=== PATIENT | female | born 1975 | race Hispanic/Latino ===

== ENCOUNTER 2018-08-26 02:18 | Observation (INO) | payer BC, SELFPAY ==
[2018-08-26] MEDS ORDERED: Morphine 4 MG/ML VIAL ONE ×2 (03:11→05:32)
[2018-08-26] MEDS ORDERED: Ondansetron PF 4 MG/2 ML Vial ONE ×2 (03:11→11:06)
[2018-08-26] MEDS ORDERED: PROPOFOL 20 ML ONE (03:34)
[2018-08-26 03:38] LABS: #Basophils 0.1 thou/uL (0.0-0.2); #Lymphocytes 2.8 thou/uL (1.20-3.40); #Monocytes 0.6 thou/uL (0.11-0.59); #Neutrophils 7.9 thou/uL (1.40-6.50); %Basophils 0.8 % (0.0-1.0); %Eosinophils 0.4 % (0.0-10.0); %Lymphocytes 24.3 % (21.0-51.0); %Neutrophils 69.5 % (42.0-75.0); Hemoglobin 12.9 g/dL (12.0-16.0); Mean Corpuscular HGB CONC 32.8 g/dL (32.0-36.0); Mean Corpuscular Hemoglobin 32.8 pg (27.0-31.0); Mean Platelet Volume 7.2 fL (7.4-10.4); Platelet Count 412 thou/uL (130-400); Red Blood Cell (RBC) Count 3.94 mill/uL (4.20-5.40); White Blood Cell (WBC) Count 11.4 thou/uL (4.8-10.8)
[2018-08-26 03:45] LABS: BHCG - Serum Negative (NEGATIVE); Pregs Control Background? CLEAR/WHITE (CLR/WHITE); Pregs Control Bar Appear? YES (CONTROL BAR)
[2018-08-26 03:47] LABS: INR-International Normal Ratio 0.8; PTT 24.2 SEC (22.9-36.1); Prothrombin Time 11.4 SEC (12.0-14.7)
[2018-08-26 04:00] LABS: ALT (SGPT) 9 U/L (8-55); AST (SGOT) 13 U/L (5-34); Albumin 3.1 g/dL (3.5-5.0); Alkaline Phosphatase 60 U/L (40-150); Anion Gap 16 mmol/L (10-20); BUN (Urea Nitrogen) 14 mg/dL (7.0-18.7); Bilirubin, Total Less than 0.2 mg/dL (0.2-1.2); Calc. Creatinine Clearance 0 mL/min (70-130); Carbon Dioxide 21 mmol/L (22-29); Chloride 98 mmol/L (98-107); Estimated GFR-MDRD 58; Globulin 3.7 g/dL (2.4-3.5); Glucose 494 mg/dL (70-105); Potassium 4.1 mmol/L (3.5-5.1); Protein, Total 6.8 g/dL (6.0-8.3); Sodium 131 mmol/L (136-145)
[2018-08-26] MEDS ORDERED: Ondansetron PF 4 MG/2 ML Vial IVP PRN (06:52)
[2018-08-26] MEDS ORDERED: Morphine 4 MG/ML VIAL IV PRN (06:53)
[2018-08-26] MEDS ORDERED: Ondansetron ODT 4 MG TAB PO PRN (07:01)
[2018-08-26] MEDS ORDERED: Insulin Regular 300 UNITS/3 ML VIAL SC PRN (07:01)
[2018-08-26] MEDS ORDERED: Dextrose 5% in Water 1,000 ML IV PRN (07:01)
[2018-08-26] MEDS ORDERED: hydrALAZINE 20 MG/ML VIAL SLOW IVP PRN (07:01)
[2018-08-26] MEDS ORDERED: Sodium Chloride 0.9% 1,000 ML IV SCH (07:01)
[2018-08-26] MEDS ORDERED: Dextrose 50% Abboject 50 ML SYRINGE SLOW IVP PRN (07:01)
[2018-08-26] MEDS ORDERED: Promethazine HCl 25 MG/ML VIAL IM PRN ×2 (07:01)
[2018-08-26 07:06] VITALS: BMI 31.6
[2018-08-26] MEDS ORDERED: Morphine 2 MG/ML SYRINGE SLOW IVP PRN (07:31)
[2018-08-26] MEDS: Ondansetron PF 4 MG/2 ML Vial IVP PRN (07:33)
[2018-08-26] MEDS: Sodium Chloride 0.9% 1,000 ML IV SCH ×2 (07:39→16:07)
[2018-08-26] MEDS: Famotidine 20 MG TAB PO SCH ×2 (09:40→19:44)
[2018-08-26] MEDS ORDERED: CEFAZOLIN 2 GM/50 ML-DEXTROSE 2 GM in Premix Bag 1 BAG IVPB SCH (10:15)
[2018-08-26] MEDS ORDERED: CEFAZOLIN/Water 2 GM/20 ML SYRINGE SLOW IVP SCH ×2 (10:15→13:49)
--- NOTE | 2018-08-26 10:23 | RAD ---
LEFT ANKLE 3 VIEWS: HISTORY: Left ankle pain. FINDINGS/IMPRESSION: There are displaced fractures of the medial and lateral malleolus with disruption of the ankle mortis e. POS: [facility]
--- NOTE | 2018-08-26 10:27 | RAD ---
PORTABLE CHEST 1 VIEW: DATE: 08/26/2018. TIME: 2:19 a.. HISTORY: Bimalleolar fractures of the left ankle. FINDINGS: The heart size is normal. The lungs are expanded without focal areas of consolidation, pneumothorace s, or pleural effusions are seen. IMPRESSION: No acute process. POS: [facility]
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
--- NOTE | 2018-08-26 10:37 | RAD ---
LEFT ANKLE 3 VIEWS: HISTORY: Post reduction. COMPARISON: Earlier exam of the same day. FINDINGS: Fiberglass cast material is now seen stabilizing a bimalleolar fracture. The fracture alignment is d efinitely improved as compared to the prior examination. There is still slight medial subluxation to the tibia. IMPRESSION: Reduction of the ankle fracture. POS: [facility]
[2018-08-26] MEDS ORDERED: Midazolam HCl 2 mg/2 ml Vial ONE (11:17)
[2018-08-26] MEDS ORDERED: Fentanyl 100 MCG/2 ML VIAL ONE (11:17)
[2018-08-26] MEDS ORDERED: CEFAZOLIN 2 GM/50 ML BAG ONE (11:21)
[2018-08-26] MEDS ORDERED: Bupivacaine PF 0.5% 30 ML VIAL ONE (11:53)
[2018-08-26] MEDS ORDERED: Morphine 10 MG/ML VIAL ONE (11:56)
--- NOTE | 2018-08-26 12:27 | HP ---
CHIEF COMPLAINT: Fall. HISTORY OF PRESENT ILLNESS: This is a 43-year-old female who reports tripping and falling over an ex tension cord. When she got up, she was unable to bear weight on her left ankle and she had deformity and swelling. PAST MEDICAL HISTORY: Significant for diabetes type 2. PAST SURGICAL HISTORY: She has had a partial nephrectomy. She has had an endometrial ablation, cesa rean section. She has had surgery and cholecystectomy. MEDICATIONS: Include Carafate. She is on insulin 15 units q.12 hours, Humalog 1 unit t.i.d., aspiri n 81, Protonix and Reglan. ALLERGIES: She has an allergy to FENTANYL. SOCIAL HISTORY: She is . She works as a caregiver. Occasional tobacco, social alcohol. FAMILY HISTORY: Diabetes. PHYSICAL EXAMINATION: VITAL SIGNS: Temperature 97.8, pulse 92, blood pressure 96/65. GENERAL: She is awake, alert, in no apparent distress. HEENT: Unremarkable. LUNGS: Clear. HEART: Regular rate and rhythm. ABDOMEN: Soft, nondistended, nontender, good bowel sounds. EXTREMITIES: She has got a splint on her left ankle. There is a small abrasion on the left knee. G ood capillary refill. LABORATORY DATA: White count 11.4, H&H is 12 and 39, platelet count 412. Her electrolytes are fine. Glucose is 494, repeat on that was 298. LFTs are normal. Coags are fine. X-RAY FINDINGS: X-ray shows a bimalleolar fracture, left ankle. It has been reduced. PLAN: Orthopedic consultation.
--- NOTE | 2018-08-26 13:50 | RAD ---
LEFT ANKLE 3 VIEWS: HISTORY: Bimalleolar fracture. FINDINGS: Three spot fluoroscopic intraoperative images of the left ankle demonstrate interval reduction and in ternal fixation of the bimalleolar fractures with plate and screws through the distal fibula and 2 sc rews through the medial malleolus since exam of 2:14 a.m. from the same date. Anatomic alignment has been restored. The ankle mortise appears normal. POS: [facility]
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
[2018-08-26] MEDS ORDERED: Succinylcholine Chloride 20 MG/ML 10 ml SYRINGE FS ONE (14:40)
[2018-08-26] MEDS ORDERED: PROPOFOL 200 MG/20 ML VIAL ONE (14:40)
[2018-08-26] MEDS ORDERED: PHENYLEPHRINE-NS 100 MCG/ML 10 ML SYRINGE ONE (14:40)
[2018-08-26] MEDS ORDERED: Lidocaine 1% PF 5 ML VIAL ONE (14:40)
[2018-08-26] MEDS ORDERED: Cyclobenzaprine 10 MG TAB PO PRN (15:43)
[2018-08-26] MEDS ORDERED: traMADol HCl 50 MG TAB PO PRN ×2 (15:43)
[2018-08-26] MEDS: Acetaminophen 500 MG TAB PO SCH ×2 (16:00→22:38)
[2018-08-26] MEDS: Ibuprofen 800 MG TAB PO SCH ×2 (16:00→22:38)
[2018-08-26] MEDS: CEFAZOLIN 2 GM/50 ML-DEXTROSE 2 GM in Premix Bag 1 BAG IVPB SCH (19:46)
[2018-08-27] MEDS: Acetaminophen 500 MG TAB PO SCH ×4 (03:23→22:33)
[2018-08-27] MEDS: Ondansetron PF 4 MG/2 ML Vial IVP PRN (03:23)
[2018-08-27] MEDS: CEFAZOLIN 2 GM/50 ML-DEXTROSE 2 GM in Premix Bag 1 BAG IVPB SCH (03:24)
[2018-08-27 05:45] LABS: Anion Gap 9 mmol/L (10-20); BUN (Urea Nitrogen) 17 mg/dL (7.0-18.7); Calc. Creatinine Clearance 75 mL/min (70-130); Calcium 7.9 mg/dL (7.8-10.44); Carbon Dioxide 26 mmol/L (22-29); Chloride 106 mmol/L (98-107); Estimated GFR-MDRD 53; Glucose 214 mg/dL (70-105); Potassium 4.2 mmol/L (3.5-5.1); Sodium 137 mmol/L (136-145)
[2018-08-27 05:53] LABS: #Basophils 0.1 thou/uL (0.0-0.2); #Eosinphils 0.2 thou/uL (0.0-0.7); #Lymphocytes 2.2 thou/uL (1.20-3.40); #Monocytes 0.9 thou/uL (0.11-0.59); #Neutrophils 4.8 thou/uL (1.40-6.50); %Basophils 0.9 % (0.0-1.0); %Eosinophils 2.3 % (0.0-10.0); %Lymphocytes 26.5 % (21.0-51.0); %Monocytes 10.8 % (0.0-10.0); %Neutrophils 59.6 % (42.0-75.0); Hemoglobin 10.2 g/dL (12.0-16.0); Mean Corpuscular HGB CONC 32.2 g/dL (32.0-36.0); Mean Corpuscular Hemoglobin 33.3 pg (27.0-31.0); Mean Platelet Volume 7.4 fL (7.4-10.4); Platelet Count 303 thou/uL (130-400); RBC Distribution Width 12.2 % (11.5-14.5); Red Blood Cell (RBC) Count 3.07 mill/uL (4.20-5.40); White Blood Cell (WBC) Count 8.1 thou/uL (4.8-10.8)
[2018-08-27] MEDS: Ibuprofen 800 MG TAB PO SCH ×2 (08:17→16:47)
[2018-08-27] MEDS: Famotidine 20 MG TAB PO SCH ×2 (08:17→20:40)
--- NOTE | 2018-08-27 10:12 | PRG ---
DATE OF SERVICE: 08/27/2018 Ms. Barone is a 43-year-old woman who is postoperative day #1, status post open reduction and interna l fixation of left medial and lateral malleolar fractures. She reports adequate pain control this mo rning She tolerated a diet. She is having normal bowel and urinary function. OBJECTIVE: VITAL SIGNS: This morning includes blood pressure 111/76, pulse is 85, respiration rate is 18, tempe rature is 98.2 degrees Fahrenheit, oxygen saturation 92% on room air. HEART: Reveals regular rate and rhythm, no murmurs or gallops auscultated. CHEST: Clear to auscultation bilaterally. Her breathing is regular and unlabored. ABDOMEN: Soft, nontender, nondistended. EXTREMITIES: Reveals 2+ radial and pedal pulses bilaterally. Left ankle is immobilized in a long sp lint. NEUROLOGIC: Reveals no focal deficits present. LABORATORY DATA: Today includes a CBC with 8100 white blood cells, hemoglobin and hematocrit is 10.2 and 31.8 respectively. Platelet count is 303,000. Metabolic profile: Sodium 137, potassium is 4.2 , chloride is 106, bicarbonate is 26, BUN 17, creatinine is 1.12, glucose is 214. IMPRESSION: 1. Postoperative day #1, status post open reduction internal fixation left bimalleolar ankle fractur e. 2. Acute hyperglycemia, stable type 2 diabetes mellitus. PLAN: 1. Increase activity per physical and occupational therapy. 2. We will saline lock and discontinue Lindsay catheterization. The patient will be discharged home soon once cleared by Orthopedic Surgery.
[2018-08-28] MEDS: Ibuprofen 800 MG TAB PO SCH ×2 (00:07→08:19)
[2018-08-28] MEDS: Acetaminophen 500 MG TAB PO SCH ×2 (04:10→09:35)
[2018-08-28] MEDS: Famotidine 20 MG TAB PO SCH (08:17)
[2018-08-28] MEDS ORDERED: Polyethylene Glycol 3350 17 GM Packet PO SCH (09:00)
[2018-08-28] MEDS ORDERED: Senokot 8.6 MG TAB PO SCH (09:00)
[2018-08-28 11:13] VITALS: BP 136/86; TEMP 98.2
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
--- NOTE | 2018-09-12 13:32 | EKG ---
Test Reason : Blood Pressure : / mmHG Vent. Rate : 122 BPM Atrial Rate : 120 BPM P-R Int : 000 ms QRS Dur : 060 ms QT Int : 328 ms P-R-T Axes : 000 016 047 degrees QTc Int : 467 ms Accelerated Junctional rhythm Abnormal ECG Confirmed by DEE CHAPMAN ([id number]), acquisition editor MICHAEL CHOE ([id number]) on 09/12/2018 1:31:54 PM Referred By: Confirmed By:DEE CHAPMAN
== END 2018-08-28 14:02 | disposition home or self-care (01) ==
LOC: ERS 02:18 → SURG A 05:26
PROVIDERS: ADMIT Surgery; ATTEND Surgery
PROC: 0QSK04Z Reposition Left Fibula with Internal Fixation Device, Open Approach (ICD-10-PCS; principal; 2018-08-28)
PROC: 0QSH04Z Reposition Left Tibia with Internal Fixation Device, Open Approach (ICD-10-PCS; 2018-08-28)
DX: S82.852A Displaced trimalleolar fracture of left lower leg, initial encounter for closed fracture (principal); E11.65 Type 2 diabetes mellitus with hyperglycemia; F32.9 Major depressive disorder, single episode, unspecified; F17.210 Nicotine dependence, cigarettes, uncomplicated; Z91.5 Personal history of self-harm; Z79.4 Long term (current) use of insulin; Z79.82 Long term (current) use of aspirin; Z79.899 Other long term (current) drug therapy; Z88.4 Allergy status to anesthetic agent; Z90.5 Acquired absence of kidney; Z96.41 Presence of insulin pump (external) (internal); W01.0XXA Fall on same level from slipping, tripping and stumbling without subsequent striking against object, initial encounter; Y92.009 Unspecified place in unspecified non-institutional (private) residence as the place of occurrence of the external cause
CPT/HCPCS: 27840; 36415; 36416; 71045; 76001; 80048; 80053; 84703; 85025; 85610; 85730; 90471; 90686; 93005; 96361; 96365; 96366; 96374; 96375; 96376; 99152; C1713; G0008; G0378; G8978-GP-CM; G8979-GP-CK; G8987-GO-CJ; G8988-GO-CI; J2001; J2250; J2270; J2405; J2704; J3010; S0020

== ENCOUNTER 2018-11-09 05:37 | Day surgery (SDC) | payer SELFPAY ==
[2018-11-06 16:06] VITALS: BMI 31.2
[2018-11-09] MEDS ORDERED: Midazolam HCl 2 mg/2 ml Vial ONE (06:14)
[2018-11-09] MEDS ORDERED: Fentanyl 100 MCG/2 ML VIAL ONE ×3 (06:14→13:29)
[2018-11-09] MEDS ORDERED: Ropivacaine 0.2% HCl/PF 0 ML ONE (06:14)
[2018-11-09] MEDS ORDERED: CEFAZOLIN 2 GM/50 ML BAG ONE (06:25)
[2018-11-09] MEDS ORDERED: Scopolamine 1.5 mg/72 hour Patch ONE (07:02)
[2018-11-09] MEDS ORDERED: Lidocaine 1% (PF) 30 ML VIAL ONE (10:39)
--- NOTE | 2018-11-09 14:00 | RAD ---
RADIOGRAPH LEFT ANKLE 2 VIEWS: Date: 11/09/18 Time: 1216 hours HISTORY: 43-year-old female status post open reduction and internal fixation of ankle fractures. COMPARISON: 08/26/18 at 1242 hours. FINDINGS: The previously demonstrated two lag screws entering the medial malleolus, have been removed. There is new medial metallic plate attached to bone with multiple screws, from distal tibial diaphysis to the distal metaphysis. The previously demonstrated metallic plate and screws from the distal fibular felipe physis to the distal tip of the lateral malleolus, remains. Alignment remains anatomical. There is an terior and medial soft tissue swelling. There is subcutaneous emphysema anterior to the distal tibial metaphysis. IMPRESSION: 1. Revision of distal tibial fracture repair, with removal of lag screws, and placement of new open reduction and internal fixation hardware. 2. Open reduction and internal fixation of distal fibula hardware remains unchanged. POS: [facility]
[2018-11-09] MEDS ORDERED: HYDROcodone/Acetaminophen 5/325 mg Tablet ONE (14:54)
[2018-11-09] MEDS ORDERED: PHENYLEPHRINE-NS 100 MCG/ML 10 ML SYRINGE ONE (16:41)
[2018-11-09] MEDS ORDERED: PROPOFOL 200 MG/20 ML VIAL ONE (16:41)
--- NOTE | 2018-11-09 20:08 | OP ---
DATE OF PROCEDURE: 11/09/2018 OPERATION PERFORMED: Left medial ankle hardware removal and left medial malleolus nonunion open reduction and internal fixation. 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 COMPLICATIONS: None. ESTIMATED BLOOD LOSS: Minimal. ANESTHESIA: General. IMPLANTS: Synthes medial tibial plate locking variable angle. INDICATIONS: Ms. Barone is a 43-year-old female who fractured her ankle. She was treated with nonweightbearing for two months. However, after that, she did begin weightbearing. She had a collapse of her medial ankle with subluxation of the medial malleolar fracture consistent with nonunion. The lateral ankle appeared healed. She was indicated for revision surgery with hardware removal and plating. Risks have been reviewed in detail. She elected to proceed. She is at risk for complications such as infection, nonunion, posttraumatic arthritis, and others. DESCRIPTION OF OPERATION: Ms. Barone is identified in the preoperative holding area. Her correct extremity was marked. She was carried to the operating room. She was positioned supine. General anesthesia was induced. A multidisciplinary time-out was performed. The left lower extremity was prepped and draped in a sterile fashion. We began the procedure with an approach to the medial malleolus. Dissected down through the subcutaneous tissues to the bony level. We incised the fascia and periosteum. We then exposed the underlying fracture. The fracture was mobile. It was clearly a nonunion. The fibrous tissue was excised. At this point, we removed the medial malleolar screws using appropriate screwdriver. We then reduced the fracture back into its anatomic position. This was held with K-wire fixation. We then applied a medial malleolar plate. Multiple screws were placed proximally and distally. We placed screws under intraoperative x-ray guidance. We then proceeded to pack a bone graft which was cadaver bone chips from the anterior tibia. This supported the talar dome restoring some of the impaction of the anterior aspect. Again, we took images. We thoroughly irrigated. We then closed with 0 Vicryl suture, 2-0 Vicryl suture, and nylon for the skin in interrupted fashion. A sterile dressing was applied and a splint was placed. The patient was taken to the recovery room at this point in good condition. Job ID: [id number]
== END 2018-11-09 15:20 | disposition home or self-care (01) ==
LOC: SDC 05:37
PROVIDERS: ATTEND Orthopaedic Surgery
PROC: 0QSH04Z Reposition Left Tibia with Internal Fixation Device, Open Approach (ICD-10-PCS; principal; 2018-11-09)
DX: S82.52XK Displaced fracture of medial malleolus of left tibia, subsequent encounter for closed fracture with nonunion (principal); F41.9 Anxiety disorder, unspecified; F32.9 Major depressive disorder, single episode, unspecified; E11.9 Type 2 diabetes mellitus without complications; Z87.891 Personal history of nicotine dependence; Z88.5 Allergy status to narcotic agent
CPT/HCPCS: 36416; 76000; C1713; J2001; J2250; J2704; J2795; J3010

== ENCOUNTER 2019-04-08 18:57 | Emergency (ER) | payer SELFPAY ==
--- NOTE | 2019-04-08 19:39 | RAD ---
LEFT KNEE FOUR VIEWS: 04/08/19 HISTORY: Knee pain. Joint spaces are well preserved. There is no signs of fracture, dislocation or joint effusion. IMPRESSION: Negative left knee. POS: [facility]
[2019-04-08] MEDS ORDERED: Morphine 4 MG/ML VIAL ONE (19:45)
[2019-04-08] MEDS ORDERED: Ondansetron PF 4 MG/2 ML Vial ONE (19:45)
[2019-04-08 20:29] LABS: #Basophils 0.1 thou/uL (0.0-0.2); #Eosinphils 0.5 thou/uL (0.0-0.7); #Lymphocytes 2.3 thou/uL (1.20-3.40); #Monocytes 0.8 thou/uL (0.11-0.59); #Neutrophils 9.4 thou/uL (1.40-6.50); %Basophils 0.8 % (0.0-1.0); %Eosinophils 3.6 % (0.0-10.0); %Lymphocytes 17.6 % (21.0-51.0); Hemoglobin 12.9 g/dL (12.0-16.0); Mean Corpuscular HGB CONC 33.2 g/dL (32.0-36.0); Mean Corpuscular Hemoglobin 33.5 pg (27.0-31.0); Mean Platelet Volume 7.1 fL (7.4-10.4); Platelet Count 378 thou/uL (130-400); RBC Distribution Width 11.6 % (11.5-14.5); Red Blood Cell (RBC) Count 3.84 mill/uL (4.20-5.40); White Blood Cell (WBC) Count 13.1 thou/uL (4.8-10.8)
[2019-04-08 20:36] LABS: INR-International Normal Ratio 0.9; PTT 28.7 SEC (22.9-36.1); Prothrombin Time 12.7 SEC (12.0-14.7)
[2019-04-08 20:47] LABS: Anion Gap 15 mmol/L (10-20); BUN (Urea Nitrogen) 12 mg/dL (7.0-18.7); Calc. Creatinine Clearance 0 mL/min (70-130); Carbon Dioxide 23 mmol/L (22-29); Chloride 100 mmol/L (98-107); Estimated GFR-MDRD 63; Glucose 337 mg/dL (70-105); Potassium 4.5 mmol/L (3.5-5.1); Sodium 133 mmol/L (136-145)
--- NOTE | 2019-04-08 21:38 | ULT ---
LEFT LOWER EXTREMITY VENOUS DUPLEX EXAM: HISTORY: Left leg pain and swelling. FINDINGS: Real-time color Doppler evaluation of the left lower extremity was performed from groin to calf. Thi s included evaluation of the common femoral, superficial and profunda femoral, saphenous, popliteal, and posterior tibial veins. This shows a patent deep venous system. There is soft tissue edema loo ge in the region of the ankle. IMPRESSION: No evidence of deep vein thrombosis. POS: [facility]
[2019-04-08] MEDS ORDERED: Morphine 2 MG/ML SYRINGE ONE (21:48)
== END 2019-04-08 22:27 | disposition home or self-care (01) ==
LOC: ERS 18:57
DX: M25.462 Effusion, left knee (principal); E10.9 Type 1 diabetes mellitus without complications; F41.9 Anxiety disorder, unspecified; F32.9 Major depressive disorder, single episode, unspecified; Z87.891 Personal history of nicotine dependence
CPT/HCPCS: 36415; 80048; 82550; 85025; 85610; 85730; J2270; J2405

== ENCOUNTER 2019-04-15 02:57 | Inpatient (IN) | payer SELFPAY ==
[2019-04-15] MEDS ORDERED: Ondansetron PF 4 MG/2 ML Vial ONE (03:49)
[2019-04-15] MEDS ORDERED: Morphine 4 MG/ML VIAL ONE ×2 (03:49→05:51)
[2019-04-15 04:11] LABS: Hemoglobin 11.3 g/dL (12.0-16.0); Mean Corpuscular HGB CONC 33.4 g/dL (32.0-36.0); Mean Platelet Volume 6.6 fL (7.4-10.4); Platelet Count 469 thou/uL (130-400); RBC Distribution Width 11.5 % (11.5-14.5); Red Blood Cell (RBC) Count 3.43 mill/uL (4.20-5.40); White Blood Cell (WBC) Count 8.5 thou/uL (4.8-10.8)
[2019-04-15 04:54] LABS: Band 13 % (5-11); Eosinophils 4 % (0-10); Lymphocytes 21 % (21-51); MDiff Complete? YES; Monocytes 6 % (0-10); Neutrophil 56 % (42-75)
[2019-04-15 05:42] LABS: ALT (SGPT) 9 U/L (8-55); AST (SGOT) 16 U/L (5-34); Albumin 2.4 g/dL (3.5-5.0); Alkaline Phosphatase 132 U/L (40-150); Anion Gap 13 mmol/L (10-20); BUN (Urea Nitrogen) 13 mg/dL (7.0-18.7); Bilirubin, Total Less than 0.2 mg/dL (0.2-1.2); Calc. Creatinine Clearance 0 mL/min (70-130); Calcium 9.4 mg/dL (7.8-10.44); Carbon Dioxide 22 mmol/L (22-29); Chloride 104 mmol/L (98-107); Estimated GFR-MDRD 73; Globulin 4.3 g/dL (2.4-3.5); Glucose 129 mg/dL (70-105); Potassium 4.1 mmol/L (3.5-5.1); Protein, Total 6.7 g/dL (6.0-8.3); Sodium 135 mmol/L (136-145)
[2019-04-15 06:59] VITALS: BMI 31.7
--- NOTE | 2019-04-15 07:44 | RAD ---
EXAM: 4 views of the left knee HISTORY: Knee pain and swelling COMPARISON: 04/08/2019 FINDINGS: A small knee effusion is seen. There is no evidence of acute fracture or dislocation. Mild diffuse significant degenerative changes are seen. No soft tissue swelling is present. IMPRESSION: No evidence of acute osseous abnormality.
[2019-04-15] MEDS: Vancomycin HCl 1 GM in Premix Bag 1 BAG IVPB SCH ×2 (08:30→20:51)
[2019-04-15] MEDS ORDERED: Vancomycin HCl 750 MG in Sodium Chloride 0.9% 250 ML 250 ML IVPB SCH (09:00)
[2019-04-15] MEDS: Piperacillin/Tazobactam 3.375 GM in Sodium Chloride 0.9% 100 ML IVPB SCH ×2 (12:15→17:52)
[2019-04-15] MEDS: Morphine 4 MG/ML VIAL SLOW IVP PRN ×2 (13:23→21:17)
[2019-04-15] MEDS: Ketorolac Tromethamine 30 MG/ML VIAL IVP SCH ×2 (13:24→20:44)
[2019-04-15] MEDS ORDERED: HumaLOG 300 UNITS/3 ML VIAL SC PRN (13:29)
[2019-04-15] MEDS ORDERED: Dextrose 5% in Water 1,000 ML IV PRN (13:29)
[2019-04-15] MEDS ORDERED: Dextrose 50% Abboject 50 ML SYRINGE SLOW IVP PRN (13:29)
[2019-04-15] MEDS ORDERED: NOVOLOG INSULIN PUMP SQ SCH (13:30)
--- NOTE | 2019-04-15 14:23 | ULT ---
EXAM: Left lower extremity venous Doppler HISTORY: Left lower extremity edema. FINDINGS: Grayscale, color-flow, Doppler evaluation, spectral analysis of the left lower extremity venous struc tures is performed with 2-D imaging. The left common femoral, superficial femoral, popliteal, posterior tibial, proximal greater saphenous and profunda femoral veins are imaged. There is normal luminal compressibility, flow, and augmentation in the visualized deep venous structu res of the left lower extremity. IMPRESSION: No evidence of a deep vein thrombosis in the visualized deep venous structures left lower extremity.
--- NOTE | 2019-04-15 15:58 | CON ---
DATE OF CONSULTATION: 04/15/2019 CONSULTING PHYSICIAN: Álvaro Joyce MD REASON FOR CONSULTATION: Swollen, left knee. BRIEF CLINICAL HISTORY: Concetta is a 43-year-old female, who is admitted to the Medicine Team for left knee swelling, which has been present and progressive for the last 3 to 5 days. Within the last 2 to 3 weeks, she has had a couple of visits to the emergency room for similar symptoms, discomfort and pain in the left knee. She has been treated symptomatically and released and she has been able to walk, but more recently she has had significant increase in pain and unable to stand, bear weight and walk on the knee. She denies any history of trauma or sentinel event, which started this process of insidious onset pain. Plain radiographs have been negative for acute injury to include fracture. PAST MEDICAL HISTORY: Significant for diabetes type 2. More recently, as of today, sedimentation rate was 130 and a C-reactive protein was 11.42. Glucose is in anywhere from 337 to 135, and her white count was 8.5 today. OBJECTIVE: VITAL SIGNS: Temperature 98.9, pulse 97, blood pressure is 176/82, pulse is 104, respiratory rate is 20 and nonlabored on room air, O2 saturation is 98%. EXTREMITIES: Visual inspection of the left knee demonstrates her to have a fluctuance noted in the parapatellar space anteriorly and medially consistent with a subcutaneous fluctuance. The capsule itself feels fine, but gross inspection of the knee does demonstrate overall fullness of the knee relative to the right. I see no subluxation. There is no deficit in the quadriceps tendon and patellar tendon appears intact; however, it is indurated and firm inferiorly in the peripatellar space. Range of motion is difficult to assess, but adequate, and again, no effusion is noted and ballottement is negative. There is no significant erythema, but the knee is warm. No breaks in the skin are noted in and around the parapatellar region. No malrotation or deformity is identified. IMPRESSION: Suspect left knee infrapatellar septic bursitis. PLAN: Go and start her on Zosyn and vancomycin empirically. Keep the patient n.p.o. after midnight and plan for a possible incision, drainage, and washout of the left knee in the morning. Job ID: [id number]
[2019-04-15] MEDS: Sodium Chloride 0.9% 1,000 ML IV SCH ×2 (16:00→21:26)
--- NOTE | 2019-04-15 18:47 | HP ---
PRIMARY CARE PROVIDER: Davin Mcarthur MD CHIEF COMPLAINT: Left knee pain. HISTORY OF PRESENT ILLNESS: This is a 43-year-old female, who presents with approximately a week-long history of persistent left knee pain, difficulty ambulating, swelling, and redness of the left lower extremity. The patient denied any specific direct trauma, injury, twisting of the knee, or prior injury. The patient apparently presented to the emergency room approximately a week prior to this evaluation on 04/09/2019 and treated symptomatically with Tylenol No. 3 and general reassurance. The patient underwent DVT rule out during the initial emergency room evaluation on 04/09/2019. The patient states the pain per progressed in the last 48 hours and is essentially unable to bear weight on the left lower leg. The patient's history is significant for a left ankle nonunion fracture, requiring an open reduction and internal fixation procedure in October 2018. The patient states she has had some difficulty with residual swelling of the left ankle over the last 6 months. The patient admitted to some chills without documented fever. Rated the pain as 10/10 in the emergency room and received a morphine sulfate 8 mg in addition to Zofran. The patient underwent a radiographic evaluation of the left knee showing a small effusion without evidence of bony destruction. The patient was referred to the Hospitalist Service for further evaluation. PAST MEDICAL HISTORY: 1. Left ankle fracture with nonunion, status post hardware removal with open reduction and internal fixation in October 2018. 2. Diabetes mellitus type 1 on insulin pump x5 years. 3. History of suicide attempt by cutting her wrist. 4. Question of a renal cell carcinoma. PAST SURGICAL HISTORY: 1. Status post insulin pump. 2. Status post uterine ablation. 3. Status post open reduction and internal fixation of left ankle. 4. Status post nephrectomy. CURRENT MEDICATIONS: NovoLog insulin pump. ALLERGIES: TO FENTANYL. FAMILY HISTORY: Positive for hypertension. SOCIAL HISTORY: The patient resides in [place], [place]. . Drinks socially. Former tobacco use. Occasional marijuana use. REVIEW OF SYSTEMS: CONSTITUTIONAL: Negative for weight loss or gain, ability to conduct usual activities. SKIN: Negative for rash, itching. EYES: Negative for double vision, pain. ENT/MOUTH: Negative for nose bleeding, neck stiffness, pain, tenderness. CARDIOVASCULAR: Negative for palpitations, dyspnea on exertion, orthopnea. RESPIRATORY: Negative for shortness of breath, wheezing, cough, hemoptysis, fever or night sweats. GASTROINTESTINAL: Negative for poor appetite, abdominal pain, heartburn, nausea, vomiting, constipation, or diarrhea. GENITOURINARY: Negative for urgency, frequency, dysuria, nocturia. MUSCULOSKELETAL: Negative for pain, swelling. NEUROLOGIC/PSYCHIATRIC: Negative for anxiety, depression. ALLERGY/IMMUNOLOGIC: Negative for skin rash, bleeding tendency. Otherwise, negative except as stated per HPI. PHYSICAL EXAMINATION: VITAL SIGNS: On admission; blood pressure 168/82, pulse 92, respiratory rate is 20, temperature 98.9 degrees Fahrenheit, and O2 saturation 98% on room air. GENERAL APPEARANCE: This is a 43-year-old female, alert and oriented x3, pleasant, smiling, in no acute distress. HEENT: Pupils are equal, round, and reactive to light and accommodation. Extraocular muscles are intact. No scleral icterus. No conjunctival injection. Nares patent. OP is clear. NECK: Supple. No cervical adenopathy. No thyromegaly. No carotid bruits. No JVD appreciated. Cervical spine with full active and passive range of motion. No meningeal signs noted. CHEST: Lungs are clear to auscultation bilaterally. CARDIOVASCULAR: S1 and S2 without noted murmur, rub, or gallop. ABDOMEN: Rounded, soft, nontender, and nondistended. Bowel sounds are positive in all 4 quadrants. No hepatosplenomegaly. No abdominal bruits. No rebound or guarding appreciated. EXTREMITIES: Left lower extremity with edema from the ankle to the knee with peripatellar effusion. Joint line tenderness medially and laterally. Limited passive range of motion of the left knee due to pain. Pitting edema noted on the left mid graham. Pulses are palpable distally at the dorsalis pedis, posterior tibial, and popliteal arteries bilaterally. Capillary refill less than 2 seconds. Postsurgical changes noted in the medial left ankle with intact scar. NEUROLOGIC: Cranial nerves 2 through 12 are grossly intact. No focal or lateralizing signs appreciated. PERTINENT LAB AND X-RAY FINDINGS: Sodium 135, potassium 4.1, chloride 104, CO2 of 22, BUN 13, creatinine 0.85, glucose 129, calcium 9.4, AST 16, ALT 9, and alkaline phosphatase 132. CRP 11.42. CBC showed a white blood cell count of 8.5, hemoglobin 11, hematocrit 34, MCV 99, platelet count 469 with 56% neutrophils, 13% bands, and ESR 130. D-dimer 2.76. Four views of the left knee dated 04/15/2019 showed no acute process. Small effusion noted. ASSESSMENT AND PLAN: 1. Septic arthritis of the left knee. The patient will be admitted to the medical floor. We will continue empiric IV antibiotic therapy with vancomycin 3.375 g IV q.6 hours with additional vancomycin 1 g IV q.12 hours. Orthopedic Surgery consult for potential aspiration versus open procedure. Blood cultures x2. Continue pain control with Toradol 30 mg IV q.6 hours with additional morphine sulfate 4 mg IV q.4 hours p.r.n. Ice therapy to the left knee as clinically indicated. 2. Left lower extremity edema. We will check lower extremity venous Doppler to rule out deep venous thrombosis given the patient's limited mobility x1 week. 3. Diabetes mellitus type 1. Continue subcutaneous insulin pump. Insulin sliding scale for reflexive coverage. ADA diet. Check A1c level in the a.m. 4. Elevated blood pressure. Suspect secondary to left knee pain. We will continue to monitor serial blood pressure trend. No formal diagnosis of hypertension. 5. Prophylaxis. Sequential compression devices held due to lower extremity edema. Lovenox 30 mg subcutaneously daily. Pepcid 20 mg p.o. b.i.d. 6. Code status is full. Surrogate medical decision maker is the patient's mother. Job ID: [id number]
[2019-04-15] MEDS: Famotidine 20 MG TAB PO SCH (20:44)
[2019-04-15] MEDS: hydrALAZINE 20 MG/ML VIAL SLOW IVP PRN (21:14)
[2019-04-16] MEDS: Piperacillin/Tazobactam 3.375 GM in Sodium Chloride 0.9% 100 ML IVPB SCH ×5 (00:31→23:33)
[2019-04-16] MEDS: Morphine 4 MG/ML VIAL SLOW IVP PRN (05:08)
[2019-04-16] MEDS: Ketorolac Tromethamine 30 MG/ML VIAL IVP SCH ×5 (05:09→23:33)
[2019-04-16 07:13] LABS: Hemoglobin A1c 13.9 % (4.0-6.0)
[2019-04-16 07:29] LABS: Anion Gap 9 mmol/L (10-20); BUN (Urea Nitrogen) 13 mg/dL (7.0-18.7); Calc. Creatinine Clearance 88 mL/min (70-130); Calcium 8.9 mg/dL (7.8-10.44); Carbon Dioxide 27 mmol/L (22-29); Chloride 104 mmol/L (98-107); Estimated GFR-MDRD 63; Glucose 138 mg/dL (70-105); Potassium 4.3 mmol/L (3.5-5.1); Sodium 136 mmol/L (136-145)
[2019-04-16 07:49] LABS: Hemoglobin 9.9 g/dL (12.0-16.0); Mean Corpuscular HGB CONC 32.4 g/dL (32.0-36.0); Mean Corpuscular Hemoglobin 32.1 pg (27.0-31.0); Mean Corpuscular Volume 99.2 fL (78.0-98.0); Mean Platelet Volume 5.8 fL (7.4-10.4); Platelet Count 465 thou/uL (130-400); RBC Distribution Width 11.4 % (11.5-14.5); Red Blood Cell (RBC) Count 3.08 mill/uL (4.20-5.40); White Blood Cell (WBC) Count 9.4 thou/uL (4.8-10.8)
[2019-04-16 08:29] LABS: Band 13 % (5-11); Eosinophils 8 % (0-10); Lymphocytes 30 % (21-51); MDiff Complete? YES; Metamyelocyte 1 % (0-0); Monocytes 3 % (0-10); Neutrophil 45 % (42-75); Platelet Morphology Comment Appears Increased; Polychromasia SLIGHT = 2-3 cells (100X) (0-2/hpf)
[2019-04-16] MEDS: Famotidine 20 MG TAB PO SCH ×2 (08:47→23:45)
[2019-04-16] MEDS: Enoxaparin Sodium 30 MG/0.3 ML SYRINGE SC SCH (08:47)
[2019-04-16] MEDS: Vancomycin HCl 1 GM in Premix Bag 1 BAG IVPB SCH ×2 (08:48→21:54)
[2019-04-16] MEDS: hydrALAZINE 20 MG/ML VIAL SLOW IVP PRN (08:49)
--- NOTE | 2019-04-16 10:05 | MRI ---
MRI Lower Ext Jt Lt WO Con HISTORY: Increasing knee pain and swelling x1 week. No history of injury. Left ankle surgery in Decem giuseppe. COMPARISON: Plain film of the knee dated 04/15/2019. FINDINGS: The anterior and posterior cruciate ligaments are intact. The medial meniscus is normal in shape and appearance. Lateral meniscus is also normal in appearance. The medial and lateral collateral ligaments and iliotibial band regions are normal The patellar articular cartilage is intact. The medial lateral patellar retinaculum are normal in kushal earance. The quadriceps tendon is normal. There is patellar tendinosis of the distal patellar tendon and a prominent deep infrapatellar bursa which is distended with fluid. There is a joint effusion present there is also subcutaneous edema change. There is also fluid extend ing into the musculotendinous junction of the vastus lateralis muscle. I suspect that this is probably related a joint capsule rupture given the lack of history of injury. It is possible that thi s represents a myotendinous muscle injury but this would be considered less likely. Area of bone infarct of the proximal tibia is incidentally noted. IMPRESSION: 1. No evidence of meniscal or cruciate ligament injury. 2. Mild patellar tendinosis of the distal patellar tendon. 3. Distended deep infra-patellar bursa. 4. Joint effusion with fluid or edema change extending into the musculotendinous junction of the vast us lateralis muscle, I would suspect that this is most likely on the basis of a joint capsule rupture and less likely a myotendinous junction injury given the lack of any history of trauma.
[2019-04-16] MEDS: Acetaminophen 500 MG TAB PO PRN (10:46)
[2019-04-16] MEDS: Ondansetron PF 4 MG/2 ML Vial IVP PRN (10:47)
--- NOTE | 2019-04-16 11:46 | MRI ---
MRI LEFT LOWER EXTREMITY WITHOUT CONTRAST: Date: 04/16/19 HISTORY: Pain. COMPARISON: MRI same date. FINDINGS: Infarct of medullary cavity of proximal tibia. Prior open reduction and internal fixation with medial plate and screw fixation of distal tibia and lateral plate and screw fixation of the distal femur. T his creates extensive distortion throughout the lower extremity. There is abnormal loss of T1 marrow signal within the calcaneus, with suggestion of a fracture of the posterior superior calcaneal tuberosity. This is incompletely evaluated on this exam. Extensive superficial soft tissue swelling. Mild edema with the anterior and posterior and lateral co mpartments. IMPRESSION: 1. Limited examination. Concern for osteomyelitis of the calcaneus with a fracture through the poste rior superior tuberosity. 2. Cellulitis of the lower extremity. 3. Mild edema within the anterior, lateral, and posterior compartments, may be on the basis of cellu litis and less likely infectious myositis. POS: CET
[2019-04-16] MEDS ORDERED: PROPOFOL 200 MG/20 ML VIAL ONE (12:14)
[2019-04-16] MEDS ORDERED: Lidocaine 1% PF 5 ML VIAL ONE (12:14)
[2019-04-16] MEDS ORDERED: diphenhydrAMINE 50 MG/ML VIAL ONE (12:14)
[2019-04-16] MEDS ORDERED: Ondansetron PF 4 MG/2 ML Vial ONE (12:14)
[2019-04-16] MEDS ORDERED: Fentanyl 100 MCG/2 ML VIAL ONE (13:45)
[2019-04-16] MEDS ORDERED: Midazolam HCl 2 mg/2 ml Vial ONE (13:45)
[2019-04-16] MEDS ORDERED: Neomycin-Polymyxin 1 ML AMP ONE (14:02)
[2019-04-16 14:59] LABS: BHCG - Serum Negative (NEGATIVE); Pregs Control Background? CLEAR/WHITE (CLR/WHITE); Pregs Control Bar Appear? YES (CONTROL BAR)
[2019-04-16] MEDS ORDERED: Morphine 10 MG/ML VIAL ONE (15:13)
[2019-04-16] MEDS ORDERED: Morphine Sulfate 2 MG/ML SYRINGE SLOW IVP PRN (15:37)
[2019-04-16] MEDS ORDERED: Ondansetron HCl/PF 4 MG/2 ML Vial IVP PRN (15:37)
[2019-04-16] MEDS ORDERED: Morphine 2 MG/ML SYRINGE ONE (16:16)
--- NOTE | 2019-04-16 16:19 | RAD ---
EXAM: 2 views of the left tibia/fibula HISTORY: Leg pain COMPARISON: None FINDINGS: There is no evidence of acute fracture or dislocation. Moderate diffuse soft tissue swellin g is seen. No degenerative changes are seen in the knee or ankle. Hardware is seen in the distal tibia and fibula. IMPRESSION: No evidence of acute osseous abnormality.
--- NOTE | 2019-04-16 16:22 | RAD ---
EXAM: 2 views of the left ankle HISTORY: Ankle pain COMPARISON: 11/09/2018; MRI left ankle 04/16/2019 FINDINGS: 2 views of the left ankle shows no evidence of acute fracture or dislocation. Hardware is s een in the distal tibia and fibula from prior fracture repair. No perihardware lucency is seen. Moderate diffuse soft tissue swelling is seen. No degenerative changes are present. There is irregula rity of the posterior calcaneus. IMPRESSION: Irregularity of the posterior calcaneus was seen on MRI and felt to be concerning for ost eomyelitis.
[2019-04-16 16:53] LABS: Fluid, Glucose 140 mg/dL (Not Available); Fluid, Protein Less than 1.0 g/dL (Not Available)
[2019-04-16 16:54] LABS: BF Color Colorless; BF RBC Count - Manual 3 /cumm; BF WBC/Nonhematics Ct. - Manua 58 /cumm; Body Fluid Source Synovial Fluid; Clarity Hazy (Clear); Tube # 1
[2019-04-16 16:55] LABS: BF Segmented Neutrophils 19 %; Cell Count Non Hematic 69 %; Lymphocytes 12 %
[2019-04-16] MEDS: Sodium Chloride 0.9% 1,000 ML IV SCH ×2 (17:26→23:35)
--- NOTE | 2019-04-16 18:23 | PDOC.PN ---
- Subjective Encounter Start Date: 04/16/19 Encounter Start Time: 17:35 Subjective: f/u for LLE peripatellar cellulitis and concern for septic arthritis -: tx with Vanc/Zosyn. L knee aspirated today with intial negative -: effusion. - Objective Resuscitation Status - Order Detail: 04/15/19 13:24 Resuscitation Status Routine Resuscitation Status: FULL: Full Resuscitation MAR Reviewed: Yes Vital Signs & Weight: Vital Signs (12 hours) Temp Pulse Resp BP BP Pulse Ox 04/16/19 12:00 98.0 F 88 20 160/75 H 04/16/19 09:30 145/89 H 04/16/19 08:49 75 182/91 H 04/16/19 08:47 97 04/16/19 08:00 98.2 F 75 20 185/96 H 97 Weight Weight 162 lb 6.4 oz I&O: 04/15/19 04/16/19 04/17/19 06:59 06:59 06:59 Intake Total 300 Output Total 350 Balance -50 Result Diagrams: 04/16/19 06:50 04/16/19 06:50 Additional Labs: Accuchecks 04/16/19 04/15/19 06:52 21:24 POC Glucose 137 H 130 H Microbiology 04/16/19 Unknown Synovial fluid Body Fluid Culture - Preliminary 04/16/19 15:15 Knee - Incision Bacterial Culture - Preliminary 04/15/19 14:57 Venous blood - Right Hand Blood Culture - Preliminary Specimen has been received and culture in progress. No Growth to date. 04/15/19 14:57 Venous blood - Left Arm Blood Culture - Preliminary Specimen has been received and culture in progress. No Growth to date. Laboratory Tests 04/15/19 04/16/19 04/16/19 03:39 06:50 06:50 Hgb 11.3 L Plt Count 469 H Band Neuts % (Manual) 13 H 13 H Hemoglobin A1c 13.9 H Radiology Reviewed by me: Yes (MRI LLE - joint effusion, ? vastus lateralis tendon rupture) Phys Exam - Physical Examination Constitutional: NAD HEENT: PERRLA, sclera anicteric, oral pharynx no lesions Neck: no nodes, no JVD, supple, full ROM Respiratory: no wheezing, no rales, no rhonchi, clear to auscultation bilateral S1, S2 Cardiovascular: RRR, no significant murmur, no rub, gallop Gastrointestinal: soft, non-tender, no distention, positive bowel sounds LLE edema with dressing in place Musculoskeletal: pulses present, edema present Neurological: normal sensation, moves all 4 limbs Skin: normal turgor, cap refill <2 seconds Dx/Plan (1) Septic arthritis of knee, left Code(s): M00.9 - PYOGENIC ARTHRITIS, UNSPECIFIED Status: Acute Comment: Suspected however initial knee effusion with negative gm stain, continue Vanc/ Zosy pending final cx results (2) Bursitis of left knee Code(s): M70.52 - OTHER BURSITIS OF KNEE, LEFT KNEE Status: Acute Comment: Suspected component of presentation in addition ? L vastus lateralis tendon rupture (3) Edema of left lower extremity Code(s): R60.0 - LOCALIZED EDEMA Status: Acute Comment: ? subacute, DVT r/o , elevate LLE while in bed, ? TON hassan (4) DM I (diabetes mellitus, type I), uncontrolled Code(s): E10.65 - TYPE 1 DIABETES MELLITUS WITH HYPERGLYCEMIA Status: Acute Comment: Continue Insulin pump, may need referral to Endocrinology for closer monitoring - Plan plan discussed w/ family, continue antibiotics, PT/OT, director of social work, out of bed/ambulate, DVT proph w/SCDs Stable currently -: Continue Vanc/Zosyn -: OOB/ambulate with assistance -: Pain control as clinically indicated -: Await final L knee aspirate for cx, gout evaluation * .
[2019-04-16 21:15] LABS: Vancomycin, Trough 26.5 ug/mL
[2019-04-17] MEDS: Ketorolac Tromethamine 30 MG/ML VIAL IVP SCH ×4 (05:22→22:48)
[2019-04-17] MEDS: Piperacillin/Tazobactam 3.375 GM in Sodium Chloride 0.9% 100 ML IVPB SCH ×3 (05:23→17:59)
[2019-04-17] MEDS: Morphine 4 MG/ML VIAL SLOW IVP PRN (05:56)
[2019-04-17] MEDS: Ondansetron ODT 4 MG TAB PO PRN (06:02)
[2019-04-17 07:07] LABS: Vancomycin, Random 18.9 ug/mL (See Comment)
[2019-04-17] MEDS ORDERED: Vancomycin HCl 1 GM in Premix Bag 1 BAG IVPB SCH (09:00)
[2019-04-17] MEDS: Enoxaparin Sodium 30 MG/0.3 ML SYRINGE SC SCH (09:44)
[2019-04-17] MEDS: Famotidine 20 MG TAB PO SCH ×2 (09:44→21:54)
--- NOTE | 2019-04-17 10:47 | PRG ---
DATE OF SERVICE: SUBJECTIVE: Concetta is postop day 1 from a left knee needle arthrocentesis with a small open washout of the infrapatellar bursa. Clinically, her arthrocentesis demonstrated clear fluid with fluid white blood cell count of 58 and 3 red blood cells and crystal ID is pending. Otherwise, it did not appear to be an intra-articular process. However, the infrapatellar bursa swab demonstrated gram-negative rods on Gram stain preliminary. Cultures still pending. The patient though has improved. OBJECTIVE: VITAL SIGNS: Temperature 98.3, pulse 87, respiratory rate is 20 and nonlabored, O2 saturation is 98% on room air, blood pressure is 131/76. GENERAL: She is alert and oriented to person, place, time, and situation. MUSCULOSKELETAL: Visual inspection of the left lower extremity demonstrates she still have +1 to 2 edema. She is neurovascularly intact, but her edema is still noted. She is not grossly tender around the patella and no subluxation. No effusion. IMPRESSION: 1. Sympathetic effusion, left knee. 2. Profound edema, possible neuropathy versus enthesopathy. PLAN: I would go ahead and place her in an edema splint now to see if this has any impact on her discomfort, pain, swelling, and inability to bear weight. As far as Escherichia coli goes, we will have to see what the cultures demonstrate, but gross specimen did not appear infected and her intra-articular aspirate certainly did not appear infected. We will recheck the patient later this afternoon and treat as cultures prompt. Job ID: [id number]
[2019-04-17] MEDS: Vancomycin HCl 750 MG in Sodium Chloride 0.9% 250 ML 250 ML IVPB SCH ×2 (11:14→22:49)
[2019-04-17] MEDS: Acetaminophen 500 MG TAB PO PRN (14:50)
--- NOTE | 2019-04-17 15:36 | PDOC.PN ---
- Subjective Encounter Start Date: 04/17/19 Encounter Start Time: 15:35 Subjective: f/u for L knee edema and ? bursitis s/p joint aspirate POD #1. -: Feels better overall. No fever. - Objective Resuscitation Status - Order Detail: 04/15/19 13:24 Resuscitation Status Routine Resuscitation Status: FULL: Full Resuscitation MAR Reviewed: Yes Vital Signs & Weight: Vital Signs (12 hours) Temp Pulse Resp BP Pulse Ox 04/17/19 11:24 98.1 F 89 20 142/72 H 04/17/19 07:58 98.3 F 87 20 131/76 04/17/19 03:55 98.7 F 86 18 153/80 H 98 Weight Weight 162 lb 6.4 oz I&O: 04/16/19 04/17/19 04/18/19 06:59 06:59 06:59 Intake Total 300 1200 Output Total 350 650 800 Balance -50 550 -800 Result Diagrams: 04/16/19 06:50 04/16/19 06:50 Additional Labs: Accuchecks 04/17/19 04/17/19 04/16/19 11:00 06:25 20:52 POC Glucose 202 H 121 H 115 H 04/16/19 11:18 POC Glucose 133 H Microbiology 04/16/19 Unknown Synovial fluid Body Fluid Culture - Preliminary 04/16/19 Unknown Synovial fluid Body Fluid Culture - Preliminary 04/16/19 15:15 Knee - Incision Bacterial Culture - Preliminary 04/16/19 15:15 Knee - Incision Gram Negative Ryan 04/16/19 15:15 Knee - Incision Bacterial Culture - Preliminary 04/15/19 14:57 Venous blood - Right Hand Blood Culture - Preliminary Specimen has been received and culture in progress. No Growth to date. 04/15/19 14:57 Venous blood - Right Hand Blood Culture - Preliminary NO GROWTH AT 48 HOURS 04/15/19 14:57 Venous blood - Left Arm Blood Culture - Preliminary Specimen has been received and culture in progress. No Growth to date. 04/15/19 14:57 Venous blood - Left Arm Blood Culture - Preliminary NO GROWTH AT 48 HOURS Laboratory Tests 04/15/19 04/16/19 04/16/19 03:39 06:50 06:50 Hgb 11.3 L Plt Count 469 H Band Neuts % (Manual) 13 H 13 H Hemoglobin A1c 13.9 H Phys Exam - Physical Examination Constitutional: NAD HEENT: PERRLA, sclera anicteric, oral pharynx no lesions Neck: no nodes, no JVD, supple, full ROM Respiratory: no wheezing, no rales, no rhonchi, clear to auscultation bilateral S1, S2 Cardiovascular: RRR, no significant murmur, no rub, gallop Gastrointestinal: soft, non-tender, no distention, positive bowel sounds L knee edema, decreased erythema Musculoskeletal: pulses present Neurological: normal sensation, moves all 4 limbs Psychiatric: A&O x 3 Skin: normal turgor, cap refill <2 seconds Dx/Plan (1) Septic arthritis of knee, left Code(s): M00.9 - PYOGENIC ARTHRITIS, UNSPECIFIED Status: Acute Comment: Suspected however initial knee effusion with negative gm stain, continue Vanc/ Zosy pending final cx results, septic bursitis (2) Bursitis of left knee Code(s): M70.52 - OTHER BURSITIS OF KNEE, LEFT KNEE Status: Acute Comment: Suspected component of presentation in addition ? L vastus lateralis tendon rupture vs capsule rupture (3) Edema of left lower extremity Code(s): R60.0 - LOCALIZED EDEMA Status: Acute Comment: ? subacute, DVT r/o , elevate LLE while in bed, ? TON hassan (4) DM I (diabetes mellitus, type I), uncontrolled Code(s): E10.65 - TYPE 1 DIABETES MELLITUS WITH HYPERGLYCEMIA Status: Acute Comment: Continue Insulin pump, may need referral to Endocrinology for closer monitoring - Plan continue antibiotics, PT/OT, out of bed/ambulate, DVT proph w/SCDs Stable currently -: Continue Vanc/Zosyn pending final cx results -: Elevate LLE while in bed/seated -: Continue Toradol -: Likely home in 24-48h * .
[2019-04-17] MEDS: Sodium Chloride 0.9% 1,000 ML IV SCH (16:37)
[2019-04-17] MEDS: HumaLOG 300 UNITS/3 ML VIAL SC PRN (17:35)
--- NOTE | 2019-04-17 21:31 | OP ---
DATE OF PROCEDURE: 04/16/2019 PREOPERATIVE DIAGNOSES: 1. Left knee pain with effusion. 2. Cellulitis, left leg. POSTOPERATIVE DIAGNOSES: 1. Left knee benign effusion. 2. Left knee infrapatellar bursa. 3. Cellulitis, left leg. PROCEDURES PERFORMED: 1. Aspiration of left knee. 2. Incision and drainage of left infrapatellar bursa. ANESTHESIA: General. SPECIFICATION MANAGER: Alberto George PA-C. TOURNIQUET TIME: Zero. SPECIMENS: Knee aspirate sent for cell count, Gram stain, culture, and sensitivity as well as protein and glucose, as well as an infrapatellar bursa swab sent for Gram stain, culture, and sensitivity. COMPLICATIONS: None. DRAINS: None. SPECIMENS: None. OUTCOME: Aspirate of knee showed very clear fluid with no cloudiness whatsoever consistent with just a benign knee effusion, but no evidence of a septic knee. The fluid from the infrapatellar bursa showed this similar fluid very clear with no cloudiness or evidence of infection. INDICATIONS FOR PROCEDURE: The patient is now on her fifth hospital day with a history of left leg pain. She was initially admitted with a normal white blood cell count, but elevated C-reactive protein and sedimentation rate. The patient has quite severe left leg pain with swelling and 2+ pitting edema, but the knee otherwise not terribly remarkable. She is able to extend and flex the knee to approximately 60 degrees without severe pain. Due to the fact, the patient has not shown any improvement with IV antibiotics, we are now proceeding to take her to the operating room for an anticipated aspiration of knee with possible arthrotomy of the knee as well as possible incision and drainage of infrapatellar bursa. Informed consent has been obtained. All questions answered. DESCRIPTION OF PROCEDURE: The patient was brought to the operating room, and a time-out performed followed by induction of general anesthesia. Next, a sterile prep and drape were performed to the left lower extremity. We proceeded initially with an aspiration of the left knee due to the fact that was not an overwhelmingly acutely septic knee on clinical exam. As such, a lateral aspiration site was chosen and the knee was aspirated with 10 mL of extremely clear fluid with normal string test on clinical inspection and clearly no evidence of septic joint. Given the benign nature of this, we decided to then proceed with drainage of a very small infrapatellar bursa fluid collection, which was the only other fluid collections seen short of the generalized subcutaneous edema throughout the lower leg. As such, a small lateral incision was made just lateral to the insertion of the patellar tendon. After skin was sharply incised, dissection was carried down bluntly under the patellar tendon, gaining access to the small infrapatellar bursa. This was then drained and again this fluid appeared clear as well. It was swabbed and sent for Gram stain, culture, and sensitivity. Next, this wound was thoroughly irrigated with bulb syringe and then a small incision was closed with nylon. At the completion of this, Xeroform gauze, Webril, and Randall wrap dressing were applied to the knee and then the patient was transferred back to recovery room in stable condition. There were no complications. The patient tolerated the procedure well. Job ID: [id number]
[2019-04-18] MEDS: Piperacillin/Tazobactam 3.375 GM in Sodium Chloride 0.9% 100 ML IVPB SCH ×4 (00:15→18:13)
[2019-04-18] MEDS: Ondansetron ODT 4 MG TAB PO PRN ×2 (00:33→07:21)
[2019-04-18] MEDS: Ketorolac Tromethamine 30 MG/ML VIAL IVP SCH ×4 (05:43→23:36)
[2019-04-18] MEDS: HumaLOG 300 UNITS/3 ML VIAL SC PRN ×4 (05:46→21:51)
[2019-04-18] MEDS: Famotidine 20 MG TAB PO SCH ×2 (07:21→21:46)
[2019-04-18] MEDS: Acetaminophen 500 MG TAB PO PRN (07:21)
[2019-04-18] MEDS: Enoxaparin Sodium 30 MG/0.3 ML SYRINGE SC SCH (07:22)
[2019-04-18] MEDS: Sodium Chloride 0.9% 1,000 ML IV SCH ×2 (08:26→16:13)
[2019-04-18 10:55] LABS: Vancomycin, Trough 20.6 ug/mL
[2019-04-18] MEDS: Vancomycin HCl 750 MG in Sodium Chloride 0.9% 250 ML 250 ML IVPB SCH (11:16)
[2019-04-18] MEDS ORDERED: Vancomycin HCl 500 MG in Sodium Chloride 0.9% 100 ML IVPB SCH ×2 (11:30→23:00)
[2019-04-18] MEDS: hydrALAZINE 20 MG/ML VIAL SLOW IVP PRN (17:15)
[2019-04-18] MEDS ORDERED: Dextrose 50% Abboject 50 ML SYRINGE SLOW IVP PRN (18:12)
[2019-04-18] MEDS ORDERED: Dextrose 5% in Water 1,000 ML IV PRN (18:12)
--- NOTE | 2019-04-18 18:37 | PDOC.PN ---
- Subjective Encounter Start Date: 04/18/19 Encounter Start Time: 18:25 Subjective: f/u for L knee edema and ? septic arthritis vs bursitis on Zosyn/ Vanc -: Synovial fluid negative for crystals and bacteria. Feels better overall -: and ambulated down marcos. - Objective Resuscitation Status - Order Detail: 04/15/19 13:24 Resuscitation Status Routine Resuscitation Status: FULL: Full Resuscitation MAR Reviewed: Yes Vital Signs & Weight: Vital Signs (12 hours) Temp Pulse Resp BP Pulse Ox 04/18/19 18:05 155/78 H 04/18/19 17:15 79 04/18/19 17:10 191/90 H 04/18/19 16:00 98.3 F 79 20 184/82 H 04/18/19 11:26 97.8 F 87 20 165/80 H 04/18/19 08:00 98.8 F 86 20 170/77 H 96 Weight Weight 162 lb 6.4 oz I&O: 04/17/19 04/18/19 04/19/19 06:59 06:59 06:59 Intake Total 1200 1023 Output Total 650 1050 Balance 550 -27 Result Diagrams: 04/16/19 06:50 04/16/19 06:50 Additional Labs: Accuchecks 04/18/19 04/18/19 04/18/19 16:03 11:03 05:48 POC Glucose 190 H 235 H 250 H 04/17/19 21:58 POC Glucose 249 H Microbiology 04/16/19 Unknown Synovial fluid Body Fluid Culture - Preliminary 04/16/19 Unknown Synovial fluid Body Fluid Culture - Preliminary 04/16/19 15:15 Knee - Incision Bacterial Culture - Preliminary 04/16/19 15:15 Knee - Incision Gram Negative Ryan 04/16/19 15:15 Knee - Incision Bacterial Culture - Preliminary 04/15/19 14:57 Venous blood - Right Hand Blood Culture - Preliminary Specimen has been received and culture in progress. No Growth to date. 04/15/19 14:57 Venous blood - Right Hand Blood Culture - Preliminary NO GROWTH AT 48 HOURS 04/15/19 14:57 Venous blood - Left Arm Blood Culture - Preliminary Specimen has been received and culture in progress. No Growth to date. 04/15/19 14:57 Venous blood - Left Arm Blood Culture - Preliminary NO GROWTH AT 48 HOURS Laboratory Tests 04/15/19 04/16/1904/16/19 03:39 06:50 06:50 Hgb 11.3 L Plt Count 469 H Band Neuts % (Manual) 13 H 13 H Hemoglobin A1c 13.9 H Phys Exam - Physical Examination Constitutional: NAD HEENT: PERRLA, sclera anicteric, oral pharynx no lesions Neck: no nodes, no JVD, supple, full ROM Respiratory: no wheezing, no rales, no rhonchi, clear to auscultation bilateral S1, S2 Cardiovascular: RRR, no significant murmur, no rub, gallop Gastrointestinal: soft, non-tender, no distention, positive bowel sounds L knee with decreased edema Musculoskeletal: pulses present Neurological: normal sensation, moves all 4 limbs Psychiatric: A&O x 3 Skin: normal turgor, cap refill <2 seconds Dx/Plan (1) Septic arthritis of knee, left Code(s): M00.9 - PYOGENIC ARTHRITIS, UNSPECIFIED Status: Acute Comment: Suspected however initial knee effusion with negative gm stain and synovial fluid cx negative for bacteria/crystals, continue Vanc/Zosyn another 24h then consider d/c, ? inflammatory bursitis without true infection (2) Bursitis of left knee Code(s): M70.52 - OTHER BURSITIS OF KNEE, LEFT KNEE Status: Acute Comment: Suspected component of presentation in addition ? L vastus lateralis tendon rupture vs capsule rupture (3) Edema of left lower extremity Code(s): R60.0 - LOCALIZED EDEMA Status: Acute Comment: ? subacute, DVT r/o , elevate LLE while in bed, ? TNO hassan (4) DM I (diabetes mellitus, type I), uncontrolled Code(s): E10.65 - TYPE 1 DIABETES MELLITUS WITH HYPERGLYCEMIA Status: Acute Comment: Continue Insulin pump, may need referral to Endocrinology for closer monitoring (5) HTN (hypertension) Code(s): I10 - ESSENTIAL (PRIMARY) HYPERTENSION Status: Chronic Qualifiers: Hypertension type: essential hypertension Qualified Code(s): I10 - Essential (primary) hypertension Comment: Start Lisinopril 10mg daily, serial BP monitoring, likely will need additional titration on outpt basis - Plan continue antibiotics, PT/OT, social service liaison, out of bed/ambulate Stable currently -: Continue IV abx another 24h then d/c -: OOB/ambulate -: BETZY wrap for edema mgmt -: Start Lisinopril 10mg daily * Likely home in am
[2019-04-18] MEDS: Lisinopril 10 MG TAB PO SCH (21:43)
--- NOTE | 2019-04-19 00:55 | CON ---
DATE OF CONSULTATION: 04/18/2019 REASON FOR CONSULTATION: Left knee inflammatory changes. HISTORY OF PRESENT ILLNESS: A 43-year-old with history of type 1 diabetes mellitus and left ankle fracture with nonunion status post hardware removal and internal fixation in October 2018, who developed persistent left knee pain with functional impairment without any history of trauma. 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 She has been walking more than usual over the past few days before the symptoms developed. Initial evaluation included an ultrasound which ruled out DVT or a Woods cyst, eventually had to be admitted. The patient underwent imaging studies with an MRI on April 16, which demonstrated no meniscus or ligament injury. Mild patellar tendinosis distended deep infrapatellar bursa and a joint effusion extending into the musculotendinous junction of the vastus lateralis muscle. The possibility of joint capsule rupture was considered. The patient had a knee aspirate, which showed clear fluid. The fluid from the infrapatellar bursa also very clear with no cloudiness. Currently, she has very minor pain. There are no headaches, visual symptoms, sore throat, odynophagia, or dysphagia. No cough or sputum production. No chest pain. No abdominal pain or diarrhea. No genitourinary symptoms. No neurological symptoms. PAST MEDICAL HISTORY: Type 1 diabetes mellitus, left ankle fracture with nonunion, open reduction and internal fixation of ankle fracture in August and then there was a displacement, I believe in October, she had another procedure. There is a history of suicidal ideation with attempt by cutting her wrist in the past. There is this issue of a renal cell mass lesion. PAST SURGICAL HISTORY: Insulin pump placement and uterine ablation in the orthopedic procedures above, she had a nephrectomy. ALLERGIES: FENTANYL. FAMILY HISTORY: Hypertension. SOCIAL HISTORY: . Drinks occasionally. Former smoker. CURRENT MEDICATIONS: 1. Tylenol. 2. Famotidine. 3. Lovenox. 4. Pepcid. 5. Glucagon insulin. 6. Toradol. 7. Zofran. 8. Zosyn. 9. Vancomycin. PHYSICAL EXAMINATION: VITAL SIGNS: T-max 99.2. Other temperature is normal. BP was 150/78, pulse 79 , respirations 20, O2 saturation 96. SKIN: Exam was not particularly remarkable except for the incision for the evaluation of bursa fluid. She has a peripheral IV access and is voiding spontaneously. No lymphadenopathy. HEENT: Ocular movements conjugate. Sclerae white. Oral cavity normal. Numerous teeth in place in good shape. NECK: Supple. No jugular venous distention. LUNGS: Symmetric. Clear breath sounds. HEART: S1 and S2. Regular rate. No S3 or S4. ABDOMEN: Soft, not distended or tender. No ascites. No bladder distention. EXTREMITIES: The left knee is dressed with gauze and with an Randall wrap. The left ankle surgical site is completely healed without inflammatory changes. NEUROLOGIC: Nonfocal. LABORATORY DATA: White cell count 9.4, hemoglobin 9.9, MCV 99, platelets 465, 13% bands, 45% neutrophils. Chemistry with Sodium 136, creatinine 0.96. Liver profile normal. Albumin 2.4, globulin 4.3. Synovial fluid with 58 WBCs, 19% neutrophils, 12% lymphocytes. Glucose 140. Protein less than 1. Uric acid was 3. The pathology evaluation showed no evidence of crystals. The culture revealed a gram-negative almaz in rare amounts. ASSESSMENT: Type 1 diabetes, fracture right ankle, which seems to have healed in the left knee. Synovial fluid with patellar fluid without obvious injury or sprain. Now, she has a gram-negative almaz retrieved from the fluid. DISCUSSION: The gram-negative almaz is more probably to represent a contaminant of the sample rather than true pathogen, but we will wait for the final identification of the organism. She did have an invasive urinary tract infection, but that was more than a year ago and that is not likely to have migrated to this bursa area. Most likely, we will recommend conservative management without antimicrobial therapy. Job ID: [id number] MTDD
[2019-04-19] MEDS: Piperacillin/Tazobactam 3.375 GM in Sodium Chloride 0.9% 100 ML IVPB SCH ×2 (01:02→05:53)
[2019-04-19] MEDS: Ondansetron PF 4 MG/2 ML Vial IVP PRN (02:47)
[2019-04-19] MEDS: Ketorolac Tromethamine 60 MG/2 ML VIAL IVP SCH ×4 (05:50→18:22)
[2019-04-19] MEDS: HumaLOG 300 UNITS/3 ML VIAL SC PRN ×4 (05:52→21:36)
[2019-04-19] MEDS: Ketorolac Tromethamine 30 MG/ML VIAL IVP SCH (06:15)
--- NOTE | 2019-04-19 09:16 | RAD ---
Exam: XR Hip Lt 2-3 View HISTORY: Left lower extremity pain. COMPARISON: None FINDINGS: There is a linear metallic density overlying the left iliac bone in the supra-acetabular location whi ch may relate to prior postsurgical change. No acute fracture, dislocation, or other acute osseous abnormality is identified. IMPRESSION: No acute osseous abnormality is identified. Probable postsurgical changes left iliac bone with a small linear metallic almaz present. Clinical gary elation suggested.
--- NOTE | 2019-04-19 09:26 | RAD ---
SINGLE VIEW OF THE PELVIS: COMPARISON: Left hip radiograph 04/19/2019. HISTORY: Left knee pain and hip pain. FINDINGS: A single view of the pelvis shows no evidence of acute fracture or dislocation. A metallic structure projects over the left iliac bone. No degenerative change is seen in either hip. IMPRESSION: No evidence of acute osseous abnormality. POS: CET
[2019-04-19] MEDS: cefTRIAXone\\ROCEPHIN 2 GM in Sodium Chloride 0.9% 100 ML IVPB SCH (09:31)
[2019-04-19] MEDS: Enoxaparin Sodium 30 MG/0.3 ML SYRINGE SC SCH (09:33)
[2019-04-19] MEDS: Famotidine 20 MG TAB PO SCH ×2 (09:38→21:11)
--- NOTE | 2019-04-19 11:26 | PDOC.PN ---
- Subjective Encounter Start Date: 04/19/19 Encounter Start Time: 11:26 Subjective: Admitted due to left knee swelling and pain. Feeling better. No fever - Objective Resuscitation Status - Order Detail: 04/15/19 13:24 Resuscitation Status Routine Resuscitation Status: FULL: Full Resuscitation Vital Signs & Weight: Vital Signs (12 hours) Temp Pulse Resp BP BP Pulse Ox 04/19/19 07:00 97.9 F 82 14 132/67 98 04/19/19 05:47 98.7 F 91 16 106/55 L 04/18/19 23:35 98.4 F 98 18 135/90 Weight Weight 162 lb 6.4 oz I&O: 04/18/19 04/19/19 04/20/19 06:59 06:59 06:59 Intake Total 1023 946 Output Total 1050 Balance -27 946 Result Diagrams: 04/16/19 06:50 04/16/19 06:50 Additional Labs: Accuchecks 04/19/19 04/18/19 04/18/19 05:52 21:50 16:03 POC Glucose 230 H 237 H 190 H Phys Exam - Physical Examination Constitutional: NAD HEENT: PERRLA, moist MMs mild facila and periorbital edema Neck: no JVD Respiratory: no wheezing, no rales, clear to auscultation bilateral Cardiovascular: RRR, no rub Gastrointestinal: soft, non-tender, no distention, positive bowel sounds Mild left knee tenderness. Mild to moderate edema of the legs R>L Neurological: non-focal, moves all 4 limbs Psychiatric: normal affect, A&O x 3 Dx/Plan (1) Bilateral edema of lower extremity Code(s): R60.0 - LOCALIZED EDEMA Status: Acute (2) Bursitis of left knee Code(s): M70.52 - OTHER BURSITIS OF KNEE, LEFT KNEE Status: Acute Comment: Suspected component of presentation in addition ? L vastus lateralis tendon rupture vs capsule rupture (3) DM I (diabetes mellitus, type I), uncontrolled Code(s): E10.65 - TYPE 1 DIABETES MELLITUS WITH HYPERGLYCEMIA Status: Acute Comment: Continue Insulin pump, may need referral to Endocrinology for closer monitoring (4) Septic arthritis of knee, left Code(s): M00.9 - PYOGENIC ARTHRITIS, UNSPECIFIED Status: Acute Comment: Suspected however initial knee effusion with negative gm stain and synovial fluid cx negative for bacteria/crystals, continue Vanc/Zosyn another 24h then consider d/c, ? inflammatory bursitis without true infection (5) HTN (hypertension) Code(s): I10 - ESSENTIAL (PRIMARY) HYPERTENSION Status: Chronic Qualifiers: Hypertension type: essential hypertension Qualified Code(s): I10 - Essential (primary) hypertension Comment: Start Lisinopril 10mg daily, serial BP monitoring, likely will need additional titration on outpt basis (6) Depression Code(s): F32.9 - MAJOR DEPRESSIVE DISORDER, SINGLE EPISODE, UNSPECIFIED Status : Acute - Plan DC Vanc and zosyn and start IV rocephin in line with microbe ID susceptibil -: Start lantus 12 units daily -: Get Repeat CBC and BMP. -: DC IV fluid. -: Awaiting ID re evaluation. * .
[2019-04-19] MEDS ORDERED: Insulin Glargine 12 UNITS in Pre-Filled Syringe 1 EACH SC SCH (11:30)
[2019-04-19 12:38] LABS: Anion Gap 13 mmol/L (10-20); BUN (Urea Nitrogen) 11 mg/dL (7.0-18.7); Calc. Creatinine Clearance 80 mL/min (70-130); Carbon Dioxide 22 mmol/L (22-29); Chloride 104 mmol/L (98-107); Estimated GFR-MDRD 57; Glucose 245 mg/dL (70-105); Potassium 3.7 mmol/L (3.5-5.1); Sodium 135 mmol/L (136-145)
[2019-04-19] MEDS: Sodium Chloride 0.9% 1,000 ML IV SCH (12:45)
--- NOTE | 2019-04-19 13:29 | PRG ---
DATE OF SERVICE: 04/19/2019 SUBJECTIVE: Concetta is a 43-year-old female, who is now postop day 4 from a needle arthrocentesis with negative workup. We placed her in an edema splint a few days ago and removed it earlier this morning. This is a second followup for today. Also, AP pelvis has been obtained, which demonstrates her prior dysplasia pelvic surgery with what appears to be near anatomic outcome. No evidence of hip arthritis was noted. OBJECTIVE: VITAL SIGNS: Temperature 98.1, pulse 91, blood pressure is 132/67, respiratory rate is 16 and unlabored, O2 saturation is 98% on room air. GENERAL: She is alert and oriented to person, place, time, situation, grossly nonfocal. EXTREMITIES: Visual inspection of left lower extremity demonstrates her to have trace to 1 edema. Her skin wrinkles are smoothed out nicely. Range of motion of knee was assessed, she has 0 to about 100 degrees of flexion. There is no mechanical stoppage. No crepitus. No effusion palpable. Right leg demonstrates +1 to +2 edema. IMPRESSION: Etiology of her left lower extremity pain is still unclear, enthesopathy versus inflammatory arthropathy, but her aspirate did not suggest this either. I do not think that this is a referred pain from her hip either, and her knee MR other than bone infarct demonstrated a pristine joint surface and no mechanical explanation. PLAN: We will go ahead and draw a rheumatoid panel and SAUD, but at this point I will write a prescription for a compression knee-high hose and she may be weightbearing as tolerated. She is stable for discharge from an orthopedic standpoint. Follow up in our clinic in 12 to 14 days for stitch removal of the left knee. Job ID: [id number]
[2019-04-19] MEDS: Acetaminophen 500 MG TAB PO PRN (15:55)
[2019-04-19 17:50] LABS: ANA Symphony (Qualitative) Negative (Negative); ANA Symphony (Quantitative) 0.2 Ratio (< 0.7 Negative); dsDNA IgG Antibody 0.7 IU/mL (<10 Negative)
[2019-04-19 18:07] LABS: CCP IgG Antibody Less than 0.4 EliAU/mL (<7 Negative); EliA RAS New Method **** NEW METHOD ****; Rheumatoid Factor IgM Antibody 1.7 IU/mL (<3.5 Negative)
[2019-04-19] MEDS: Lisinopril 10 MG TAB PO SCH (21:11)
[2019-04-20] MEDS: Ketorolac Tromethamine 30 MG/ML VIAL IVP PRN ×2 (00:07→06:09)
[2019-04-20] MEDS: Morphine 4 MG/ML VIAL SLOW IVP PRN (02:49)
[2019-04-20] MEDS: HumaLOG 300 UNITS/3 ML VIAL SC PRN ×3 (06:11→16:20)
[2019-04-20 06:18] LABS: #Basophils 0.1 thou/uL (0.0-0.2); #Eosinphils 0.5 thou/uL (0.0-0.7); #Lymphocytes 2.9 thou/uL (1.20-3.40); #Monocytes 0.8 thou/uL (0.11-0.59); #Neutrophils 7.2 thou/uL (1.40-6.50); %Basophils 0.6 % (0.0-1.0); %Eosinophils 4.5 % (0.0-10.0); %Lymphocytes 25.1 % (21.0-51.0); %Monocytes 6.8 % (0.0-10.0); Hemoglobin 9.1 g/dL (12.0-16.0); Mean Corpuscular HGB CONC 33.4 g/dL (32.0-36.0); Mean Corpuscular Hemoglobin 33.1 pg (27.0-31.0); Mean Corpuscular Volume 98.9 fL (78.0-98.0); Mean Platelet Volume 5.6 fL (7.4-10.4); Platelet Count 448 thou/uL (130-400); RBC Distribution Width 11.7 % (11.5-14.5); Red Blood Cell (RBC) Count 2.75 mill/uL (4.20-5.40); White Blood Cell (WBC) Count 11.4 thou/uL (4.8-10.8)
[2019-04-20 06:47] LABS: Anion Gap 11 mmol/L (10-20); BUN (Urea Nitrogen) 14 mg/dL (7.0-18.7); Calc. Creatinine Clearance 80 mL/min (70-130); Calcium 8.6 mg/dL (7.8-10.44); Carbon Dioxide 22 mmol/L (22-29); Chloride 106 mmol/L (98-107); Estimated GFR-MDRD 57; Glucose 287 mg/dL (70-105); Sodium 135 mmol/L (136-145)
[2019-04-20] MEDS: cefTRIAXone\\ROCEPHIN 2 GM in Sodium Chloride 0.9% 100 ML IVPB SCH (08:52)
[2019-04-20] MEDS: Famotidine 20 MG TAB PO SCH ×2 (08:55→21:58)
[2019-04-20] MEDS: Enoxaparin Sodium 30 MG/0.3 ML SYRINGE SC SCH (08:55)
[2019-04-20] MEDS ORDERED: Insulin Glargine 12 UNITS in Pre-Filled Syringe 1 EACH SC SCH ×2 (09:00→10:45)
[2019-04-20] MEDS: Acetaminophen 500 MG TAB PO PRN ×2 (09:01→16:49)
[2019-04-20] MEDS ORDERED: Naproxen 500 MG TAB PO SCH (11:00)
--- NOTE | 2019-04-20 11:11 | PDOC.PN ---
- Subjective Encounter Start Date: 04/20/19 Encounter Start Time: 11:09 Subjective: Had more left knee pain last night but that has improved with analgesic. -: Remained afebrile. - Objective Resuscitation Status - Order Detail: 04/15/19 13:24 Resuscitation Status Routine Resuscitation Status: FULL: Full Resuscitation Vital Signs & Weight: Vital Signs (12 hours) Temp Pulse Resp BP BP Pulse Ox 04/20/19 07:00 98.0 F 86 14 175/82 H 94 L 04/20/19 03:34 98.2 F 81 20 162/77 H 04/19/19 23:51 98.5 F 88 20 161/79 H Weight Weight 162 lb 6.4 oz I&O: 04/19/19 04/20/19 04/21/19 06:59 06:59 06:59 Intake Total 946 1600 Output Total 4 Balance 946 1596 Result Diagrams: 04/20/19 06:06 04/20/19 06:06 Additional Labs: Accuchecks 04/20/19 04/19/19 04/19/19 06:01 21:27 16:03 POC Glucose 282 H 249 H 224 H 04/19/19 11:24 POC Glucose 239 H Phys Exam - Physical Examination Constitutional: NAD HEENT: PERRLA, moist MMs Neck: no JVD, supple Respiratory: no wheezing, no rales, no rhonchi, clear to auscultation bilateral Cardiovascular: RRR, no significant murmur Gastrointestinal: soft, non-tender, no distention, positive bowel sounds Musculoskeletal: pulses present surgical suture orn the inferior lateral aspect of left knee noted minimal knee tenderness. Neurological: non-focal, moves all 4 limbs Psychiatric: normal affect, A&O x 3 Dx/Plan (1) Bilateral edema of lower extremity Code(s): R60.0 - LOCALIZED EDEMA Status: Acute (2) Bursitis of left knee Code(s): M70.52 - OTHER BURSITIS OF KNEE, LEFT KNEE Status: Acute Qualifiers: Knee bursitis location: infrapatellar bursitis Qualified Code(s): M70.52 - Other bursitis of knee, left knee Comment: Suspected component of presentation in addition ? L vastus lateralis tendon rupture vs capsule rupture (3) DM I (diabetes mellitus, type I), uncontrolled Code(s): E10.65 - TYPE 1 DIABETES MELLITUS WITH HYPERGLYCEMIA Status: Acute Comment: Glycemic control remained suboptimal. (4) Septic arthritis of knee, left Code(s): M00.9 - PYOGENIC ARTHRITIS, UNSPECIFIED Status: Acute Comment: Suspected however initial knee effusion with negative gm stain and synovial fluid cx negative for bacteria/crystals, continue Vanc/Zosyn another 24h then consider d/c, ? inflammatory bursitis without true infection (5) HTN (hypertension) Code(s): I10 - ESSENTIAL (PRIMARY) HYPERTENSION Status: Chronic Qualifiers: Hypertension type: essential hypertension Qualified Code(s): I10 - Essential (primary) hypertension Comment: Start Lisinopril 10mg daily, serial BP monitoring, likely will need additional titration on outpt basis (6) Depression Code(s): F32.9 - MAJOR DEPRESSIVE DISORDER, SINGLE EPISODE, UNSPECIFIED Status : Acute - Plan Continue antibiotics. -: increase lantus to 24 units daily. -: Awaiting ID re evaluation. -: transition to oral analgesic -: increase lisinopril * .
[2019-04-20] MEDS ORDERED: Lisinopril 10 MG TAB PO SCH (11:30)
[2019-04-20] MEDS: traMADol HCl 50 MG TAB PO PRN ×2 (16:49→22:02)
[2019-04-20] MEDS: hydrALAZINE 20 MG/ML VIAL SLOW IVP PRN (16:53)
[2019-04-20] MEDS: Ondansetron PF 4 MG/2 ML Vial IVP PRN (18:33)
[2019-04-20] MEDS: Lisinopril 10 MG TAB PO SCH (21:58)
[2019-04-20] MEDS: Naproxen 500 MG TAB PO SCH (22:00)
--- NOTE | 2019-04-20 22:27 | PRG ---
DATE OF SERVICE: 04/20/2019 SUBJECTIVE: Ms. Barone is still with moderate pain in the left knee. The patient denies any respiratory symptoms. No abdominal pain or genitourinary symptoms. OBJECTIVE: VITAL SIGNS: Her vital signs show a normal temperature, blood pressure 140/70. GENERAL: The patient is awake and alert. HEENT: Ocular movements are conjugate. LUNGS: Clear. HEART: S1 and S2. No S3 or S4. ABDOMEN: Soft without tenderness. EXTREMITIES: The left knee without any inflammatory changes except for mild swelling. LABORATORY DATA: White cell count is up to 11.4, hemoglobin 9.1, platelets 448. The patient has been having liquid stools and has noticed some increased abdominal bowel sounds. Microbiology shows E coli from the incision, which is more likely public health representative of contamination of the sample rather than a true pathogen. ASSESSMENT AND DISCUSSION: Type 1 diabetes, fracture right ankle, which has healed and left knee pain with swelling. A clear synovial fluid after arthroscopy and prepatellar bursa fluid, which appeared noninfected, the organism most likely represents contamination of the sample. The patient has diarrhea and the Clostridium difficile needs to be ruled out. Job ID: [id number]
[2019-04-21] MEDS: Ondansetron PF 4 MG/2 ML Vial IVP PRN (00:44)
[2019-04-21] MEDS: hydrALAZINE 20 MG/ML VIAL SLOW IVP PRN (00:45)
[2019-04-21] MEDS: Ondansetron ODT 4 MG TAB PO PRN (06:56)
[2019-04-21 07:34] LABS: #Basophils 0.1 thou/uL (0.0-0.2); #Eosinphils 0.5 thou/uL (0.0-0.7); #Lymphocytes 2.5 thou/uL (1.20-3.40); #Monocytes 0.9 thou/uL (0.11-0.59); #Neutrophils 7.1 thou/uL (1.40-6.50); %Basophils 0.6 % (0.0-1.0); %Eosinophils 4.8 % (0.0-10.0); %Lymphocytes 22.4 % (21.0-51.0); %Monocytes 7.8 % (0.0-10.0); %Neutrophils 64.5 % (42.0-75.0); Hemoglobin 9.7 g/dL (12.0-16.0); Mean Corpuscular HGB CONC 32.9 g/dL (32.0-36.0); Mean Corpuscular Hemoglobin 32.7 pg (27.0-31.0); Mean Corpuscular Volume 99.6 fL (78.0-98.0); Mean Platelet Volume 5.7 fL (7.4-10.4); Platelet Count 531 thou/uL (130-400); RBC Distribution Width 11.9 % (11.5-14.5); Red Blood Cell (RBC) Count 2.96 mill/uL (4.20-5.40)
[2019-04-21] MEDS: Enoxaparin Sodium 30 MG/0.3 ML SYRINGE SC SCH (09:19)
[2019-04-21] MEDS: Famotidine 20 MG TAB PO SCH ×2 (09:19→20:58)
[2019-04-21] MEDS: cefTRIAXone\\ROCEPHIN 2 GM in Sodium Chloride 0.9% 100 ML IVPB SCH (09:19)
[2019-04-21] MEDS: Naproxen 500 MG TAB PO SCH (09:20)
[2019-04-21] MEDS: Lisinopril 10 MG TAB PO SCH ×2 (09:20→20:59)
[2019-04-21] MEDS: Insulin Glargine 24 UNITS in Pre-Filled Syringe 1 EACH SC SCH (09:21)
--- NOTE | 2019-04-21 13:14 | PDOC.PN ---
- Subjective Encounter Start Date: 04/21/19 Encounter Start Time: 13:12 Subjective: Started having nausea, vomiting, frequent loose stools since yesterday. -: loose stool have subsided. Still having nausea, vomiting and headaches. -: denied fever. - Objective Resuscitation Status - Order Detail: 04/15/19 13:24 Resuscitation Status Routine Resuscitation Status: FULL: Full Resuscitation Vital Signs & Weight: Vital Signs (12 hours) Temp Pulse Resp BP BP Pulse Ox 04/21/19 09:20 175/88 H 04/21/19 08:10 98.2 F 97 20 175/88 H 98 04/21/19 06:00 91 156/81 H 04/21/19 04:10 16 04/21/19 02:35 95 18 131/72 Weight Weight 162 lb 6.4 oz I&O: 04/20/19 04/21/19 04/22/19 06:59 06:59 06:59 Intake Total 1600 Output Total 4 Balance 1596 Result Diagrams: 04/21/19 07:25 04/20/19 06:06 Additional Labs: Accuchecks 04/21/19 04/20/19 04/20/19 07:00 22:04 16:08 POC Glucose 123 H 135 H 156 H Phys Exam - Physical Examination Constitutional: NAD afebrile HEENT: PERRLA, moist MMs Neck: no JVD, supple Respiratory: no wheezing, no rales, no rhonchi Cardiovascular: RRR, no significant murmur Gastrointestinal: soft, non-tender, no distention Musculoskeletal: no edema, pulses present mild left knee tenderness noted Neurological: non-focal, moves all 4 limbs Psychiatric: A&O x 3 Dx/Plan (1) Bursitis of left knee Code(s): M70.52 - OTHER BURSITIS OF KNEE, LEFT KNEE Status: Acute Qualifiers: Knee bursitis location: infrapatellar bursitis Qualified Code(s): M70.52 - Other bursitis of knee, left knee Comment: Suspected component of presentation in addition ? L vastus lateralis tendon rupture vs capsule rupture (2) Bilateral edema of lower extremity Code(s): R60.0 - LOCALIZED EDEMA Status: Acute (3) DM I (diabetes mellitus, type I), uncontrolled Code(s): E10.65 - TYPE 1 DIABETES MELLITUS WITH HYPERGLYCEMIA Status: Acute Comment: Glycemic control remained suboptimal. (4) Septic arthritis of knee, left Code(s): M00.9 - PYOGENIC ARTHRITIS, UNSPECIFIED Status: Acute Comment: Suspected however initial knee effusion with negative gm stain and synovial fluid cx negative for bacteria/crystals, continue Vanc/Zosyn another 24h then consider d/c, ? inflammatory bursitis without true infection (5) HTN (hypertension) Code(s): I10 - ESSENTIAL (PRIMARY) HYPERTENSION Status: Chronic Qualifiers: Hypertension type: essential hypertension Qualified Code(s): I10 - Essential (primary) hypertension Comment: Start Lisinopril 10mg daily, serial BP monitoring, likely will need additional titration on outpt basis (6) Depression Code(s): F32.9 - MAJOR DEPRESSIVE DISORDER, SINGLE EPISODE, UNSPECIFIED Status : Acute (7) Nausea and vomiting Code(s): R11.2 - NAUSEA WITH VOMITING, UNSPECIFIED Status: Acute (8) Frequent loose stools Code(s): R19.7 - DIARRHEA, UNSPECIFIED Status: Acute - Plan DC IV rocephin and start levaquin as recommendede by ID. -: Start reglan for possible gastroparesis -: Await C dif toxin assat. -: DC naproxen. -: Recheck CBC and BMP in the am. * .
[2019-04-21] MEDS: Metoclopramide HCl 10 MG TAB PO SCH ×2 (20:53→20:59)
[2019-04-21] MEDS: HumaLOG 300 UNITS/3 ML VIAL SC PRN (20:58)
[2019-04-21] MEDS: traMADol HCl 50 MG TAB PO PRN (20:59)
[2019-04-22] MEDS: traMADol HCl 50 MG TAB PO PRN ×2 (04:26→19:53)
[2019-04-22] MEDS: HumaLOG 300 UNITS/3 ML VIAL SC PRN ×2 (06:01→21:13)
[2019-04-22 06:03] LABS: #Basophils 0.1 thou/uL (0.0-0.2); #Eosinphils 0.3 thou/uL (0.0-0.7); #Lymphocytes 2.4 thou/uL (1.20-3.40); #Monocytes 0.8 thou/uL (0.11-0.59); #Neutrophils 5.7 thou/uL (1.40-6.50); %Eosinophils 3.6 % (0.0-10.0); %Lymphocytes 25.5 % (21.0-51.0); %Monocytes 8.8 % (0.0-10.0); Hemoglobin 9.1 g/dL (12.0-16.0); Mean Corpuscular HGB CONC 32.4 g/dL (32.0-36.0); Mean Corpuscular Volume 98.8 fL (78.0-98.0); Mean Platelet Volume 5.7 fL (7.4-10.4); Platelet Count 528 thou/uL (130-400); Red Blood Cell (RBC) Count 2.85 mill/uL (4.20-5.40); White Blood Cell (WBC) Count 9.4 thou/uL (4.8-10.8)
[2019-04-22] MEDS: Ondansetron ODT 4 MG TAB PO PRN (06:03)
[2019-04-22 06:20] LABS: Anion Gap 12 mmol/L (10-20); BUN (Urea Nitrogen) 9 mg/dL (7.0-18.7); Calc. Creatinine Clearance 99 mL/min (70-130); Calcium 8.6 mg/dL (7.8-10.44); Carbon Dioxide 24 mmol/L (22-29); Chloride 104 mmol/L (98-107); Estimated GFR-MDRD 73; Glucose 226 mg/dL (70-105); Potassium 3.5 mmol/L (3.5-5.1); Sodium 136 mmol/L (136-145)
--- NOTE | 2019-04-22 10:19 | PDOC.PN ---
- Subjective Encounter Start Date: 04/22/19 Encounter Start Time: 10:17 Patient seen and examined, diarrhea improved, no other issues. - Objective Resuscitation Status - Order Detail: 04/15/19 13:24 Resuscitation Status Routine Resuscitation Status: FULL: Full Resuscitation Vital Signs & Weight: Vital Signs (12 hours) Temp Pulse Resp BP Pulse Ox 04/22/19 04:29 98.2 F 89 16 175/81 H 95 04/22/19 00:22 98.4 F 104 H 18 141/75 H 97 Weight Weight 162 lb 6.4 oz I&O: 04/21/19 04/22/19 04/23/19 06:59 06:59 06:59 Intake Total 960 Balance 960 Result Diagrams: 04/22/19 05:45 04/22/19 05:45 Additional Labs: Accuchecks 04/22/19 04/21/19 06:01 20:58 POC Glucose 243 H 249 H Phys Exam - Physical Examination Constitutional: NAD HEENT: PERRLA, moist MMs Neck: no nodes, no JVD, supple Respiratory: no wheezing, no rales Cardiovascular: RRR, no significant murmur, no rub Gastrointestinal: soft, non-tender, no distention Musculoskeletal: no edema, pulses present Dx/Plan (1) Bursitis of left knee Code(s): M70.52 - OTHER BURSITIS OF KNEE, LEFT KNEE Status: Acute Qualifiers: Knee bursitis location: infrapatellar bursitis Qualified Code(s): M70.52 - Other bursitis of knee, left knee Comment: Suspected component of presentation in addition ? L vastus lateralis tendon rupture vs capsule rupture (2) Frequent loose stools Code(s): R19.7 - DIARRHEA, UNSPECIFIED Status: Acute (3) Nausea and vomiting Code(s): R11.2 - NAUSEA WITH VOMITING, UNSPECIFIED Status: Acute (4) HTN (hypertension) Code(s): I10 - ESSENTIAL (PRIMARY) HYPERTENSION Status: Chronic Qualifiers: Hypertension type: essential hypertension Qualified Code(s): I10 - Essential (primary) hypertension Comment: Start Lisinopril 10mg daily, serial BP monitoring, likely will need additional titration on outpt basis (5) Diabetes Code(s): E11.9 - TYPE 2 DIABETES MELLITUS WITHOUT COMPLICATIONS Status: Acute - Plan * pending C-diff * no other changes in plan of care * DC if C-diff negative in AM * cont abx * case and plan d/w patient at length, she understood and agreed with this plan
[2019-04-22] MEDS: Famotidine 20 MG TAB PO SCH ×2 (10:47→21:17)
[2019-04-22] MEDS: Lisinopril 10 MG TAB PO SCH ×2 (10:47→21:17)
[2019-04-22] MEDS: Metoclopramide HCl 10 MG TAB PO SCH ×3 (10:47→21:17)
[2019-04-22] MEDS: Enoxaparin Sodium 30 MG/0.3 ML SYRINGE SC SCH (10:47)
[2019-04-22] MEDS: Insulin Glargine 24 UNITS in Pre-Filled Syringe 1 EACH SC SCH (10:47)
--- NOTE | 2019-04-22 21:16 | PRG ---
DATE OF SERVICE: 04/22/2019 SUBJECTIVE: She is still with quite a bit of pain in limitation and range of motion in left knee, but she is able to walk alone. No cough, sputum production, or chest pain. No abdominal pain. No other joint pain noticed. OBJECTIVE: VITAL SIGNS: Normal, slight elevation in systolic blood pressure. Temperature is normal. Left knee does not appear inflamed. There is limitation in range of motion, but there is no erythema or swelling noted. White cell count 9.4, hemoglobin 9.1, platelets 528, and creatinine 0.85. ASSESSMENT AND DISCUSSION: Type 1 diabetes, fracture right ankle, which was healed and left knee pain and swelling, but clear synovial and bursa fluid with Escherichia coli growth in rare amounts. The patient had a positive IgA for rheumatoid factor, but negative IgM. This cyclic citrullinated peptide antibody was negative though. It is possible that this represents a noninfectious inflammatory process in that the bursa fluid positive cultures concomitant rather a true pathogen, but we will have to treat taking the results of the cultures at face value with oral quinolone. Consider discharge planning, follow up in the outpatient setting. Job ID: [id number]
[2019-04-23] MEDS: Acetaminophen 500 MG TAB PO PRN (01:45)
[2019-04-23] MEDS: traMADol HCl 50 MG TAB PO PRN ×2 (01:45→08:28)
[2019-04-23] MEDS: Ondansetron ODT 4 MG TAB PO PRN (05:43)
[2019-04-23] MEDS: HumaLOG 300 UNITS/3 ML VIAL SC PRN (05:43)
--- NOTE | 2019-04-23 08:06 | PDOC.EVN ---
Event Note - Event Note Event Note: DC SUMMARY #[id number]
[2019-04-23] MEDS: Enoxaparin Sodium 30 MG/0.3 ML SYRINGE SC SCH (08:26)
[2019-04-23] MEDS: Metoclopramide HCl 10 MG TAB PO SCH (08:29)
[2019-04-23] MEDS: Famotidine 20 MG TAB PO SCH (08:29)
[2019-04-23] MEDS: Lisinopril 10 MG TAB PO SCH (08:30)
--- NOTE | 2019-04-23 08:30 | DIS ---
DATE OF ADMISSION: 04/15/2019 DATE OF DISCHARGE: 04/23/2019 ADMITTING DIAGNOSES: 1. Pyogenic arthritis. 2. Diabetes. 3. Bursitis. 4. Hypertension. 5. Obesity. DISCHARGE DIAGNOSES: 1. Pyogenic arthritis, resolving. 2. Diabetes, stable. 3. Obesity, stable. 4. Hypertension, stable. HOSPITAL COURSE: This is a 43-year-old female presenting with persistent left knee pain, was found to have swelling and redness in the area. The patient had MRI done as well as vascular ultrasound, knee x-rays, and evaluation with ID and Orthopedics, was found to have cellulitis of lower extremity. The patient was taken to the OR by Orthopedics and had an aspiration done as well as an I and D of the bursa. The patient had cultures drawn in the region, which were found to be positive for E coli for blood, however, body fluid culture did not have any responses. The patient was evaluated by Infectious Disease, was monitored for a period of week on IV antibiotics, was found to have significant improvement in her condition, well-controlled diabetes, as well as white blood cell count. The patient was discharged to the home on ciprofloxacin for 10 days. She was to follow up with her PCP within 1 week for further management and care. Case and plan discussed with the patient at length. She understood and agreed with this plan. DISPOSITION: Home. FOLLOWUP: Follow up with PCP within 1 week. MEDICATIONS: See MAR. ACTIVITY: As tolerated with assistance as needed. DIET: Low-fat, low-calorie, high-fiber diet. CONDITION: Stable. PROGNOSIS: Good. Case and plan once again discussed with the patient at length. She understood and agreed with this plan. Job ID: [id number]
[2019-04-23] MEDS: Insulin Glargine 24 UNITS in Pre-Filled Syringe 1 EACH SC SCH (08:33)
[2019-04-23 12:08] VITALS: BP 178/89; TEMP 98
== END 2019-04-23 12:35 | disposition home or self-care (01) | DRG 549 ==
LOC: ERS 02:57 → 3SE 05:18 → OBSVTOIN 05:18
PROVIDERS: ADMIT Hospitalist; ATTEND Hospitalist
PROC: 0M9P3ZZ Drainage of Left Knee Bursa and Ligament, Percutaneous Approach (ICD-10-PCS; principal; 2019-04-16)
PROC: 0S9D3ZZ Drainage of Left Knee Joint, Percutaneous Approach (ICD-10-PCS; 2019-04-16)
DX: M00.862 Arthritis due to other bacteria, left knee (principal); L03.116 Cellulitis of left lower limb; M70.52 Other bursitis of knee, left knee; M25.462 Effusion, left knee; F41.9 Anxiety disorder, unspecified; F32.9 Major depressive disorder, single episode, unspecified; E10.65 Type 1 diabetes mellitus with hyperglycemia; B96.20 Unspecified Escherichia coli [E. coli] as the cause of diseases classified elsewhere; Z96.41 Presence of insulin pump (external) (internal); E66.9 Obesity, unspecified; I10 Essential (primary) hypertension; R11.2 Nausea with vomiting, unspecified; R19.7 Diarrhea, unspecified; Z87.891 Personal history of nicotine dependence; Z79.899 Other long term (current) drug therapy; Z88.5 Allergy status to narcotic agent; Z68.31 Body mass index [BMI] 31.0-31.9, adult
CPT/HCPCS: 36415; 36416; 72170; 80048; 80053; 80202; 82945; 83036; 83520; 84145; 84157; 84560; 84703; 85007; 85025; 85027; 85060; 85379; 85652; 86038; 86140; 86200; 86225; 87040; 87070; 87077; 87186; 87205; 89051; 89060; 96374; 96375; 96376; J0360; J0696; J1200; J1650; J1815; J1885; J2001; J2250; J2270; J2405; J2543; J2704; J3010; J3370; J3490; J7050; J8597; Q0162

== ENCOUNTER 2020-09-02 22:53 | Emergency (ER) | payer SELFPAY ==
[2020-09-02] MEDS ORDERED: Ondansetron PF 4 MG/2 ML Vial ONE (23:19)
[2020-09-02 23:30] LABS: #Basophils 0.1 thou/uL (0.0-0.2); #Monocytes 0.4 thou/uL (0.11-0.59); #Neutrophils 4.1 thou/uL (1.40-6.50); %Basophils 1.4 % (0.0-1.0); %Eosinophils 0.6 % (0.0-10.0); %Lymphocytes 30.1 % (21.0-51.0); %Monocytes 6.3 % (0.0-10.0); %Neutrophils 61.6 % (42.0-75.0); Hemoglobin 11.7 g/dL (12.0-16.0); Mean Corpuscular HGB CONC 33.6 g/dL (32.0-36.0); Mean Corpuscular Hemoglobin 32.9 pg (27.0-31.0); Mean Platelet Volume 6.9 fL (7.4-10.4); Platelet Count 276 thou/uL (130-400); RBC Distribution Width 12.2 % (11.5-14.5); Red Blood Cell (RBC) Count 3.57 mill/uL (4.20-5.40); White Blood Cell (WBC) Count 6.6 thou/uL (4.8-10.8)
[2020-09-02 23:51] LABS: ALT (SGPT) 8 U/L (8-55); AST (SGOT) 21 U/L (5-34); Albumin 1.9 g/dL (3.5-5.0); Alkaline Phosphatase 63 U/L (40-110); Anion Gap 11 mmol/L (10-20); BUN (Urea Nitrogen) 25 mg/dL (7.0-18.7); Bilirubin, Total Less than 0.2 mg/dL (0.2-1.2); Calc. Creatinine Clearance 0 mL/min (70-130); Calcium 7.8 mg/dL (7.8-10.44); Carbon Dioxide 20 mmol/L (22-29); Chloride 110 mmol/L (98-107); Estimated GFR-MDRD 16; Glucose 70 mg/dL (70-105); Magnesium 1.8 mg/dL (1.6-2.6); Phosphorus 4.2 mg/dL (2.3-4.7); Potassium 3.6 mmol/L (3.5-5.1); Protein, Total 4.9 g/dL (6.0-8.3); Sodium 137 mmol/L (136-145)
== END 2020-09-03 01:12 | disposition home or self-care (01) ==
LOC: ERS 22:53
DX: U07.1 COVID-19 (principal); R19.7 Diarrhea, unspecified; R11.2 Nausea with vomiting, unspecified; E10.9 Type 1 diabetes mellitus without complications; Z87.891 Personal history of nicotine dependence; F41.9 Anxiety disorder, unspecified; F32.9 Major depressive disorder, single episode, unspecified; Z79.4 Long term (current) use of insulin
CPT/HCPCS: 36415; 80053; 83735; 84100; 85025; 96374; J2405

== ENCOUNTER 2020-09-07 06:49 | Inpatient (IN) | payer OTHER, SELFPAY ==
[2020-09-07] MEDS ORDERED: Ondansetron PF 4 MG/2 ML Vial ONE (08:09)
[2020-09-07 08:54] LABS: #Lymphocytes 1.4 thou/uL (1.20-3.40); #Monocytes 0.5 thou/uL (0.11-0.59); #Neutrophils 8.5 thou/uL (1.40-6.50); %Basophils 0.1 % (0.0-1.0); %Eosinophils 0.1 % (0.0-10.0); %Lymphocytes 13.5 % (21.0-51.0); %Monocytes 4.5 % (0.0-10.0); %Neutrophils 81.8 % (42.0-75.0); Hemoglobin 12.1 g/dL (12.0-16.0); Mean Corpuscular HGB CONC 33.1 g/dL (32.0-36.0); Mean Corpuscular Hemoglobin 32.2 pg (27.0-31.0); Mean Corpuscular Volume 97.4 fL (78.0-98.0); Mean Platelet Volume 7.6 fL (7.4-10.4); Platelet Count 288 thou/uL (130-400); RBC Distribution Width 12.2 % (11.5-14.5); Red Blood Cell (RBC) Count 3.75 mill/uL (4.20-5.40); White Blood Cell (WBC) Count 10.4 thou/uL (4.8-10.8)
[2020-09-07 09:08] LABS: ALT (SGPT) 12 U/L (8-55); AST (SGOT) 22 U/L (5-34); Albumin 1.9 g/dL (3.5-5.0); Alkaline Phosphatase 81 U/L (40-110); Anion Gap 19 mmol/L (10-20); BUN (Urea Nitrogen) 25 mg/dL (7.0-18.7); Bilirubin, Total Less than 0.2 mg/dL (0.2-1.2); CK (CPK) 107 U/L (29-168); Calc. Creatinine Clearance 0 mL/min (70-130); Calcium 7.6 mg/dL (7.8-10.44); Carbon Dioxide 13 mmol/L (22-29); Chloride 109 mmol/L (98-107); Globulin 3.3 g/dL (2.4-3.5); Glucose 95 mg/dL (70-105); Magnesium 1.8 mg/dL (1.6-2.6); Potassium 3.6 mmol/L (3.5-5.1); Protein, Total 5.2 g/dL (6.0-8.3); Sodium 137 mmol/L (136-145)
[2020-09-07] MEDS ORDERED: Promethazine HCl 25 MG/ML VIAL ONE (10:24)
--- NOTE | 2020-09-07 11:01 | PDOC.HHP ---
Hospitalist HPI - History of Present Illness History of Present Illness: ADMISSION DATE: 09/07/2020 TIME OF ASSESSMENT: 1055 PRIMARY CARE PHYSICIAN: Dr. Davin Mcarthur CHIEF COMPLAINT: Nausea and vomiting with Covid HPI: The patient is a 45-year-old female past medical history significant for renal cancer and type 1 diabetes. She presents to the ER today after being diagnosed with Covid 8 days ago and currently having 4 days of nausea and vomiting. She also complains of generalized body aches and low-grade fever. Her symptoms initially started off with diarrhea but that has since subsided and she is currently just having the vomiting and nausea. No medications have been tried at home. Patient denies chest pain or shortness of breath. ED COURSE: Vital signs: Blood pressure 158/89, pulse 94, respirate 17, temp 99.4 oral, 98% on room air Patient had lab work completed and a UA was attempted but patient has not urinated yet. Patient was administered Zofran 8 mg IV, 2 L normal saline, Phenergan 25 mg IV, lactated Ringer's 1 L. PAST MEDICAL HISTORY: Renal cancer 2016 PAST SURGICAL HISTORY: 80% of left kidney removed SOCIAL HISTORY: Lives at home with her parents. She is a former tobacco user and drinks alcohol socially. Denies drug use. FAMILY HISTORY: Positive for hypertension ALLERGIES: No known drug allergies CURRENT MEDICATIONS: NovoLog insulin Hospitalist ROS - Review of Systems Constitutional: reports: fever, malaise Gastrointestinal: reports: nausea, vomiting, diarrhea All other systems reviewed; all pertinent +/- noted in HPI/Subj - Exam General Appearance: awake alert, ill appearing Eye: PERRL, anicteric sclera Heart: RRR, no murmur, no gallops, no rubs, normal peripheral pulses Respiratory: CTAB, no wheezes, no rales, no ronchi Extremities: no cyanosis, no edema Neurological: no weakness Psychiatric: A&O x 3 Hospitalist Results - Labs Result Diagrams: 09/07/20 08:09 09/07/20 08:09 Lab results: WBC 10.4 thou/uL (4.8-10.8) 09/07/20 08:09 Hgb 12.1 g/dL (12.0-16.0) 09/07/20 08:09 Hct 36.5 % (36.0-47.0) 09/07/20 08:09 MCV 97.4 fL (78.0-98.0) 09/07/20 08:09 Plt Count 288 thou/uL (130-400) 09/07/20 08:09 Neutrophils % 81.8 % (42.0-75.0) H 09/07/20 08:09 Sodium 137 mmol/L (136-145) 09/07/20 08:09 Potassium 3.6 mmol/L (3.5-5.1) 09/07/20 08:09 Chloride 109 mmol/L (98-107) H 09/07/20 08:09 Carbon Dioxide 13 mmol/L (22-29) L 09/07/20 08:09 BUN 25 mg/dL (7.0-18.7) H 09/07/20 08:09 Creatinine 3.51 mg/dL (0.6-1.1) H 09/07/20 08:09 Glucose 95 mg/dL (70-105) 09/07/20 08:09 Lactic Acid 0.5 mmol/L (0.5-2.2) 09/07/20 08:09 Calcium 7.6 mg/dL (7.8-10.44) L 09/07/20 08:09 Total Bilirubin Less than 0.2 mg/dL (0.2-1.2) L 09/07/20 08:09 AST 22 U/L (5-34) 09/07/20 08:09 ALT 12 U/L (8-55) 09/07/20 08:09 Alkaline Phosphatase 81 U/L (40-110) 09/07/20 08:09 Creatine Kinase 107 U/L (29-168) 09/07/20 08:09 Serum Total Protein 5.2 g/dL (6.0-8.3) L 09/07/20 08:09 Albumin 1.9 g/dL (3.5-5.0) L 09/07/20 08:09 Hospitalist H&P A/P - Plan Plan: COVID-19 Start zinc, vitamin C and vitamin D Treat with antipyretics and analgesics as needed WENDY on CKD stage III Continue IV fluids Recheck BMP in a.m. Dehydration secondary to vomiting Continue antiemetics Diet as tolerated Avoid nephrotoxic medications Diabetes type 1 Accu-Cheks AC at bedtime Continue home regimen of insulin VTE prophylaxis in place with SCDs CODE STATUS: Full Surrogate decision-maker is her sister, Odilia Patient discussed with Dr. Baker
[2020-09-07] MEDS ORDERED: Diabetic Tussin 200 MG/10 ML UDCUP PO PRN (11:14)
[2020-09-07] MEDS ORDERED: Dextrose 5% in Water 1,000 ML IV PRN (11:14)
[2020-09-07] MEDS ORDERED: Dextrose 50% Abboject 50 ML SYRINGE SLOW IVP PRN (11:14)
[2020-09-07 13:28] LABS: Bacteria/HPF 4+ HPF (None Seen); Bilirubin Negative (Negative); Blood, Urine 2+ (Negative); Clarity Turbid (Clear); Glucose, Urine (Dipstick) 150 mg/dL (Negative); Ketone, Urine 20 mg/dL (Negative); Leukocyte 25 Leu/uL (Negative); Nitrite Negative (Negative); Protein, Urine (Dipstick) 600 mg/dL (Neg-Trace); RBC/HPF 0-3 HPF (0-3); Specific Gravity, Urine 1.017 (1.002-1.036); Triple Phosphate Crystal 3+ HPF (None Seen); Urobilinogen Normal mg/dL (Less than 2); WBC/HPF 0-3 HPF (0-3)
[2020-09-07] MEDS ORDERED: Heparin 1,000 UNITS/ML VIAL ONE (14:13)
[2020-09-07] MEDS: Sodium Chloride 0.9% 1,000 ML IV SCH ×3 (15:29→22:16)
[2020-09-07] MEDS: Ondansetron PF 4 MG/2 ML Vial IVP PRN (15:29)
[2020-09-07] MEDS: traMADol HCl 50 MG TAB PO PRN ×2 (15:30→22:22)
[2020-09-07] MEDS: Ondansetron ODT 4 MG TAB PO PRN (22:22)
[2020-09-08] MEDS: Sodium Chloride 0.9% 1,000 ML IV SCH ×3 (05:04→19:45)
[2020-09-08 06:28] LABS: #Lymphocytes 1.6 thou/uL (1.20-3.40); #Monocytes 0.6 thou/uL (0.11-0.59); #Neutrophils 8.7 thou/uL (1.40-6.50); %Basophils 0.4 % (0.0-1.0); %Eosinophils 0.1 % (0.0-10.0); %Lymphocytes 14.3 % (21.0-51.0); %Monocytes 5.2 % (0.0-10.0); %Neutrophils 80.1 % (42.0-75.0); Hemoglobin 11.2 g/dL (12.0-16.0); Mean Corpuscular HGB CONC 31.2 g/dL (32.0-36.0); Mean Corpuscular Hemoglobin 30.6 pg (27.0-31.0); Mean Corpuscular Volume 97.9 fL (78.0-98.0); Mean Platelet Volume 6.8 fL (7.4-10.4); Platelet Count 315 thou/uL (130-400); RBC Distribution Width 12.4 % (11.5-14.5); Red Blood Cell (RBC) Count 3.67 mill/uL (4.20-5.40); White Blood Cell (WBC) Count 10.9 thou/uL (4.8-10.8)
[2020-09-08 06:47] LABS: Anion Gap 18 mmol/L (10-20); BUN (Urea Nitrogen) 23 mg/dL (7.0-18.7); Calc. Creatinine Clearance 25 mL/min (70-130); Calcium 7.3 mg/dL (7.8-10.44); Carbon Dioxide 11 mmol/L (22-29); Chloride 112 mmol/L (98-107); Glucose 88 mg/dL (70-105); Potassium 3.7 mmol/L (3.5-5.1); Sodium 137 mmol/L (136-145)
[2020-09-08] MEDS: Zinc Sulfate 220 MG CAP PO SCH (08:12)
[2020-09-08] MEDS: Cholecalciferol 1,000 UNITS (25 MCG) TAB PO SCH (08:12)
[2020-09-08] MEDS: Ascorbic Acid 500 mg Chewable Tablet PO SCH (08:12)
[2020-09-08] MEDS ORDERED: Non-Formulary Item 1 EACH (Insulin Lispro [Humalog Kwikpen U-100] 100 UNIT/ML Insuln.Pen) SC SCH (11:15)
--- NOTE | 2020-09-08 11:19 | PDOC.HOSPP ---
- Subjective Encounter Date: 09/08/20 Encounter Time: 11:10 Subjective: f/u for COVID viral infection/WENDY/CKD/Dehydration receiving IVF's/Vit C/Zinc/Vit D3. - Objective Vital Signs & Weight: Vital Signs (12 hours) Temp Pulse Resp BP Pulse Ox 09/08/20 09:00 98.6 F 101 H 18 158/85 H 94 L 09/08/20 05:15 98.6 F 101 H 18 157/89 H 94 L 09/08/20 00:07 98 18 166/93 H 97 Weight Weight 156 lb 8 oz I&O: 09/07/20 09/08/20 09/09/20 06:59 06:59 06:59 Intake Total 300 Balance 300 Result Diagrams: 09/08/20 06:07 09/08/20 06:07 Additional Labs: Accuchecks 09/08/20 09/08/20 09/07/20 08:20 05:07 20:32 POC Glucose 78 82 70 09/07/20 17:14 POC Glucose 83 Microbiology 09/07/20 12:46 Urine voided Urine Culture - Preliminary Gram Negative Ryan Streptococcus agalactiae Gp. B Laboratory Tests 09/07/20 09/07/20 09/08/20 08:09 08:09 06:07 WBC 10.4 Hgb 12.1 Neutrophils % 81.8 H 80.1 H Carbon Dioxide 13 L BUN 25 H Creatinine 3.51 H Hospitalist ROS - Medication Medications: Active Medications Generic Name Dose Route Start Last Admin Trade Name Freq PRN Reason Stop Dose Admin Ascorbic Acid 1,000 mg 09/08/20 09:00 09/08/20 08:12 Ascorbic Acid 500 Mg Chewable Tablet PO 1,000 mg DAILY RACHEL Administration Cholecalciferol 1,000 units 09/08/20 09:00 09/08/20 08:12 Cholecalciferol 1,000 Units (25 Mcg) Tab PO 1,000 units DAILY RACHEL Administration Sodium Chloride 1,000 mls @ 150 mls/hr 09/07/20 11:45 09/08/20 05:04 Normal Saline 0.9% IV 1,000 mls .Q6H40M RACHEL Administration Ondansetron HCl 4 mg 09/07/20 11:14 09/07/20 22:22 Ondansetron Odt 4 Mg Tab PO 4 mg Q6H PRN Administration Nausea/Vomiting Ondansetron HCl 4 mg 09/07/20 11:14 09/07/20 15:29 Ondansetron Pf 4 Mg/2 Ml Vial IVP 4 mg Q6H PRN Administration Nausea/Vomiting Tramadol HCl 50 mg 09/07/20 11:32 09/07/20 22:22 Tramadol Hcl 50 Mg Tab PO 50 mg Q4H PRN Administration Moderate Pain (4-6) Zinc Sulfate 220 mg 09/08/20 09:00 09/08/20 08:12 Zinc Sulfate 220 Mg Cap PO 220 mg DAILY RACHEL Administration - Exam General Appearance: NAD, awake alert Eye: PERRL, anicteric sclera ENT: normocephalic atraumatic, no oropharyngeal lesions Neck: supple, symmetric, no JVD, no thyromegaly, no lymphadenopathy Heart: RRR, no murmur, no gallops, no rubs, normal peripheral pulses Heart - other findings: S1, S2 Respiratory: CTAB, no wheezes, no rales, no ronchi, normal chest expansion Gastrointestinal: soft, non-tender, non-distended, normal bowel sounds, no palpable masses, no hepatomegaly Extremities: no cyanosis, no clubbing, no edema Skin: normal turgor, no lesions Neurological: cranial nerve grossly intact, no new deficit Musculoskeletal: normal tone, normal strength, no muscle wasting Psychiatric: normal affect, A&O x 3 Hosp A/P (1) COVID-19 virus infection Code(s): U07.1 - COVID-19 Status: Acute Plan: Continue supportive mgmt, Vit C/Zinc/Vit D3, supportive care, isolation protocol (2) Acute kidney injury superimposed on CKD Code(s): N17.9 - ACUTE KIDNEY FAILURE, UNSPECIFIED; N18.9 - CHRONIC KIDNEY DISEASE, UNSPECIFIED Status: Acute Plan: Continue IVF's, avoid nephrotoxic meds and limit contrast (3) UTI (urinary tract infection) Status: Acute Plan: GNR and Strep spp, add Rocephin 2gm IV daily (4) Metabolic acidosis Code(s): E87.2 - ACIDOSIS Status: Acute Plan: Secondary to WENDY, continue IVF's, serial monitoring, may consider sodium bicarbonate supplements (5) DM I (diabetes mellitus, type I) Status: Acute Plan: Continue home insulin regimen, serial accuchecks, ADA - Plan continue antibiotics, marriage and family social worker, out of bed/ambulate, DVT proph w/SCDs Stable currently Continue isolation protocol Add Rocephin 2gm IV daily continue IVF's Continue Vit C/D3/Zinc AM lab: BMP, CBC
[2020-09-08] MEDS: Acetaminophen 325 MG TAB PO PRN (11:41)
[2020-09-08] MEDS ORDERED: cefTRIAXone\\ROCEPHIN 2 GM in Sodium Chloride 0.9% 100 ML IVPB SCH (12:00)
[2020-09-08] MEDS ORDERED: FLU VACC QS2020-21(6MOS UP)/PF 60 MCG/0.5 ML SYRINGE IM ONE (15:15)
[2020-09-08] MEDS: traMADol HCl 50 MG TAB PO PRN (19:42)
[2020-09-08] MEDS: Ondansetron ODT 4 MG TAB PO PRN (19:42)
[2020-09-09] MEDS: Sodium Chloride 0.9% 1,000 ML IV SCH ×3 (02:03→17:34)
[2020-09-09] MEDS: Ondansetron ODT 4 MG TAB PO PRN (02:09)
[2020-09-09 06:42] LABS: #Basophils 0.1 thou/uL (0.0-0.2); #Lymphocytes 1.7 thou/uL (1.20-3.40); #Monocytes 0.5 thou/uL (0.11-0.59); #Neutrophils 7.2 thou/uL (1.40-6.50); %Basophils 0.6 % (0.0-1.0); %Eosinophils 0.3 % (0.0-10.0); %Lymphocytes 18.2 % (21.0-51.0); %Monocytes 5.5 % (0.0-10.0); %Neutrophils 75.4 % (42.0-75.0); Hemoglobin 11.1 g/dL (12.0-16.0); Mean Corpuscular HGB CONC 32.1 g/dL (32.0-36.0); Mean Corpuscular Hemoglobin 31.4 pg (27.0-31.0); Mean Corpuscular Volume 97.8 fL (78.0-98.0); Platelet Count 332 thou/uL (130-400); RBC Distribution Width 12.4 % (11.5-14.5); Red Blood Cell (RBC) Count 3.55 mill/uL (4.20-5.40); White Blood Cell (WBC) Count 9.6 thou/uL (4.8-10.8)
[2020-09-09 07:06] LABS: Anion Gap 15 mmol/L (10-20); BUN (Urea Nitrogen) 23 mg/dL (7.0-18.7); Calc. Creatinine Clearance 28 mL/min (70-130); Calcium 7.2 mg/dL (7.8-10.44); Chloride 114 mmol/L (98-107); Glucose 98 mg/dL (70-105); Potassium 3.4 mmol/L (3.5-5.1); Sodium 135 mmol/L (136-145)
[2020-09-09 07:10] LABS: Carbon Dioxide 9 mmol/L (22-29)
[2020-09-09] MEDS: Ascorbic Acid 500 mg Chewable Tablet PO SCH (08:13)
[2020-09-09] MEDS: traMADol HCl 50 MG TAB PO PRN ×2 (08:13→21:19)
[2020-09-09] MEDS: Zinc Sulfate 220 MG CAP PO SCH (08:13)
[2020-09-09] MEDS: Cholecalciferol 1,000 UNITS (25 MCG) TAB PO SCH (08:13)
[2020-09-09] MEDS ORDERED: Sodium Bicarbonate 150 MEQ in Dextrose 5% in Water 1,000 ML IV SCH (08:45)
--- NOTE | 2020-09-09 11:33 | PDOC.HOSPP ---
- Subjective Encounter Date: 09/09/20 Encounter Time: 11:30 Subjective: f/u for COVID infection with WENDY/CKD/Dehydration/metabolic acidosis/UTI with E. coli/Strep spp. Receiving IVF's/Rocephin currently. Feels weak and fatigued today. - Objective Vital Signs & Weight: Vital Signs (12 hours) Temp Pulse Resp BP Pulse Ox 09/09/20 08:53 98.3 F 104 H 16 128/83 97 09/09/20 08:00 97 Weight Admit Weight 156 lb 8 oz Weight 156 lb 8 oz I&O: 09/08/20 09/09/20 09/10/20 06:59 06:59 06:59 Intake Total 300 Balance 300 Result Diagrams: 09/09/20 05:51 09/09/20 05:51 Additional Labs: Accuchecks 09/09/20 09/08/20 09/08/20 06:03 19:25 16:31 POC Glucose 97 129 H 122 H 09/08/20 11:32 POC Glucose 110 H Microbiology 09/07/20 12:46 Urine voided Urine Culture - Final Escherichia coli Streptococcus agalactiae Gp. B 09/07/20 12:46 Urine voided Urine Culture - Preliminary Gram Negative Ryan Streptococcus agalactiae Gp. B Laboratory Tests 09/07/20 09/07/20 09/08/20 08:09 08:09 06:07 WBC 10.4 Hgb 12.1 Neutrophils % 81.8 H Carbon Dioxide 13 L 11 L BUN 25 H Creatinine 3.51 H 09/08/20 06:07 WBC Hgb Neutrophils % 80.1 H Carbon Dioxide BUN Creatinine Hospitalist ROS - Medication Medications: Active Medications Generic Name Dose Route Start Last Admin Trade Name Freq PRN Reason Stop Dose Admin Acetaminophen 650 mg 09/07/20 11:14 09/08/20 11:41 Acetaminophen 325 Mg Tab PO 650 mg Q4H PRN Administration Headache/Fever/Mild Pain (1-3) Ascorbic Acid 1,000 mg 09/08/20 09:00 09/09/20 08:13 Ascorbic Acid 500 Mg Chewable Tablet PO 1,000 mg DAILY RACHEL Administration Cholecalciferol 1,000 units 09/08/20 09:00 09/09/20 08:13 Cholecalciferol 1,000 Units (25 Mcg) Tab PO 1,000 units DAILY RACHEL Administration Sodium Chloride 1,000 mls @ 150 mls/hr 09/07/20 11:45 09/09/20 08:15 Normal Saline 0.9% IV 1,000 mls .Q6H40M RACHEL Administration Sodium Bicarbonate 150 meq/ 1,150 mls @ 150 mls/hr 09/09/20 08:45 09/09/20 09:48 Dextrose/Water IV 09/09/20 16:24 1,150 mls NOW RACHEL Administration Ondansetron HCl 4 mg 09/07/20 11:14 09/09/20 02:09 Ondansetron Odt 4 Mg Tab PO 4 mg Q6H PRN Administration Nausea/Vomiting Ondansetron HCl 4 mg 09/07/20 11:14 09/07/20 15:29 Ondansetron Pf 4 Mg/2 Ml Vial IVP 4 mg Q6H PRN Administration Nausea/Vomiting Sodium Chloride 10 ml 09/09/20 09:00 09/09/20 09:48 Flush - Normal Saline 10 Ml Syringe IVF 10 ml Q12HR RACHEL Administration Tramadol HCl 50 mg 09/07/20 11:32 09/09/20 08:13 Tramadol Hcl 50 Mg Tab PO 50 mg Q4H PRN Administration Moderate Pain (4-6) Zinc Sulfate 220 mg 09/08/20 09:00 09/09/20 08:13 Zinc Sulfate 220 Mg Cap PO 220 mg DAILY RACHEL Administration - Exam General Appearance: NAD, awake alert Eye: PERRL, anicteric sclera ENT: normocephalic atraumatic, no oropharyngeal lesions Neck: supple, symmetric, no JVD, no thyromegaly Heart: RRR, no gallops, no rubs, normal peripheral pulses Heart - other findings: S1, S2 Respiratory: CTAB, no wheezes, no rales, no ronchi, normal chest expansion, no tachypnea Gastrointestinal: soft, non-tender, non-distended, normal bowel sounds, no palpable masses Extremities: no cyanosis, no clubbing, no edema Skin: normal turgor, no lesions Neurological: cranial nerve grossly intact, no new deficit Musculoskeletal: normal tone, normal strength, no muscle wasting Psychiatric: normal affect, A&O x 3 Hosp A/P (1) UTI (urinary tract infection) Status: Acute Plan: E. coli/Strep spp with resistance to Rocephin, start Zosyn today, continue IVF's (2) COVID-19 virus infection Code(s): U07.1 - COVID-19 Status: Acute Plan: Continue supportive mgmt, isolation protocol (3) Acute kidney injury superimposed on CKD Code(s): N17.9 - ACUTE KIDNEY FAILURE, UNSPECIFIED; N18.9 - CHRONIC KIDNEY DISEASE, UNSPECIFIED Status: Acute Plan: Improved, continue IVF's, avoid nephrotoxic meds and limit contrast exposure (4) Metabolic acidosis Code(s): E87.2 - ACIDOSIS Status: Acute Plan: Worsening likely due to resistant E. coli spp, start Sodium bicarbonate IV, change to Zosyn IV (5) DM I (diabetes mellitus, type I) Status: Chronic - Plan continue antibiotics, delinquency prevention social worker, DVT proph w/SCDs Stable currently Continue isolation protocol Start Zosyn 2.25gm IV q8h D/C Rocephin due to resistance of e. coli spp continue IVF's Start Sodium bicarbonate infusion Continue Vit C/D3/Zinc AM lab: BMP, CBC
[2020-09-09] MEDS: Piperacillin/Tazobactam 2.25 GM in Sodium Chloride 0.9% 100 ML IVPB SCH ×2 (12:15→20:28)
[2020-09-09] MEDS: HumaLOG 300 UNITS/3 ML VIAL SC PRN (17:46)
[2020-09-09] MEDS: Ondansetron PF 4 MG/2 ML Vial IVP PRN (21:20)
[2020-09-10] MEDS: Sodium Chloride 0.9% 1,000 ML IV SCH ×4 (01:21→17:28)
[2020-09-10] MEDS: Piperacillin/Tazobactam 2.25 GM in Sodium Chloride 0.9% 100 ML IVPB SCH ×5 (03:40→23:16)
[2020-09-10] MEDS: traMADol HCl 50 MG TAB PO PRN ×4 (03:41→23:30)
[2020-09-10] MEDS: Ondansetron ODT 4 MG TAB PO PRN ×3 (03:41→23:31)
[2020-09-10 07:01] LABS: #Lymphocytes 1.8 thou/uL (1.20-3.40); #Monocytes 0.8 thou/uL (0.11-0.59); #Neutrophils 7.4 thou/uL (1.40-6.50); %Basophils 0.2 % (0.0-1.0); %Eosinophils 0.5 % (0.0-10.0); %Lymphocytes 17.7 % (21.0-51.0); %Monocytes 8.1 % (0.0-10.0); %Neutrophils 73.5 % (42.0-75.0); Hemoglobin 11.6 g/dL (12.0-16.0); Mean Corpuscular HGB CONC 33.5 g/dL (32.0-36.0); Mean Corpuscular Hemoglobin 32.5 pg (27.0-31.0); Mean Corpuscular Volume 97.2 fL (78.0-98.0); Mean Platelet Volume 6.7 fL (7.4-10.4); Platelet Count 376 thou/uL (130-400); RBC Distribution Width 12.3 % (11.5-14.5); Red Blood Cell (RBC) Count 3.56 mill/uL (4.20-5.40)
[2020-09-10 07:13] LABS: Anion Gap 15 mmol/L (10-20); BUN (Urea Nitrogen) 23 mg/dL (7.0-18.7); Calc. Creatinine Clearance 28 mL/min (70-130); Calcium 7.6 mg/dL (7.8-10.44); Carbon Dioxide 13 mmol/L (22-29); Chloride 111 mmol/L (98-107); Glucose 112 mg/dL (70-105); Potassium 3.1 mmol/L (3.5-5.1); Sodium 136 mmol/L (136-145)
[2020-09-10] MEDS: Zinc Sulfate 220 MG CAP PO SCH (08:36)
[2020-09-10] MEDS: Ascorbic Acid 500 mg Chewable Tablet PO SCH (08:36)
[2020-09-10] MEDS: Cholecalciferol 1,000 UNITS (25 MCG) TAB PO SCH (08:36)
[2020-09-10] MEDS ORDERED: Sodium Bicarbonate 150 MEQ in Dextrose 5% in Water 1,000 ML IV SCH (09:00)
--- NOTE | 2020-09-10 09:59 | PDOC.HOSPP ---
- Subjective Encounter Date: 09/10/20 Encounter Time: 09:55 Subjective: f/u for COVID-19 infection/UTI with E. coli/Strep spp receiving IVF's/Zosyn. Metabolic acidosis improved but still present. - Objective Vital Signs & Weight: Vital Signs (12 hours) Temp Pulse Resp BP Pulse Ox 09/10/20 09:00 98.4 F 93 18 155/85 H 93 L Weight Admit Weight 156 lb 8 oz Weight 156 lb Result Diagrams: 09/10/20 06:42 09/10/20 06:42 Additional Labs: Accuchecks 09/10/20 09/09/20 09/09/20 06:19 23:34 17:40 POC Glucose 106 H 114 H 224 H 09/09/20 12:25 POC Glucose 172 H Microbiology 09/07/20 12:46 Urine voided Urine Culture - Final Escherichia coli Streptococcus agalactiae Gp. B 09/07/20 12:46 Urine voided Urine Culture - Preliminary Gram Negative Ryan Streptococcus agalactiae Gp. B Laboratory Tests 09/07/20 09/07/20 09/08/20 08:09 08:09 06:07 WBC 10.4 Hgb 12.1 Neutrophils % 81.8 H Potassium Carbon Dioxide 13 L 11 L BUN 25 H Creatinine 3.51 H 09/08/20 09/09/20 06:07 05:51 WBC Hgb Neutrophils % 80.1 H Potassium 3.4 L Carbon Dioxide 9 L* BUN Creatinine Hospitalist ROS - Medication Medications: Active Medications Generic Name Dose Route Start Last Admin Trade Name Freq PRN Reason Stop Dose Admin Acetaminophen 650 mg 09/07/20 11:14 09/08/20 11:41 Acetaminophen 325 Mg Tab PO 650 mg Q4H PRN Administration Headache/Fever/Mild Pain (1-3) Ascorbic Acid 1,000 mg 09/08/20 09:00 09/10/20 08:36 Ascorbic Acid 500 Mg Chewable Tablet PO 1,000 mg DAILY RACHEL Administration Cholecalciferol 1,000 units 09/08/20 09:00 09/10/20 08:36 Cholecalciferol 1,000 Units (25 Mcg) Tab PO 1,000 units DAILY RACHEL Administration Sodium Chloride 1,000 mls @ 150 mls/hr 09/07/20 11:45 09/10/20 06:11 Normal Saline 0.9% IV 1,000 mls .Q6H40M RACHEL Administration Piperacillin Sod/Tazobactam 100 mls @ 200 mls/hr 09/09/20 12:00 09/10/20 03:40 Sod 2.25 gm/ Sodium Chloride IVPB 100 mls 0400,1200,2000 RACHEL Administration Insulin Human Lispro 0 units 09/08/20 12:15 09/09/20 17:46 Humalog 300 Units/3 Ml Vial SC 4 unit .MODERATE SLIDING SC PRN Administration MODERATE SLIDING SCALE Protocol Ondansetron HCl 4 mg 09/07/20 11:14 09/10/20 03:41 Ondansetron Odt 4 Mg Tab PO 4 mg Q6H PRN Administration Nausea/Vomiting Ondansetron HCl 4 mg 09/07/20 11:14 09/09/20 21:20 Ondansetron Pf 4 Mg/2 Ml Vial IVP 4 mg Q6H PRN Administration Nausea/Vomiting Sodium Chloride 10 ml 09/09/20 09:00 09/10/20 08:37 Flush - Normal Saline 10 Ml Syringe IVF 10 ml Q12HR RACHEL Administration Tramadol HCl 50 mg 09/07/20 11:32 09/10/20 06:37 Tramadol Hcl 50 Mg Tab PO 50 mg Q4H PRN Administration Moderate Pain (4-6) Zinc Sulfate 220 mg 09/08/20 09:00 09/10/20 08:36 Zinc Sulfate 220 Mg Cap PO 220 mg DAILY RACHEL Administration - Exam General Appearance: NAD, awake alert Eye: PERRL, anicteric sclera ENT: normocephalic atraumatic, no oropharyngeal lesions Neck: supple, symmetric, no JVD, no thyromegaly, no lymphadenopathy Heart: RRR, no gallops, no rubs, normal peripheral pulses Heart - other findings: S1, S2 Respiratory: CTAB, no wheezes, no rales, no ronchi, normal chest expansion Gastrointestinal: soft, non-tender, non-distended, normal bowel sounds, no palpable masses Extremities: no cyanosis, no clubbing, no edema Skin: normal turgor, no lesions Neurological: cranial nerve grossly intact, no new deficit Musculoskeletal: normal tone, normal strength, no muscle wasting Psychiatric: normal affect, A&O x 3 Hosp A/P (1) UTI (urinary tract infection) Status: Acute Plan: E. coli/Strep spp on Zosyn currently, continue IVF's (2) COVID-19 virus infection Code(s): U07.1 - COVID-19 Status: Acute Plan: No respiratory compromise or hypoxia, supportive mgmt, isolation protocol (3) Acute kidney injury superimposed on CKD Code(s): N17.9 - ACUTE KIDNEY FAILURE, UNSPECIFIED; N18.9 - CHRONIC KIDNEY DISEASE, UNSPECIFIED Status: Acute Plan: Slow improvement, continue IVF's, Sodium bicarbonate today, serial creatinine (4) Metabolic acidosis Code(s): E87.2 - ACIDOSIS Status: Acute Plan: Slow improvement, Sodium bicarbonate IV today (5) DM I (diabetes mellitus, type I) Status: Chronic (6) Hypokalemia Code(s): E87.6 - HYPOKALEMIA Status: Acute Plan: KCL 40meq BID, serial K+ monitoring - Plan continue antibiotics, manager social, DVT proph w/SCDs Stable currently Continue isolation protocol Start Zosyn 2.25gm IV q8h D/C Rocephin due to resistance of e. coli spp continue IVF's Give 2nd Sodium bicarbonate infusion today Continue Vit C/D3/Zinc AM lab: BMP, CBC
[2020-09-10] MEDS ORDERED: Potassium Chloride 20 MEQ TAB PO SCH (10:15)
[2020-09-10] MEDS: Potassium Chloride 20 MEQ TAB PO SCH (17:27)
[2020-09-10] MEDS: HumaLOG 300 UNITS/3 ML VIAL SC PRN (18:00)
[2020-09-11] MEDS: Sodium Chloride 0.9% 1,000 ML IV SCH (02:35)
[2020-09-11] MEDS: traMADol HCl 50 MG TAB PO PRN ×3 (05:24→18:10)
[2020-09-11] MEDS: Ondansetron ODT 4 MG TAB PO PRN ×3 (05:25→18:10)
[2020-09-11] MEDS: Cholecalciferol 1,000 UNITS (25 MCG) TAB PO SCH (07:47)
[2020-09-11] MEDS: Zinc Sulfate 220 MG CAP PO SCH (07:47)
[2020-09-11] MEDS: Potassium Chloride 20 MEQ TAB PO SCH ×2 (07:47→16:19)
[2020-09-11] MEDS: Piperacillin/Tazobactam 2.25 GM in Sodium Chloride 0.9% 100 ML IVPB SCH ×2 (07:48→16:19)
[2020-09-11] MEDS: Ascorbic Acid 500 mg Chewable Tablet PO SCH (07:48)
[2020-09-11 07:56] LABS: Anion Gap 11 mmol/L (10-20); BUN (Urea Nitrogen) 21 mg/dL (7.0-18.7); Calc. Creatinine Clearance 33 mL/min (70-130); Calcium 7.3 mg/dL (7.8-10.44); Carbon Dioxide 15 mmol/L (22-29); Chloride 111 mmol/L (98-107); Glucose 121 mg/dL (70-105); Magnesium 1.4 mg/dL (1.6-2.6); Potassium 3.3 mmol/L (3.5-5.1); Sodium 134 mmol/L (136-145)
[2020-09-11] MEDS ORDERED: Sodium Chloride 0.9% 1,000 ML IV SCH (09:05)
[2020-09-11] MEDS: Sodium Bicarbonate Tab 325 MG TAB PO SCH ×2 (09:39→20:25)
--- NOTE | 2020-09-11 11:17 | PDOC.HOSPP ---
- Subjective Encounter Date: 09/11/20 Encounter Time: 11:05 Subjective: f/u for COVID/UTI with Strep/E. coli spp receiving Zosyn/IVF's. Apparently lost IV site and unable to establish new one. Still feels weak, abd/back pain/nausea. - Objective Vital Signs & Weight: Vital Signs (12 hours) Temp Pulse Resp BP Pulse Ox 09/11/20 10:52 98.1 F 100 20 154/95 H 95 09/11/20 07:03 98.4 F 96 18 150/85 H 95 Weight Admit Weight 156 lb 8 oz Weight 178 lb Result Diagrams: 09/10/20 06:42 09/11/20 07:05 Additional Labs: Accuchecks 09/11/20 09/11/20 09/10/20 10:50 05:03 20:11 POC Glucose 123 H 85 154 H 09/10/20 17:33 POC Glucose 298 H Microbiology 09/07/20 12:46 Urine voided Urine Culture - Final Escherichia coli Streptococcus agalactiae Gp. B 09/07/20 12:46 Urine voided Urine Culture - Preliminary Gram Negative Ryan Streptococcus agalactiae Gp. B Laboratory Tests 09/07/20 09/07/20 09/08/20 08:09 08:09 06:07 WBC 10.4 Hgb 12.1 Neutrophils % 81.8 H Potassium Carbon Dioxide 13 L 11 L BUN 25 H Creatinine 3.51 H Magnesium 09/08/20 09/09/20 09/11/20 06:07 05:51 07:05 WBC Hgb Neutrophils % 80.1 H Potassium 3.4 L Carbon Dioxide 9 L* BUN Creatinine Magnesium 1.4 L Hospitalist ROS - Medication Medications: Active Medications Generic Name Dose Route Start Last Admin Trade Name Freq PRN Reason Stop Dose Admin Acetaminophen 650 mg 09/07/20 11:14 09/08/20 11:41 Acetaminophen 325 Mg Tab PO 650 mg Q4H PRN Administration Headache/Fever/Mild Pain (1-3) Ascorbic Acid 1,000 mg 09/08/20 09:00 09/11/20 07:48 Ascorbic Acid 500 Mg Chewable Tablet PO 1,000 mg DAILY RACHEL Administration Cholecalciferol 1,000 units 09/08/20 09:00 09/11/20 07:47 Cholecalciferol 1,000 Units (25 Mcg) Tab PO 1,000 units DAILY RACHEL Administration Piperacillin Sod/Tazobactam 100 mls @ 200 mls/hr 09/10/20 23:59 09/11/20 07:48 Sod 2.25 gm/ Sodium Chloride IVPB 100 mls 0800,1600,2359 RACHEL Administration Sodium Chloride 1,000 mls @ 75 mls/hr 09/11/20 09:05 09/11/20 09:39 Normal Saline 0.9% IV Not Given .[id number] [facility] Insulin Human Lispro 0 units 09/08/20 12:15 09/10/20 18:00 Humalog 300 Units/3 Ml Vial SC 6 unit .MODERATE SLIDING SC PRN Administration MODERATE SLIDING SCALE Protocol Ondansetron HCl 4 mg 09/07/20 11:14 09/11/20 05:25 Ondansetron Odt 4 Mg Tab PO 4 mg Q6H PRN Administration Nausea/Vomiting Ondansetron HCl 4 mg 09/07/20 11:14 09/09/20 21:20 Ondansetron Pf 4 Mg/2 Ml Vial IVP 4 mg Q6H PRN Administration Nausea/Vomiting Potassium Chloride 40 meq 09/10/20 17:00 09/11/20 07:47 Potassium Chloride 20 Meq Tab PO 40 meq BID-WM RACHEL Administration Sodium Bicarbonate 325 mg 09/11/20 09:00 09/11/20 09:39 Sodium Bicarbonate Tab 325 Mg Tab PO 325 mg BID RACHEL Administration Sodium Chloride 10 ml 09/09/20 09:00 09/11/20 07:48 Flush - Normal Saline 10 Ml Syringe IVF 10 ml Q12HR RACHEL Administration Tramadol HCl 50 mg 09/07/20 11:32 09/11/20 05:24 Tramadol Hcl 50 Mg Tab PO 50 mg Q4H PRN Administration Moderate Pain (4-6) Zinc Sulfate 220 mg 09/08/20 09:00 09/11/20 07:47 Zinc Sulfate 220 Mg Cap PO 220 mg DAILY RACHLE Administration - Exam General Appearance: NAD, awake alert Eye: PERRL, anicteric sclera ENT: normocephalic atraumatic, no oropharyngeal lesions Neck: supple, symmetric, no JVD, no thyromegaly, no lymphadenopathy Heart: RRR, no gallops, no rubs, normal peripheral pulses Heart - other findings: S1, S2 Respiratory: CTAB, no wheezes, no rales, no ronchi, normal chest expansion, no tachypnea Gastrointestinal: soft, non-tender, non-distended, normal bowel sounds, no palpable masses, no guarding, no rigidity Extremities: no cyanosis, no clubbing, 1+ LE edema Skin: normal turgor Neurological: cranial nerve grossly intact, no new deficit Musculoskeletal: normal tone, normal strength, no muscle wasting Psychiatric: normal affect, A&O x 3 Hosp A/P (1) UTI (urinary tract infection) Status: Acute Plan: Continue Zosyn for Strep/E. coli spp given sensitivity pattern, IVF's once establishing PICC line (2) COVID-19 virus infection Code(s): U07.1 - COVID-19 Status: Acute Plan: No resp compromise currently, continue isolation protocol (3) Acute kidney injury superimposed on CKD Code(s): N17.9 - ACUTE KIDNEY FAILURE, UNSPECIFIED; N18.9 - CHRONIC KIDNEY DISEASE, UNSPECIFIED Status: Acute Plan: Persistent, consult Nephrology service, avoid nephrotoxic meds, continue Sodium Bicarbonate (4) Metabolic acidosis Code(s): E87.2 - ACIDOSIS Status: Acute (5) DM I (diabetes mellitus, type I) Status: Chronic (6) Hypokalemia Code(s): E87.6 - HYPOKALEMIA Status: Acute Plan: KCL supplementation - Plan continue antibiotics, group social worker, out of bed/ambulate, DVT proph w/SCDs Stable currently Continue isolation protocol Zosyn 2.25gm IV q8h D/C Rocephin due to resistance of e. coli spp continue IVF's Place PICC line due to poor peripheral access Sodium bicarbonate 325mg BID Continue Vit C/D3/Zinc AM lab: BMP
[2020-09-11] MEDS ORDERED: Magnesium 2 GM/50 ML 2 GM in Premix Bag 1 BAG IVPB SCH (11:45)
[2020-09-11] MEDS ORDERED: Albumin 25% 25 GM/100 ML BOT IVPB SCH (12:00)
[2020-09-11] MEDS: Sodium Bicarbonate 150 MEQ in Dextrose 5% in Water 1,000 ML IV SCH (14:38)
--- NOTE | 2020-09-11 15:50 | SPC ---
Exam: Leftupper extremity ultrasound guided PICC line HISTORY: TPN, IV antibiotics Exposure:0.5 minutes, 3179 mg/sq cm FINDINGS: Lumen: Singlelumen Trim length: 44 cm Distal tip:Right atrium Catheter flushes and aspirates without difficulty TECHNIQUE: Consent obtained to perform a left upper extremity PICC line with ultrasound guidance. Le ftarm was prepped and draped in a sterile fashion. 1% lidocaine, buffered with sodium bicarbonate was used for local anesthesia. Under ultrasound guidance, micropuncture needle was used to cannulate thebrachialvein. A 0.018 guidewire was advanced through the needle to level of the superior vena cava. Under fluoroscopy, the wire was further advanced into the inferior vena cava to document venous access. Wire was subsequently pulled back to theright atrium. Single lumen flushes and aspirates without difficulty. Patient tolerated the procedure well. No immediate or postprocedure complications IMPRESSION: Successfulleftupper surgery PICC line placement with ultrasound guidance
[2020-09-11 16:03] LABS: ALT (SGPT) 15 U/L (8-55); AST (SGOT) 27 U/L (5-34); Albumin 1.9 g/dL (3.5-5.0); Alkaline Phosphatase 114 U/L (40-110); Bilirubin, Direct 0.1 mg/dL (0.1-0.3); Bilirubin, Total 0.2 mg/dL (0.2-1.2); Protein, Total 6.6 g/dL (6.0-8.3)
--- NOTE | 2020-09-11 16:10 | CON ---
DATE OF CONSULTATION: 09/11/2020 SERVICE: Nephrology. REASON FOR CONSULTATION: Acute kidney injury and metabolic acidosis. REQUESTING PHYSICIAN: Dr. Daryn Gilmore. HISTORY OF PRESENT ILLNESS: A 45-year-old female with known history of renal cancer, status post partial left nephrectomy as well as type 1 diabetes, on insulin, admitted on September 07 due to nausea, vomiting, as well as frequent loose stools associated with generalized body ache and low-grade fever. This patient was diagnosed with COVID prior to onset of symptoms. There was no associated chest pain, hematemesis, hematochezia, dysuria, hematuria, or focal weakness. The patient was found to have elevated creatinine on presentation, hence has been getting IV fluid therapy since admission. Creatinine improves marginally from admission level of 3.51 to 2.71. Due to lack of progressive improvement as well as worsening electrolyte derangement, especially metabolic acidosis, Nephrology consult was requested. Of note, during the course of this hospitalization, the patient has developed generalized swelling. She however denied shortness of breath. Fever has subsided. She continued to have nausea and dry heaves as well as loose stools. PAST MEDICAL HISTORY: 1. Type-1 diabetes mellitus. 2. Renal cell cancer. 3. Osteoarthritis. PAST SURGICAL HISTORY: 1. Partial left nephrectomy. 2. Left ankle surgery. 3. Bilateral knee replacement. 4. Uterine ablation. 5. Repair of wrist laceration. FAMILY HISTORY: Positive for diabetes and hypertension. SOCIAL HISTORY: The patient lives at home with parents. She is a former smoker that quit about 2 years ago. Prior to that was smoking about half a pack a day. Drinks alcohol occasionally. ALLERGIES: NO KNOWN DRUG ALLERGIES REPORTED. MEDICATIONS: Prior to hospital medications are as follows: 1. Lantus unknown dose. 2. Zofran ODT p.r.n. 3. Insulin lispro sliding scale with meals. Of note, home medications cannot be completely documented as the patient does not know all her home medications. Current hospital medications are as follows: 1. Zosyn 2.25 g q.8 hours. 2. Normal saline at 75 mL/hr. 3. Ascorbic acid 1000 mg p.o. daily. 4. Cholecalciferol 1000 units p.o. daily. 5. Potassium chloride 40 mEq p.o. b.i.d. 6. Sodium bicarbonate tablet 325 mg p.o. b.i.d. 7. Zinc sulfate 220 mg p.o. daily. 8. Acetaminophen p.r.n. 9. Zofran p.r.n. 10. Sliding scale insulin. REVIEW OF SYSTEMS: 12-point review of system performed was negative other than pertinent positives and negatives included in the history of present illness. PHYSICAL EXAMINATION: VITAL SIGNS: Temperature 98.1, pulse 100, respiratory rate 20, SpO2 of 95% on room air, blood pressure is 154/95. Intake and output in the last 24 hours is inconclusive. GENERAL: Middle-age female, in no obvious distress. Afebrile. Acyanotic. HEENT: Normocephalic, atraumatic. Oral mucosa is moist. CARDIOVASCULAR: Regular rhythm and rate with normal heart sounds one and two. RESPIRATORY: Fair air entry bilateral, decreased at both bases with some transmitted breath sounds. No obvious rhonchi or use of accessory muscle was appreciated. GI: Full, soft, nontender, nondistended with normal bowel sounds. EXTREMITIES: [id number] edema of the extremities noted. Scar of prior surgery to the left ankle and both knees noted as well. No erythema appreciated. TOWER WATCHMAN: Conscious, alert, and oriented x3 with appropriate mental status. Cranial nerves 2 through 12 are grossly intact. The patient moves all extremities, but weakly. DIAGNOSTIC DATA: CBC today showed WBC count of 10.0, hemoglobin of 11.6, MCV of 97.2, platelet of 376. Of note, on presentation on September 07, CBC showed WBC count of 10.4, hemoglobin of 12.1, MCV of 97.4, and platelets of 288. Chemistry today showed sodium 134, potassium 3.3, chloride 111, CO2 of 15, BUN 21, creatinine 2.71, glucose 121, calcium 7.3, magnesium 1.4. Of note, on presentation on September 07, sodium was 137, potassium 3.6, chloride 109, CO2 of 13, BUN 25, creatinine 3.51, calcium was 7.6, and magnesium was 1.8. LFTs were unremarkable. Review of medical records showed that the patient had normal creatinine of 0.85 in April 22, 2019. Urinalysis on presentation on September 07 showed yellow turbid urine with pH of 8.0, specific gravity of 1.016, positive protein, glucose, ketone, blood with negative nitrites and bilirubin. Leukocyte esterase was positive. Microscopy showed 0 to 3 rbc and 0 to 3 wbc. ASSESSMENT: 1. Acute kidney injury: Most likely due to hemodynamic factors related to volume depletion and intravascular contraction with some contribution from sepsis and cytokine-mediated injury. Obstructive uropathy is a concern. 2. Hypokalemia, persistent: Most likely due to gastrointestinal losses, poor oral intake, as well as hypomagnesemia. 3. Metabolic acidosis: Due to acute kidney injury as well as IV fluid therapy with normal saline causing hyperchloremic acidosis. 4. Generalized swelling: Due to hypoalbuminemia and chronic kidney disease with acute WENDY as well as some contribution from aggressive IV fluid therapy. 5. Hypoalbuminemia: On presentation on September 07, albumin was 1.9. 6. Protein-calorie malnutrition. 7. Hypomagnesemia. PLAN: 1. We will start the patient on sodium bicarbonate infusion and discontinue normal saline. 2. We will also start albumin therapy in this patient. We will also get liver function tests as well as repeat urinalysis and urine electrolytes and renal ultrasound. 3. We will replete serum magnesium. We will also rule out Clostridium difficile due to continued diarrhea. 4. Further treatment to follow depending on hospital course. Many thanks for involving us in the care of this patient. We will follow along with you. Job ID: [id number]
--- NOTE | 2020-09-11 16:27 | ULT ---
US Renal Bilateral STANDARD: 09/11/2020 3:20 PM CLINICAL HISTORY: Acute kidney injury with possible obstructive uropathy. History of left renal carci noma. STUDY: Renal ultrasound COMPARISON: CT abdomen/pelvis 03/18/2018 FINDINGS: Right kidney: Echogenicity: Normal. Masses/cysts: None. Hydronephrosis: None. Calcifications: None. Length: 10.4 cm Left kidney: Unable to be visualized Limited visualization of the urinary bladder is unremarkable. There is an incidental small right pleu ral effusion that was seen. IMPRESSION: Unremarkable right renal ultrasound
[2020-09-11] MEDS: Albumin 25% 25 GM/100 ML BOT IVPB SCH (18:07)
[2020-09-12] MEDS: traMADol HCl 50 MG TAB PO PRN ×4 (00:04→20:04)
[2020-09-12] MEDS: Ondansetron ODT 4 MG TAB PO PRN ×2 (00:04→06:14)
[2020-09-12] MEDS: Piperacillin/Tazobactam 2.25 GM in Sodium Chloride 0.9% 100 ML IVPB SCH ×2 (00:05→09:01)
[2020-09-12] MEDS: Albumin 25% 25 GM/100 ML BOT IVPB SCH ×3 (02:03→16:31)
--- NOTE | 2020-09-12 08:09 | PDOC.NEPPN ---
- Subjective Encounter Date: 09/12/20 Subjective: Seen in follow up for WENDY and metabolic acidosis. Still having frequent loose stools. Nausea and vomiting has subsided. tolerating water. - Objective Vital Signs & Weight: Vital Signs (12 hours) Temp Pulse Resp BP Pulse Ox 09/11/20 20:47 97.9 F 103 H 18 155/93 H 95 Weight Admit Weight 156 lb 8 oz Weight 180 lb Result Diagrams: 09/10/20 06:42 09/11/20 07:05 Additional Labs: Accuchecks 09/12/20 09/11/20 09/11/20 04:14 20:40 15:52 POC Glucose 150 H 166 H 131 H 09/11/20 10:50 POC Glucose 123 H Nephrology ROS - Medication Medications: Active Medications Generic Name Dose Route Start Last Admin Trade Name Freq PRN Reason Stop Dose Admin Acetaminophen 650 mg 09/07/20 11:14 09/08/20 11:41 Acetaminophen 325 Mg Tab PO 650 mg Q4H PRN Administration Headache/Fever/Mild Pain (1-3) Ascorbic Acid 1,000 mg 09/08/20 09:00 09/11/20 07:48 Ascorbic Acid 500 Mg Chewable Tablet PO 1,000 mg DAILY RACHEL Administration Cholecalciferol 1,000 units 09/08/20 09:00 09/11/20 07:47 Cholecalciferol 1,000 Units (25 Mcg) Tab PO 1,000 units DAILY RACHEL Administration Piperacillin Sod/Tazobactam 100 mls @ 200 mls/hr 09/10/20 23:59 09/12/20 00:05 Sod 2.25 gm/ Sodium Chloride IVPB 100 mls 0800,1600,2359 RACHEL Administration Sodium Bicarbonate 150 meq/ 1,150 mls @ 100 mls/hr 09/11/20 12:00 09/11/20 14:38 Dextrose/Water IV 1,150 mls INF RACHEL Administration Insulin Human Lispro 0 units 09/08/20 12:15 09/10/20 18:00 Humalog 300 Units/3 Ml Vial SC 6 unit .MODERATE SLIDING SC PRN Administration MODERATE SLIDING SCALE Protocol Ondansetron HCl 4 mg 09/07/20 11:14 09/12/20 06:14 Ondansetron Odt 4 Mg Tab PO 4 mg Q6H PRN Administration Nausea/Vomiting Ondansetron HCl 4 mg 09/07/20 11:14 09/09/20 21:20 Ondansetron Pf 4 Mg/2 Ml Vial IVP 4 mg Q6H PRN Administration Nausea/Vomiting Potassium Chloride 40 meq 09/10/20 17:00 09/11/20 16:19 Potassium Chloride 20 Meq Tab PO 40 meq BID-WM RACHEL Administration Sodium Bicarbonate 325 mg 09/11/20 09:00 09/11/20 20:25 Sodium Bicarbonate Tab 325 Mg Tab PO 325 mg BID RACHEL Administration Sodium Chloride 10 ml 09/09/20 09:00 09/11/20 20:26 Flush - Normal Saline 10 Ml Syringe IVF 10 ml Q12HR RACHEL Administration Tramadol HCl 50 mg 09/07/20 11:32 09/12/20 06:13 Tramadol Hcl 50 Mg Tab PO 50 mg Q4H PRN Administration Moderate Pain (4-6) Zinc Sulfate 220 mg 09/08/20 09:00 09/11/20 07:47 Zinc Sulfate 220 Mg Cap PO 220 mg DAILY RACHEL Administration - Exam General Appearance: awake alert Eye: PERRL ENT: normocephalic atraumatic, moist mucosa Neck: supple Respiratory: no wheezes, normal chest expansion, no tachypnea Respiratory - other findings: fair air entry bilaterally with some transmitted sound Cardiovascular: RRR Gastrointestinal: soft, non-tender, non-distended, normal bowel sounds Extremities - other findings: moderate edema of the extremities Neurological: CN's grossly intact, no focal deficits PSYCH: A&O x 3 Nephrology Results - Labs Result Diagrams: 09/10/20 06:42 09/11/20 07:05 Lab results: WBC 10.0 thou/uL (4.8-10.8) 09/10/20 06:42 Hgb 11.6 g/dL (12.0-16.0) L 09/10/20 06:42 Hct 34.6 % (36.0-47.0) L 09/10/20 06:42 MCV 97.2 fL (78.0-98.0) 09/10/20 06:42 Plt Count 376 thou/uL (130-400) 09/10/20 06:42 Neutrophils % 73.5 % (42.0-75.0) 09/10/20 06:42 Sodium 134 mmol/L (136-145) L 09/11/20 07:05 Potassium 3.3 mmol/L (3.5-5.1) L 09/11/20 07:05 Chloride 111 mmol/L (98-107) H 09/11/20 07:05 Carbon Dioxide 15 mmol/L (22-29) L 09/11/20 07:05 BUN 21 mg/dL (7.0-18.7) H 09/11/20 07:05 Creatinine 2.71 mg/dL (0.6-1.1) H 09/11/20 07:05 Glucose 121 mg/dL (70-105) H 09/11/20 07:05 Lactic Acid 0.5 mmol/L (0.5-2.2) 09/07/20 08:09 Calcium 7.3 mg/dL (7.8-10.44) L 09/11/20 07:05 Total Bilirubin 0.2 mg/dL (0.2-1.2) 09/11/20 15:36 AST 27 U/L (5-34) 09/11/20 15:36 ALT 15 U/L (8-55) 09/11/20 15:36 Alkaline Phosphatase 114 U/L (40-110) H 09/11/20 15:36 Creatine Kinase 107 U/L (29-168) 09/07/20 08:09 Serum Total Protein 6.6 g/dL (6.0-8.3) 09/11/20 15:36 Albumin 1.9 g/dL (3.5-5.0) L 09/11/20 15:36 Urine Ketones 20 mg/dL (Negative) A 09/07/20 12:46 Urine Blood 2+ (Negative) A 09/07/20 12:46 Urine Nitrite Negative (Negative) 09/07/20 12:46 Ur Leukocyte Esterase 25 Morgan/uL (Negative) A 09/07/20 12:46 Urine RBC 0-3 HPF (0-3) 09/07/20 12:46 Urine WBC 0-3 HPF (0-3) 09/07/20 12:46 Ur Squamous Epith Cells 4-6 HPF (0-3) A 09/07/20 12:46 Urine Bacteria 4+ HPF (None Seen) A 09/07/20 12:46 Sodium 134 mmol/L (136-145) L 09/11/20 07:05 Potassium 3.3 mmol/L (3.5-5.1) L 09/11/20 07:05 Chloride 111 mmol/L (98-107) H 09/11/20 07:05 Carbon Dioxide 15 mmol/L (22-29) L 09/11/20 07:05 Anion Gap 11 mmol/L (10-20) 09/11/20 07:05 BUN 21 mg/dL (7.0-18.7) H 09/11/20 07:05 Creatinine 2.71 mg/dL (0.6-1.1) H 09/11/20 07:05 Glucose 121 mg/dL (70-105) H 09/11/20 07:05 Calcium 7.3 mg/dL (7.8-10.44) L 09/11/20 07:05 Magnesium 1.4 mg/dL (1.6-2.6) L 09/11/20 07:05 Albumin 1.9 g/dL (3.5-5.0) L 09/11/20 15:36 Nephrology AP PN - Plan WENDY. Hypokalemia Metabolic acidosis Generalized swelling Hypomagnesemia Persistent diarrhea: ? pancreatitis vs enteritis. C dif toxin assay was negative. Hypoalbuminemia UTI on treatment. Covid infection. Plan Await CBC and CMP. Still awaiting urinalysis and urine electrolytes Also get lipase and amylase. Continue albumin and sodium bicarbonate. Start cholestyramine for diarrhea Replete electrolytes as indicated.
[2020-09-12] MEDS: Sodium Bicarbonate Tab 325 MG TAB PO SCH ×2 (09:02→19:54)
[2020-09-12] MEDS: Potassium Chloride 20 MEQ TAB PO SCH ×2 (09:02→16:10)
[2020-09-12] MEDS: Cholecalciferol 1,000 UNITS (25 MCG) TAB PO SCH (09:03)
[2020-09-12] MEDS: Zinc Sulfate 220 MG CAP PO SCH (09:03)
[2020-09-12] MEDS: Ascorbic Acid 500 mg Chewable Tablet PO SCH (09:03)
[2020-09-12 09:44] LABS: Bilirubin Negative (Negative); Blood, Urine 1+ (Negative); Clarity Clear (Clear); Glucose, Urine (Dipstick) 500 mg/dL (Negative); Ketone, Urine 10 mg/dL (Negative); Leukocyte Negative Leu/uL (Negative); Nitrite Negative (Negative); Protein, Urine (Dipstick) 600 mg/dL (Neg-Trace); RBC/HPF 0-3 HPF (0-3); Specific Gravity, Urine 1.015 (1.002-1.036); Squamous Epithelial 0-3 HPF (0-3); Urobilinogen Normal mg/dL (Less than 2); pH, Urine 7.5 (5.0-9.0)
[2020-09-12 09:45] LABS: Bacteria/HPF 1+ HPF (None Seen)
[2020-09-12] MEDS: Cholestyramine/Aspartame 4 gm Packet PO SCH ×2 (09:59→19:54)
[2020-09-12 10:01] LABS: Creatinine, Urine 34.5 mg/dL (47-110)
[2020-09-12 10:03] LABS: Anion Gap 14 mmol/L (10-20); BUN (Urea Nitrogen) 19 mg/dL (7.0-18.7); Calc. Creatinine Clearance 33 mL/min (70-130); Calcium 7.8 mg/dL (7.8-10.44); Carbon Dioxide 17 mmol/L (22-29); Chloride 105 mmol/L (98-107); Glucose 191 mg/dL (70-105); Potassium 3.6 mmol/L (3.5-5.1); Sodium 132 mmol/L (136-145)
[2020-09-12] MEDS: HumaLOG 300 UNITS/3 ML VIAL SC PRN (11:25)
[2020-09-12] MEDS: Sodium Bicarbonate 150 MEQ in Dextrose 5% in Water 1,000 ML IV SCH (13:12)
--- NOTE | 2020-09-12 15:21 | PDOC.HOSPP ---
- Subjective Encounter Date: 09/12/20 Encounter Time: 15:20 Subjective: Ms. Barone was seen today in follow-up of COVID pneumonia and acute renal failure. She says she feels terrible. She continues to have discomfort and pain in her hips. She is no longer short of breath, and says the nasuea and vomting and diarrhea has improved. - Objective Vital Signs & Weight: Vital Signs (12 hours) Temp Pulse Resp BP Pulse Ox 09/12/20 11:11 98.2 F 102 H 20 149/86 H 91 L 09/12/20 09:37 97.3 F L 101 H 18 153/90 H 91 L Weight Admit Weight 156 lb 8 oz Weight 180 lb Result Diagrams: 09/10/20 06:42 09/12/20 09:27 Additional Labs: Accuchecks 09/12/20 09/12/20 09/11/20 11:13 04:14 20:40 POC Glucose 157 H 150 H 166 H 09/11/20 15:52 POC Glucose 131 H Hospitalist ROS - Medication Medications: Active Medications Generic Name Dose Route Start Last Admin Trade Name Freq PRN Reason Stop Dose Admin Acetaminophen 650 mg 09/07/20 11:14 09/08/20 11:41 Acetaminophen 325 Mg Tab PO 650 mg Q4H PRN Administration Headache/Fever/Mild Pain (1-3) Albumin Human 25 gm 09/12/20 08:07 09/12/20 09:57 Albumin 25% 25 Gm/100 Ml Bot IVPB 09/13/20 00:08 25 gm Q8H RACHEL Administration Ascorbic Acid 1,000 mg 09/08/20 09:00 09/12/20 09:03 Ascorbic Acid 500 Mg Chewable Tablet PO 1,000 mg DAILY RACHEL Administration Cholecalciferol 1,000 units 09/08/20 09:00 09/12/20 09:03 Cholecalciferol 1,000 Units (25 Mcg) Tab PO 1,000 units DAILY RACHEL Administration Cholestyramine Resin 4 gm 09/12/20 10:00 09/12/20 09:59 Cholestyramine/Aspartame 4 Gm Packet PO 4 gm 1000,2200 RACHEL Administration Sodium Bicarbonate 150 meq/ 1,150 mls @ 100 mls/hr 09/11/20 12:00 09/12/20 13:12 Dextrose/Water IV 1,150 mls INF RACHEL Administration Insulin Human Lispro 0 units 09/08/20 12:15 09/12/20 11:25 Humalog 300 Units/3 Ml Vial SC 2 unit .MODERATE SLIDING SC PRN Administration MODERATE SLIDING SCALE Protocol Ondansetron HCl 4 mg 09/07/20 11:14 09/12/20 06:14 Ondansetron Odt 4 Mg Tab PO 4 mg Q6H PRN Administration Nausea/Vomiting Ondansetron HCl 4 mg 09/07/20 11:14 09/09/20 21:20 Ondansetron Pf 4 Mg/2 Ml Vial IVP 4 mg Q6H PRN Administration Nausea/Vomiting Potassium Chloride 40 meq 09/10/20 17:00 09/12/20 09:02 Potassium Chloride 20 Meq Tab PO 40 meq BID-WM RACHEL Administration Sodium Bicarbonate 325 mg 09/11/20 09:00 09/12/20 09:02 Sodium Bicarbonate Tab 325 Mg Tab PO 325 mg BID RACHEL Administration Sodium Chloride 10 ml 09/09/20 09:00 09/12/20 09:04 Flush - Normal Saline 10 Ml Syringe IVF 10 ml Q12HR RACHEL Administration Tramadol HCl 50 mg 09/07/20 11:32 09/12/20 06:13 Tramadol Hcl 50 Mg Tab PO 50 mg Q4H PRN Administration Moderate Pain (4-6) Zinc Sulfate 220 mg 09/08/20 09:00 09/12/20 09:03 Zinc Sulfate 220 Mg Cap PO 220 mg DAILY RACHEL Administration - Exam General Appearance: ill appearing Eye: PERRL, anicteric sclera Heart: RRR, no murmur, no gallops, no rubs, normal peripheral pulses Respiratory: rales (+ rales bilaterally) Gastrointestinal: soft, non-tender, non-distended, normal bowel sounds, no palpa ble masses, no hepatomegaly Extremities: no cyanosis, no clubbing, 1+ LE edema Hosp A/P (1) Acute kidney injury superimposed on CKD Code(s): N17.9 - ACUTE KIDNEY FAILURE, UNSPECIFIED; N18.9 - CHRONIC KIDNEY DISEASE, UNSPECIFIED Status: Acute (2) COVID-19 virus infection Code(s): U07.1 - COVID-19 Status: Acute (3) UTI (urinary tract infection) Status: Acute (4) DM I (diabetes mellitus, type I) Status: Chronic (5) HTN (hypertension) Code(s): I10 - ESSENTIAL (PRIMARY) HYPERTENSION Status: Chronic Qualifiers: Hypertension type: essential hypertension Qualified Code(s): I10 - Essential (primary) hypertension - Plan * Acute on chronic kidney injury- ? etiology- may be related to UTI or COVID- infection or both * Nephrology managing * UTI- will change antibiotics to Levaquin( in case Zosyn is contributing to renal insufficiency * COVID infection- her respiratory symptoms are mild, and she is currently not requiring any supplemental oxygen * DM- blood glucose is stable * HTN- blood pressure is elevated- Lisinopril is on hold, due to WENDY- will start Amlodipine temporarily.
[2020-09-12] MEDS ORDERED: Amlodipine 5 MG TAB PO SCH (15:30)
--- NOTE | 2020-09-12 22:58 | PDOC.EVN ---
Event Note - Event Note Event Note: Notified by RN, patient with shortness of breath and sats of 90% on 5L by NC. At 20:00 was on 3L by NC with sats of 97%. Patient wheezing with lower extremity edema per RN. Patient tachypneic. CXR ordered. Albuterol inhaler ordered. Methylprednisolone 125 mg IV x 1, continue 40 mg daily. Lasix 20 mg IV x 1.
[2020-09-12] MEDS ORDERED: Furosemide 40 MG/4 ML VIAL SLOW IVP SCH (23:00)
[2020-09-12] MEDS: Ondansetron PF 4 MG/2 ML Vial IVP PRN (23:07)
[2020-09-12] MEDS ORDERED: methylPREDNISolone Sod Succ/PF 125 MG/2 ML VIAL IVP SCH (23:15)
[2020-09-12] MEDS ORDERED: Furosemide 20 MG/2 ML VIAL SLOW IVP SCH (23:15)
--- NOTE | 2020-09-12 23:19 | RAD ---
Portable frontal chest radiograph: 09/12/2020 COMPARISON: 08/26/2018 HISTORY: Hypoxia and tachypnea FINDINGS: Extensive severe interstitial and alveolar opacity noted throughout both lungs with multifo loni consolidation. No pneumothorax is evident. There is a left upper extremity PICC with distal tip overlying the proximal right atrium. IMPRESSION: Extensive severe multifocal interstitial and alveolar opacity with bilateral multi lobar consolidation. Findings are suspicious for nonspecific diffuse infectious pneumonitis or aspiration. Covid 19 is a possibility.
[2020-09-13] MEDS: traMADol HCl 50 MG TAB PO PRN ×3 (00:05→23:38)
[2020-09-13] MEDS: Albumin 25% 25 GM/100 ML BOT IVPB SCH (00:06)
[2020-09-13 02:16] LABS: #Lymphocytes 0.7 thou/uL (1.20-3.40); #Monocytes 0.3 thou/uL (0.11-0.59); #Neutrophils 9.2 thou/uL (1.40-6.50); %Basophils 0.2 % (0.0-1.0); %Eosinophils 0.2 % (0.0-10.0); %Lymphocytes 6.7 % (21.0-51.0); %Monocytes 2.6 % (0.0-10.0); %Neutrophils 90.5 % (42.0-75.0); Hemoglobin 10.2 g/dL (12.0-16.0); Mean Corpuscular HGB CONC 33.4 g/dL (32.0-36.0); Mean Corpuscular Hemoglobin 32.4 pg (27.0-31.0); Mean Corpuscular Volume 97.2 fL (78.0-98.0); Platelet Count 198 thou/uL (130-400); RBC Distribution Width 12.3 % (11.5-14.5); Red Blood Cell (RBC) Count 3.15 mill/uL (4.20-5.40); White Blood Cell (WBC) Count 10.2 thou/uL (4.8-10.8)
[2020-09-13 02:33] LABS: Anion Gap 18 mmol/L (10-20); BUN (Urea Nitrogen) 18 mg/dL (7.0-18.7); Calc. Creatinine Clearance 34 mL/min (70-130); Carbon Dioxide 16 mmol/L (22-29); Chloride 105 mmol/L (98-107); Glucose 195 mg/dL (70-105); Magnesium 1.9 mg/dL (1.6-2.6); Potassium 4.5 mmol/L (3.5-5.1); Sodium 134 mmol/L (136-145)
[2020-09-13 02:48] LABS: Lactic Acid 0.6 mmol/L (0.5-2.2)
[2020-09-13] MEDS ORDERED: Amlodipine 5 MG TAB PO SCH (09:00)
[2020-09-13] MEDS: Zinc Sulfate 220 MG CAP PO SCH (09:26)
[2020-09-13] MEDS: methylPREDNISolone Sod Succ 40 MG VIAL IVP SCH (09:26)
[2020-09-13] MEDS: Cholecalciferol 1,000 UNITS (25 MCG) TAB PO SCH (09:26)
[2020-09-13] MEDS: Sodium Bicarbonate Tab 325 MG TAB PO SCH ×3 (09:26→19:51)
[2020-09-13] MEDS: Ascorbic Acid 500 mg Chewable Tablet PO SCH (09:26)
[2020-09-13] MEDS: Potassium Chloride 20 MEQ TAB PO SCH ×2 (10:59→17:18)
[2020-09-13] MEDS: Cholestyramine/Aspartame 4 gm Packet PO SCH ×2 (10:59→21:18)
--- NOTE | 2020-09-13 12:04 | PDOC.NEPPN ---
- Subjective Encounter Date: 09/13/20 Subjective: Seen in follow up for WENDY, metabolic acidosis and edema. Patient developed worsening SOB last night requiring oxygen supplementation. Treated with lasix with improvement. Still on oxygen supplementation. has been recieving sodium bicarbonate for severe metabolic acidosis and WENDY. No fever. frequent loose stool have improved. Still having nausea and some vomiting with poor oral intake. - Objective Vital Signs & Weight: Vital Signs (12 hours) Temp Pulse Resp BP Pulse Ox 09/13/20 11:18 97.6 F 104 H 20 144/89 H 97 09/13/20 09:50 98 F 94 20 132/88 95 09/13/20 09:26 95 09/13/20 07:26 97.9 F 95 20 150/89 H 96 09/13/20 04:45 97.8 F 95 20 140/81 98 09/13/20 00:23 97.9 F 98 22 H 150/90 H 96 Weight Admit Weight 156 lb 8 oz Weight 181 lb 14.4 oz Result Diagrams: 09/13/20 02:00 09/13/20 02:00 Additional Labs: Accuchecks 09/13/20 09/13/20 09/12/20 11:19 04:00 19:57 POC Glucose 217 H 200 H 150 H 09/12/20 15:59 POC Glucose 125 H Nephrology ROS - Medication Medications: Active Medications Generic Name Dose Route Start Last Admin Trade Name Freq PRN Reason Stop Dose Admin Acetaminophen 650 mg 09/07/20 11:14 09/08/20 11:41 Acetaminophen 325 Mg Tab PO 650 mg Q4H PRN Administration Headache/Fever/Mild Pain (1-3) Amlodipine Besylate 5 mg 09/13/20 09:00 09/13/20 09:26 Amlodipine 5 Mg Tab PO 5 mg DAILY RACHEL Administration Ascorbic Acid 1,000 mg 09/08/20 09:00 09/13/20 09:26 Ascorbic Acid 500 Mg Chewable Tablet PO 1,000 mg DAILY RACHEL Administration Cholecalciferol 1,000 units 09/08/20 09:00 09/13/20 09:26 Cholecalciferol 1,000 Units (25 Mcg) Tab PO 1,000 units DAILY RACHEL Administration Cholestyramine Resin 4 gm 09/12/20 10:00 09/13/20 10:59 Cholestyramine/Aspartame 4 Gm Packet PO 4 gm 1000,2200 RACHEL Administration Guaifenesin 200 mg 09/07/20 11:14 09/12/20 23:06 Diabetic Tussin 200 Mg/10 Ml Udcup PO 200 mg Q4H PRN Administration Cough Levofloxacin 500 mg/ Device 100 mls @ 100 mls/hr 09/12/20 15:15 09/12/20 16:09 IVPB 100 mls Q24HR RACHEL Administration Insulin Human Lispro 0 units 09/08/20 12:15 09/12/20 11:25 Humalog 300 Units/3 Ml Vial SC 2 unit .MODERATE SLIDING SC PRN Administration MODERATE SLIDING SCALE Protocol Methylprednisolone Sodium Succinate 40 mg 09/13/20 09:00 09/13/20 09:26 Methylprednisolone Sod Succ 40 Mg Vial IVP 40 mg DAILY RACHEL Administration Ondansetron HCl 4 mg 09/07/20 11:14 09/12/20 06:14 Ondansetron Odt 4 Mg Tab PO 4 mg Q6H PRN Administration Nausea/Vomiting Ondansetron HCl 4 mg 09/07/20 11:14 09/12/20 23:07 Ondansetron Pf 4 Mg/2 Ml Vial IVP 4 mg Q6H PRN Administration Nausea/Vomiting Potassium Chloride 40 meq 09/10/20 17:00 09/13/20 10:59 Potassium Chloride 20 Meq Tab PO 40 meq BID-WM RACHEL Administration Sodium Chloride 10 ml 09/09/20 09:00 09/13/20 09:26 Flush - Normal Saline 10 Ml Syringe IVF 10 ml Q12HR RACHEL Administration Tramadol HCl 50 mg 09/07/20 11:32 09/13/20 03:56 Tramadol Hcl 50 Mg Tab PO 50 mg Q4H PRN Administration Moderate Pain (4-6) Zinc Sulfate 220 mg 09/08/20 09:00 09/13/20 09:26 Zinc Sulfate 220 Mg Cap PO 220 mg DAILY RACHEL Administration - Exam General Appearance: awake alert Eye: anicteric sclera ENT: normocephalic atraumatic, moist mucosa Neck: supple, no JVD Respiratory - other findings: fair air entry with some crackles and transmitted sound Cardiovascular: RRR Gastrointestinal: soft, non-tender, normal bowel sounds Extremities - other findings: moderate edema of the extremities. Left ankle scar noted Neurological: CN's grossly intact, no focal deficits PSYCH: A&O x 3 Nephrology Results - Labs Result Diagrams: 09/13/20 02:00 09/13/20 02:00 Lab results: WBC 10.2 thou/uL (4.8-10.8) 09/13/20 02:00 Hgb 10.2 g/dL (12.0-16.0) L 09/13/20 02:00 Hct 30.6 % (36.0-47.0) L 09/13/20 02:00 MCV 97.2 fL (78.0-98.0) 09/13/20 02:00 Plt Count 198 thou/uL (130-400) 09/13/20 02:00 Neutrophils % 90.5 % (42.0-75.0) H 09/13/20 02:00 Sodium 134 mmol/L (136-145) L 09/13/20 02:00 Potassium 4.5 mmol/L (3.5-5.1) 09/13/20 02:00 Chloride 105 mmol/L (98-107) 09/13/20 02:00 Carbon Dioxide 16 mmol/L (22-29) L 09/13/20 02:00 BUN 18 mg/dL (7.0-18.7) 09/13/20 02:00 Creatinine 2.70 mg/dL (0.6-1.1) H 09/13/20 02:00 Glucose 195 mg/dL (70-105) H 09/13/20 02:00 Lactic Acid 0.6 mmol/L (0.5-2.2) 09/13/20 02:00 Calcium 8.0 mg/dL (7.8-10.44) 09/13/20 02:00 Total Bilirubin 0.2 mg/dL (0.2-1.2) 09/11/20 15:36 AST 27 U/L (5-34) 09/11/20 15:36 ALT 15 U/L (8-55) 09/11/20 15:36 Alkaline Phosphatase 114 U/L (40-110) H 09/11/20 15:36 Creatine Kinase 107 U/L (29-168) 09/07/20 08:09 C-Reactive Protein 22.51 mg/dL (= or < 0.5) H 09/13/20 02:00 Serum Total Protein 6.6 g/dL (6.0-8.3) 09/11/20 15:36 Albumin 2.9 g/dL (3.5-5.0) L 09/13/20 09:45 Lipase 4 U/L (8-78) L 09/12/20 09:27 Urine Ketones 10 mg/dL (Negative) A 09/12/20 09:20 Urine Blood 1+ (Negative) A 09/12/20 09:20 Urine Nitrite Negative (Negative) 09/12/20 09:20 Ur Leukocyte Esterase Negative Morgan/uL (Negative) 09/12/20 09:20 Urine RBC 0-3 HPF (0-3) 09/12/20 09:20 Urine WBC 11-20 HPF (0-3) A 09/12/20 09:20 Ur Squamous Epith Cells 0-3 HPF (0-3) 09/12/20 09:20 Urine Bacteria 1+ HPF (None Seen) A 09/12/20 09:20 Sodium 134 mmol/L (136-145) L 09/13/20 02:00 Potassium 4.5 mmol/L (3.5-5.1) 09/13/20 02:00 Chloride 105 mmol/L (98-107) 09/13/20 02:00 Carbon Dioxide 16 mmol/L (22-29) L 09/13/20 02:00 Anion Gap 18 mmol/L (10-20) 09/13/20 02:00 BUN 18 mg/dL (7.0-18.7) 09/13/20 02:00 Creatinine 2.70 mg/dL (0.6-1.1) H 09/13/20 02:00 Glucose 195 mg/dL (70-105) H 09/13/20 02:00 Calcium 8.0 mg/dL (7.8-10.44) 09/13/20 02:00 Magnesium 1.9 mg/dL (1.6-2.6) 09/13/20 02:00 Albumin 2.9 g/dL (3.5-5.0) L 09/13/20 09:45 Nephrology AP PN - Plan WENDY. Etiology is unclear. ? hemodynamic factors vs progression of diabetic nephropathy CKD. Stage and baseline creat is unknown. Creat was 0.85 in 04/2019. Was 3.5 on 09/07/2020. Patient is diabetic for more than 20 years and has proteinuria. Also has partiel left nephrectomy Nephrotic range proteinuria by UPC Hypokalemia. Metabolic acidosis: Persistent. Due WENDY/CKD and GI losses Generalized swelling Hypomagnesemia Persistent diarrhea: ? pancreatitis vs enteritis. C dif toxin assay was negative. Hypoalbuminemia UTI on treatment. HTN Presumed diabetic nephropathy Acute repiratory failure with hypoxia: Due fluid overload and covid pneumonia Covid infection. Plan DC IVF. Start IV lasix. Get 24 hr urine collection for proteinuria quantification and UPEP. Also get SAUD, SPEP Albumin as needed Continue alkali therapy orally. Replete electrolytes as indicated.
[2020-09-13] MEDS: Furosemide 100 MG/10 ML VIAL SLOW IVP SCH (14:10)
--- NOTE | 2020-09-13 14:18 | PDOC.HOSPP ---
- Subjective Encounter Date: 09/13/20 Encounter Time: 14:16 Subjective: Ms. Barone was seen today in follow-up of COVID pneumonia and respiratory failure. She says she feels a bit better today. She says the pain in her joints has improved. - Objective Vital Signs & Weight: Vital Signs (12 hours) Temp Pulse Resp BP Pulse Ox 09/13/20 11:18 97.6 F 104 H 20 144/89 H 97 09/13/20 09:50 98 F 94 20 132/88 95 09/13/20 09:26 95 09/13/20 07:26 97.9 F 95 20 150/89 H 96 09/13/20 04:45 97.8 F 95 20 140/81 98 Weight Admit Weight 156 lb 8 oz Weight 181 lb 14.4 oz Result Diagrams: 09/13/20 02:00 09/13/20 02:00 Additional Labs: Accuchecks 09/13/20 09/13/20 09/12/20 11:19 04:00 19:57 POC Glucose 217 H 200 H 150 H 09/12/20 15:59 POC Glucose 125 H Hospitalist ROS - Medication Medications: Active Medications Generic Name Dose Route Start Last Admin Trade Name Freq PRN Reason Stop Dose Admin Acetaminophen 650 mg 09/07/20 11:14 09/08/20 11:41 Acetaminophen 325 Mg Tab PO 650 mg Q4H PRN Administration Headache/Fever/Mild Pain (1-3) Amlodipine Besylate 5 mg 09/13/20 09:00 09/13/20 09:26 Amlodipine 5 Mg Tab PO 5 mg DAILY RACHEL Administration Ascorbic Acid 1,000 mg 09/08/20 09:00 09/13/20 09:26 Ascorbic Acid 500 Mg Chewable Tablet PO 1,000 mg DAILY RACHEL Administration Cholecalciferol 1,000 units 09/08/20 09:00 09/13/20 09:26 Cholecalciferol 1,000 Units (25 Mcg) Tab PO 1,000 units DAILY RACHEL Administration Cholestyramine Resin 4 gm 09/12/20 10:00 09/13/20 10:59 Cholestyramine/Aspartame 4 Gm Packet PO 4 gm 1000,2200 RACHEL Administration Furosemide 80 mg 09/13/20 14:00 09/13/20 14:10 Furosemide 100 Mg/10 Ml Vial SLOW IVP 80 mg 0600,1400 RACHEL Administration Guaifenesin 200 mg 09/07/20 11:14 09/12/20 23:06 Diabetic Tussin 200 Mg/10 Ml Udcup PO 200 mg Q4H PRN Administration Cough Levofloxacin 500 mg/ Device 100 mls @ 100 mls/hr 09/12/20 15:15 09/13/20 14:09 IVPB 100 mls Q24HR RACHEL Administration Insulin Human Lispro 0 units 09/08/20 12:15 09/12/20 11:25 Humalog 300 Units/3 Ml Vial SC 2 unit .MODERATE SLIDING SC PRN Administration MODERATE SLIDING SCALE Protocol Methylprednisolone Sodium Succinate 40 mg 09/13/20 09:00 09/13/20 09:26 Methylprednisolone Sod Succ 40 Mg Vial IVP 40 mg DAILY RACHEL Administration Ondansetron HCl 4 mg 09/07/20 11:14 09/12/20 06:14 Ondansetron Odt 4 Mg Tab PO 4 mg Q6H PRN Administration Nausea/Vomiting Ondansetron HCl 4 mg 09/07/20 11:14 09/12/20 23:07 Ondansetron Pf 4 Mg/2 Ml Vial IVP 4 mg Q6H PRN Administration Nausea/Vomiting Potassium Chloride 40 meq 09/10/20 17:00 09/13/20 10:59 Potassium Chloride 20 Meq Tab PO 40 meq BID-WM RACHEL Administration Sodium Bicarbonate 1,300 mg 09/13/20 15:00 09/13/20 14:10 Sodium Bicarbonate Tab 325 Mg Tab PO 1,300 mg TID RACHEL Administration Sodium Chloride 10 ml 09/09/20 09:00 09/13/20 09:26 Flush - Normal Saline 10 Ml Syringe IVF 10 ml Q12HR RACHEL Administration Tramadol HCl 50 mg 09/07/20 11:32 09/13/20 03:56 Tramadol Hcl 50 Mg Tab PO 50 mg Q4H PRN Administration Moderate Pain (4-6) Zinc Sulfate 220 mg 09/08/20 09:00 09/13/20 09:26 Zinc Sulfate 220 Mg Cap PO 220 mg DAILY RACHEL Administration - Exam Eye: PERRL, anicteric sclera Heart: RRR, no murmur, no gallops, no rubs, normal peripheral pulses Respiratory: no wheezes, no ronchi, rales (at both bases) Gastrointestinal: soft, non-tender, non-distended, normal bowel sounds, no palpable masses, no hepatomegaly Extremities: no cyanosis, no clubbing, 2+ LE edema Hosp A/P (1) Acute kidney injury superimposed on CKD Code(s): N17.9 - ACUTE KIDNEY FAILURE, UNSPECIFIED; N18.9 - CHRONIC KIDNEY DISEASE, UNSPECIFIED Status: Acute (2) COVID-19 virus infection Code(s): U07.1 - COVID-19 Status: Acute (3) UTI (urinary tract infection) Status: Acute (4) DM I (diabetes mellitus, type I) Status: Chronic (5) HTN (hypertension) Code(s): I10 - ESSENTIAL (PRIMARY) HYPERTENSION Status: Chronic Qualifiers: Hypertension type: essential hypertension Qualified Code(s): I10 - Essential (primary) hypertension - Plan * Acute on chronic kidney injury- etiology is unclear. Work-up is in progress by Nephrology * UTI- will continue Levaquin * COVID infection- the patient became short of breath last night, and was placed on supplemental oxygen- She is now on 6 liters, and has been stable * DM- blood glucose is bit elevated, may add scheduled insulin * HTN- blood pressure is elevated- Lisinopril is on hold, due to WENDY- continue Amlodipine * Will add Heparin for DVT prophylaxis
[2020-09-13] MEDS: Heparin 5,000 UNITS/ML VIAL SC SCH ×2 (15:28→19:51)
[2020-09-13] MEDS: HumaLOG 300 UNITS/3 ML VIAL SC PRN (17:18)
[2020-09-13] MEDS ORDERED: Insulin Glargine 6 UNITS in Pre-Filled Syringe 1 EACH SC SCH (21:00)
[2020-09-14] MEDS: Albuterol 200 PUFF (6.7GM INHALER) INH PRN (03:04)
[2020-09-14] MEDS: Furosemide 100 MG/10 ML VIAL SLOW IVP SCH (04:25)
[2020-09-14] MEDS: HumaLOG 300 UNITS/3 ML VIAL SC PRN ×4 (04:56→20:24)
[2020-09-14 05:25] LABS: Anion Gap 22 mmol/L (10-20); BUN (Urea Nitrogen) 28 mg/dL (7.0-18.7); Calc. Creatinine Clearance 28 mL/min (70-130); Calcium 8.6 mg/dL (7.8-10.44); Carbon Dioxide 14 mmol/L (22-29); Chloride 102 mmol/L (98-107); Glucose 298 mg/dL (70-105); Potassium 4.6 mmol/L (3.5-5.1); Sodium 133 mmol/L (136-145)
[2020-09-14] MEDS: Albumin 25% 25 GM/100 ML BOT IVPB SCH ×3 (06:27→17:58)
[2020-09-14] MEDS: Potassium Chloride 20 MEQ TAB PO SCH ×2 (08:24→16:54)
[2020-09-14] MEDS: Sodium Bicarbonate Tab 325 MG TAB PO SCH ×3 (08:24→20:21)
[2020-09-14] MEDS: methylPREDNISolone Sod Succ 40 MG VIAL IVP SCH (08:24)
[2020-09-14] MEDS: Zinc Sulfate 220 MG CAP PO SCH (08:25)
[2020-09-14] MEDS: Heparin 5,000 UNITS/ML VIAL SC SCH ×3 (08:25→20:22)
[2020-09-14] MEDS: Cholecalciferol 1,000 UNITS (25 MCG) TAB PO SCH (08:25)
[2020-09-14] MEDS: Ascorbic Acid 500 mg Chewable Tablet PO SCH (08:25)
[2020-09-14] MEDS ORDERED: Insulin Glargine 6 UNITS in Pre-Filled Syringe 1 EACH SC SCH (09:00)
--- NOTE | 2020-09-14 09:28 | PDOC.NEPPN ---
- Subjective Encounter Date: 09/14/20 Subjective: Seen in follow up for WENDY and nephrotic range proteinuria. Still having some SOB. Recently was diagnosed with Covid 19. Remained afebrile. - Objective Vital Signs & Weight: Vital Signs (12 hours) Temp Pulse Resp BP Pulse Ox 09/14/20 08:00 98.5 F 108 H 18 158/76 H 96 09/14/20 03:49 97.8 F 116 H 24 H 165/105 H 98 09/13/20 23:48 98.4 F 106 H 20 156/94 H 96 Weight Admit Weight 156 lb 8 oz Weight 179 lb I&O: 09/13/20 09/14/20 09/15/20 06:59 06:59 06:59 Intake Total 700 Balance 700 Result Diagrams: 09/13/20 02:00 09/14/20 04:35 Additional Labs: Accuchecks 09/13/20 09/13/20 09/13/20 19:58 15:32 11:19 POC Glucose 258 H 239 H 217 H Nephrology ROS - Medication Medications: Active Medications Generic Name Dose Route Start Last Admin Trade Name Freq PRN Reason Stop Dose Admin Acetaminophen 650 mg 09/07/20 11:14 09/08/20 11:41 Acetaminophen 325 Mg Tab PO 650 mg Q4H PRN Administration Headache/Fever/Mild Pain (1-3) Albumin Human 25 gm 09/14/20 06:15 09/14/20 06:27 Albumin 25% 25 Gm/100 Ml Bot IVPB 09/15/20 00:16 25 gm Q6H RACHEL Administration Albuterol Sulfate 2 puff 09/12/20 22:57 09/14/20 03:04 Albuterol 200 Puff (6.7gm Inhaler) INH 2 puff Q4H PRN Administration SOB/WHEEZE Ascorbic Acid 1,000 mg 09/08/20 09:00 09/14/20 08:25 Ascorbic Acid 500 Mg Chewable Tablet PO 1,000 mg DAILY RACHEL Administration Cholecalciferol 1,000 units 09/08/20 09:00 09/14/20 08:25 Cholecalciferol 1,000 Units (25 Mcg) Tab PO 1,000 units DAILY RACHEL Administration Cholestyramine Resin 4 gm 09/12/20 10:00 09/13/20 21:18 Cholestyramine/Aspartame 4 Gm Packet PO 4 gm 1000,2200 RACHEL Administration Furosemide 80 mg 09/13/20 14:00 09/14/20 04:25 Furosemide 100 Mg/10 Ml Vial SLOW IVP 80 mg 0600,1400 RACHEL Administration Guaifenesin 200 mg 09/07/20 11:14 09/12/20 23:06 Diabetic Tussin 200 Mg/10 Ml Udcup PO 200 mg Q4H PRN Administration Cough Heparin Sodium (Porcine) 5,000 units 09/13/20 15:00 09/14/20 08:25 Heparin 5,000 Units/Ml Vial SC 5,000 units TID RACHEL Administration Levofloxacin 500 mg/ Device 100 mls @ 100 mls/hr 09/12/20 15:15 09/13/20 14:0 9 IVPB 100 mls Q24HR RACHEL Administration Insulin Human Lispro 0 units 09/08/20 12:15 09/14/20 04:56 Humalog 300 Units/3 Ml Vial SC 6 unit .MODERATE SLIDING SC PRN Administration MODERATE SLIDING SCALE Protocol Methylprednisolone Sodium Succinate 40 mg 09/13/20 09:00 09/14/20 08:24 Methylprednisolone Sod Succ 40 Mg Vial IVP 40 mg DAILY RACHEL Administration Ondansetron HCl 4 mg 09/07/20 11:14 09/12/20 06:14 Ondansetron Odt 4 Mg Tab PO 4 mg Q6H PRN Administration Nausea/Vomiting Ondansetron HCl 4 mg 09/07/20 11:14 09/12/20 23:07 Ondansetron Pf 4 Mg/2 Ml Vial IVP 4 mg Q6H PRN Administration Nausea/Vomiting Potassium Chloride 40 meq 09/10/20 17:00 09/14/20 08:24 Potassium Chloride 20 Meq Tab PO 40 meq BID-WM RACHEL Administration Sodium Bicarbonate 1,300 mg 09/13/20 15:00 09/14/20 08:24 Sodium Bicarbonate Tab 325 Mg Tab PO 1,300 mg TID RACHEL Administration Sodium Chloride 10 ml 09/09/20 09:00 09/14/20 08:25 Flush - Normal Saline 10 Ml Syringe IVF 10 ml Q12HR RACHEL Administration Tramadol HCl 50 mg 09/07/20 11:32 09/13/20 23:38 Tramadol Hcl 50 Mg Tab PO 50 mg Q4H PRN Administration Moderate Pain (4-6) Zinc Sulfate 220 mg 09/08/20 09:00 09/14/20 08:25 Zinc Sulfate 220 Mg Cap PO 220 mg DAILY RACHEL Administration - Exam General Appearance: awake alert General - other findings: obese, afebrile byt fatigued Eye: anicteric sclera ENT: normocephalic atraumatic, moist mucosa Neck: symmetric Respiratory: no ronchi, no tachypnea Respiratory - other findings: fair air entry with some transmitted breath sound and few crackles Cardiovascular: RRR Heart - other findings: tachycardic Gastrointestinal: normal bowel sounds Gastrointestinal - other findings: obese, soft, non tender. Extremities - other findings: moderate edema of the extremities. Neurological: CN's grossly intact, no focal deficits PSYCH: A&O x 3 Nephrology Results - Labs Result Diagrams: 09/13/20 02:00 09/14/20 04:35 Lab results: WBC 10.2 thou/uL (4.8-10.8) 09/13/20 02:00 Hgb 10.2 g/dL (12.0-16.0) L 09/13/20 02:00 Hct 30.6 % (36.0-47.0) L 09/13/20 02:00 MCV 97.2 fL (78.0-98.0) 09/13/20 02:00 Plt Count 198 thou/uL (130-400) 09/13/20 02:00 Neutrophils % 90.5 % (42.0-75.0) H 09/13/20 02:00 Sodium 133 mmol/L (136-145) L 09/14/20 04:35 Potassium 4.6 mmol/L (3.5-5.1) 09/14/20 04:35 Chloride 102 mmol/L (98-107) 09/14/20 04:35 Carbon Dioxide 14 mmol/L (22-29) L 09/14/20 04:35 BUN 28 mg/dL (7.0-18.7) H 09/14/20 04:35 Creatinine 3.30 mg/dL (0.6-1.1) H 09/14/20 04:35 Glucose 298 mg/dL (70-105) H 09/14/20 04:35 Lactic Acid 0.6 mmol/L (0.5-2.2) 09/13/20 02:00 Calcium 8.6 mg/dL (7.8-10.44) 09/14/20 04:35 Total Bilirubin 0.2 mg/dL (0.2-1.2) 09/11/20 15:36 AST 27 U/L (5-34) 09/11/20 15:36 ALT 15 U/L (8-55) 09/11/20 15:36 Alkaline Phosphatase 114 U/L (40-110) H 09/11/20 15:36 Creatine Kinase 107 U/L (29-168) 09/07/20 08:09 C-Reactive Protein 22.51 mg/dL (= or < 0.5) H 09/13/20 02:00 Serum Total Protein 6.6 g/dL (6.0-8.3) 09/11/20 15:36 Albumin 2.6 g/dL (3.5-5.0) L 09/14/20 04:35 Lipase 4 U/L (8-78) L 09/12/20 09:27 Urine Ketones 10 mg/dL (Negative) A 09/12/20 09:20 Urine Blood 1+ (Negative) A 09/12/20 09:20 Urine Nitrite Negative (Negative) 09/12/20 09:20 Ur Leukocyte Esterase Negative Morgan/uL (Negative) 09/12/20 09:20 Urine RBC 0-3 HPF (0-3) 09/12/20 09:20 Urine WBC 11-20 HPF (0-3) A 09/12/20 09:20 Ur Squamous Epith Cells 0-3 HPF (0-3) 09/12/20 09:20 Urine Bacteria 1+ HPF (None Seen) A 09/12/20 09:20 Sodium 133 mmol/L (136-145) L 09/14/20 04:35 Potassium 4.6 mmol/L (3.5-5.1) 09/14/20 04:35 Chloride 102 mmol/L (98-107) 09/14/20 04:35 Carbon Dioxide 14 mmol/L (22-29) L 09/14/20 04:35 Anion Gap 22 mmol/L (10-20) H 09/14/20 04:35 BUN 28 mg/dL (7.0-18.7) H 09/14/20 04:35 Creatinine 3.30 mg/dL (0.6-1.1) H 09/14/20 04:35 Glucose 298 mg/dL (70-105) H 09/14/20 04:35 Calcium 8.6 mg/dL (7.8-10.44) 09/14/20 04:35 Magnesium 1.9 mg/dL (1.6-2.6) 09/13/20 02:00 Albumin 2.6 g/dL (3.5-5.0) L 09/14/20 04:35 Nephrology AP PN - Plan WENDY. Etiology is unclear. ? hemodynamic factors vs progression of diabetic nephropathy CKD. Stage and baseline creat is unknown. Creat was 0.85 in 04/2019. Was 3.5 on 09/07/2020. Patient is diabetic for more than 20 years and has proteinuria. Also has partial left nephrectomy Nephrotic range proteinuria by UPC Hypokalemia. Metabolic acidosis: Persistent. Due WENDY/CKD and GI losses Generalized swelling Hypomagnesemia Diarrhea: Etiology unclear. ? pancreatitis vs enteritis. C dif toxin assay was negative. Improved with cholestyramine Hypoalbuminemia UTI on treatment. HTN Presumed diabetic nephropathy Acute repiratory failure with hypoxia: Due fluid overload and covid pneumonia Covid infection. Plan Substitute amlodipine with cardizem for BP control due to marked proteinuria. No RAAS josey as yet due to WENDY Hold lasix due to tachycardia and gsignificant increase in creat suggestive of intravascular contraction. Start albumin infusion due to associated hypoalbuminemia Will re evaluate with a view to dosing IV lasix. Awaiting SAUD, SPEP and 24 hr urine protein and UPEP. Continue alkali therapy orally. Get Echo to assess cardiac function. Replete electrolytes as indicated. Lower extremity doppler contemplated in view to edema, inactivity and covid infection
[2020-09-14] MEDS: Insulin Glargine 12 UNITS in Pre-Filled Syringe 1 EACH SC SCH ×2 (09:59→20:24)
[2020-09-14] MEDS: Cholestyramine/Aspartame 4 gm Packet PO SCH ×2 (11:20→21:19)
--- NOTE | 2020-09-14 13:37 | PDOC.HOSPP ---
- Subjective Encounter Date: 09/14/20 Encounter Time: 13:35 Subjective: Ms. Barone was seen today in follow-up of COVID pneumonia and respiratory failure. She says she feels much better. She notes that her breathing is getting a little better. - Objective Vital Signs & Weight: Vital Signs (12 hours) Temp Pulse Resp BP Pulse Ox 09/14/20 11:44 98.5 F 113 H 20 156/82 H 97 09/14/20 09:59 108 H 09/14/20 08:00 98.5 F 108 H 18 158/76 H 96 09/14/20 03:49 97.8 F 116 H 24 H 165/105 H 98 Weight Admit Weight 156 lb 8 oz Weight 179 lb I&O: 09/13/20 09/14/20 09/15/20 06:59 06:59 06:59 Intake Total 700 Balance 700 Result Diagrams: 09/13/20 02:00 09/14/20 04:35 Additional Labs: Accuchecks 09/14/20 09/13/20 09/13/20 11:25 19:58 15:32 POC Glucose 338 H 258 H 239 H Hospitalist ROS - Medication Medications: Active Medications Generic Name Dose Route Start Last Admin Trade Name Freq PRN Reason Stop Dose Admin Acetaminophen 650 mg 09/07/20 11:14 09/08/20 11:41 Acetaminophen 325 Mg Tab PO 650 mg Q4H PRN Administration Headache/Fever/Mild Pain (1-3) Albumin Human 25 gm 09/14/20 06:15 09/14/20 11:20 Albumin 25% 25 Gm/100 Ml Bot IVPB 09/15/20 00:16 25 gm Q6H RACHEL Administration Albuterol Sulfate 2 puff 09/12/20 22:57 09/14/20 03:04 Albuterol 200 Puff (6.7gm Inhaler) INH 2 puff Q4H PRN Administration SOB/WHEEZE Ascorbic Acid 1,000 mg 09/08/20 09:00 09/14/20 08:25 Ascorbic Acid 500 Mg Chewable Tablet PO 1,000 mg DAILY RACHEL Administration Cholecalciferol 1,000 units 09/08/20 09:00 09/14/20 08:25 Cholecalciferol 1,000 Units (25 Mcg) Tab PO 1,000 units DAILY RACHEL Administration Cholestyramine Resin 4 gm 09/12/20 10:00 09/14/20 11:20 Cholestyramine/Aspartame 4 Gm Packet PO 4 gm 1000,2200 RACHEL Administration Diltiazem HCl 240 mg 09/14/20 09:00 09/14/20 09:59 Diltiazem Hcl Cd 240 Mg Capsule PO 240 mg DAILY RACHEL Administration Furosemide 80 mg 09/13/20 14:00 09/14/20 04:25 Furosemide 100 Mg/10 Ml Vial SLOW IVP 80 mg 0600,1400 RACHEL Administration Guaifenesin 200 mg 09/07/20 11:14 09/12/20 23:06 Diabetic Tussin 200 Mg/10 Ml Udcup PO 200 mg Q4H PRN Administration Cough Heparin Sodium (Porcine) 5,000 units 09/13/20 15:00 09/14/20 08:25 Heparin 5,000 Units/Ml Vial SC 5,000 units TID RACHEL Administration Levofloxacin 500 mg/ Device 100 mls @ 100 mls/hr 09/12/20 15:15 09/13/20 14:09 IVPB 100 mls Q24HR RACHEL Administration Insulin Glargine 12 units/ 0.12 mls @ 0 mls/hr 09/14/20 09:00 09/14/20 09:59 Miscellaneous Medication SC 0.12 mls QAM RACHEL Administration Insulin Human Lispro 0 units 09/08/20 12:15 09/14/20 13:27 Humalog 300 Units/3 Ml Vial SC 8 unit .MODERATE SLIDING SC PRN Administration MODERATE SLIDING SCALE Protocol Methylprednisolone Sodium Succinate 40 mg 09/13/20 09:00 09/14/20 08:24 Methylprednisolone Sod Succ 40 Mg Vial IVP 40 mg DAILY RACHEL Administration Ondansetron HCl 4 mg 09/07/20 11:14 09/12/20 06:14 Ondansetron Odt 4 Mg Tab PO 4 mg Q6H PRN Administration Nausea/Vomiting Ondansetron HCl 4 mg 09/07/20 11:14 09/12/20 23:07 Ondansetron Pf 4 Mg/2 Ml Vial IVP 4 mg Q6H PRN Administration Nausea/Vomiting Potassium Chloride 40 meq 09/10/20 17:00 09/14/20 08:24 Potassium Chloride 20 Meq Tab PO 40 meq BID- RACHEL Administration Sodium Bicarbonate 1,300 mg 09/13/20 15:00 09/14/20 08:24 Sodium Bicarbonate Tab 325 Mg Tab PO 1,300 mg TID RACHEL Administration Sodium Chloride 10 ml 09/09/20 09:00 09/14/20 08:25 Flush - Normal Saline 10 Ml Syringe IVF 10 ml Q12HR RACHEL Administration Tramadol HCl 50 mg 09/07/20 11:32 09/13/20 23:38 Tramadol Hcl 50 Mg Tab PO 50 mg Q4H PRN Administration Moderate Pain (4-6) Zinc Sulfate 220 mg 09/08/20 09:00 09/14/20 08:25 Zinc Sulfate 220 Mg Cap PO 220 mg DAILY RACHEL Administration - Exam Eye: PERRL, anicteric sclera Heart: RRR, no murmur, no gallops, no rubs, normal peripheral pulses Respiratory: no wheezes, no ronchi, rales Gastrointestinal: soft, non-tender, non-distended, normal bowel sounds Extremities: 2+ LE edema (+ pitting edema in both lower and upper extremities) Hosp A/P (1) Acute kidney injury superimposed on CKD Code(s): N17.9 - ACUTE KIDNEY FAILURE, UNSPECIFIED; N18.9 - CHRONIC KIDNEY DISEASE, UNSPECIFIED Status: Acute (2) COVID-19 virus infection Code(s): U07.1 - COVID-19 Status: Acute (3) UTI (urinary tract infection) Status: Acute (4) DM I (diabetes mellitus, type I) Status: Chronic (5) HTN (hypertension) Code(s): I10 - ESSENTIAL (PRIMARY) HYPERTENSION Status: Chronic Qualifiers: Hypertension type: essential hypertension Qualified Code(s): I10 - Essential (primary) hypertension - Plan * Acute on chronic kidney injury- etiology is unclear. Work-up is in progress by Nephrology * UTI- will continue Levaquin * COVID infection- her oxygen requirement has declined some- will continue with IV steroids * Monitor inflammatory markers * DM- blood glucose is continue to titrate insulin dose * HTN- blood pressure is elevated- Lisinopril is on hold, due to WENDY- continue Amlodipine, and will add Carvediolol
[2020-09-14] MEDS: Carvedilol 3.125 MG TAB PO SCH (16:29)
[2020-09-15] MEDS: Albumin 25% 25 GM/100 ML BOT IVPB SCH
[2020-09-15] MEDS: traMADol HCl 50 MG TAB PO PRN (00:01)
[2020-09-15 01:17] LABS: Actual Bicarbonate (HCO3a) 18.8 mEq/L (22-28); CO2 Tension 30.1 mmHg (35.0-45.0); Calcium, Ionized (arterial) 1.18 mmol/L (1.12-1.30); Carboxyhemoglobin (COHb) 0.3 gm% (0.0-3.0); O2 Tension (PaO2), arterial 71.3 mmHg (80.0-100.0); Potassium - ABG Lab 4.14 mmol/L (3.70-5.30); pH, Arterial 7.41 (7.35-7.45)
[2020-09-15] MEDS ORDERED: traZODone HCl 50 MG TAB PO SCH (01:30)
[2020-09-15] MEDS: Albuterol 200 PUFF (6.7GM INHALER) INH PRN (01:52)
[2020-09-15 02:09] LABS: #Lymphocytes 0.8 thou/uL (1.20-3.40); #Monocytes 0.6 thou/uL (0.11-0.59); #Neutrophils 10.8 thou/uL (1.40-6.50); %Eosinophils 0.2 % (0.0-10.0); %Lymphocytes 6.6 % (21.0-51.0); %Monocytes 4.6 % (0.0-10.0); %Neutrophils 88.6 % (42.0-75.0); Hemoglobin 8.6 g/dL (12.0-16.0); Mean Corpuscular HGB CONC 33.7 g/dL (32.0-36.0); Mean Corpuscular Hemoglobin 32.1 pg (27.0-31.0); Mean Corpuscular Volume 95.3 fL (78.0-98.0); Platelet Count 316 thou/uL (130-400); RBC Distribution Width 12.1 % (11.5-14.5); Red Blood Cell (RBC) Count 2.68 mill/uL (4.20-5.40); White Blood Cell (WBC) Count 12.2 thou/uL (4.8-10.8)
[2020-09-15 02:50] LABS: Anion Gap 15 mmol/L (10-20); BUN (Urea Nitrogen) 34 mg/dL (7.0-18.7); Calc. Creatinine Clearance 26 mL/min (70-130); Calcium 8.9 mg/dL (7.8-10.44); Carbon Dioxide 17 mmol/L (22-29); Chloride 104 mmol/L (98-107); Glucose 226 mg/dL (70-105); Potassium 4.3 mmol/L (3.5-5.1); Sodium 132 mmol/L (136-145)
[2020-09-15] MEDS: HumaLOG 300 UNITS/3 ML VIAL SC PRN ×2 (05:36→21:13)
[2020-09-15 07:27] LABS: Albumin 3.5 g/dL (3.5-5.0); CRP (Inflammatory) 6.14 mg/dL (= or < 0.5); Magnesium 1.9 mg/dL (1.6-2.6)
[2020-09-15 07:42] LABS: Phosphorus 2.7 mg/dL (2.3-4.7)
[2020-09-15] MEDS: Sodium Bicarbonate Tab 325 MG TAB PO SCH ×3 (08:05→20:10)
[2020-09-15] MEDS: Ascorbic Acid 500 mg Chewable Tablet PO SCH (08:05)
[2020-09-15] MEDS: Insulin Glargine 12 UNITS in Pre-Filled Syringe 1 EACH SC SCH ×2 (08:05→20:36)
[2020-09-15] MEDS: Heparin 5,000 UNITS/ML VIAL SC SCH ×3 (08:06→20:10)
[2020-09-15] MEDS: Carvedilol 3.125 MG TAB PO SCH ×2 (08:06→16:00)
[2020-09-15] MEDS: methylPREDNISolone Sod Succ 40 MG VIAL IVP SCH (08:06)
[2020-09-15] MEDS: Zinc Sulfate 220 MG CAP PO SCH (08:06)
[2020-09-15] MEDS: Cholecalciferol 1,000 UNITS (25 MCG) TAB PO SCH (08:06)
[2020-09-15 08:24] LABS: Urine Total Volume 3825 mL (600-1600)
[2020-09-15 08:26] LABS: Creatinine, Urine Less than 20.00 mg/dL (47-110)
[2020-09-15 08:53] LABS: Protein - 24 Hr 25934 mg/24 hr (Less than 300); Protein, Urine 678 mg/dL (1-14)
--- NOTE | 2020-09-15 09:21 | PDOC.NEPPN ---
- Subjective Encounter Date: 09/15/20 Subjective: Seen in follow up for WENDY on CKD. Had another episode of respiratory distress last night suggestive of PND. Feeling better. - Objective Vital Signs & Weight: Vital Signs (12 hours) Temp Pulse Resp BP Pulse Ox 09/15/20 04:00 22 H 97 09/15/20 00:55 92 28 H 135/79 93 L 09/15/20 00:47 97.9 F 110 H 34 H 82 L Weight Admit Weight 156 lb 8 oz Weight 183 lb 1.6 oz I&O: 09/14/20 09/15/20 09/16/20 06:59 06:59 06:59 Intake Total 700 Balance 700 Result Diagrams: 09/15/20 01:04 09/15/20 01:04 Additional Labs: Accuchecks 09/15/20 09/14/20 09/14/20 04:31 20:34 16:34 POC Glucose 215 H 274 H 292 H 09/14/20 11:25 POC Glucose 338 H Nephrology ROS - Medication Medications: Active Medications Generic Name Dose Route Start Last Admin Trade Name Freq PRN Reason Stop Dose Admin Acetaminophen 650 mg 09/07/20 11:14 09/08/20 11:41 Acetaminophen 325 Mg Tab PO 650 mg Q4H PRN Administration Headache/Fever/Mild Pain (1-3) Albuterol Sulfate 2 puff 09/12/20 22:57 09/15/20 01:52 Albuterol 200 Puff (6.7gm Inhaler) INH 2 puff Q4H PRN Administration SOB/WHEEZE Ascorbic Acid 1,000 mg 09/08/20 09:00 09/15/20 08:05 Ascorbic Acid 500 Mg Chewable Tablet PO 1,000 mg DAILY RACHEL Administration Carvedilol 3.125 mg 09/14/20 17:00 09/15/20 08:06 Carvedilol 3.125 Mg Tab PO 3.125 mg BID-WM RACHEL Administration Cholecalciferol 1,000 units 09/08/20 09:00 09/15/20 08:06 Cholecalciferol 1,000 Units (25 Mcg) Tab PO 1,000 units DAILY RACHEL Administration Cholestyramine Resin 4 gm 09/12/20 10:00 09/14/20 21:19 Cholestyramine/Aspartame 4 Gm Packet PO 4 gm 1000,2200 RACHEL Administration Diltiazem HCl 240 mg 09/14/20 09:00 09/14/20 09:59 Diltiazem Hcl Cd 240 Mg Capsule PO 240 mg DAILY RACHEL Administration Guaifenesin 200 mg 09/07/20 11:14 09/12/20 23:06 Diabetic Tussin 200 Mg/10 Ml Udcup PO 200 mg Q4H PRN Administration Cough Heparin Sodium (Porcine) 5,000 units 09/13/20 15:00 09/15/20 08:06 Heparin 5,000 Units/Ml Vial SC 5,000 units TID RACHEL Administration Levofloxacin 500 mg/ Device 100 mls @ 100 mls/hr 09/12/20 15:15 09/14/20 14:08 IVPB 100 mls Q24HR RACHEL Administration Insulin Glargine 12 units/ 0.12 mls @ 0 mls/hr 09/14/20 21:00 09/14/20 20:24 Miscellaneous Medication SC 0.12 mls HS RACHEL Administration Insulin Glargine 12 units/ 0.12 mls @ 0 mls/hr 09/14/20 09:00 09/15/20 08:05 Miscellaneous Medication SC 0.12 mls QAM RACHEL Administration Insulin Human Lispro 0 units 09/08/20 12:15 09/15/20 05:36 Humalog 300 Units/3 Ml Vial SC 4 unit .MODERATE SLIDING SC PRN Administration MODERATE SLIDING SCALE Protocol Methylprednisolone Sodium Succinate 40 mg 09/13/20 09:00 09/15/20 08:06 Methylprednisolone Sod Succ 40 Mg Vial IVP 40 mg DAILY RACHEL Administration Ondansetron HCl 4 mg 09/07/20 11:14 09/12/20 06:14 Ondansetron Odt 4 Mg Tab PO 4 mg Q6H PRN Administration Nausea/Vomiting Ondansetron HCl 4 mg 09/07/20 11:14 09/12/20 23:07 Ondansetron Pf 4 Mg/2 Ml Vial IVP 4 mg Q6H PRN Administration Nausea/Vomiting Sodium Bicarbonate 1,300 mg 09/13/20 15:00 09/15/20 08:05 Sodium Bicarbonate Tab 325 Mg Tab PO 1,300 mg TID RACHEL Administration Sodium Chloride 10 ml 09/09/20 09:00 09/15/20 08:06 Flush - Normal Saline 10 Ml Syringe IVF 10 ml Q12HR RACHEL Administration Tramadol HCl 50 mg 09/07/20 11:32 09/15/20 00:01 Tramadol Hcl 50 Mg Tab PO 50 mg Q4H PRN Administration Moderate Pain (4-6) Zinc Sulfate 220 mg 09/08/20 09:00 09/15/20 08:06 Zinc Sulfate 220 Mg Cap PO 220 mg DAILY RACHEL Administration - Exam General Appearance: awake alert General - other findings: No distress Eye: anicteric sclera ENT: normocephalic atraumatic, moist mucosa Neck: supple, symmetric, no JVD Respiratory - other findings: fair air entry bilaterraly with scattered crackles and transmitted sound Cardiovascular: RRR Gastrointestinal: soft, non-tender, non-distended, normal bowel sounds Extremities - other findings: moderate to severe edema of the legs. edema of upper limbs have improved Neurological: CN's grossly intact, no focal deficits PSYCH: A&O x 3 Nephrology Results - Labs Result Diagrams: 09/15/20 01:04 09/15/20 01:04 Lab results: WBC 12.2 thou/uL (4.8-10.8) H 09/15/20 01:04 Hgb 8.6 g/dL (12.0-16.0) L 09/15/20 01:04 Hct 25.6 % (36.0-47.0) L 09/15/20 01:04 MCV 95.3 fL (78.0-98.0) 09/15/20 01:04 Plt Count 316 thou/uL (130-400) 09/15/20 01:04 Neutrophils % 88.6 % (42.0-75.0) H 09/15/20 01:04 ESR Westergren 106 mm/hr (Less than 20) H 09/15/20 08:30 ABG pH 7.41 (7.35-7.45) 09/15/20 01:13 ABG pCO2 30.1 mmHg (35.0-45.0) L 09/15/20 01:13 ABG pO2 71.3 mmHg (80.0-100.0) L 09/15/20 01:13 Sodium 132 mmol/L (136-145) L 09/15/20 01:04 Potassium 4.3 mmol/L (3.5-5.1) 09/15/20 01:04 Chloride 104 mmol/L (98-107) 09/15/20 01:04 Carbon Dioxide 17 mmol/L (22-29) L 09/15/20 01:04 BUN 34 mg/dL (7.0-18.7) H 09/15/20 01:04 Creatinine 3.48 mg/dL (0.6-1.1) H 09/15/20 01:04 Glucose 226 mg/dL (70-105) H 09/15/20 01:04 Lactic Acid 0.6 mmol/L (0.5-2.2) 09/13/20 02:00 Calcium 8.9 mg/dL (7.8-10.44) 09/15/20 01:04 Total Bilirubin 0.2 mg/dL (0.2-1.2) 09/11/20 15:36 AST 27 U/L (5-34) 09/11/20 15:36 ALT 15 U/L (8-55) 09/11/20 15:36 Alkaline Phosphatase 114 U/L (40-110) H 09/11/20 15:36 Creatine Kinase 107 U/L (29-168) 09/07/20 08:09 C-Reactive Protein 6.14 mg/dL (= or < 0.5) H 09/15/20 01:04 Serum Total Protein 6.6 g/dL (6.0-8.3) 09/11/20 15:36 Albumin 3.5 g/dL (3.5-5.0) 09/15/20 01:04 Lipase 4 U/L (8-78) L 09/12/20 09:27 Urine Ketones 10 mg/dL (Negative) A 09/12/20 09:20 Urine Blood 1+ (Negative) A 09/12/20 09:20 Urine Nitrite Negative (Negative) 09/12/20 09:20 Ur Leukocyte Esterase Negative Morgan/uL (Negative) 09/12/20 09:20 Urine RBC 0-3 HPF (0-3) 09/12/20 09:20 Urine WBC 11-20 HPF (0-3) A 09/12/20 09:20 Ur Squamous Epith Cells 0-3 HPF (0-3) 09/12/20 09:20 Urine Bacteria 1+ HPF (None Seen) A 09/12/20 09:20 Sodium 132 mmol/L (136-145) L 09/15/20 01:04 Potassium 4.3 mmol/L (3.5-5.1) 09/15/20 01:04 Chloride 104 mmol/L (98-107) 09/15/20 01:04 Carbon Dioxide 17 mmol/L (22-29) L 09/15/20 01:04 Anion Gap 15 mmol/L (10-20) 09/15/20 01:04 BUN 34 mg/dL (7.0-18.7) H 09/15/20 01:04 Creatinine 3.48 mg/dL (0.6-1.1) H 09/15/20 01:04 Glucose 226 mg/dL (70-105) H 09/15/20 01:04 Calcium 8.9 mg/dL (7.8-10.44) 09/15/20 01:04 Phosphorus 2.7 mg/dL (2.3-4.7) 09/15/20 01:04 Magnesium 1.9 mg/dL (1.6-2.6) 09/15/20 01:04 Albumin 3.5 g/dL (3.5-5.0) 09/15/20 01:04 Nephrology AP PN - Plan WENDY. Etiology is unclear. ? hemodynamic factors vs progression of diabetic nephropathy. Association with nephrotic range proteinuria and worsening leg edema is concerning for renal vein thrombosis CKD. Stage and baseline creat is unknown. Creat was 0.85 in 04/2019. Was 3.5 on 09/07/2020. Patient is diabetic for more than 20 years and has proteinuria. Also has partial left nephrectomy Nephrotic range proteinuria by UPC Hypokalemia. Metabolic acidosis: Persistent. Due WENDY/CKD and GI losses Generalized swelling Hypomagnesemia Diarrhea: Etiology unclear. ? pancreatitis vs enteritis. C dif toxin assay was negative. Improved with cholestyramine Hypoalbuminemia UTI on treatment. HTN Presumed diabetic nephropathy Acute repiratory failure with hypoxia: Due fluid overload and covid pneumonia Covid infection. Presumed episodes of PND. Echo pending. Anemia Plan Restarted lasix but at a lower rate. Get lower extremity dopplers Continue cardizem CD for BP and proteinuria. No RAAS josey as yet due to WENDY Continue alkali therapy orally. Awaiting SAUD, SPEP and 24 hr urine protein and UPEP. Get iron chemistry Renal artery/vein doppler contemplated
--- NOTE | 2020-09-15 10:05 | ULT ---
EXAM: Bilateral lower extremity venous Doppler US HISTORY: bilateral lower extremity edema and pain FINDINGS: Grayscale, color-flow, Doppler evaluation, spectral analysis of the bilateral lower extremities venou s structures is performed with 2-D imaging. The bilateral common femoral, superficial femoral, popliteal, posterior tibial, proximal greater saphenous and profunda femoral veins are imaged. There is normal luminal compressibility, flow, and augmentation in the visualized deep venous structu res of the bilateral lower extremities. IMPRESSION: No evidence of a deep vein thrombosis in either lower extremity.
[2020-09-15] MEDS: Cholestyramine/Aspartame 4 gm Packet PO SCH ×2 (10:47→21:48)
--- NOTE | 2020-09-15 12:41 | PDOC.HOSPP ---
- Subjective Encounter Date: 09/15/20 Encounter Time: 12:39 Subjective: Ms. Barone was seen today in follow-up of COVID pneumonia and respiratory failure. She was resting when I came to see her. No new complaints. She has been stable on 5 liters. - Objective Vital Signs & Weight: Vital Signs (12 hours) Temp Pulse Resp BP Pulse Ox 09/15/20 11:34 98.4 F 83 18 148/85 H 96 09/15/20 10:47 95 09/15/20 08:00 97.9 F 95 20 137/82 95 09/15/20 04:00 22 H 97 09/15/20 00:55 92 28 H 135/79 93 L 09/15/20 00:47 97.9 F 110 H 34 H 82 L Weight Admit Weight 156 lb 8 oz Weight 183 lb 1.6 oz I&O: 09/14/20 09/15/20 09/16/20 06:59 06:59 06:59 Intake Total 700 Balance 700 Result Diagrams: 09/15/20 01:04 09/15/20 01:04 Additional Labs: Accuchecks 09/15/20 09/15/20 09/14/20 10:52 04:31 20:34 POC Glucose 192 H 215 H 274 H 09/14/20 16:34 POC Glucose 292 H Hospitalist ROS - Medication Medications: Active Medications Generic Name Dose Route Start Last Admin Trade Name Freq PRN Reason Stop Dose Admin Acetaminophen 650 mg 09/07/20 11:14 09/08/20 11:41 Acetaminophen 325 Mg Tab PO 650 mg Q4H PRN Administration Headache/Fever/Mild Pain (1-3) Albuterol Sulfate 2 puff 09/12/20 22:57 09/15/20 01:52 Albuterol 200 Puff (6.7gm Inhaler) INH 2 puff Q4H PRN Administration SOB/WHEEZE Ascorbic Acid 1,000 mg 09/08/20 09:00 09/15/20 08:05 Ascorbic Acid 500 Mg Chewable Tablet PO 1,000 mg DAILY RACHEL Administration Carvedilol 3.125 mg 09/14/20 17:00 09/15/20 08:06 Carvedilol 3.125 Mg Tab PO 3.125 mg BID- RACHEL Administration Cholecalciferol 1,000 units 09/08/20 09:00 09/15/20 08:06 Cholecalciferol 1,000 Units (25 Mcg) Tab PO 1,000 units DAILY RACHEL Administration Cholestyramine Resin 4 gm 09/12/20 10:00 09/15/20 10:47 Cholestyramine/Aspartame 4 Gm Packet PO 4 gm 1000,2200 RACHEL Administration Diltiazem HCl 240 mg 09/14/20 09:00 09/15/20 10:47 Diltiazem Hcl Cd 240 Mg Capsule PO 240 mg DAILY RACHEL Administration Guaifenesin 200 mg 09/07/20 11:14 09/12/20 23:06 Diabetic Tussin 200 Mg/10 Ml Udcup PO 200 mg Q4H PRN Administration Cough Heparin Sodium (Porcine) 5,000 units 09/13/20 15:00 09/15/20 08:06 Heparin 5,000 Units/Ml Vial SC 5,000 units TID RACHEL Administration Levofloxacin 500 mg/ Device 100 mls @ 100 mls/hr 09/12/20 15:15 09/14/20 14 :08 IVPB 100 mls Q24HR RACHEL Administration Insulin Glargine 12 units/ 0.12 mls @ 0 mls/hr 09/14/20 21:00 09/14/20 20:24 Miscellaneous Medication SC 0.12 mls HS RACHEL Administration Insulin Glargine 12 units/ 0.12 mls @ 0 mls/hr 09/14/20 09:00 09/15/20 08:05 Miscellaneous Medication SC 0.12 mls QAM RACHEL Administration Insulin Human Lispro 0 units 09/08/20 12:15 09/15/20 05:36 Humalog 300 Units/3 Ml Vial SC 4 unit .MODERATE SLIDING SC PRN Administration MODERATE SLIDING SCALE Protocol Methylprednisolone Sodium Succinate 40 mg 09/13/20 09:00 09/15/20 08:06 Methylprednisolone Sod Succ 40 Mg Vial IVP 40 mg DAILY RACHEL Administration Ondansetron HCl 4 mg 09/07/20 11:14 09/12/20 06:14 Ondansetron Odt 4 Mg Tab PO 4 mg Q6H PRN Administration Nausea/Vomiting Ondansetron HCl 4 mg 09/07/20 11:14 09/12/20 23:07 Ondansetron Pf 4 Mg/2 Ml Vial IVP 4 mg Q6H PRN Administration Nausea/Vomiting Sodium Bicarbonate 1,300 mg 09/13/20 15:00 09/15/20 08:05 Sodium Bicarbonate Tab 325 Mg Tab PO 1,300 mg TID RACHEL Administration Sodium Chloride 10 ml 09/09/20 09:00 09/15/20 08:06 Flush - Normal Saline 10 Ml Syringe IVF 10 ml Q12HR RACHEL Administration Tramadol HCl 50 mg 09/07/20 11:32 09/15/20 00:01 Tramadol Hcl 50 Mg Tab PO 50 mg Q4H PRN Administration Moderate Pain (4-6) Zinc Sulfate 220 mg 09/08/20 09:00 09/15/20 08:06 Zinc Sulfate 220 Mg Cap PO 220 mg DAILY RACHEL Administration - Exam Eye: PERRL, anicteric sclera Heart: RRR, no murmur, no gallops, no rubs, normal peripheral pulses Respiratory: rales (At both bases) Gastrointestinal: soft, non-tender, non-distended, normal bowel sounds, no palpable masses, no hepatomegaly Extremities: no cyanosis, 2+ LE edema Hosp A/P (1) Acute kidney injury superimposed on CKD Code(s): N17.9 - ACUTE KIDNEY FAILURE, UNSPECIFIED; N18.9 - CHRONIC KIDNEY DISEASE, UNSPECIFIED Status: Acute (2) COVID-19 virus infection Code(s): U07.1 - COVID-19 Status: Acute (3) UTI (urinary tract infection) Status: Acute (4) DM I (diabetes mellitus, type I) Status: Chronic (5) HTN (hypertension) Code(s): I10 - ESSENTIAL (PRIMARY) HYPERTENSION Status: Chronic Qualifiers: Hypertension type: essential hypertension Qualified Code(s): I10 - Essential (primary) hypertension - Plan * Acute on chronic kidney injury- etiology is unclear. Work-up is in progress- may be related to COVID infection? * UTI- will continue Levaquin, but can consider discontinuing tomorrow * COVID infection- her oxygen requirement has declined some- will continue with IV steroids * Continue to monitor inflammatory markers * DM- blood glucose overall stable * HTN- blood pressure is better- Lisinopril is on hold, due to WENDY- continue Amlodipine, and Carvediolol
[2020-09-15] MEDS: Furosemide 40 MG/4 ML VIAL SLOW IVP SCH (16:00)
[2020-09-15] MEDS: traZODone HCl 50 MG TAB PO PRN (21:02)
[2020-09-16] MEDS: Albuterol 200 PUFF (6.7GM INHALER) INH PRN (00:18)
[2020-09-16] MEDS: Furosemide 40 MG/4 ML VIAL SLOW IVP SCH (05:23)
[2020-09-16] MEDS: HumaLOG 300 UNITS/3 ML VIAL SC PRN ×4 (05:43→20:56)
[2020-09-16] MEDS: methylPREDNISolone Sod Succ 40 MG VIAL IVP SCH (08:53)
[2020-09-16] MEDS: Insulin Glargine 12 UNITS in Pre-Filled Syringe 1 EACH SC SCH ×2 (08:53→20:27)
[2020-09-16] MEDS: Zinc Sulfate 220 MG CAP PO SCH (08:53)
[2020-09-16] MEDS: Sodium Bicarbonate Tab 325 MG TAB PO SCH ×3 (08:53→20:30)
[2020-09-16] MEDS: Cholestyramine/Aspartame 4 gm Packet PO SCH ×2 (08:54→23:38)
[2020-09-16] MEDS: Cholecalciferol 1,000 UNITS (25 MCG) TAB PO SCH (08:54)
[2020-09-16] MEDS: Heparin 5,000 UNITS/ML VIAL SC SCH ×3 (08:54→20:28)
[2020-09-16] MEDS: Carvedilol 3.125 MG TAB PO SCH (08:54)
[2020-09-16] MEDS: Ascorbic Acid 500 mg Chewable Tablet PO SCH (08:54)
[2020-09-16 09:28] LABS: Hemoglobin 9.4 g/dL (12.0-16.0); Mean Corpuscular HGB CONC 32.9 g/dL (32.0-36.0); Mean Corpuscular Hemoglobin 31.4 pg (27.0-31.0); Mean Corpuscular Volume 95.2 fL (78.0-98.0); Mean Platelet Volume 6.3 fL (7.4-10.4); Platelet Count 320 thou/uL (130-400); Red Blood Cell (RBC) Count 3.01 mill/uL (4.20-5.40); White Blood Cell (WBC) Count 12.1 thou/uL (4.8-10.8)
[2020-09-16 09:39] LABS: Kappa Lambda Light Chain Ratio 0.66 (0.26-1.65); Kappa Light Chains 123.7 mg/L (3.3-19.4); Lambda Light Chain 187.5 mg/L (5.7-26.3)
[2020-09-16] MEDS: traMADol HCl 50 MG TAB PO PRN (09:48)
[2020-09-16 09:56] LABS: Albumin 3.1 g/dL (3.5-5.0); Anion Gap 16 mmol/L (10-20); BUN (Urea Nitrogen) 41 mg/dL (7.0-18.7); BUN/Creatinine Ratio 12.02; Calc. Creatinine Clearance 28 mL/min (70-130); Calcium 8.7 mg/dL (7.8-10.44); Carbon Dioxide 20 mmol/L (22-29); Chloride 101 mmol/L (98-107); Glucose 201 mg/dL (70-105); Phosphorus 2.4 mg/dL (2.3-4.7); Potassium 3.7 mmol/L (3.5-5.1); Sodium 133 mmol/L (136-145)
--- NOTE | 2020-09-16 13:27 | PDOC.HOSPP ---
- Subjective Encounter Date: 09/16/20 Encounter Time: 13:25 Subjective: Ms. Barone was seen today in follow-up of COVID pneumonia, and respiratory failure. She is breathing better. She is sitting up eating off oxygen, and her oxygen saturations are in the mid 90's. She notes less pain in her joints. - Objective Vital Signs & Weight: Vital Signs (12 hours) Temp Pulse Resp BP Pulse Ox Pulse Ox Pulse Ox 09/16/20 10:46 99 96 09/16/20 09:00 98.4 F 88 18 170/95 H 98 09/16/20 08:54 87 Weight Admit Weight 156 lb 8 oz Weight 186 lb Result Diagrams: 09/16/20 08:40 09/16/20 08:40 Additional Labs: Accuchecks 09/16/20 09/16/20 09/15/20 12:49 05:30 21:06 POC Glucose 238 H 264 H 331 H 09/15/20 16:25 POC Glucose 193 H Hospitalist ROS - Medication Medications: Active Medications Generic Name Dose Route Start Last Admin Trade Name Freq PRN Reason Stop Dose Admin Acetaminophen 650 mg 09/07/20 11:14 09/08/20 11:41 Acetaminophen 325 Mg Tab PO 650 mg Q4H PRN Administration Headache/Fever/Mild Pain (1-3) Albuterol Sulfate 2 puff 09/12/20 22:57 09/16/20 00:18 Albuterol 200 Puff (6.7gm Inhaler) INH 2 puff Q4H PRN Administration SOB/WHEEZE Ascorbic Acid 1,000 mg 09/08/20 09:00 09/16/20 08:54 Ascorbic Acid 500 Mg Chewable Tablet PO 1,000 mg DAILY RACHEL Administration Carvedilol 3.125 mg 09/14/20 17:00 09/16/20 08:54 Carvedilol 3.125 Mg Tab PO 3.125 mg BID-WM RACHEL Administration Cholecalciferol 1,000 units 09/08/20 09:00 09/16/20 08:54 Cholecalciferol 1,000 Units (25 Mcg) Tab PO 1,000 units DAILY RACHEL Administration Cholestyramine Resin 4 gm 09/12/20 10:00 09/16/20 08:54 Cholestyramine/Aspartame 4 Gm Packet PO 4 gm 1000,2200 RACHEL Administration Diltiazem HCl 240 mg 09/14/20 09:00 09/16/20 08:54 Diltiazem Hcl Cd 240 Mg Capsule PO 240 mg DAILY RACHEL Administration Guaifenesin 200 mg 09/07/20 11:14 09/12/20 23:06 Diabetic Tussin 200 Mg/10 Ml Udcup PO 200 mg Q4H PRN Administration Cough Heparin Sodium (Porcine) 5,000 units 09/13/20 15:00 09/16/20 08:54 Heparin 5,000 Units/Ml Vial SC 5,000 units TID RACHEL Administration Insulin Glargine 12 units/ 0.12 mls @ 0 mls/hr 09/14/20 21:00 09/15/20 20:36 Miscellaneous Medication SC 0.12 mls HS RACHEL Administration Insulin Glargine 12 units/ 0.12 mls @ 0 mls/hr 09/14/20 09:00 09/16/20 08:53 Miscellaneous Medication SC 0.12 mls QAM RACHEL Administration Insulin Human Lispro 0 units 09/08/20 12:15 09/16/20 05:43 Humalog 300 Units/3 Ml Vial SC 6 unit .MODERATE SLIDING SC PRN Administration MODERATE SLIDING SCALE Protocol Methylprednisolone Sodium Succinate 40 mg 09/13/20 09:00 09/16/20 08:53 Methylprednisolone Sod Succ 40 Mg Vial IVP 40 mg DAILY RACHEL Administration Ondansetron HCl 4 mg 09/07/20 11:14 09/12/20 06:14 Ondansetron Odt 4 Mg Tab PO 4 mg Q6H PRN Administration Nausea/Vomiting Ondansetron HCl 4 mg 09/07/20 11:14 09/12/20 23:07 Ondansetron Pf 4 Mg/2 Ml Vial IVP 4 mg Q6H PRN Administration Nausea/Vomiting Sodium Bicarbonate 1,300 mg 09/13/20 15:00 09/16/20 08:53 Sodium Bicarbonate Tab 325 Mg Tab PO 1,300 mg TID RACHEL Administration Sodium Chloride 10 ml 09/09/20 09:00 09/16/20 09:22 Flush - Normal Saline 10 Ml Syringe IVF 10 ml Q12HR RACHEL Administration Tramadol HCl 50 mg 09/07/20 11:32 09/16/20 09:48 Tramadol Hcl 50 Mg Tab PO 50 mg Q4H PRN Administration Moderate Pain (4-6) Trazodone HCl 25 mg 09/15/20 20:20 09/15/20 21:02 Trazodone Hcl 50 Mg Tab PO 25 mg HSPRN PRN Administration Insomnia Zinc Sulfate 220 mg 09/08/20 09:00 09/16/20 08:53 Zinc Sulfate 220 Mg Cap PO 220 mg DAILY RACHEL Administration - Exam Eye: PERRL, anicteric sclera Heart: RRR, no murmur, no gallops, no rubs, normal peripheral pulses Respiratory: no wheezes, no ronchi, rales (at the bases) Gastrointestinal: soft, non-tender, non-distended, normal bowel sounds, no palpable masses, no hepatomegaly Extremities: no cyanosis, no edema Hosp A/P (1) Acute kidney injury superimposed on CKD Code(s): N17.9 - ACUTE KIDNEY FAILURE, UNSPECIFIED; N18.9 - CHRONIC KIDNEY DISEASE, UNSPECIFIED Status: Acute (2) COVID-19 virus infection Code(s): U07.1 - COVID-19 Status: Acute (3) UTI (urinary tract infection) Status: Acute (4) DM I (diabetes mellitus, type I) Status: Chronic (5) HTN (hypertension) Code(s): I10 - ESSENTIAL (PRIMARY) HYPERTENSION Status: Chronic Qualifiers: Hypertension type: essential hypertension Qualified Code(s): I10 - Essential (primary) hypertension - Plan * Acute on chronic kidney injury- etiology is unclear. Work-up is in progress- SPEP results noted- await the remaining results * Renal function appears to have plateaued, hopefully we will see some improvement over the course of the next few days * UTI- She has completed therapy * COVID infection- her oxygen requirement has declined significantly- if this persists, will discontinue Decadron in a few days * Continue to monitor inflammatory markers * DM- blood glucose overall stable * HTN- blood pressure is still labile Lisinopril is on hold, due to WENDY- continue Amlodipine, and titrate Carvediolol and add Hydralazine as needed
[2020-09-16] MEDS ORDERED: hydrALAZINE 25 MG TAB PO PRN ×2 (13:30→13:31)
--- NOTE | 2020-09-16 13:34 | PDOC.NEPPN ---
- Subjective Encounter Date: 09/16/20 Subjective: Seen in follow up fpr WENDY and edema. Feeling better. Still complaining of bilateral leg pain. Tolerating oral intake more. - Objective Vital Signs & Weight: Vital Signs (12 hours) Temp Pulse Resp BP Pulse Ox Pulse Ox Pulse Ox 09/16/20 12:30 97.8 F 84 18 172/102 H 100 09/16/20 10:46 99 96 09/16/20 09:00 98.4 F 88 18 170/95 H 98 09/16/20 08:54 87 Weight Admit Weight 156 lb 8 oz Weight 186 lb Result Diagrams: 09/16/20 08:40 09/16/20 08:40 Additional Labs: Accuchecks 09/16/20 09/16/20 09/15/20 12:49 05:30 21:06 POC Glucose 238 H 264 H 331 H 09/15/20 16:25 POC Glucose 193 H Nephrology ROS - Medication Medications: Active Medications Generic Name Dose Route Start Last Admin Trade Name Freq PRN Reason Stop Dose Admin Acetaminophen 650 mg 09/07/20 11:14 09/08/20 11:41 Acetaminophen 325 Mg Tab PO 650 mg Q4H PRN Administration Headache/Fever/Mild Pain (1-3) Albuterol Sulfate 2 puff 09/12/20 22:57 09/16/20 00:18 Albuterol 200 Puff (6.7gm Inhaler) INH 2 puff Q4H PRN Administration SOB/WHEEZE Ascorbic Acid 1,000 mg 09/08/20 09:00 09/16/20 08:54 Ascorbic Acid 500 Mg Chewable Tablet PO 1,000 mg DAILY RACHEL Administration Cholecalciferol 1,000 units 09/08/20 09:00 09/16/20 08:54 Cholecalciferol 1,000 Units (25 Mcg) Tab PO 1,000 units DAILY RACHEL Administration Cholestyramine Resin 4 gm 09/12/20 10:00 09/16/20 08:54 Cholestyramine/Aspartame 4 Gm Packet PO 4 gm 1000,2200 RACHEL Administration Diltiazem HCl 240 mg 09/14/20 09:00 09/16/20 08:54 Diltiazem Hcl Cd 240 Mg Capsule PO 240 mg DAILY RACHEL Administration Guaifenesin 200 mg 09/07/20 11:14 09/12/20 23:06 Diabetic Tussin 200 Mg/10 Ml Udcup PO 200 mg Q4H PRN Administration Cough Heparin Sodium (Porcine) 5,000 units 09/13/20 15:00 09/16/20 08:54 Heparin 5,000 Units/Ml Vial SC 5,000 units TID RACHEL Administration Insulin Glargine 12 units/ 0.12 mls @ 0 mls/hr 09/14/20 21:00 09/15/20 20:36 Miscellaneous Medication SC 0.12 mls HS RACHEL Administration Insulin Glargine 12 units/ 0.12 mls @ 0 mls/hr 09/14/20 09:00 09/16/20 08:53 Miscellaneous Medication SC 0.12 mls QAM RACHEL Administration Insulin Human Lispro 0 units 09/08/20 12:15 09/16/20 05:43 Humalog 300 Units/3 Ml Vial SC 6 unit .MODERATE SLIDING SC PRN Administration MODERATE SLIDING SCALE Protocol Methylprednisolone Sodium Succinate 40 mg 09/13/20 09:00 09/16/20 08:53 Methylprednisolone Sod Succ 40 Mg Vial IVP 40 mg DAILY RACHEL Administration Ondansetron HCl 4 mg 09/07/20 11:14 09/12/20 06:14 Ondansetron Odt 4 Mg Tab PO 4 mg Q6H PRN Administration Nausea/Vomiting Ondansetron HCl 4 mg 09/07/20 11:14 09/12/20 23:07 Ondansetron Pf 4 Mg/2 Ml Vial IVP 4 mg Q6H PRN Administration Nausea/Vomiting Sodium Bicarbonate 1,300 mg 09/13/20 15:00 09/16/20 08:53 Sodium Bicarbonate Tab 325 Mg Tab PO 1,300 mg TID RACHEL Administration Sodium Chloride 10 ml 09/09/20 09:00 09/16/20 09:22 Flush - Normal Saline 10 Ml Syringe IVF 10 ml Q12HR RACHEL Administration Tramadol HCl 50 mg 09/07/20 11:32 09/16/20 09:48 Tramadol Hcl 50 Mg Tab PO 50 mg Q4H PRN Administration Moderate Pain (4-6) Trazodone HCl 25 mg 09/15/20 20:20 09/15/20 21:02 Trazodone Hcl 50 Mg Tab PO 25 mg HSPRN PRN Administration Insomnia Zinc Sulfate 220 mg 09/08/20 09:00 09/16/20 08:53 Zinc Sulfate 220 Mg Cap PO 220 mg DAILY RACHEL Administration - Exam General Appearance: awake alert Eye: anicteric sclera ENT: normocephalic atraumatic, moist mucosa Neck: symmetric Respiratory - other findings: fair air entry bilaterally with some transmitted sound Cardiovascular: RRR Gastrointestinal: soft, non-tender, non-distended, normal bowel sounds Extremities - other findings: moderate to severe bilateral leg edema Neurological: CN's grossly intact PSYCH: A&O x 3 Nephrology Results - Labs Result Diagrams: 09/16/20 08:40 09/16/20 08:40 Lab results: WBC 12.1 thou/uL (4.8-10.8) H 09/16/20 08:40 Hgb 9.4 g/dL (12.0-16.0) L 09/16/20 08:40 Hct 28.7 % (36.0-47.0) L 09/16/20 08:40 MCV 95.2 fL (78.0-98.0) 09/16/20 08:40 Plt Count 320 thou/uL (130-400) 09/16/20 08:40 Neutrophils % 88.6 % (42.0-75.0) H 09/15/20 01:04 ESR Westergren 106 mm/hr (Less than 20) H 09/15/20 08:30 ABG pH 7.41 (7.35-7.45) 09/15/20 01:13 ABG pCO2 30.1 mmHg (35.0-45.0) L 09/15/20 01:13 ABG pO2 71.3 mmHg (80.0-100.0) L 09/15/20 01:13 Sodium 133 mmol/L (136-145) L 09/16/20 08:40 Potassium 3.7 mmol/L (3.5-5.1) 09/16/20 08:40 Chloride 101 mmol/L (98-107) 09/16/20 08:40 Carbon Dioxide 20 mmol/L (22-29) L 09/16/20 08:40 BUN 41 mg/dL (7.0-18.7) H 09/16/20 08:40 Creatinine 3.41 mg/dL (0.6-1.1) H 09/16/20 08:40 Glucose 201 mg/dL (70-105) H 09/16/20 08:40 Lactic Acid 0.6 mmol/L (0.5-2.2) 09/13/20 02:00 Calcium 8.7 mg/dL (7.8-10.44) 09/16/20 08:40 Total Bilirubin 0.2 mg/dL (0.2-1.2) 09/11/20 15:36 AST 27 U/L (5-34) 09/11/20 15:36 ALT 15 U/L (8-55) 09/11/20 15:36 Alkaline Phosphatase 114 U/L (40-110) H 09/11/20 15:36 Creatine Kinase 107 U/L (29-168) 09/07/20 08:09 C-Reactive Protein 6.14 mg/dL (= or < 0.5) H 09/15/20 01:04 Serum Total Protein 6.6 g/dL (6.0-8.3) 09/11/20 15:36 Albumin 3.1 g/dL (3.5-5.0) L 09/16/20 08:40 Lipase 4 U/L (8-78) L 09/12/20 09:27 Urine Ketones 10 mg/dL (Negative) A 09/12/20 09:20 Urine Blood 1+ (Negative) A 09/12/20 09:20 Urine Nitrite Negative (Negative) 09/12/20 09:20 Ur Leukocyte Esterase Negative Morgan/uL (Negative) 09/12/20 09:20 Urine RBC 0-3 HPF (0-3) 09/12/20 09:20 Urine WBC 11-20 HPF (0-3) A 09/12/20 09:20 Ur Squamous Epith Cells 0-3 HPF (0-3) 09/12/20 09:20 Urine Bacteria 1+ HPF (None Seen) A 09/12/20 09:20 Sodium 133 mmol/L (136-145) L 09/16/20 08:40 Potassium 3.7 mmol/L (3.5-5.1) 09/16/20 08:40 Chloride 101 mmol/L (98-107) 09/16/20 08:40 Carbon Dioxide 20 mmol/L (22-29) L 09/16/20 08:40 Anion Gap 16 mmol/L (10-20) 09/16/20 08:40 BUN 41 mg/dL (7.0-18.7) H 09/16/20 08:40 Creatinine 3.41 mg/dL (0.6-1.1) H 09/16/20 08:40 Glucose 201 mg/dL (70-105) H 09/16/20 08:40 Calcium 8.7 mg/dL (7.8-10.44) 09/16/20 08:40 Phosphorus 2.4 mg/dL (2.3-4.7) 09/16/20 08:40 Magnesium 1.9 mg/dL (1.6-2.6) 09/15/20 01:04 Albumin 3.1 g/dL (3.5-5.0) L 09/16/20 08:40 Nephrology AP PN - Plan WENDY. Etiology is unclear. ? hemodynamic factors vs progression of diabetic nephropathy. Association with nephrotic range proteinuria and worsening leg edema is concerning for renal vein thrombosis CKD. Stage and baseline creat is unknown. Creat was 0.85 in 04/2019. Was 3.5 on 09/07/2020. Patient is diabetic for more than 20 years and has proteinuria. Also has partial left nephrectomy Nephrotic range proteinuria. Hypokalemia. Metabolic acidosis: Persistent. Due WENDY/CKD and GI losses Generalized swelling Hypomagnesemia Diarrhea: Etiology unclear. ? pancreatitis vs enteritis. C dif toxin assay was n egative. Improved with cholestyramine Hypoalbuminemia UTI on treatment. HTN Presumed diabetic nephropathy Acute repiratory failure with hypoxia: Due fluid overload and covid pneumonia. Improving. Covid infection. Anemia Plan Get doppler of renal vessel to rule out thrombosis Start hydralazine as needed for SBP above 160 Continue cardizem CD for BP and proteinuria. No RAAS josey as yet due to WENDY Continue alkali therapy orally. Awaiting SAUD, SPEP and UPEP.
[2020-09-16] MEDS ORDERED: Spironolactone 25 MG TAB PO SCH (13:45)
[2020-09-16 16:34] LABS: ANA Symphony (Qualitative) Negative (Negative); ANA Symphony (Quantitative) 0.2 Ratio (< 0.7 Negative); dsDNA IgG Antibody Less than 0.5 IU/mL (<10 Negative)
[2020-09-16] MEDS ORDERED: Carvedilol 6.25 MG TAB PO SCH (17:00)
[2020-09-16] MEDS: traZODone HCl 50 MG TAB PO PRN (20:31)
[2020-09-16 21:08] LABS: Alb/Glob Ratio 0.8 (0.7-1.7); Albumin 2.2 g/dL (2.9-4.4); Alpha-1-Globulin 0.4 g/dL (0.0-0.4); Alpha-2-Globulin 1.3 g/dL (0.4-1.0); Beta-Globulin 0.6 g/dL (0.7-1.3); Gamma-Globulin 0.6 g/dL (0.4-1.8); Globulin, Total 2.9 g/dL (2.2-3.9); IgA - Total IgA (Sendout) 430 mg/dL (87-352); Immunoglobulin - G (Sendout) 623 mg/dL (586-1602); Immunoglobulin - M (Sendout) 152 mg/dL (26-217); M-Spike Not Observed g/dL (Not Observed)
[2020-09-17 05:46] LABS: Hemoglobin 9.4 g/dL (12.0-16.0); Mean Corpuscular HGB CONC 33.6 g/dL (32.0-36.0); Mean Corpuscular Hemoglobin 32.5 pg (27.0-31.0); Mean Corpuscular Volume 96.7 fL (78.0-98.0); Mean Platelet Volume 6.5 fL (7.4-10.4); Platelet Count 273 thou/uL (130-400); RBC Distribution Width 11.9 % (11.5-14.5); White Blood Cell (WBC) Count 10.9 thou/uL (4.8-10.8)
[2020-09-17 06:02] LABS: Albumin 2.7 g/dL (3.5-5.0); Anion Gap 14 mmol/L (10-20); BUN (Urea Nitrogen) 52 mg/dL (7.0-18.7); BUN/Creatinine Ratio 15.03; Calc. Creatinine Clearance 27 mL/min (70-130); Calcium 8.3 mg/dL (7.8-10.44); Carbon Dioxide 22 mmol/L (22-29); Chloride 101 mmol/L (98-107); Glucose 368 mg/dL (70-105); Phosphorus 2.3 mg/dL (2.3-4.7); Potassium 3.8 mmol/L (3.5-5.1); Sodium 133 mmol/L (136-145)
[2020-09-17] MEDS: HumaLOG 300 UNITS/3 ML VIAL SC PRN ×4 (06:47→20:41)
[2020-09-17] MEDS: Insulin Glargine 12 UNITS in Pre-Filled Syringe 1 EACH SC SCH (08:29)
[2020-09-17] MEDS: Sodium Bicarbonate Tab 325 MG TAB PO SCH ×3 (08:29→20:31)
[2020-09-17] MEDS: Spironolactone 25 MG TAB PO SCH (08:29)
[2020-09-17] MEDS: Ascorbic Acid 500 mg Chewable Tablet PO SCH (08:29)
[2020-09-17] MEDS: Zinc Sulfate 220 MG CAP PO SCH (08:29)
[2020-09-17] MEDS: Cholecalciferol 1,000 UNITS (25 MCG) TAB PO SCH (08:29)
[2020-09-17] MEDS: methylPREDNISolone Sod Succ 40 MG VIAL IVP SCH (08:30)
[2020-09-17] MEDS: Heparin 5,000 UNITS/ML VIAL SC SCH ×3 (08:30→20:31)
[2020-09-17] MEDS ORDERED: hydrALAZINE 25 MG TAB PO SCH (09:00)
[2020-09-17] MEDS ORDERED: Furosemide 40 MG/4 ML VIAL SLOW IVP SCH (09:00)
--- NOTE | 2020-09-17 09:37 | ULT ---
RENAL ARTERY ULTRASOUND: COMPARISON: A renal ultrasound 09/11/[address] of the abdomen/pelvis 03/18/2018. 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 TECHNIQUE: Multiplanar, kendrick scale, and color Doppler images were obtained in a bilateral renal artery ultrasoun d. Spectral analysis of the Doppler waveforms of the renal arteries and aorta was performed. Both kidneys were visualized on this examination. On the prior examination, the left kidney was not well visualized. The left kidney measures approximately 10.5 cm in length. Peak systolic velocity in the aorta is 89 cm/s. Peak systolic velocity in the right renal artery is 80 cm/s. The right renal artery to aortic ratio is 0.9. Peak systolic velocity in the left renal ar moises is 45 cm/s. The left renal artery to aortic ratio is 0.5. No thrombus is seen in any of the visualized vessels. IMPRESSION: No evidence of renal artery stenosis. POS: EAA
[2020-09-17] MEDS: Cholestyramine/Aspartame 4 gm Packet PO SCH (11:13)
--- NOTE | 2020-09-17 12:50 | PDOC.HOSPP ---
- Subjective Encounter Date: 09/17/20 Encounter Time: 12:48 Subjective: Mr. Barone says she feel much better. She is no longer requiring any oxygen supplementation. - Objective Vital Signs & Weight: Vital Signs (12 hours) Temp Pulse Resp BP Pulse Ox 09/17/20 11:27 97.8 F 82 20 159/93 H 93 L 09/17/20 08:35 98.3 F 87 20 140/96 H 96 Weight Admit Weight 156 lb 8 oz Weight 186 lb I&O: 09/16/20 09/17/20 09/18/20 06:59 06:59 06:59 Intake Total 800 Balance 800 Result Diagrams: 09/17/20 05:00 09/17/20 05:00 Additional Labs: Accuchecks 09/17/20 09/17/20 09/16/20 11:17 05:02 20:51 POC Glucose 328 H 326 H 338 H 09/16/20 09/16/20 17:47 12:49 POC Glucose 316 H 238 H Hospitalist ROS - Medication Medications: Active Medications Generic Name Dose Route Start Last Admin Trade Name Freq PRN Reason Stop Dose Admin Acetaminophen 650 mg 09/07/20 11:14 09/08/20 11:41 Acetaminophen 325 Mg Tab PO 650 mg Q4H PRN Administration Headache/Fever/Mild Pain (1-3) Albuterol Sulfate 2 puff 09/12/20 22:57 09/16/20 00:18 Albuterol 200 Puff (6.7gm Inhaler) INH 2 puff Q4H PRN Administration SOB/WHEEZE Ascorbic Acid 1,000 mg 09/08/20 09:00 09/17/20 08:29 Ascorbic Acid 500 Mg Chewable Tablet PO 1,000 mg DAILY RACHEL Administration Cholecalciferol 1,000 units 09/08/20 09:00 09/17/20 08:29 Cholecalciferol 1,000 Units (25 Mcg) Tab PO 1,000 units DAILY RACHEL Administration Cholestyramine Resin 4 gm 09/12/20 10:00 09/17/20 11:13 Cholestyramine/Aspartame 4 Gm Packet PO 4 gm 1000,2200 RACHEL Administration Diltiazem HCl 360 mg 09/17/20 09:00 09/17/20 08:29 Diltiazem Hcl Cd 180 Mg Capsule PO 360 mg DAILY RACHEL Administration Guaifenesin 200 mg 09/07/20 11:14 09/12/20 23:06 Diabetic Tussin 200 Mg/10 Ml Udcup PO 200 mg Q4H PRN Administration Cough Heparin Sodium (Porcine) 5,000 units 09/13/20 15:00 09/17/20 08:30 Heparin 5,000 Units/Ml Vial SC 5,000 units TID RACHEL Administration Insulin Human Lispro 0 units 09/08/20 12:15 09/17/20 11:25 Humalog 300 Units/3 Ml Vial SC 8 unit .MODERATE SLIDING SC PRN Administration MODERATE SLIDING SCALE Protocol Methylprednisolone Sodium Succinate 40 mg 09/13/20 09:00 09/17/20 08:30 Methylprednisolone Sod Succ 40 Mg Vial IVP 40 mg DAILY RACHEL Administration Ondansetron HCl 4 mg 09/07/20 11:14 09/12/20 06:14 Ondansetron Odt 4 Mg Tab PO 4 mg Q6H PRN Administration Nausea/Vomiting Ondansetron HCl 4 mg 09/07/20 11:14 09/12/20 23:07 Ondansetron Pf 4 Mg/2 Ml Vial IVP 4 mg Q6H PRN Administration Nausea/Vomiting Sodium Bicarbonate 650 mg 09/16/20 15:00 09/17/20 08:29 Sodium Bicarbonate Tab 325 Mg Tab PO 650 mg TID RACHEL Administration Sodium Chloride 10 ml 09/09/20 09:00 09/17/20 08:30 Flush - Normal Saline 10 Ml Syringe IVF 10 ml Q12HR RACHEL Administration Spironolactone 25 mg 09/17/20 08:00 09/17/20 08:29 Spironolactone 25 Mg Tab PO 25 mg QAM-WM RACHEL Administration Trazodone HCl 25 mg 09/15/20 20:20 09/16/20 20:31 Trazodone Hcl 50 Mg Tab PO 25 mg HSPRN PRN Administration Insomnia Zinc Sulfate 220 mg 09/08/20 09:00 09/17/20 08:29 Zinc Sulfate 220 Mg Cap PO 220 mg DAILY RACHEL Administration - Exam Eye: PERRL, anicteric sclera Heart: RRR, no murmur, no gallops, no rubs, normal peripheral pulses Respiratory: no wheezes, no ronchi, rales (+ occasional rales at the bases) Gastrointestinal: soft, non-tender, non-distended, normal bowel sounds, no palpable masses, no hepatomegaly Extremities: no cyanosis, 2+ LE edema Hosp A/P (1) Acute kidney injury superimposed on CKD Code(s): N17.9 - ACUTE KIDNEY FAILURE, UNSPECIFIED; N18.9 - CHRONIC KIDNEY DISEASE, UNSPECIFIED Status: Acute (2) COVID-19 virus infection Code(s): U07.1 - COVID-19 Status: Acute (3) UTI (urinary tract infection) Status: Acute (4) DM I (diabetes mellitus, type I) Status: Chronic (5) HTN (hypertension) Code(s): I10 - ESSENTIAL (PRIMARY) HYPERTENSION Status: Chronic Qualifiers: Hypertension type: essential hypertension Qualified Code(s): I10 - Essential (primary) hypertension - Plan * Acute on chronic kidney injury- etiology is unclear. Work-up is in progress- * Renal function appears to have plateaued, * UTI- She has completed therapy * COVID infection- She is no longer requiring oxygen * DM- blood glucose elevated- need to continue to titrate insulin * HTN- blood pressure is elevated- Cardizem has been increased, and Aldactone has been added. Carvediolol was discontinued as well as Hydralazine * Hopefully home soon, once ok with Nephrology.
--- NOTE | 2020-09-17 16:52 | PDOC.NEPPN ---
- Subjective Encounter Date: 09/17/20 Subjective: Seen and examined. Feeling better. Off oxygen. - Objective Vital Signs & Weight: Vital Signs (12 hours) Temp Pulse Resp BP Pulse Ox 09/17/20 16:30 97.8 F 91 20 164/99 H 93 L 09/17/20 11:27 97.8 F 82 20 159/93 H 93 L 09/17/20 08:35 98.3 F 87 20 140/96 H 96 Weight Admit Weight 156 lb 8 oz Weight 186 lb I&O: 09/16/20 09/17/20 09/18/20 06:59 06:59 06:59 Intake Total 800 Balance 800 Result Diagrams: 09/17/20 05:00 09/17/20 05:00 Additional Labs: Accuchecks 09/17/20 09/17/20 09/16/20 11:17 05:02 20:51 POC Glucose 328 H 326 H 338 H 09/16/20 17:47 POC Glucose 316 H Nephrology ROS - Medication Medications: Active Medications Generic Name Dose Route Start Last Admin Trade Name Freq PRN Reason Stop Dose Admin Acetaminophen 650 mg 09/07/20 11:14 09/08/20 11:41 Acetaminophen 325 Mg Tab PO 650 mg Q4H PRN Administration Headache/Fever/Mild Pain (1-3) Albuterol Sulfate 2 puff 09/12/20 22:57 09/16/20 00:18 Albuterol 200 Puff (6.7gm Inhaler) INH 2 puff Q4H PRN Administration SOB/WHEEZE Ascorbic Acid 1,000 mg 09/08/20 09:00 09/17/20 08:29 Ascorbic Acid 500 Mg Chewable Tablet PO 1,000 mg DAILY RACHEL Administration Cholecalciferol 1,000 units 09/08/20 09:00 09/17/20 08:29 Cholecalciferol 1,000 Units (25 Mcg) Tab PO 1,000 units DAILY RACHEL Administration Cholestyramine Resin 4 gm 09/12/20 10:00 09/17/20 11:13 Cholestyramine/Aspartame 4 Gm Packet PO 4 gm 1000,2200 RACHEL Administration Diltiazem HCl 360 mg 09/17/20 09:00 09/17/20 08:29 Diltiazem Hcl Cd 180 Mg Capsule PO 360 mg DAILY RACHEL Administration Guaifenesin 200 mg 09/07/20 11:14 09/12/20 23:06 Diabetic Tussin 200 Mg/10 Ml Udcup PO 200 mg Q4H PRN Administration Cough Heparin Sodium (Porcine) 5,000 units 09/13/20 15:00 09/17/20 16:25 Heparin 5,000 Units/Ml Vial SC 5,000 units TID RACHEL Administration Insulin Human Lispro 0 units 09/08/20 12:15 09/17/20 16:38 Humalog 300 Units/3 Ml Vial SC 10 unit .MODERATE SLIDING SC PRN Administration MODERATE SLIDING SCALE Protocol Ondansetron HCl 4 mg 09/07/20 11:14 09/12/20 06:14 Ondansetron Odt 4 Mg Tab PO 4 mg Q6H PRN Administration Nausea/Vomiting Ondansetron HCl 4 mg 09/07/20 11:14 09/12/20 23:07 Ondansetron Pf 4 Mg/2 Ml Vial IVP 4 mg Q6H PRN Administration Nausea/Vomiting Sodium Bicarbonate 650 mg 09/16/20 15:00 09/17/20 16:25 Sodium Bicarbonate Tab 325 Mg Tab PO 650 mg TID RACHEL Administration Sodium Chloride 10 ml 09/09/20 09:00 09/17/20 08:30 Flush - Normal Saline 10 Ml Syringe IVF 10 ml Q12HR RACHEL Administration Spironolactone 25 mg 09/17/20 08:00 09/17/20 08:29 Spironolactone 25 Mg Tab PO 25 mg QAM-WM RACHEL Administration Trazodone HCl 25 mg 09/15/20 20:20 09/16/20 20:31 Trazodone Hcl 50 Mg Tab PO 25 mg HSPRN PRN Administration Insomnia Zinc Sulfate 220 mg 09/08/20 09:00 09/17/20 08:29 Zinc Sulfate 220 Mg Cap PO 220 mg DAILY RACHEL Administration - Exam General Appearance: awake alert Eye: anicteric sclera ENT: normocephalic atraumatic Neck: symmetric Respiratory - other findings: fair air entry bilaterally with some transmitted sound Cardiovascular: RRR Gastrointestinal: soft, non-tender, non-distended, normal bowel sounds Extremities - other findings: moderate bilateral leg edema Neurological: CN's grossly intact PSYCH: A&O x 3 Nephrology Results - Labs Result Diagrams: 09/17/20 05:00 09/17/20 05:00 Lab results: WBC 10.9 thou/uL (4.8-10.8) H 09/17/20 05:00 Hgb 9.4 g/dL (12.0-16.0) L 09/17/20 05:00 Hct 28.1 % (36.0-47.0) L 09/17/20 05:00 MCV 96.7 fL (78.0-98.0) 09/17/20 05:00 Plt Count 273 thou/uL (130-400) 09/17/20 05:00 Neutrophils % 88.6 % (42.0-75.0) H 09/15/20 01:04 ESR Westergren 106 mm/hr (Less than 20) H 09/15/20 08:30 ABG pH 7.41 (7.35-7.45) 09/15/20 01:13 ABG pCO2 30.1 mmHg (35.0-45.0) L 09/15/20 01:13 ABG pO2 71.3 mmHg (80.0-100.0) L 09/15/20 01:13 Sodium 133 mmol/L (136-145) L 09/17/20 05:00 Potassium 3.8 mmol/L (3.5-5.1) 09/17/20 05:00 Chloride 101 mmol/L (98-107) 09/17/20 05:00 Carbon Dioxide 22 mmol/L (22-29) 09/17/20 05:00 BUN 52 mg/dL (7.0-18.7) H 09/17/20 05:00 Creatinine 3.46 mg/dL (0.6-1.1) H 09/17/20 05:00 Glucose 368 mg/dL (70-105) H 09/17/20 05:00 Lactic Acid 0.6 mmol/L (0.5-2.2) 09/13/20 02:00 Calcium 8.3 mg/dL (7.8-10.44) 09/17/20 05:00 Total Bilirubin 0.2 mg/dL (0.2-1.2) 09/11/20 15:36 AST 27 U/L (5-34) 09/11/20 15:36 ALT 15 U/L (8-55) 09/11/20 15:36 Alkaline Phosphatase 114 U/L (40-110) H 09/11/20 15:36 Creatine Kinase 107 U/L (29-168) 09/07/20 08:09 C-Reactive Protein 6.14 mg/dL (= or < 0.5) H 09/15/20 01:04 Serum Total Protein 6.6 g/dL (6.0-8.3) 09/11/20 15:36 Albumin 2.7 g/dL (3.5-5.0) L 09/17/20 05:00 Lipase 4 U/L (8-78) L 09/12/20 09:27 Urine Ketones 10 mg/dL (Negative) A 09/12/20 09:20 Urine Blood 1+ (Negative) A 09/12/20 09: Urine Nitrite Negative (Negative) 09/12/20 09:20 Ur Leukocyte Esterase Negative Morgan/uL (Negative) 09/12/20 09:20 Urine RBC 0-3 HPF (0-3) 09/12/20 09:20 Urine WBC 11-20 HPF (0-3) A 09/12/20 09:20 Ur Squamous Epith Cells 0-3 HPF (0-3) 09/12/20 09:20 Urine Bacteria 1+ HPF (None Seen) A 09/12/20 09:20 Sodium 133 mmol/L (136-145) L 09/17/20 05:00 Potassium 3.8 mmol/L (3.5-5.1) 09/17/20 05:00 Chloride 101 mmol/L (98-107) 09/17/20 05:00 Carbon Dioxide 22 mmol/L (22-29) 09/17/20 05:00 Anion Gap 14 mmol/L (10-20) 09/17/20 05:00 BUN 52 mg/dL (7.0-18.7) H 09/17/20 05:00 Creatinine 3.46 mg/dL (0.6-1.1) H 09/17/20 05:00 Glucose 368 mg/dL (70-105) H 09/17/20 05:00 Calcium 8.3 mg/dL (7.8-10.44) 09/17/20 05:00 Phosphorus 2.3 mg/dL (2.3-4.7) 09/17/20 05:00 Magnesium 1.9 mg/dL (1.6-2.6) 09/15/20 01:04 Albumin 2.7 g/dL (3.5-5.0) L 09/17/20 05:00 Nephrology AP PN - Plan WENDY. Etiology is unclear. ? hemodynamic factors vs progression of diabetic nephropathy. Association with nephrotic range proteinuria and worsening leg edema is concerning for renal vein thrombosis. ATN is another concern CKD. Stage and baseline creat is unknown. Creat was 0.85 in 04/2019. Was 3.5 on 09/07/2020. Patient is diabetic for more than 20 years and has proteinuria. Also has partial left nephrectomy Nephrotic range proteinuria. Hypokalemia. Metabolic acidosis: Persistent. Due WENDY/CKD and GI losses Generalized swelling Hypomagnesemia Hypoalbuminemia UTI on treatment. HTN Presumed diabetic nephropathy Acute repiratory failure with hypoxia: Due fluid overload and covid pneumonia. Improving. Covid infection. Anemia Plan Increase cardizem to 360 daily for proteinuria. No RAAS josey as yet due to WENDY Dc coreg Hold lasix. Continue alkali therapy orally. Monitor renal function. Anticipate discharge in a day or 2. Will need close foloow up.
[2020-09-17] MEDS: Insulin Glargine 20 UNITS in Pre-Filled Syringe SC SCH (20:31)
[2020-09-17] MEDS: traZODone HCl 50 MG TAB PO PRN (23:31)
[2020-09-17] MEDS: traMADol HCl 50 MG TAB PO PRN (23:32)
[2020-09-18] MEDS: hydrALAZINE 25 MG TAB PO SCH ×3 (06:08→21:01)
[2020-09-18] MEDS: HumaLOG 300 UNITS/3 ML VIAL SC PRN ×4 (06:09→21:15)
[2020-09-18 07:05] LABS: Anion Gap 13 mmol/L (10-20); BUN (Urea Nitrogen) 63 mg/dL (7.0-18.7); Calc. Creatinine Clearance 27 mL/min (70-130); Calcium 8.1 mg/dL (7.8-10.44); Carbon Dioxide 20 mmol/L (22-29); Chloride 103 mmol/L (98-107); Glucose 377 mg/dL (70-105); Potassium 3.6 mmol/L (3.5-5.1); Sodium 132 mmol/L (136-145)
[2020-09-18] MEDS: Ascorbic Acid 500 mg Chewable Tablet PO SCH (09:02)
[2020-09-18] MEDS: predniSONE 20 MG TAB PO SCH (09:03)
[2020-09-18] MEDS: Spironolactone 25 MG TAB PO SCH (09:03)
[2020-09-18] MEDS: Zinc Sulfate 220 MG CAP PO SCH (09:03)
[2020-09-18] MEDS: Sodium Bicarbonate Tab 325 MG TAB PO SCH ×3 (09:03→20:58)
[2020-09-18] MEDS: Heparin 5,000 UNITS/ML VIAL SC SCH ×3 (09:03→20:58)
[2020-09-18] MEDS: Cholecalciferol 1,000 UNITS (25 MCG) TAB PO SCH (09:06)
[2020-09-18] MEDS: Insulin Glargine 20 UNITS in Pre-Filled Syringe SC SCH ×2 (09:06→21:00)
--- NOTE | 2020-09-18 14:29 | PDOC.HOSPP ---
- Subjective Encounter Date: 09/18/20 Encounter Time: 14:26 Subjective: Ms. Barone was seen today in follow-up of COVID pneumonia. She says today she feels tired, and that tomorrow would be a better day to go home. - Objective Vital Signs & Weight: Vital Signs (12 hours) Temp Pulse Resp BP Pulse Ox Pulse Ox Pulse Ox 09/18/20 10:35 97 95 09/18/20 09:00 98.2 F 100 20 151/87 H 95 09/18/20 07:33 98 09/18/20 06:46 86 16 138/78 98 09/18/20 05:29 98 09/18/20 04:00 18 98 Weight Admit Weight 156 lb 8 oz Weight 187 lb 9.6 oz I&O: 09/17/20 09/18/20 09/19/20 06:59 06:59 06:59 Intake Total 800 1000 Balance 800 1000 Result Diagrams: 09/17/20 05:00 09/18/20 06:21 Additional Labs: Accuchecks 09/18/20 09/17/20 12:37 20:56 POC Glucose 267 H 457 H Hospitalist ROS - Medication Medications: Active Medications Generic Name Dose Route Start Last Admin Trade Name Freq PRN Reason Stop Dose Admin Acetaminophen 650 mg 09/07/20 11:14 09/08/20 11:41 Acetaminophen 325 Mg Tab PO 650 mg Q4H PRN Administration Headache/Fever/Mild Pain (1-3) Albuterol Sulfate 2 puff 09/12/20 22:57 09/16/20 00:18 Albuterol 200 Puff (6.7gm Inhaler) INH 2 puff Q4H PRN Administration SOB/WHEEZE Ascorbic Acid 1,000 mg 09/08/20 09:00 09/18/20 09:02 Ascorbic Acid 500 Mg Chewable Tablet PO 1,000 mg DAILY RACHEL Administration Cholecalciferol 1,000 units 09/08/20 09:00 09/18/20 09:06 Cholecalciferol 1,000 Units (25 Mcg) Tab PO 1,000 units DAILY RACHEL Administration Diltiazem HCl 360 mg 09/17/20 09:00 09/18/20 09:03 Diltiazem Hcl Cd 180 Mg Capsule PO 360 mg DAILY RACHEL Administration Guaifenesin 200 mg 09/07/20 11:14 09/12/20 23:06 Diabetic Tussin 200 Mg/10 Ml Udcup PO 200 mg Q4H PRN Administration Cough Heparin Sodium (Porcine) 5,000 units 09/13/20 15:00 09/18/20 09:03 Heparin 5,000 Units/Ml Vial SC 5,000 units TID RACHEL Administration Hydralazine HCl 25 mg 09/18/20 06:00 09/18/20 06:08 Hydralazine 25 Mg Tab PO 25 mg Q8HR RACHEL Administration Insulin Glargine 20 units/ 0.2 mls @ 0 mls/hr 09/17/20 21:00 09/17/20 20:31 Miscellaneous Medication SC 0.2 mls HS RACHEL Administration Insulin Glargine 20 units/ 0.2 mls @ 0 mls/hr 09/18/20 09:00 09/18/20 09:06 Miscellaneous Medication SC 0.2 mls QAM RACHEL Administration Insulin Human Lispro 0 units 09/08/20 12:15 09/18/20 12:41 Humalog 300 Units/3 Ml Vial SC 6 unit .MODERATE SLIDING SC PRN Administration MODERATE SLIDING SCALE Protocol Ondansetron HCl 4 mg 09/07/20 11:14 09/12/20 06:14 Ondansetron Odt 4 Mg Tab PO 4 mg Q6H PRN Administration Nausea/Vomiting Ondansetron HCl 4 mg 09/07/20 11:14 09/12/20 23:07 Ondansetron Pf 4 Mg/2 Ml Vial IVP 4 mg Q6H PRN Administration Nausea/Vomiting Prednisone 40 mg 09/18/20 08:00 09/18/20 09:03 Prednisone 20 Mg Tab PO 40 mg QAM-WM RACHEL Administration Sodium Bicarbonate 650 mg 09/16/20 15:00 09/18/20 09:03 Sodium Bicarbonate Tab 325 Mg Tab PO 650 mg TID RACHEL Administration Sodium Chloride 10 ml 09/09/20 09:00 09/18/20 09:06 Flush - Normal Saline 10 Ml Syringe IVF 10 ml Q12HR RACHEL Administration Spironolactone 25 mg 09/17/20 08:00 09/18/20 09:03 Spironolactone 25 Mg Tab PO 25 mg QAM-WM RACHEL Administration Tramadol HCl 50 mg 09/17/20 21:42 09/17/20 23:32 Tramadol Hcl 50 Mg Tab PO 50 mg Q4H PRN Administration Moderate Pain (4-6) Trazodone HCl 25 mg 09/15/20 20:20 09/17/20 23:31 Trazodone Hcl 50 Mg Tab PO 25 mg HSPRN PRN Administration Insomnia Zinc Sulfate 220 mg 09/08/20 09:00 09/18/20 09:03 Zinc Sulfate 220 Mg Cap PO 220 mg DAILY RACHEL Administration - Exam General Appearance: NAD Eye: PERRL, anicteric sclera Heart: RRR, no murmur, no gallops, no rubs, normal peripheral pulses Respiratory: rales (+ rales at both bases) Gastrointestinal: soft, non-tender, non-distended, normal bowel sounds, no palpable masses, no hepatomegaly, no splenomegaly Extremities: no cyanosis, no edema Hosp A/P (1) Acute kidney injury superimposed on CKD Code(s): N17.9 - ACUTE KIDNEY FAILURE, UNSPECIFIED; N18.9 - CHRONIC KIDNEY DISEASE, UNSPECIFIED Status: Acute (2) COVID-19 virus infection Code(s): U07.1 - COVID-19 Status: Acute (3) UTI (urinary tract infection) Status: Acute (4) DM I (diabetes mellitus, type I) Status: Chronic (5) HTN (hypertension) Code(s): I10 - ESSENTIAL (PRIMARY) HYPERTENSION Status: Chronic Qualifiers: Hypertension type: essential hypertension Qualified Code(s): I10 - Essential (primary) hypertension - Plan * Acute on chronic kidney injury- etiology is unclear. possibly diabetic nephropathy * Renal function appears to have plateaued, * UTI- resolved, and therapy is complete * COVID infection- She is no longer requiring oxygen * DM- blood glucose elevated- need to continue to titrate insulin * HTN- blood pressure is elevated- Cardizem has been increased, and Aldactone has been added. Carvediolol was discontinued as well as Hydralazine * Hopefully tomorrow on the new medications for blood pressure. Off Losartan due to WENDY and Lasix as needed
[2020-09-18 20:07] LABS: Albumin, PEP 24hr Ur 48.1 % (NOT ESTAB.); Alpha-1-Globulin, PEP 24h Ur 12.9 % (NOT ESTAB.); Alpha-2-Globulin, PEP 24h Ur 10.5 % (NOT ESTAB.); Beta Globulin, PEP 24h Ur 12.9 % (NOT ESTAB.); Gamma Globulin, PEP 24h Ur 15.6 % (NOT ESTAB.); M-Spike,% PEP 24hr Ur Not Observed % (Not Observed); Protein, PEP 24hr calculated 25746 mg/24 hr (30-150); Protein, Urine 673.1 mg/dL (Not Estab.)
[2020-09-18] MEDS: traZODone HCl 50 MG TAB PO PRN (21:13)
[2020-09-18] MEDS: traMADol HCl 50 MG TAB PO PRN (21:13)
[2020-09-19] MEDS: hydrALAZINE 25 MG TAB PO SCH ×3 (05:55→22:17)
[2020-09-19] MEDS: HumaLOG 300 UNITS/3 ML VIAL SC PRN ×4 (06:06→20:10)
[2020-09-19] MEDS: Insulin Glargine 20 UNITS in Pre-Filled Syringe SC SCH ×2 (08:24→20:10)
[2020-09-19] MEDS: predniSONE 20 MG TAB PO SCH (08:24)
[2020-09-19] MEDS: Zinc Sulfate 220 MG CAP PO SCH (08:25)
[2020-09-19] MEDS: Torsemide 20 MG TAB PO SCH (08:25)
[2020-09-19] MEDS: Spironolactone 25 MG TAB PO SCH (08:25)
[2020-09-19] MEDS: Ascorbic Acid 500 mg Chewable Tablet PO SCH (08:25)
[2020-09-19] MEDS: Heparin 5,000 UNITS/ML VIAL SC SCH ×3 (08:26→20:10)
[2020-09-19] MEDS: Sodium Bicarbonate Tab 325 MG TAB PO SCH ×3 (08:26→20:10)
[2020-09-19] MEDS: Cholecalciferol 1,000 UNITS (25 MCG) TAB PO SCH (08:26)
[2020-09-19] MEDS ORDERED: Dextrose 5% in Water 1,000 ML IV PRN (10:01)
[2020-09-19] MEDS ORDERED: Dextrose 50% Abboject 50 ML SYRINGE SLOW IVP PRN (10:01)
[2020-09-19] MEDS: Ondansetron PF 4 MG/2 ML Vial IVP PRN ×3 (11:20→20:10)
[2020-09-19] MEDS ORDERED: Ondansetron ODT 4 MG TAB PO PRN (11:30)
[2020-09-19] MEDS ORDERED: Metoprolol Tartrate 5 MG/5 ML VIAL IVP PRN (12:43)
--- NOTE | 2020-09-19 12:44 | PDOC.HOSPP ---
- Subjective Encounter Date: 09/19/20 Encounter Time: 10:00 Subjective: Patient is quite nauseated. She also felt quite dizzy. Follow-up on Covid pneumonia her blood pressure is quite elevated. She is satting around 96% in the room air. - Objective Vital Signs & Weight: Vital Signs (12 hours) Temp Pulse Resp BP BP Pulse Ox 09/19/20 11:09 98.1 F 92 18 154/92 H 98 09/19/20 09:00 151/97 H 09/19/20 07:54 98.3 F 85 18 164/105 H 96 09/19/20 05:55 97 161/96 H Weight Admit Weight 156 lb 8 oz Weight 191 lb 1 oz I&O: 09/18/20 09/19/20 09/20/20 06:59 06:59 06:59 Intake Total 1000 800 240 Balance 1000 800 240 Result Diagrams: 09/17/20 05:00 09/18/20 06:21 Additional Labs: Accuchecks 09/19/20 09/18/20 09/18/20 05:58 21:06 16:27 POC Glucose 204 H 318 H 218 H 09/18/20 12:37 POC Glucose 267 H Hospitalist ROS - Medication Medications: Active Medications Generic Name Dose Route Start Last Admin Trade Name Freq PRN Reason Stop Dose Admin Acetaminophen 650 mg 09/07/20 11:14 09/08/20 11:41 Acetaminophen 325 Mg Tab PO 650 mg Q4H PRN Administration Headache/Fever/Mild Pain (1-3) Albuterol Sulfate 2 puff 09/12/20 22:57 09/16/20 00:18 Albuterol 200 Puff (6.7gm Inhaler) INH 2 puff Q4H PRN Administration SOB/WHEEZE Ascorbic Acid 1,000 mg 09/08/20 09:00 09/19/20 08:25 Ascorbic Acid 500 Mg Chewable Tablet PO 1,000 mg DAILY RACHEL Administration Cholecalciferol 1,000 units 09/08/20 09:00 09/19/20 08:26 Cholecalciferol 1,000 Units (25 Mcg) Tab PO 1,000 units DAILY RACHEL Administration Diltiazem HCl 360 mg 09/17/20 09:00 09/19/20 08:25 Diltiazem Hcl Cd 180 Mg Capsule PO 360 mg DAILY RACHEL Administration Guaifenesin 200 mg 09/07/20 11:14 09/12/20 23:06 Diabetic Tussin 200 Mg/10 Ml Udcup PO 200 mg Q4H PRN Administration Cough Heparin Sodium (Porcine) 5,000 units 09/13/20 15:00 09/19/20 08:26 Heparin 5,000 Units/Ml Vial SC 5,000 units TID RACHEL Administration Hydralazine HCl 25 mg 09/18/20 06:00 09/19/20 05:55 Hydralazine 25 Mg Tab PO 25 mg Q8HR RACHEL Administration Insulin Glargine 20 units/ 0.2 mls @ 0 mls/hr 09/17/20 21:00 09/18/20 21:00 Miscellaneous Medication SC 0.2 mls HS RACHEL Administration Insulin Glargine 20 units/ 0.2 mls @ 0 mls/hr 09/18/20 09:00 09/19/20 08:24 Miscellaneous Medication SC 0.2 mls QAM RACHEL Administration Insulin Human Lispro 0 units 09/08/20 12:15 09/19/20 11:20 Humalog 300 Units/3 Ml Vial SC 4 unit .MODERATE SLIDING SC PRN Administration MODERATE SLIDING SCALE Protocol Prednisone 40 mg 09/18/20 08:00 09/19/20 08:24 Prednisone 20 Mg Tab PO 40 mg QAM-WM RACHEL Administration Sodium Bicarbonate 650 mg 09/16/20 15:00 09/19/20 08:26 Sodium Bicarbonate Tab 325 Mg Tab PO 650 mg TID RACHEL Administration Sodium Chloride 10 ml 09/09/20 09:00 09/19/20 08:28 Flush - Normal Saline 10 Ml Syringe IVF 10 ml Q12HR RACHEL Administration Spironolactone 50 mg 09/19/20 05:28 09/19/20 08:25 Spironolactone 25 Mg Tab PO 50 mg QAM-WM RACHEL Administration Torsemide 20 mg 09/19/20 09:00 09/19/20 08:25 Torsemide 20 Mg Tab PO 20 mg DAILY RACHEL Administration Tramadol HCl 50 mg 09/17/20 21:42 09/18/20 21:13 Tramadol Hcl 50 Mg Tab PO 50 mg Q4H PRN Administration Moderate Pain (4-6) Trazodone HCl 25 mg 09/15/20 20:20 11/27/20 21:13 Trazodone Hcl 50 Mg Tab PO 25 mg HSPRN PRN Administration Insomnia Zinc Sulfate 220 mg 09/08/20 09:00 09/19/20 08:25 Zinc Sulfate 220 Mg Cap PO 220 mg DAILY RACHEL Administration - Exam General Appearance: NAD, awake alert Eye: PERRL ENT: normocephalic atraumatic Neck: supple Respiratory: normal chest expansion Gastrointestinal: soft, normal bowel sounds Neurological: no focal deficits Psychiatric: A&O x 3 Hosp A/P - Plan (1) Acute kidney injury superimposed on CKD Code(s): N17.9 - ACUTE KIDNEY FAILURE, UNSPECIFIED; N18.9 - CHRONIC KIDNEY DISEASE, UNSPECIFIED Status: Acute (2) COVID-19 virus infection Code(s): U07.1 - COVID-19 Status: Acute (3) UTI (urinary tract infection) Status: Acute (4) DM I (diabetes mellitus, type I) Status: Chronic (5) HTN (hypertension) Code(s): I10 - ESSENTIAL (PRIMARY) HYPERTENSION Status: Chronic Qualifiers: Hypertension type: essential hypertension Qualified Code(s): I10 - Essential (primary) hypertension - Plan * Acute on chronic kidney injury- etiology is unclear. possibly diabetic nephropathy * Renal function appears to have plateaued, * UTI- resolved, and therapy is complete * COVID infection-on prednisone * DM- blood glucose elevated-likely with the steroid , need to continue to titrate insulin * HTN- blood pressure is elevated- Cardizem has been increased, and Aldactone has been added. Carvediolol was discontinued as well as Hydralazine * * * Suboptimally controlled blood pressure * -She is on Cardizem and hydralazine as well as Norvasc. I increased the dose of hydralazine to 50 mg every 8 hours p.o. We will titrate as needed..
[2020-09-19] MEDS: traZODone HCl 50 MG TAB PO PRN (22:17)
[2020-09-19] MEDS: traMADol HCl 50 MG TAB PO PRN (22:18)
[2020-09-20] MEDS: hydrALAZINE 25 MG TAB PO SCH ×3 (05:13→21:40)
[2020-09-20] MEDS: traMADol HCl 50 MG TAB PO PRN ×2 (05:22→21:53)
[2020-09-20] MEDS: HumaLOG 300 UNITS/3 ML VIAL SC PRN ×3 (05:26→21:44)
[2020-09-20 06:58] LABS: Hemoglobin 9.9 g/dL (12.0-16.0); Mean Corpuscular HGB CONC 33.9 g/dL (32.0-36.0); Mean Corpuscular Hemoglobin 32.2 pg (27.0-31.0); Mean Corpuscular Volume 94.9 fL (78.0-98.0); Mean Platelet Volume 6.7 fL (7.4-10.4); Platelet Count 253 thou/uL (130-400); RBC Distribution Width 12.1 % (11.5-14.5); Red Blood Cell (RBC) Count 3.07 mill/uL (4.20-5.40); White Blood Cell (WBC) Count 18.2 thou/uL (4.8-10.8)
[2020-09-20 07:17] LABS: Albumin 2.3 g/dL (3.5-5.0); Anion Gap 16 mmol/L (10-20); BUN (Urea Nitrogen) 83 mg/dL (7.0-18.7); BUN/Creatinine Ratio 21.23; Calc. Creatinine Clearance 25 mL/min (70-130); Carbon Dioxide 18 mmol/L (22-29); Chloride 106 mmol/L (98-107); Glucose 177 mg/dL (70-105); Phosphorus 3.4 mg/dL (2.3-4.7); Sodium 136 mmol/L (136-145)
[2020-09-20] MEDS: Insulin Glargine 20 UNITS in Pre-Filled Syringe SC SCH ×2 (09:37→10:14)
[2020-09-20] MEDS: Heparin 5,000 UNITS/ML VIAL SC SCH ×4 (09:38→21:40)
[2020-09-20] MEDS: Ondansetron PF 4 MG/2 ML Vial IVP PRN ×2 (09:43→21:56)
[2020-09-20] MEDS ORDERED: Pantoprazole 40 MG VIAL IVP SCH (11:30)
[2020-09-20] MEDS: Sodium Bicarbonate Tab 325 MG TAB PO SCH ×3 (11:39→21:40)
[2020-09-20] MEDS: Ascorbic Acid 500 mg Chewable Tablet PO SCH (11:40)
[2020-09-20] MEDS: Zinc Sulfate 220 MG CAP PO SCH (11:40)
[2020-09-20] MEDS: predniSONE 20 MG TAB PO SCH (11:40)
[2020-09-20] MEDS: Spironolactone 25 MG TAB PO SCH (11:40)
[2020-09-20] MEDS: Torsemide 20 MG TAB PO SCH (11:40)
[2020-09-20] MEDS: Cholecalciferol 1,000 UNITS (25 MCG) TAB PO SCH (11:40)
--- NOTE | 2020-09-20 13:09 | PDOC.HOSPP ---
- Subjective Encounter Date: 09/20/20 Encounter Time: 11:30 Subjective: Patient is quite dizziness with ambulation as well as shortness of breath. She does not have any diarrhea she did had a good bowel movement. She also had a couple episodes of emesis. Mostly food particles. She is having poor p.o. intake. Will cancel scheduled insulin. Due to poor p.o. intake will give her a low infusion of hydration. Even though she is edematic. - Objective Vital Signs & Weight: Vital Signs (12 hours) Temp Pulse Resp BP Pulse Ox 09/20/20 05:10 98.7 F 107 H 22 H 141/84 H 97 Weight Admit Weight 156 lb 8 oz Weight 191 lb 1 oz I&O: 09/19/20 09/20/20 09/21/20 06:59 06:59 06:59 Intake Total 800 2009 Output Total 0 Balance 800 2009 Result Diagrams: 09/20/20 06:34 09/20/20 06:34 Additional Labs: Accuchecks 09/20/20 09/20/20 09/19/20 10:04 05:25 20:01 POC Glucose 112 H 198 H 326 H Hospitalist ROS - Medication Medications: Active Medications Generic Name Dose Route Start Last Admin Trade Name Freq PRN Reason Stop Dose Admin Acetaminophen 650 mg 09/07/20 11:14 09/08/20 11:41 Acetaminophen 325 Mg Tab PO 650 mg Q4H PRN Administration Headache/Fever/Mild Pain (1-3) Albuterol Sulfate 2 puff 09/12/20 22:57 09/16/20 00:18 Albuterol 200 Puff (6.7gm Inhaler) INH 2 puff Q4H PRN Administration SOB/WHEEZE Ascorbic Acid 1,000 mg 09/08/20 09:00 09/20/20 11:40 Ascorbic Acid 500 Mg Chewable Tablet PO 1,000 mg DAILY RACHEL Administration Cholecalciferol 1,000 units 09/08/20 09:00 09/20/20 11:40 Cholecalciferol 1,000 Units (25 Mcg) Tab PO 1,000 units DAILY RACHEL Administration Diltiazem HCl 360 mg 09/17/20 09:00 09/20/20 11:40 Diltiazem Hcl Cd 180 Mg Capsule PO 360 mg DAILY RACHEL Administration Guaifenesin 200 mg 09/07/20 11:14 09/12/20 23:06 Diabetic Tussin 200 Mg/10 Ml Udcup PO 200 mg Q4H PRN Administration Cough Heparin Sodium (Porcine) 5,000 units 09/13/20 15:00 09/19/20 20:10 Heparin 5,000 Units/Ml Vial SC 5,000 units TID RACHEL Administration Hydralazine HCl 50 mg 09/19/20 14:00 09/20/20 05:13 Hydralazine 25 Mg Tab PO 50 mg Q8HR RACHEL Administration Insulin Human Lispro 0 units 09/08/20 12:15 09/19/20 11:20 Humalog 300 Units/3 Ml Vial SC 4 unit .MODERATE SLIDING SC PRN Administration MODERATE SLIDING SCALE Protocol Insulin Human Lispro 0 units 09/19/20 10:01 09/20/20 05:26 Humalog 300 Units/3 Ml Vial SC 2 unit .MODERATE SLIDING SC PRN Administration Moderate Correctional Scale Ondansetron HCl 4 mg 09/19/20 11:19 09/20/20 09:43 Ondansetron Pf 4 Mg/2 Ml Vial IVP 4 mg Q4H PRN Administration Nausea/Vomiting Pantoprazole Sodium 40 mg 09/20/20 11:30 09/20/20 11:55 Pantoprazole 40 Mg Vial IVP 09/20/20 14:00 40 mg NOW RACHEL Administration Sodium Bicarbonate 650 mg 09/16/20 15:00 09/20/20 11:39 Sodium Bicarbonate Tab 325 Mg Tab PO 650 mg TID RACHEL Administration Sodium Chloride 10 ml 09/09/20 09:00 09/20/20 09:39 Flush - Normal Saline 10 Ml Syringe IVF 10 ml Q12HR RACHEL Administration Tramadol HCl 50 mg 09/17/20 21:42 09/20/20 05:22 Tramadol Hcl 50 Mg Tab PO 50 mg Q4H PRN Administration Moderate Pain (4-6) Trazodone HCl 25 mg 09/15/20 20:20 09/19/20 22:17 Trazodone Hcl 50 Mg Tab PO 25 mg HSPRN PRN Administration Insomnia Zinc Sulfate 220 mg 09/08/20 09:00 09/20/20 11:40 Zinc Sulfate 220 Mg Cap PO 220 mg DAILY RACHEL Administration - Exam General Appearance: awake alert, ill appearing Eye: PERRL, anicteric sclera ENT: normocephalic atraumatic Neck: supple Heart: RRR Respiratory: normal chest expansion Extremities: 2+ LE edema Neurological: no focal deficits Musculoskeletal: generalized weakness Psychiatric: A&O x 3 Hosp A/P - Plan (1) Acute kidney injury superimposed on CKD Code(s): N17.9 - ACUTE KIDNEY FAILURE, UNSPECIFIED; N18.9 - CHRONIC KIDNEY DISEASE, UNSPECIFIED Status: Acute (2) COVID-19 virus infection Code(s): U07.1 - COVID-19 Status: Acute (3) UTI (urinary tract infection) Status: Acute (4) DM I (diabetes mellitus, type I) Status: Chronic (5) HTN (hypertension) Code(s): I10 - ESSENTIAL (PRIMARY) HYPERTENSION Status: Chronic Qualifiers: Hypertension type: essential hypertension Qualified Code(s): I10 - Essential (primary) hypertension - Plan * Acute on chronic kidney injury- etiology is unclear. possibly diabetic nephropathy * Renal function appears to have plateaued, * UTI- resolved, and therapy is complete * COVID infection-on prednisone * DM- blood glucose elevated-likely with the steroid , need to continue to titrate insulin * HTN- blood pressure is elevated- Cardizem has been increased, and Aldactone has been added. Carvediolol was discontinued as well as Hydralazine * * * Suboptimally controlled blood pressure * -She is on Cardizem and hydralazine as well as Norvasc. I increased the dose of hydralazine to 50 mg every 8 hours p.o. We will titrate as needed.. * Persistent nausea and emesis -No diarrhea. -Perhaps atypical presentation of Covid. -She is admitted on for Covid she is on the second week of Covid she should be improving. She has no hypoxia however her GI symptoms seems to be not improving. -Hold her p.o. medications and started her on IV steroid -ID consult placed. She does have elevated leukocytosis. Will get a chest x-ray to follow-up on t along with the UA. -Her inflammatory markers are rising. She cannot get remdesivir due to kidney disease. Lower extremity edema due to hypoalbuminemia Chronic kidney disease stage III -Echo cannot be done due to Covid nature -Discontinued her home regimen of torsemide and started on IV Lasix. -Reduce to the dose of spironolactone as she is not holding any p.o. medications due to emesis and nausea
[2020-09-20] MEDS ORDERED: Sodium Chloride 0.9% 1,000 ML IV SCH (13:15)
--- NOTE | 2020-09-20 13:36 | RAD ---
PORTABLE CHEST 1 VIEW: Date: 09/20/2020 Time: 1305 hours HISTORY: COVID pneumonia follow-up. COMPARISON: 09/12/2020. FINDINGS: Interval improvement of the bilateral pulmonary opacities is seen without complete resolution. Left u pper extremity PICC line remains in place. No pneumothoraces or pleural effusions are seen. IMPRESSION: Improving COVID-19 pneumonia. POS: DEMIA
[2020-09-20] MEDS ORDERED: Furosemide 40 MG/4 ML VIAL SLOW IVP SCH (14:00)
--- NOTE | 2020-09-20 14:34 | CON ---
DATE OF CONSULTATION: 09/20/2020 REASON FOR CONSULTATION: COVID infection with renal insufficiency. HISTORY OF PRESENT ILLNESS: A 45-year-old who has a longstanding history of type 2 diabetes for at least 20 years. Also history of kidney cancer in 2016, managed with subtotal resection of the involved kidney, who despite relative isolation developed COVID-19 and she was admitted on September 07 to the hospital. She had some vomiting and diarrhea. Initial BP 150/80, pulse 102, respirations 18, temperature 99.2, O2 saturation 98%. In the exam, she did not appear in distress. She was alert. So the initial findings included white cell count of 10.4, hemoglobin of 12 and platelet count of 288. The D-dimer is 2.47. The creatinine was 3.51 on arrival and blood glucose was a 70, carbon dioxide was 13 and anion gap was normal. The chloride was 109. Urinalysis on admission showed 600 protein, so nephrotic range proteinuria, and her albumin was 1.9. Initial chest x-ray was done on September 12. I do not have a previous x-ray documented in the record but it showed severe bilateral infiltrates, somewhat nodular appearance. So, she was treated with Decadron and eventually transitioned to prednisone. Her angiotensin receptor josey was discontinued and Nephrology consulted. Workup for acute renal failure causes and chronic renal failure causes did not reveal anything other than the diabetes and possibility of diabetic nephropathy with superimposed COVID effect. She never required more than nasal cannula O2 supplementation and quickly switched to room air and the main issues that have held her discharge have been related to her kidneys, uncontrolled blood pressure and general malaise, inability to keep fluid and food down. She just had an episode of vomiting this morning and she is having pain in the epigastric area. Otherwise, she is not short of breath. She is able to ambulate to the toilet and bathroom with minor dyspnea. No headaches. No sore throat, odynophagia, dysphagia. No dental pain or back pain. No chest pain. She never had dysuria, although she has been treated for urinary tract infection. No skin disorder. No neurological symptoms. PAST MEDICAL HISTORY: Type 2 diabetes, renal cancer with segmental or septal resection. Her baseline creatinine was 0.85 in April 2019. The patient has a history of uterine ablation, left ankle surgery. SOCIAL HISTORY: Drinks occasionally. 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 Former smoker, quit last year. Had been living in [place] with parents. ALLERGIES: NONE. CURRENT MEDICATIONS: Includes 1. Vitamin C. 2. Cardizem. 3. Lasix. 4. Heparin. 5. Insulin. 6. Metoprolol. 7. Protonix. 8. Prednisone 40 mg daily. 9. Bicarbonate. 10. Tramadol. 11. Trazodone. 12. Zinc. PHYSICAL EXAMINATION: VITAL SIGNS: Temperature max 98.7, BP 140/80, pulse 107, respiratory rate 22, O2 saturation 97%. SKIN: Shows tattoo in the anterior chest area. She has a peripheral IV access and is voiding spontaneously. No lymphadenopathy. HEENT: Ocular movements conjugate. Oral cavity normal. NECK: Supple. LUNGS: Symmetric air entry. Clear breath sounds. No wheezing. HEART: S1, S2. Regular rate. No S3 or S4. ABDOMEN: Soft with mild tenderness in the epigastric area. No bladder distention. No organomegaly or ascites. EXTREMITIES: There is 3+ edema in the lower extremities. She moves extremities equally. Plantar responses are flexor. NEUROLOGIC: Cognitive function appears to be intact. LABORATORY DATA: Sodium 132, creatinine is up to 3.91, potassium 3.6. She had an SAUD negative. Albumin 2.2. IgA 430, free kappa quantitative 123. Has not had a chest x-ray repeated. She had an abdomen and pelvis ultrasound on the and it showed no renal artery stenosis. There is no comment on the gallbladder. Venogram showed no DVT. ASSESSMENT: Type 2 diabetes, likely diabetic nephropathy; prior partial resection for management of renal cancer, in remission; COVID pneumonia; mild to moderate renal insufficiency, possibly superimposed on chronic renal insufficiency with nephrotic syndrome; abdominal pain in epigastric area. DISCUSSION: At this point, the main reason for patient to remain in the hospital is the kidney and gastrointestinal issues with persistent vomiting. She has this epigastric pain and may consider GI consultation. She is on Protonix. I would advise discontinuation of prednisone at this point. Repeat chest x-ray. Volume repletion. Job ID: [id number]
[2020-09-20] MEDS ORDERED: Albumin 25% 25 GM/100 ML BOT IVPB SCH (18:00)
[2020-09-20 19:06] LABS: Bacteria/HPF None Seen HPF (None Seen); Bilirubin Negative (Negative); Blood, Urine Trace (Negative); Clarity Clear (Clear); Glucose, Urine (Dipstick) 100 mg/dL (Negative); Ketone, Urine Negative (Negative); Leukocyte Negative Leu/uL (Negative); Nitrite Negative (Negative); Protein, Urine (Dipstick) 300 mg/dL (Neg-Trace); Specific Gravity, Urine 1.012 (1.002-1.036); Squamous Epithelial 0-3 HPF (0-3); Urobilinogen Normal mg/dL (Less than 2); Yeast-Budding 2+ HPF (None Seen); pH, Urine 6.5 (5.0-9.0)
--- NOTE | 2020-09-20 19:44 | PDOC.NEPPN ---
- Subjective Encounter Date: 09/20/20 Subjective: Had several episodes of emesis earlier today which has subsided. Able to tolerate oral intake. - Objective Vital Signs & Weight: Vital Signs (12 hours) Pulse BP Pulse Ox 09/20/20 14:21 107 H 145/91 H 09/20/20 08:00 96 Weight Admit Weight 156 lb 8 oz Weight 191 lb 1 oz I&O: 09/19/20 09/20/20 09/21/20 06:59 06:59 06:59 Intake Total 800 2009 440 Output Total 0 Balance 800 2009 440 Result Diagrams: 09/20/20 06:34 09/20/20 06:34 Additional Labs: Accuchecks 09/20/20 09/20/20 09/20/20 16:08 10:04 05:25 POC Glucose 189 H 112 H 198 H 09/19/20 20:01 POC Glucose 326 H Nephrology ROS - Medication Medications: Active Medications Generic Name Dose Route Start Last Admin Trade Name Freq PRN Reason Stop Dose Admin Acetaminophen 650 mg 09/07/20 11:14 09/08/20 11:41 Acetaminophen 325 Mg Tab PO 650 mg Q4H PRN Administration Headache/Fever/Mild Pain (1-3) Albuterol Sulfate 2 puff 09/12/20 22:57 09/16/20 00:18 Albuterol 200 Puff (6.7gm Inhaler) INH 2 puff Q4H PRN Administration SOB/WHEEZE Ascorbic Acid 1,000 mg 09/08/20 09:00 09/20/20 11:40 Ascorbic Acid 500 Mg Chewable Tablet PO 1,000 mg DAILY RACHEL Administration Diltiazem HCl 360 mg 09/17/20 09:00 09/20/20 11:40 Diltiazem Hcl Cd 180 Mg Capsule PO 360 mg DAILY RACHEL Administration Guaifenesin 200 mg 09/07/20 11:14 09/12/20 23:06 Diabetic Tussin 200 Mg/10 Ml Udcup PO 200 mg Q4H PRN Administration Cough Heparin Sodium (Porcine) 5,000 units 09/13/20 15:00 09/20/20 14:16 Heparin 5,000 Units/Ml Vial SC 5,000 units TID RACHEL Administration Hydralazine HCl 50 mg 09/19/20 14:00 09/20/20 14:21 Hydralazine 25 Mg Tab PO 50 mg Q8HR RACEHL Administration Insulin Human Lispro 0 units 09/08/20 12:15 09/20/20 18:51 Humalog 300 Units/3 Ml Vial SC 2 unit .MODERATE SLIDING SC PRN Administration MODERATE SLIDING SCALE Protocol Insulin Human Lispro 0 units 09/19/20 10:01 09/20/20 05:26 Humalog 300 Units/3 Ml Vial SC 2 unit .MODERATE SLIDING SC PRN Administration Moderate Correctional Scale Ondansetron HCl 4 mg 09/19/20 11:19 09/20/20 09:43 Ondansetron Pf 4 Mg/2 Ml Vial IVP 4 mg Q4H PRN Administration Nausea/Vomiting Sodium Bicarbonate 650 mg 09/16/20 15:00 09/20/20 14:21 Sodium Bicarbonate Tab 325 Mg Tab PO 650 mg TID RACHEL Administration Sodium Chloride 10 ml 09/09/20 09:00 09/20/20 09:39 Flush - Normal Saline 10 Ml Syringe IVF 10 ml Q12HR RACHEL Administration Tramadol HCl 50 mg 09/17/20 21:42 09/20/20 05:22 Tramadol Hcl 50 Mg Tab PO 50 mg Q4H PRN Administration Moderate Pain (4-6) Trazodone HCl 25 mg 09/15/20 20:20 09/19/20 22:17 Trazodone Hcl 50 Mg Tab PO 25 mg HSPRN PRN Administration Insomnia Zinc Sulfate 220 mg 09/08/20 09:00 09/20/20 11:40 Zinc Sulfate 220 Mg Cap PO 220 mg DAILY RACHEL Administration - Exam General Appearance: awake alert Eye: anicteric sclera ENT: normocephalic atraumatic, moist mucosa Neck: symmetric Respiratory - other findings: Fair air entry bilaterally Cardiovascular: RRR Heart - other findings: tachycardia Gastrointestinal: soft, non-distended, normal bowel sounds Extremities: 2+ LE edema Neurological: CN's grossly intact, no focal deficits PSYCH: A&O x 3 Nephrology Results - Labs Result Diagrams: 09/20/20 06:34 09/20/20 06:34 Lab results: WBC 18.2 thou/uL (4.8-10.8) H 09/20/20 06:34 Hgb 9.9 g/dL (12.0-16.0) L 09/20/20 06:34 Hct 29.1 % (36.0-47.0) L 09/20/20 06:34 MCV 94.9 fL (78.0-98.0) 09/20/20 06:34 Plt Count 253 thou/uL (130-400) 09/20/20 06:34 Neutrophils % 88.6 % (42.0-75.0) H 09/15/20 01:04 ESR Westergren 106 mm/hr (Less than 20) H 09/15/20 08:30 ABG pH 7.41 (7.35-7.45) 09/15/20 01:13 ABG pCO2 30.1 mmHg (35.0-45.0) L 09/15/20 01:13 ABG pO2 71.3 mmHg (80.0-100.0) L 09/15/20 01:13 Sodium 136 mmol/L (136-145) 09/20/20 06:34 Potassium 4.0 mmol/L (3.5-5.1) 09/20/20 06:34 Chloride 106 mmol/L (98-107) 09/20/20 06:34 Carbon Dioxide 18 mmol/L (22-29) L 09/20/20 06:34 BUN 83 mg/dL (7.0-18.7) H 09/20/20 06:34 Creatinine 3.91 mg/dL (0.6-1.1) H 09/20/20 06:34 Glucose 177 mg/dL (70-105) H 09/20/20 06:34 Lactic Acid 0.6 mmol/L (0.5-2.2) 09/13/20 02:00 Calcium 8.0 mg/dL (7.8-10.44) 09/20/20 06:34 Total Bilirubin 0.2 mg/dL (0.2-1.2) 09/11/20 15:36 AST 27 U/L (5-34) 09/11/20 15:36 ALT 15 U/L (8-55) 09/11/20 15:36 Alkaline Phosphatase 114 U/L (40-110) H 09/11/20 15:36 Creatine Kinase 107 U/L (29-168) 09/07/20 08:09 C-Reactive Protein 0.85 mg/dL (= or < 0.5) H 09/20/20 12:04 B-Natriuretic Peptide 82.3 pg/mL (0-100) 09/20/20 12:04 Serum Total Protein 6.6 g/dL (6.0-8.3) 09/11/20 15:36 Albumin 2.3 g/dL (3.5-5.0) L 09/20/20 06:34 Lipase 4 U/L (8-78) L 09/12/20 09:27 Urine Ketones Negative mg/dL (Negative) 09/20/20 18:30 Urine Blood Trace (Negative) A 09/20/20 18:30 Urine Nitrite Negative (Negative) 09/20/20 18:30 Ur Leukocyte Esterase Negative Morgan/uL (Negative) 09/20/20 18:30 Urine RBC 4-6 HPF (0-3) A 09/20/20 18:30 Urine WBC 7-10 HPF (0-3) A 09/20/20 18:30 Ur Squamous Epith Cells 0-3 HPF (0-3) 09/20/20 18:30 Urine Bacteria None Seen HPF (None Seen) 09/20/20 18:30 Sodium 136 mmol/L (136-145) 09/20/20 06:34 Potassium 4.0 mmol/L (3.5-5.1) 09/20/20 06:34 Chloride 106 mmol/L (98-107) 09/20/20 06:34 Carbon Dioxide 18 mmol/L (22-29) L 09/20/20 06:34 Anion Gap 16 mmol/L (10-20) 09/20/20 06:34 BUN 83 mg/dL (7.0-18.7) H 09/20/20 06:34 Creatinine 3.91 mg/dL (0.6-1.1) H 09/20/20 06:34 Glucose 177 mg/dL (70-105) H 09/20/20 06:34 Calcium 8.0 mg/dL (7.8-10.44) 09/20/20 06:34 Phosphorus 3.4 mg/dL (2.3-4.7) 09/20/20 06:34 Magnesium 1.9 mg/dL (1.6-2.6) 09/15/20 01:04 Albumin 2.3 g/dL (3.5-5.0) L 09/20/20 06:34 Nephrology AP PN - Plan WENDY. Etiology is unclear. ? hemodynamic factors vs progression of diabetic nephropathy. CKD. Stage and baseline creat is unknown. Creat was 0.85 in 04/2019. Was 3.5 on 09/07/2020. Due to DM nephropathy and partial left nephrectomy Nephrotic range proteinuria. Hypokalemia. Metabolic acidosis: Persistent. Due WENDY/CKD and GI losses Generalized swelling Hypomagnesemia Hypoalbuminemia UTI on treatment. HTN Presumed diabetic nephropathy Acute repiratory failure with hypoxia: Due fluid overload and covid pneumonia. Improving. Covid infection. Anemia Plan Stop IVF and Lasix. Start albumin. Continue cardizem and Hydralazine for BP. No RAAS josey as yet due to WENDY Continue alkali therapy orally. Monitor renal function.
[2020-09-20] MEDS ORDERED: methylPREDNISolone Sod Succ 40 MG VIAL IVP SCH (21:00)
[2020-09-20] MEDS: Albumin 25% 25 GM/100 ML BOT IVPB SCH (21:40)
[2020-09-20] MEDS: traZODone HCl 50 MG TAB PO PRN (21:52)
[2020-09-21] MEDS: Albumin 25% 25 GM/100 ML BOT IVPB SCH ×3 (03:57→14:01)
[2020-09-21] MEDS: Ondansetron PF 4 MG/2 ML Vial IVP PRN ×2 (04:04→15:14)
[2020-09-21] MEDS: hydrALAZINE 25 MG TAB PO SCH ×3 (06:00→21:32)
[2020-09-21] MEDS: traMADol HCl 50 MG TAB PO PRN ×2 (06:12→21:32)
[2020-09-21] MEDS: HumaLOG 300 UNITS/3 ML VIAL SC PRN ×4 (06:29→21:35)
[2020-09-21 07:00] LABS: Albumin 3.1 g/dL (3.5-5.0); Anion Gap 18 mmol/L (10-20); BUN (Urea Nitrogen) 87 mg/dL (7.0-18.7); BUN/Creatinine Ratio 21.97; Calc. Creatinine Clearance 25 mL/min (70-130); Calcium 8.1 mg/dL (7.8-10.44); Carbon Dioxide 18 mmol/L (22-29); Chloride 102 mmol/L (98-107); Glucose 370 mg/dL (70-105); Phosphorus 4.7 mg/dL (2.3-4.7); Potassium 4.8 mmol/L (3.5-5.1); Sodium 133 mmol/L (136-145)
[2020-09-21] MEDS: Pantoprazole 40 MG VIAL IVP SCH (08:15)
[2020-09-21] MEDS: Heparin 5,000 UNITS/ML VIAL SC SCH ×3 (08:16→21:32)
[2020-09-21] MEDS: Zinc Sulfate 220 MG CAP PO SCH (08:16)
[2020-09-21] MEDS: Sodium Bicarbonate Tab 325 MG TAB PO SCH ×3 (08:16→21:31)
[2020-09-21] MEDS: Ascorbic Acid 500 mg Chewable Tablet PO SCH (08:17)
[2020-09-21] MEDS: Cholecalciferol 1,000 UNITS (25 MCG) TAB PO SCH (08:20)
[2020-09-21] MEDS ORDERED: Spironolactone 25 MG TAB PO SCH (09:00)
--- NOTE | 2020-09-21 12:55 | PDOC.HOSPP ---
- Subjective Encounter Date: 09/21/20 Encounter Time: 10:40 Subjective: Patient had a another episode of emesis this morning. Still ongoing nausea and emesis. ID note reviewed. - Objective Vital Signs & Weight: Vital Signs (12 hours) Temp Pulse Resp BP Pulse Ox 09/21/20 12:29 98.2 F 90 18 135/77 97 09/21/20 08:14 98.6 F 115 H 16 149/77 H 96 09/21/20 08:00 98 09/21/20 06:00 98.4 F 96 20 164/87 H 98 Weight Admit Weight 156 lb 8 oz Weight 191 lb 1 oz I&O: 09/20/20 09/21/20 09/22/20 06:59 06:59 06:59 Intake Total 2009 800 Output Total 0 Balance 2009 800 Result Diagrams: 09/20/20 06:34 09/21/20 06:16 Additional Labs: Accuchecks 09/21/20 09/21/20 09/20/20 12:21 06:05 21:43 POC Glucose 338 H 367 H 407 H 09/20/20 09/19/20 09/19/20 16:08 15:59 10:42 POC Glucose 189 H 343 H 228 H 09/18/20 09/17/20 06:17 16:27 POC Glucose 338 H 394 H Hospitalist ROS - Medication Medications: Active Medications Generic Name Dose Route Start Last Admin Trade Name Freq PRN Reason Stop Dose Admin Acetaminophen 650 mg 09/07/20 11:14 09/08/20 11:41 Acetaminophen 325 Mg Tab PO 650 mg Q4H PRN Administration Headache/Fever/Mild Pain (1-3) Albumin Human 25 gm 09/20/20 21:00 09/21/20 08:25 Albumin 25% 25 Gm/100 Ml Bot IVPB 09/21/20 15:01 25 gm 0300,0900,1500,2100 RACHEL Administration Albuterol Sulfate 2 puff 09/12/20 22:57 09/16/20 00:18 Albuterol 200 Puff (6.7gm Inhaler) INH 2 puff Q4H PRN Administration SOB/WHEEZE Ascorbic Acid 1,000 mg 09/08/20 09:00 09/21/20 08:17 Ascorbic Acid 500 Mg Chewable Tablet PO 1,000 mg DAILY RACHEL Administration Cholecalciferol 2,000 units 09/21/20 09:00 09/21/20 08:20 Cholecalciferol 1,000 Units (25 Mcg) Tab PO 2,000 units DAILY RACHEL Administration Guaifenesin 200 mg 09/07/20 11:14 09/12/20 23:06 Diabetic Tussin 200 Mg/10 Ml Udcup PO 200 mg Q4H PRN Administration Cough Heparin Sodium (Porcine) 5,000 units 09/13/20 15:00 09/21/20 08:16 Heparin 5,000 Units/Ml Vial SC 5,000 units TID RACHEL Administration Hydralazine HCl 50 mg 09/19/20 14:00 09/21/20 06:00 Hydralazine 25 Mg Tab PO 50 mg Q8HR RACHEL Administration Insulin Human Lispro 0 units 09/08/20 12:15 09/21/20 12:22 Humalog 300 Units/3 Ml Vial SC 8 unit .MODERATE SLIDING SC PRN Administration MODERATE SLIDING SCALE Protocol Insulin Human Lispro 0 units 09/19/20 10:01 09/20/20 21:44 Humalog 300 Units/3 Ml Vial SC 10 unit .MODERATE SLIDING SC PRN Administration Moderate Correctional Scale Ondansetron HCl 4 mg 09/19/20 11:19 09/21/20 04:04 Ondansetron Pf 4 Mg/2 Ml Vial IVP 4 mg Q4H PRN Administration Nausea/Vomiting Pantoprazole Sodium 40 mg 09/21/20 09:00 09/21/20 08:15 Pantoprazole 40 Mg Vial IVP 40 mg DAILY RACHEL Administration Sodium Bicarbonate 650 mg 09/16/20 15:00 09/21/20 08:16 Sodium Bicarbonate Tab 325 Mg Tab PO 650 mg TID RACHEL Administration Sodium Chloride 10 ml 09/09/20 09:00 09/21/20 08:17 Flush - Normal Saline 10 Ml Syringe IVF 10 ml Q12HR RACHEL Administration Spironolactone 12.5 mg 09/21/20 09:00 09/21/20 08:17 Spironolactone 25 Mg Tab PO 12.5 mg DAILY RACHEL Administration Tramadol HCl 50 mg 09/17/20 21:42 09/21/20 06:12 Tramadol Hcl 50 Mg Tab PO 50 mg Q4H PRN Administration Moderate Pain (4-6) Trazodone HCl 25 mg 09/15/20 20:20 09/20/20 21:52 Trazodone Hcl 50 Mg Tab PO 25 mg HSPRN PRN Administration Insomnia Zinc Sulfate 220 mg 09/08/20 09:00 09/21/20 08:16 Zinc Sulfate 220 Mg Cap PO 220 mg DAILY RACHEL Administration - Exam General Appearance: NAD, awake alert General - other findings: She appears nontoxic this morning better than yesterday. Eye: PERRL ENT: normocephalic atraumatic Neck: supple Neurological: no focal deficits Psychiatric: A&O x 3 Hosp A/P - Plan (1) Acute kidney injury superimposed on CKD Code(s): N17.9 - ACUTE KIDNEY FAILURE, UNSPECIFIED; N18.9 - CHRONIC KIDNEY DISEASE, UNSPECIFIED Status: Acute (2) COVID-19 virus infection Code(s): U07.1 - COVID-19 Status: Acute (3) UTI (urinary tract infection) Status: Acute (4) DM I (diabetes mellitus, type I) Status: Chronic (5) HTN (hypertension) Code(s): I10 - ESSENTIAL (PRIMARY) HYPERTENSION Status: Chronic Qualifiers: Hypertension type: essential hypertension Qualified Code(s): I10 - Essential (primary) hypertension - Plan * Acute on chronic kidney injury- etiology is unclear. possibly diabetic nephropathy * Renal function appears to have plateaued, * UTI- resolved, and therapy is complete * COVID infection-on prednisone * DM- blood glucose elevated-likely with the steroid , need to continue to titrate insulin * HTN- blood pressure is elevated- Cardizem has been increased, and Aldactone has been added. Carvediolol was discontinued as well as Hydralazine * * * Suboptimally controlled blood pressure * -She is on Cardizem and hydralazine as well as Norvasc. I increased the dose of hydralazine to 50 mg every 8 hours p.o. We will titrate as needed.. * Persistent nausea and emesis -No diarrhea. -Perhaps atypical presentation of Covid. -She is admitted on for Covid she is on the second week of Covid she should be improving. She has no hypoxia however her GI symptoms seems to be not improving. -Hold her p.o. medications and started her on IV steroid -ID consult placed. She does have elevated leukocytosis. Will get a chest x-ray to follow-up on that along with the UA. -Her inflammatory markers are rising. She cannot get remdesivir due to kidney disease. Lower extremity edema due to hypoalbuminemia Chronic kidney disease stage III -Echo cannot be done due to Covid nature -Discontinued her home regimen of torsemide and started on IV Lasix. -Reduce to the dose of spironolactone as she is not holding any p.o. medications due to emesis and nausea I believe her presentation of emesis probably due to gastroparesis. I will start her on Reglan--- trial of Reglan whether that would improve her symptoms Her LFTs and lipase level were in the normal range. No indication to get imaging study at this point. We will follow-up on A1c level. Hypoalbunemia she is started on albumin infusion. She is also getting Ensure with meals. Though her p.o. intake is less due to severe emesis and nausea in the last few days. Though this is a benign consult for GI, will appreciate their input as well as patient has the last 1 week of these symptoms ongoing without any relief despite giving her antiemetic medications so for.
--- NOTE | 2020-09-21 13:59 | PDOC.NEPPN ---
- Subjective Encounter Date: 09/21/20 Subjective: Still having nausea with occasional emesis. - Objective Vital Signs & Weight: Vital Signs (12 hours) Temp Pulse Resp BP Pulse Ox 09/21/20 12:29 98.2 F 90 18 135/77 97 09/21/20 08:14 98.6 F 115 H 16 149/77 H 96 09/21/20 08:00 98 09/21/20 06:00 98.4 F 96 20 164/87 H 98 Weight Admit Weight 156 lb 8 oz Weight 191 lb 1 oz I&O: 09/20/20 09/21/20 09/22/20 06:59 06:59 06:59 Intake Total 2009 800 Output Total 0 Balance 2009 800 Result Diagrams: 09/20/20 06:34 09/21/20 06:16 Additional Labs: Accuchecks 09/21/20 09/21/20 09/20/20 12:21 06:05 21:43 POC Glucose 338 H 367 H 407 H 09/20/20 09/19/20 09/19/20 16:08 15:59 10:42 POC Glucose 189 H 343 H 228 H 09/18/20 09/17/20 06:17 16:27 POC Glucose 338 H 394 H Nephrology ROS - Medication Medications: Active Medications Generic Name Dose Route Start Last Admin Trade Name Donq PRN Reason Stop Dose Admin Acetaminophen 650 mg 09/07/20 11:14 09/08/20 11:41 Acetaminophen 325 Mg Tab PO 650 mg Q4H PRN Administration Headache/Fever/Mild Pain (1-3) Albumin Human 25 gm 09/20/20 21:00 09/21/20 08:25 Albumin 25% 25 Gm/100 Ml Bot IVPB 09/21/20 15:01 25 gm 0300,0900,1500,2100 RACHEL Administration Albuterol Sulfate 2 puff 09/12/20 22:57 09/16/20 00:18 Albuterol 200 Puff (6.7gm Inhaler) INH 2 puff Q4H PRN Administration SOB/WHEEZE Ascorbic Acid 1,000 mg 09/08/20 09:00 09/21/20 08:17 Ascorbic Acid 500 Mg Chewable Tablet PO 1,000 mg DAILY RACHEL Administration Cholecalciferol 2,000 units 09/21/20 09:00 09/21/20 08:20 Cholecalciferol 1,000 Units (25 Mcg) Tab PO 2,000 units DAILY RACHEL Administration Guaifenesin 200 mg 09/07/20 11:14 09/12/20 23:06 Diabetic Tussin 200 Mg/10 Ml Udcup PO 200 mg Q4H PRN Administration Cough Heparin Sodium (Porcine) 5,000 units 09/13/20 15:00 09/21/20 08:16 Heparin 5,000 Units/Ml Vial SC 5,000 units TID RACHEL Administration Hydralazine HCl 50 mg 09/19/20 14:00 09/21/20 06:00 Hydralazine 25 Mg Tab PO 50 mg Q8HR RACHEL Administration Insulin Human Lispro 0 units 09/08/20 12:15 09/21/20 12:22 Humalog 300 Units/3 Ml Vial SC 8 unit .MODERATE SLIDING SC PRN Administration MODERATE SLIDING SCALE Protocol Insulin Human Lispro 0 units 09/19/20 10:01 09/20/20 21:44 Humalog 300 Units/3 Ml Vial SC 10 unit .MODERATE SLIDING SC PRN Administration Moderate Correctional Scale Ondansetron HCl 4 mg 09/19/20 11:19 09/21/20 04:04 Ondansetron Pf 4 Mg/2 Ml Vial IVP 4 mg Q4H PRN Administration Nausea/Vomiting Pantoprazole Sodium 40 mg 09/21/20 09:00 09/21/20 08:15 Pantoprazole 40 Mg Vial IVP 40 mg DAILY RACHEL Administration Sodium Bicarbonate 650 mg 09/16/20 15:00 09/21/20 08:16 Sodium Bicarbonate Tab 325 Mg Tab PO 650 mg TID RACHEL Administration Sodium Chloride 10 ml 09/09/20 09:00 09/21/20 08:17 Flush - Normal Saline 10 Ml Syringe IVF 10 ml Q12HR RACHEL Administration Tramadol HCl 50 mg 09/17/20 21:42 09/21/20 06:12 Tramadol Hcl 50 Mg Tab PO 50 mg Q4H PRN Administration Moderate Pain (4-6) Trazodone HCl 25 mg 09/15/20 20:20 09/20/20 21:52 Trazodone Hcl 50 Mg Tab PO 25 mg HSPRN PRN Administration Insomnia Zinc Sulfate 220 mg 09/08/20 09:00 09/21/20 08:16 Zinc Sulfate 220 Mg Cap PO 220 mg DAILY RACHEL Administration - Exam General Appearance: awake alert Eye: anicteric sclera ENT: normocephalic atraumatic Neck: supple Respiratory - other findings: fair air entry bilaterally Cardiovascular: RRR Gastrointestinal: soft, non-tender Extremities: 2+ LE edema Neurological: CN's grossly intact, no focal deficits Musculoskeletal: generalized weakness PSYCH: A&O x 3 Nephrology Results - Labs Result Diagrams: 09/20/20 06:34 09/21/20 06:16 Lab results: WBC 18.2 thou/uL (4.8-10.8) H 09/20/20 06:34 Hgb 9.9 g/dL (12.0-16.0) L 09/20/20 06:34 Hct 29.1 % (36.0-47.0) L 09/20/20 06:34 MCV 94.9 fL (78.0-98.0) 09/20/20 06:34 Plt Count 253 thou/uL (130-400) 09/20/20 06:34 Neutrophils % 88.6 % (42.0-75.0) H 09/15/20 01:04 ESR Westergren 106 mm/hr (Less than 20) H 09/15/20 08:30 ABG pH 7.41 (7.35-7.45) 09/15/20 01:13 ABG pCO2 30.1 mmHg (35.0-45.0) L 09/15/20 01:13 ABG pO2 71.3 mmHg (80.0-100.0) L 09/15/20 01:13 Sodium 133 mmol/L (136-145) L 09/21/20 06:16 Potassium 4.8 mmol/L (3.5-5.1) 09/21/20 06:16 Chloride 102 mmol/L (98-107) 09/21/20 06:16 Carbon Dioxide 18 mmol/L (22-29) L 09/21/20 06:16 BUN 87 mg/dL (7.0-18.7) H 09/21/20 06:16 Creatinine 3.96 mg/dL (0.6-1.1) H 09/21/20 06:16 Glucose 370 mg/dL (70-105) H 09/21/20 06:16 Lactic Acid 0.6 mmol/L (0.5-2.2) 09/13/20 02:00 Calcium 8.1 mg/dL (7.8-10.44) 09/21/20 06:16 Total Bilirubin 0.2 mg/dL (0.2-1.2) 09/11/20 15:36 AST 27 U/L (5-34) 09/11/20 15:36 ALT 15 U/L (8-55) 09/11/20 15:36 Alkaline Phosphatase 114 U/L (40-110) H 09/11/20 15:36 Creatine Kinase 107 U/L (29-168) 09/07/20 08:09 C-Reactive Protein 0.85 mg/dL (= or < 0.5) H 09/20/20 12:04 B-Natriuretic Peptide 82.3 pg/mL (0-100) 09/20/20 12:04 Serum Total Protein 6.6 g/dL (6.0-8.3) 09/11/20 15:36 Albumin 3.1 g/dL (3.5-5.0) L 09/21/20 06:16 Lipase 4 U/L (8-78) L 09/12/20 09:27 Urine Ketones Negative mg/dL (Negative) 09/20/20 18:30 Urine Blood Trace (Negative) A 09/20/20 18:30 Urine Nitrite Negative (Negative) 09/20/20 18:30 Ur Leukocyte Esterase Negative Morgan/uL (Negative) 09/20/20 18:30 Urine RBC 4-6 HPF (0-3) A 09/20/20 18:30 Urine WBC 7-10 HPF (0-3) A 09/20/20 18:30 Ur Squamous Epith Cells 0-3 HPF (0-3) 09/20/20 18:30 Urine Bacteria None Seen HPF (None Seen) 09/20/20 18:30 Sodium 133 mmol/L (136-145) L 09/21/20 06:16 Potassium 4.8 mmol/L (3.5-5.1) 09/21/20 06:16 Chloride 102 mmol/L (98-107) 09/21/20 06:16 Carbon Dioxide 18 mmol/L (22-29) L 09/21/20 06:16 Anion Gap 18 mmol/L (10-20) 09/21/20 06:16 BUN 87 mg/dL (7.0-18.7) H 09/21/20 06:16 Creatinine 3.96 mg/dL (0.6-1.1) H 09/21/20 06:16 Glucose 370 mg/dL (70-105) H 09/21/20 06:16 Calcium 8.1 mg/dL (7.8-10.44) 09/21/20 06:16 Phosphorus 4.7 mg/dL (2.3-4.7) 09/21/20 06:16 Magnesium 1.9 mg/dL (1.6-2.6) 09/15/20 01:04 Albumin 3.1 g/dL (3.5-5.0) L 09/21/20 06:16 Nephrology AP PN - Plan WENDY. Etiology is unclear. ? hemodynamic factors vs progression of diabetic neph ropathy. CKD. Stage and baseline creat is unknown. Creat was 0.85 in 04/2019. Was 3.5 on 09/07/2020. Due to DM nephropathy and partial left nephrectomy Nephrotic range proteinuria. Hypokalemia. Metabolic acidosis: Persistent. Due WENDY/CKD and GI losses Generalized swelling especially lower extremities. Etiology remained unclear. ? liver patthology and CHF Hypomagnesemia Hypoalbuminemia UTI on treatment. HTN Presumed diabetic nephropathy Acute repiratory failure with hypoxia: Due fluid overload and covid pneumonia. Improving. Covid infection. Anemia Plan Get Echo Continue albumin. Discontinue aldactone due to increase creat and potassium Increase cardizem to 480 daily to get better BP control. Continue alkali therapy orally. Monitor renal function.
[2020-09-21 14:26] LABS: ALT (SGPT) 14 U/L (8-55); AST (SGOT) 10 U/L (5-34); Albumin 3.2 g/dL (3.5-5.0); Alkaline Phosphatase 42 U/L (40-110); Bilirubin, Direct 0.1 mg/dL (0.1-0.3); Bilirubin, Total 0.2 mg/dL (0.2-1.2); Protein, Total 5.2 g/dL (6.0-8.3)
--- NOTE | 2020-09-21 16:29 | PRG ---
DATE OF SERVICE: 09/21/2020 SUBJECTIVE: The patient had one episode of emesis in the morning. No headaches. No dyspnea. No abdominal pain. OBJECTIVE: VITAL SIGNS: Temperature is normal. Respiratory rate 18, O2 saturation 97. LUNGS: Clear. HEART: S1 and S2, regular rate. ABDOMEN: Without tenderness, not distended. EXTREMITIES: Moves all extremities equally. LABORATORY DATA: White cell count 18.2 yesterday, has not been repeated today. Creatinine 3.96. Liver profile normal. ASSESSMENT AND DISCUSSION: Type 2 diabetes with likely diabetic nephropathy with superimposed acute renal insufficiency due to volume depletion; COVID pneumonia, mild; history of renal cancer, in remission; persistent nausea. From a standpoint of her COVID, the process has resolved. She does need to now get around this renal issue and persistent nausea before discharge planning is considered. Job ID: [id number]
[2020-09-21] MEDS: Metoclopramide HCl 10 MG/2 ML VIAL IVP SCH (17:06)
[2020-09-21 18:05] LABS: Creatinine, Urine 23.51 mg/dL (47-110)
--- NOTE | 2020-09-21 20:27 | CON ---
DATE OF CONSULTATION: 09/21/2020 CHIEF COMPLAINT: Nausea and vomiting. HISTORY OF PRESENT ILLNESS: Ms. Barone is a 45-year-old woman, who started having cough, shortness of breath, nausea and vomiting, and diarrhea back on August 30. She was diagnosed with COVID on August 01. Her nausea and vomiting and diarrhea went on for about five days and then improved and then, the day after Thanksgiving, she had recurrence of the nausea and vomiting. She did not have recurrence of the diarrhea. She has had shortness of breath with exertion. She has a history of diabetes mellitus and has undergone endoscopy for upper abdominal pain and nausea in the past back in 2004, which was negative, but also, she had an upper endoscopy in February [address] Boles, which showed erosive esophagitis. Back in 2015, she took Protonix following that endoscopy for a few months and then took it on and off over the next couple of years, but has not been on any proton pump inhibitor for the last couple of years. In fact, the only medicine she has been taking more recently is insulin. She had been treated with metoclopramide years ago and does not recall having any side effects from the medication. She has had some epigastric pain along with her nausea and vomiting. She has been started on a proton pump inhibitor here with IV pantoprazole. Her nausea is persistent. She had a small volume emesis this morning; however, otherwise, she has been tolerating some solid diet still including this morning. PAST MEDICAL HISTORY: Diabetes mellitus, erosive esophagitis, recent COVID infection, kidney cancer with partial resection of the kidney in 2016. PAST SURGICAL HISTORY: Left kidney resection with 80% of the kidney removed. FAMILY HISTORY: Negative for GI malignancy. SOCIAL HISTORY: She drinks alcohol at no more than once per month. No drugs. She smoked in the past, but no time recently. ALLERGIES: NO KNOWN DRUG ALLERGIES. OUTPATIENT MEDICATIONS: Include insulin. INPATIENT MEDICATIONS: 1. Albuterol. 2. Heparin. 3. Spironolactone. 4. Zinc. 5. She had been on steroids, which were just stopped and those were for the COVID. REVIEW OF SYSTEMS: Negative x10 systems reviewed except as stated in the history of present illness. PHYSICAL EXAMINATION: VITAL SIGNS: Temperature 98.2, pulse 90, blood pressure 135/77. GENERAL: She is in no acute distress. Alert and oriented x3. HEENT: Eyes have no scleral icterus. Oropharynx is clear without lesions. NECK: No cervical or supraclavicular lymphadenopathy. LUNGS: Clear to auscultation bilaterally. HEART: Regular rate and rhythm without murmur. ABDOMEN: Soft, nontender, and nondistended. Bowel sounds are present. EXTREMITIES: No lower extremity edema. LABORATORY DATA: White blood cell count 18.2, hemoglobin 9.9, platelets 253. INR 0.9, creatinine 3.96, BUN 87. IMPRESSION: 1. Nausea and vomiting, and epigastric pain. This all started with coronavirus disease and could still be coronavirus disease related. She does have a history of erosive esophagitis related to gastroparesis. The only treatment she has been on over the last few years has been insulin alone. She has had a good control of her gastroparesis over the last several years. This might have just flared up more recently. She denies NSAID use, but has been on steroids. I do not know what her hemoglobin A1c has been, but the steroids could have caused her blood sugars to have increased over the last few weeks, which could have exacerbated the gastroparesis and overall, this is the most likely scenario of her current etiology of her nausea and vomiting. 2. Coronavirus disease 2019. 3. Chronic renal failure. 4. Anemia of chronic disease. Ferritin is 363, iron 51, TIBC 43. RECOMMENDATIONS: 1. She has been restarted on proton pump inhibitor. 2. Agree with restarting metoclopramide here in the hospital and as her blood sugars getting under better control as her steroids have been discontinued, but expect that her gastric emptying will also improve gradually. I would hold off endoscopy at this time as it is unlikely to slip box changer from the above recommendations. 3. Dr. Cleary will cover this service tomorrow. Job ID: [id number]
[2020-09-21] MEDS ORDERED: Metoclopramide HCl 10 MG/2 ML VIAL IVP SCH (21:00)
[2020-09-21] MEDS: traZODone HCl 50 MG TAB PO PRN (21:33)
[2020-09-22] MEDS: Metoclopramide HCl 10 MG/2 ML VIAL IVP SCH ×4 (00:12→17:11)
[2020-09-22] MEDS: HumaLOG 300 UNITS/3 ML VIAL SC PRN ×3 (05:34→17:11)
[2020-09-22 06:00] LABS: #Basophils 0.1 thou/uL (0.0-0.2); #Eosinphils 0.2 thou/uL (0.0-0.7); #Lymphocytes 2.8 thou/uL (1.20-3.40); %Basophils 0.5 % (0.0-1.0); %Eosinophils 1.7 % (0.0-10.0); %Lymphocytes 23.2 % (21.0-51.0); %Monocytes 8.1 % (0.0-10.0); %Neutrophils 66.6 % (42.0-75.0); Mean Corpuscular HGB CONC 33.1 g/dL (32.0-36.0); Mean Corpuscular Hemoglobin 31.9 pg (27.0-31.0); Mean Corpuscular Volume 96.5 fL (78.0-98.0); Mean Platelet Volume 6.6 fL (7.4-10.4); Platelet Count 226 thou/uL (130-400); RBC Distribution Width 12.5 % (11.5-14.5)
[2020-09-22 06:11] LABS: Hemoglobin A1c 10.4 % (4.0-6.0)
[2020-09-22] MEDS: Pantoprazole 40 MG VIAL IVP SCH (09:52)
[2020-09-22] MEDS: Sodium Bicarbonate Tab 325 MG TAB PO SCH ×3 (09:52→21:28)
[2020-09-22] MEDS: Cholecalciferol 1,000 UNITS (25 MCG) TAB PO SCH (09:53)
[2020-09-22] MEDS: Zinc Sulfate 220 MG CAP PO SCH (09:54)
[2020-09-22] MEDS: Heparin 5,000 UNITS/ML VIAL SC SCH (09:54)
[2020-09-22] MEDS: Ascorbic Acid 500 mg Chewable Tablet PO SCH (09:58)
--- NOTE | 2020-09-22 12:31 | PDOC.HOSPP ---
- Subjective Encounter Date: 09/22/20 Encounter Time: 11:00 Subjective: Ms. Barone was sitting on the side of the bed at the time of the visit and reported feeling nauseous, dizzy, and light headed. Had two episodes of emesis this morning. Nausea transiently relieved with Regelan. SOB with walking around the room. Able to eat. - Objective Vital Signs & Weight: Vital Signs (12 hours) Temp Pulse Resp BP BP Pulse Ox 09/22/20 09:59 84 09/22/20 08:09 97.9 F 84 20 100/59 L 97 09/22/20 08:00 97 09/22/20 04:09 98.6 F 89 20 99/64 96 Weight Admit Weight 156 lb 8 oz Weight 191 lb 1 oz I&O: 09/21/20 09/22/20 09/23/20 06:59 06:59 06:59 Intake Total 800 Balance 800 Result Diagrams: 09/22/20 05:50 09/22/20 12:35 Additional Labs: Accuchecks 09/22/20 09/22/20 09/21/20 11:44 04:05 19:16 POC Glucose 225 H 326 H 279 H 09/21/20 16:31 POC Glucose 284 H Hospitalist ROS - Review of Systems Respiratory: reports: shortness of breath (with walking) Cardiovascular: reports: light headedness. denies: chest pain Gastrointestinal: reports: nausea, vomiting. denies: abdominal pain, diarrhea - Medication Medications: Active Medications Generic Name Dose Route Start Last Admin Trade Name Freq PRN Reason Stop Dose Admin Acetaminophen 650 mg 09/07/20 11:14 09/08/20 11:41 Acetaminophen 325 Mg Tab PO 650 mg Q4H PRN Administration Headache/Fever/Mild Pain (1-3) Albuterol Sulfate 2 puff 09/12/20 22:57 09/16/20 00:18 Albuterol 200 Puff (6.7gm Inhaler) INH 2 puff Q4H PRN Administration SOB/WHEEZE Ascorbic Acid 1,000 mg 09/08/20 09:00 09/22/20 09:58 Ascorbic Acid 500 Mg Chewable Tablet PO 1,000 mg DAILY RACHEL Administration Cholecalciferol 2,000 units 09/21/20 09:00 09/22/20 09:53 Cholecalciferol 1,000 Units (25 Mcg) Tab PO 2,000 units DAILY RACHEL Administration Diltiazem HCl 240 mg 09/22/20 10:15 09/22/20 12:26 Diltiazem Hcl Cd 240 Mg Capsule PO 09/22/20 13:00 240 mg NOW RACHEL Administration Guaifenesin 200 mg 09/07/20 11:14 09/12/20 23:06 Diabetic Tussin 200 Mg/10 Ml Udcup PO 200 mg Q4H PRN Administration Cough Heparin Sodium (Porcine) 5,000 units 09/13/20 15:00 09/22/20 09:54 Heparin 5,000 Units/Ml Vial SC 5,000 units TID RACHEL Administration Hydralazine HCl 50 mg 09/19/20 14:00 09/21/20 21:32 Hydralazine 25 Mg Tab PO 50 mg Q8HR RACHEL Administration Insulin Human Lispro 0 units 09/08/20 12:15 09/22/20 05:34 Humalog 300 Units/3 Ml Vial SC 8 unit .MODERATE SLIDING SC PRN Administration MODERATE SLIDING SCALE Protocol Insulin Human Lispro 0 units 09/19/20 10:01 09/21/20 17:19 Humalog 300 Units/3 Ml Vial SC 6 unit .MODERATE SLIDING SC PRN Administration Moderate Correctional Scale Metoclopramide HCl 10 mg 09/21/20 18:00 09/22/20 12:26 Metoclopramide Hcl 10 Mg/2 Ml Vial IVP 10 mg Q6HR RACHEL Administration Ondansetron HCl 4 mg 09/19/20 11:19 09/21/20 15:14 Ondansetron Pf 4 Mg/2 Ml Vial IVP 4 mg Q4H PRN Administration Nausea/Vomiting Pantoprazole Sodium 40 mg 09/21/20 09:00 09/22/20 09:52 Pantoprazole 40 Mg Vial IVP 40 mg DAILY RACHEL Administration Sodium Bicarbonate 650 mg 09/16/20 15:00 09/22/20 09:52 Sodium Bicarbonate Tab 325 Mg Tab PO 650 mg TID RACHEL Administration Sodium Chloride 10 ml 09/09/20 09:00 09/22/20 11:10 Flush - Normal Saline 10 Ml Syringe IVF 10 ml Q12HR RACHEL Administration Tramadol HCl 50 mg 09/17/20 21:42 09/21/20 21:32 Tramadol Hcl 50 Mg Tab PO 50 mg Q4H PRN Administration Moderate Pain (4-6) Trazodone HCl 25 mg 09/15/20 20:20 09/21/20 21:33 Trazodone Hcl 50 Mg Tab PO 25 mg HSPRN PRN Administration Insomnia Zinc Sulfate 220 mg 09/08/20 09:00 09/22/20 09:54 Zinc Sulfate 220 Mg Cap PO 220 mg DAILY RACHEL Administration - Exam General Appearance: awake alert Eye: PERRL ENT: normocephalic atraumatic Neck: supple Heart: RRR, no murmur, no gallops, no rubs Respiratory: CTAB, no wheezes, no rales, no ronchi Gastrointestinal: soft, non-tender, non-distended, normal bowel sounds Extremities: 2+ LE edema Extremities - other findings: bilateral Neurological: cranial nerve grossly intact Psychiatric: normal affect, A&O x 3 Hosp A/P - Plan (1) Acute kidney injury superimposed on CKD Code(s): N17.9 - ACUTE KIDNEY FAILURE, UNSPECIFIED; N18.9 - CHRONIC KIDNEY DISEA SE, UNSPECIFIED Status: Acute (2) COVID-19 virus infection Code(s): U07.1 - COVID-19 Status: Acute (3) UTI (urinary tract infection) Status: Acute (4) DM I (diabetes mellitus, type I) Status: Chronic (5) HTN (hypertension) Code(s): I10 - ESSENTIAL (PRIMARY) HYPERTENSION Status: Chronic Qualifiers: Hypertension type: essential hypertension Qualified Code(s): I10 - Essential (primary) hypertension - Plan * Acute on chronic kidney injury- etiology is unclear. possibly diabetic nephropathy * Renal function appears to have plateaued, * UTI- resolved, and therapy is complete * COVID infection-on prednisone * DM- blood glucose elevated-likely with the steroid , need to continue to titrate insulin * HTN- blood pressure is elevated- Cardizem has been increased, and Aldactone has been added. Carvediolol was discontinued as well as Hydralazine * * * Suboptimally controlled blood pressure * -She is on Cardizem and hydralazine as well as Norvasc. I increased the dose of hydralazine to 50 mg every 8 hours p.o. We will titrate as needed.. * Persistent nausea and emesis -No diarrhea. -Perhaps atypical presentation of Covid. -She is admitted on for Covid she is on the second week of Covid she should be improving. She has no hypoxia however her GI symptoms seems to be not improving. -Hold her p.o. medications and started her on IV steroid -ID consult placed. She does have elevated leukocytosis. Will get a chest x-ray to follow-up on that along with the UA. -Her inflammatory markers are rising. She cannot get remdesivir due to kidney disease. Lower extremity edema due to hypoalbuminemiaq Chronic kidney disease stage III -Echo cannot be done due to Covid nature -Discontinued her home regimen of torsemide and started on IV Lasix. -Reduce to the dose of spironolactone as she is not holding any p.o. medications due to emesis and nausea I believe her presentation of emesis probably due to gastroparesis. I will start her on Reglan--- trial of Reglan whether that would improve her symptoms Her LFTs and lipase level were in the normal range. No indication to get imaging study at this point. We will follow-up on A1c level. Hypoalbunemia she is started on albumin infusion. She is also getting Ensure with meals. Though her p.o. intake is less due to severe emesis and nausea in the last few days. Though this is a benign consult for GI, will appreciate their input as well as patient has the last 1 week of these symptoms ongoing without any relief despite giving her antiemetic medications so for. 09/22/2020 Emesis secondary to diabetic gastroparesis - Increased Reglan to qid - Continue Pantoprazole - PO intake as tolerated - GI following Hypoalbuminemia - Ensure with meals - albumin given yesterday WENDY on CKD - stable renal function - Alkali therapy PO LE edema - she has gained over 4 lbs in the last few days, will cw low dose lasix - Continue Diltiazem BID - Echocardiogram ordered - nephrology following DM -Uncontrolled - A1c 10.4 -Scheduled Humalog and sliding scale insulin anemia - will continue to trend (9.9 on Sep 20 to 8 on Sep 22) -Almost 2 unit drop, no source identifiable, we will repeat the CBC DVT Prophylaxis - Heparin Care discussed with the student and reviewed her notes today.
[2020-09-22 13:28] LABS: Albumin 3.2 g/dL (3.5-5.0); Anion Gap 16 mmol/L (10-20); BUN (Urea Nitrogen) 90 mg/dL (7.0-18.7); BUN/Creatinine Ratio 21.63; Calc. Creatinine Clearance 23 mL/min (70-130); Calcium 8.3 mg/dL (7.8-10.44); Carbon Dioxide 22 mmol/L (22-29); Chloride 102 mmol/L (98-107); Glucose 269 mg/dL (70-105); Potassium 4.7 mmol/L (3.5-5.1); Sodium 135 mmol/L (136-145)
[2020-09-22] MEDS: traMADol HCl 50 MG TAB PO PRN ×2 (14:50→21:20)
--- NOTE | 2020-09-22 15:11 | PDOC.NEPPN ---
- Subjective Encounter Date: 09/22/20 Subjective: No new problem. Still having nausea. Also reported some dizziness. Denied SOB. - Objective Vital Signs & Weight: Vital Signs (12 hours) Temp Pulse Resp BP BP Pulse Ox 09/22/20 11:00 97.7 F 92 20 123/74 97 09/22/20 09:59 84 09/22/20 08:09 97.9 F 84 20 100/59 L 97 09/22/20 08:00 97 09/22/20 04:09 98.6 F 89 20 99/64 96 Weight Admit Weight 156 lb 8 oz Weight 191 lb 1 oz I&O: 09/21/20 09/22/20 09/23/20 06:59 06:59 06:59 Intake Total 800 Balance 800 Result Diagrams: 09/22/20 05:50 09/22/20 12:35 Additional Labs: Accuchecks 09/22/20 09/22/20 09/21/20 11:44 04:05 19:16 POC Glucose 225 H 326 H 279 H 09/21/20 16:31 POC Glucose 284 H Nephrology ROS - Medication Medications: Active Medications Generic Name Dose Route Start Last Admin Trade Name Freq PRN Reason Stop Dose Admin Acetaminophen 650 mg 09/07/20 11:14 09/08/20 11:41 Acetaminophen 325 Mg Tab PO 650 mg Q4H PRN Administration Headache/Fever/Mild Pain (1-3) Albuterol Sulfate 2 puff 09/12/20 22:57 09/16/20 00:18 Albuterol 200 Puff (6.7gm Inhaler) INH 2 puff Q4H PRN Administration SOB/WHEEZE Ascorbic Acid 1,000 mg 09/08/20 09:00 09/22/20 09:58 Ascorbic Acid 500 Mg Chewable Tablet PO 1,000 mg DAILY RACHEL Administration Cholecalciferol 2,000 units 09/21/20 09:00 09/22/20 09:53 Cholecalciferol 1,000 Units (25 Mcg) Tab PO 2,000 units DAILY RACHEL Administration Guaifenesin 200 mg 09/07/20 11:14 09/12/20 23:06 Diabetic Tussin 200 Mg/10 Ml Udcup PO 200 mg Q4H PRN Administration Cough Hydralazine HCl 50 mg 09/19/20 14:00 09/21/20 21:32 Hydralazine 25 Mg Tab PO 50 mg Q8HR RACHEL Administration Insulin Human Lispro 0 units 09/08/20 12:15 09/22/20 05:34 Humalog 300 Units/3 Ml Vial SC 8 unit .MODERATE SLIDING SC PRN Administration MODERATE SLIDING SCALE Protocol Insulin Human Lispro 0 units 09/19/20 10:01 09/22/20 12:28 Humalog 300 Units/3 Ml Vial SC 4 unit .MODERATE SLIDING SC PRN Administration Moderate Correctional Scale Metoclopramide HCl 10 mg 09/21/20 18:00 09/22/20 12:26 Metoclopramide Hcl 10 Mg/2 Ml Vial IVP 10 mg Q6HR RACHEL Administration Ondansetron HCl 4 mg 09/19/20 11:19 09/21/20 15:14 Ondansetron Pf 4 Mg/2 Ml Vial IVP 4 mg Q4H PRN Administration Nausea/Vomiting Pantoprazole Sodium 40 mg 09/21/20 09:00 09/22/20 09:52 Pantoprazole 40 Mg Vial IVP 40 mg DAILY RACHEL Administration Sodium Bicarbonate 650 mg 09/16/20 15:00 09/22/20 14:51 Sodium Bicarbonate Tab 325 Mg Tab PO 650 mg TID RACHEL Administration Sodium Chloride 10 ml 09/09/20 09:00 09/22/20 11:10 Flush - Normal Saline 10 Ml Syringe IVF 10 ml Q12HR RACHEL Administration Tramadol HCl 50 mg 09/17/20 21:42 09/22/20 14:50 Tramadol Hcl 50 Mg Tab PO 50 mg Q4H PRN Administration Moderate Pain (4-6) Trazodone HCl 25 mg 09/15/20 20:20 09/21/20 21:33 Trazodone Hcl 50 Mg Tab PO 25 mg HSPRN PRN Administration Insomnia Zinc Sulfate 220 mg 09/08/20 09:00 09/22/20 09:54 Zinc Sulfate 220 Mg Cap PO 220 mg DAILY RACHEL Administration - Exam General Appearance: awake alert Eye: anicteric sclera ENT: normocephalic atraumatic, moist mucosa Neck: supple Respiratory - other findings: fair air entry bilaterally Cardiovascular: RRR Gastrointestinal: soft, normal bowel sounds Extremities: 2+ LE edema Neurological: CN's grossly intact PSYCH: A&O x 3 Nephrology Results - Labs Result Diagrams: 09/22/20 05:50 09/22/20 12:35 Lab results: WBC 12.0 thou/uL (4.8-10.8) H 09/22/20 05:50 Hgb 8.0 g/dL (12.0-16.0) L 09/22/20 05:50 Hct 24.2 % (36.0-47.0) L 09/22/20 05:50 MCV 96.5 fL (78.0-98.0) 09/22/20 05:50 Plt Count 226 thou/uL (130-400) 09/22/20 05:50 Neutrophils % 66.6 % (42.0-75.0) 09/22/20 05:50 ESR Westergren 106 mm/hr (Less than 20) H 09/15/20 08:30 ABG pH 7.41 (7.35-7.45) 09/15/20 01:13 ABG pCO2 30.1 mmHg (35.0-45.0) L 09/15/20 01:13 ABG pO2 71.3 mmHg (80.0-100.0) L 09/15/20 01:13 Sodium 135 mmol/L (136-145) L 09/22/20 12:35 Potassium 4.7 mmol/L (3.5-5.1) 09/22/20 12:35 Chloride 102 mmol/L (98-107) 09/22/20 12:35 Carbon Dioxide 22 mmol/L (22-29) 09/22/20 12:35 BUN 90 mg/dL (7.0-18.7) H 09/22/20 12:35 Creatinine 4.16 mg/dL (0.6-1.1) H 09/22/20 12:35 Glucose 269 mg/dL (70-105) H 09/22/20 12:35 Lactic Acid 0.6 mmol/L (0.5-2.2) 09/13/20 02:00 Calcium 8.3 mg/dL (7.8-10.44) 09/22/20 12:35 Total Bilirubin 0.2 mg/dL (0.2-1.2) 09/21/20 13:43 AST 10 U/L (5-34) 09/21/20 13:43 ALT 14 U/L (8-55) 09/21/20 13:43 Alkaline Phosphatase 42 U/L (40-110) 09/21/20 13:43 Creatine Kinase 107 U/L (29-168) 09/07/20 08:09 C-Reactive Protein 0.85 mg/dL (= or < 0.5) H 09/20/20 12:04 B-Natriuretic Peptide 82.3 pg/mL (0-100) 09/20/20 12:04 Serum Total Protein 5.2 g/dL (6.0-8.3) L 09/21/20 13:43 Albumin 3.2 g/dL (3.5-5.0) L 09/22/20 12:35 Lipase 4 U/L (8-78) L 09/12/20 09:27 Urine Ketones Negative mg/dL (Negative) 09/20/20 18:30 Urine Blood Trace (Negative) A 09/20/20 18:30 Urine Nitrite Negative (Negative) 09/20/20 18:30 Ur Leukocyte Esterase Negative Morgan/uL (Negative) 09/20/20 18:30 Urine RBC 4-6 HPF (0-3) A 09/20/20 18:30 Urine WBC 7-10 HPF (0-3) A 09/20/20 18:30 Ur Squamous Epith Cells 0-3 HPF (0-3) 09/20/20 18:30 Urine Bacteria None Seen HPF (None Seen) 09/20/20 18:30 Sodium 135 mmol/L (136-145) L 09/22/20 12:35 Potassium 4.7 mmol/L (3.5-5.1) 09/22/20 12:35 Chloride 102 mmol/L (98-107) 09/22/20 12:35 Carbon Dioxide 22 mmol/L (22-29) 09/22/20 12:35 Anion Gap 16 mmol/L (10-20) 09/22/20 12:35 BUN 90 mg/dL (7.0-18.7) H 09/22/20 12:35 Creatinine 4.16 mg/dL (0.6-1.1) H 09/22/20 12:35 Glucose 269 mg/dL (70-105) H 09/22/20 12:35 Calcium 8.3 mg/dL (7.8-10.44) 09/22/20 12:35 Phosphorus 5.0 mg/dL (2.3-4.7) H 09/22/20 12:35 Magnesium 1.9 mg/dL (1.6-2.6) 09/15/20 01:04 Albumin 3.2 g/dL (3.5-5.0) L 09/22/20 12:35 Nephrology AP PN - Plan WENDY. Etiology is unclear. ? hemodynamic factors vs progression of diabetic nephropathy. Creat is trending up. CKD. Stage and baseline creat is unknown. Creat was 0.85 in 04/2019. Was 3.5 on 09/07/2020. Due to DM nephropathy and partial left nephrectomy Nephrotic range proteinuria. Hypokalemia. Metabolic acidosis: Persistent. Due WENDY/CKD and GI losses Generalized swelling especially lower extremities. Etiology remained unclear. ? liver patthology and CHF Hypomagnesemia Hypoalbuminemia HTN Presumed diabetic nephropathy Acute repiratory failure with hypoxia: Due fluid overload and covid pneumonia. Improved. Off oxygen. Covid infection. Anemia Plan Awaiting Echo DC hydralazine due to soft BP and dizziness. Change cardizem to 240 bid and monitotor BP closely. Also get orthostatic vitals Continue alkali therapy orally. Monitor renal function. Renal vein thrombosis remained a concern. Abdominal vascular US didnt mention renal veins. Discussed with radiologist who recommended get a follow up to specifically look at the renal veins if clinically question remained.
[2020-09-22 15:20] LABS: Hemoglobin 8.9 g/dL (12.0-16.0); Mean Corpuscular HGB CONC 32.8 g/dL (32.0-36.0); Mean Corpuscular Hemoglobin 31.4 pg (27.0-31.0); Mean Corpuscular Volume 95.8 fL (78.0-98.0); Mean Platelet Volume 6.7 fL (7.4-10.4); Platelet Count 264 thou/uL (130-400); RBC Distribution Width 12.7 % (11.5-14.5); Red Blood Cell (RBC) Count 2.82 mill/uL (4.20-5.40); White Blood Cell (WBC) Count 19.8 thou/uL (4.8-10.8)
[2020-09-22 15:35] LABS: Band 3 % (5-11); Eosinophils 3 % (0-10); Lymphocytes 17 % (21-51); MDiff Complete? YES; Monocytes 8 % (0-10); Neutrophil 69 % (42-75); Platelet Morphology Comment Appears Adequate; Polychromasia SLIGHT = 2-3 cells (100X) (0-2/hpf)
[2020-09-22 20:11] LABS: SARS-CoV-2 MS2 Positive; SARS-CoV-2 N Gene Positive; SARS-CoV-2 S Gene Positive; SARS-CoV-2 by NAA DETECTED (NotDetected); SARS-CoV-2 orf1ab Positive
[2020-09-22] MEDS: Furosemide 20 MG/2 ML VIAL SLOW IVP SCH (21:20)
[2020-09-22] MEDS: HumuLIN 70/30 (300 UNITS/3 ML VIAL) SC SCH (21:22)
--- NOTE | 2020-09-22 23:29 | PRG ---
DATE OF SERVICE: 09/22/2020 REASON FOR CONSULTATION: Nausea and vomiting, probable diabetic gastroparesis. SUBJECTIVE: Today, she continued to have intermittent episodes of nausea and vomiting, but seemed to be improving when compared to previous. She did have 3 episodes of emesis today that occurred within 1 to 2 hours after ingestion of breakfast, lunch and dinner. Otherwise, no episodes of hematemesis with these vomiting episodes. Otherwise, she denies any fevers, chills, hematemesis, melena, or hematochezia. OBJECTIVE: VITAL SIGNS: Temperature 97.7, pulse 100, blood pressure 131/73, respiratory rate 20, saturating 99% on room air. GENERAL: The patient was lying in bed, in no acute distress. Alert and oriented x4. CARDIOVASCULAR: Regular rate and rhythm. RESPIRATORY: Clear to auscultation bilaterally. ABDOMEN: Normoactive bowel sounds. Soft, nontender, nondistended. EXTREMITIES: No cyanosis, clubbing or edema. LABORATORY DATA: CBC with a white blood cell count of 19.8, hemoglobin 8.9, hematocrit 27.1, platelets 264. Chemistry with a sodium of 135, potassium 4.7, chloride 102, CO2 of 22, BUN 90, creatinine 4.16, glucose 269, calcium 8.3, albumin 3.2. IMAGING DATA: No current GI imaging is available for review. ASSESSMENT AND PLAN: The patient is a 45-year-old female with past medical history of GERD with erosive esophagitis, renal cell carcinoma, status post partial resection, status post partial left nephrectomy in 2016, uncontrolled diabetes and recent COVID infection, presenting with nausea and vomiting, likely secondary to gastroparesis. Nausea/vomiting: The patient is presenting with intermittent episodes of increased nausea and vomiting with most recent occurrence being after Thanksgiving that ultimately prompted evaluation of the patient at the [facility] ER. Upon speaking with the patient, these intermittent episodes of nausea and vomiting are characterized as eating food stuffs whether they are solid or liquid with increased pressure within the next hour ultimately prompting vomiting and resolution of the nausea until the next time that she eats. She has had multiple upper endoscopies in the past with most recent in February 2016 only showing erosive esophagitis. At this time, the more likely explanation for her intermittent episodes of nausea and vomiting would be diabetic-induced gastroparesis with significantly uncontrolled blood sugar levels with a hemoglobin of 10.4%. More recently, the patient was diagnosed with COVID pneumonia and placed on steroids as part of treatment for this particular condition, which could also contribute to her elevated blood sugars and ultimately cause exacerbation of her gastroparesis. At the current time, she is getting metoclopramide 4 times daily with only a mild improvement in her symptoms thus far, although with more stricter control of her blood glucose, I imagine her symptoms will improve. RECOMMENDATIONS: 1. We would continue the patient on metoclopramide 10 mg every 6 hours as part of treatment of her gastroparesis. We will consider changing her to a liquid formulation before discharge. 2. We would place the patient on a bowel regimen to avoid any constipation, which can further exacerbate gastroparesis. 3. We would place the patient on a dietary schedule of smaller more frequent meals throughout the day and consider having the patient consume a liquid lunch to allow adequate emptying of her stomach. 4. We will continue the patient on pantoprazole 40 mg IV daily. 5. No upper endoscopy is planned at this time. We will continue to follow. Dr. Augustine will be in charge of the GI service tomorrow. Please call him with any questions. Job ID: [id number]
[2020-09-23] MEDS: Metoclopramide HCl 10 MG/2 ML VIAL IVP SCH ×4 (00:46→17:57)
[2020-09-23] MEDS: Ondansetron PF 4 MG/2 ML Vial IVP PRN (03:50)
[2020-09-23] MEDS: hydrALAZINE 25 MG TAB PO SCH ×2 (06:04→16:41)
[2020-09-23] MEDS: traMADol HCl 50 MG TAB PO PRN ×2 (06:05→21:18)
[2020-09-23] MEDS: HumaLOG 300 UNITS/3 ML VIAL SC PRN ×2 (06:34→21:17)
[2020-09-23 06:35] LABS: #Basophils 0.1 thou/uL (0.0-0.2); #Eosinphils 0.3 thou/uL (0.0-0.7); #Lymphocytes 2.8 thou/uL (1.20-3.40); #Monocytes 1.3 thou/uL (0.11-0.59); #Neutrophils 8.8 thou/uL (1.40-6.50); %Basophils 0.5 % (0.0-1.0); %Eosinophils 2.3 % (0.0-10.0); %Lymphocytes 20.9 % (21.0-51.0); %Monocytes 9.7 % (0.0-10.0); %Neutrophils 66.6 % (42.0-75.0); Hemoglobin 8.1 g/dL (12.0-16.0); Mean Corpuscular HGB CONC 33.1 g/dL (32.0-36.0); Mean Corpuscular Volume 96.9 fL (78.0-98.0); Mean Platelet Volume 6.6 fL (7.4-10.4); Platelet Count 261 thou/uL (130-400); RBC Distribution Width 12.7 % (11.5-14.5); Red Blood Cell (RBC) Count 2.51 mill/uL (4.20-5.40); White Blood Cell (WBC) Count 13.2 thou/uL (4.8-10.8)
[2020-09-23 06:54] LABS: Albumin 2.7 g/dL (3.5-5.0); Anion Gap 15 mmol/L (10-20); BUN (Urea Nitrogen) 82 mg/dL (7.0-18.7); BUN/Creatinine Ratio 21.13; Calc. Creatinine Clearance 25 mL/min (70-130); Calcium 8.1 mg/dL (7.8-10.44); Carbon Dioxide 22 mmol/L (22-29); Chloride 104 mmol/L (98-107); Glucose 216 mg/dL (70-105); Phosphorus 5.2 mg/dL (2.3-4.7); Potassium 4.5 mmol/L (3.5-5.1); Sodium 136 mmol/L (136-145)
--- NOTE | 2020-09-23 08:49 | ULT ---
VENOUS DUPLEX STUDY ABDOMEN: Fontana scale and Doppler studies performed of the renal veins with color Doppler, spectral analysis, an d velocities. INDICATION: Evaluate for renal vein thrombosis. FINDINGS: Inferior vena cava is identified and shows normal flow. Both renal veins are identified and exhibit normal flow with spectral analysis and color Doppler. IMPRESSION: No evidence of renal vein thrombosis identified. POS: AGW
[2020-09-23] MEDS: Sodium Bicarbonate Tab 325 MG TAB PO SCH ×3 (09:19→20:20)
[2020-09-23] MEDS: Pantoprazole 40 MG VIAL IVP SCH (09:19)
[2020-09-23] MEDS: Cholecalciferol 1,000 UNITS (25 MCG) TAB PO SCH (09:20)
[2020-09-23] MEDS: Ascorbic Acid 500 mg Chewable Tablet PO SCH (09:20)
[2020-09-23] MEDS: Furosemide 20 MG/2 ML VIAL SLOW IVP SCH ×2 (09:22→20:20)
[2020-09-23] MEDS: Zinc Sulfate 220 MG CAP PO SCH (09:22)
[2020-09-23] MEDS: HumuLIN 70/30 (300 UNITS/3 ML VIAL) SC SCH ×2 (09:23→20:20)
--- NOTE | 2020-09-23 13:43 | PDOC.HOSPP ---
- Subjective Encounter Date: 09/23/20 Encounter Time: 11:30 Subjective: Patient is still not improving much. She got short of breath yesterday and today tested overnight for Covid and it came back positive so the isolation has been restarted again. Echo showed EF of 55% with diastolic dysfunction and left atrial enlargement. Ultrasound showing bilateral renal vein without any abnormality. That is no renal vein thrombosis. - Objective Vital Signs & Weight: Vital Signs (12 hours) Temp Pulse Resp BP BP Pulse Ox 09/23/20 12:34 86 09/23/20 12:00 98.7 F 86 16 117/70 98 09/23/20 08:00 99 09/23/20 07:24 98.2 F 87 14 106/67 99 09/23/20 06:04 91 09/23/20 04:03 98.2 F 91 20 127/88 99 09/23/20 03:12 98 Weight Admit Weight 156 lb 8 oz Weight 191 lb 1 oz I&O: 09/22/20 09/23/20 09/24/20 06:59 06:59 06:59 Intake Total 580 Output Total 600 Balance -20 Result Diagrams: 09/23/20 06:02 09/23/20 06:02 Additional Labs: Accuchecks 09/23/20 09/23/20 09/22/20 12:02 06:15 19:53 POC Glucose 136 H 208 H 234 H 09/22/20 15:55 POC Glucose 232 H Hospitalist ROS - Medication Medications: Active Medications Generic Name Dose Route Start Last Admin Trade Name Freq PRN Reason Stop Dose Admin Acetaminophen 650 mg 09/07/20 11:14 09/08/20 11:41 Acetaminophen 325 Mg Tab PO 650 mg Q4H PRN Administration Headache/Fever/Mild Pain (1-3) Albuterol Sulfate 2 puff 09/12/20 22:57 09/16/20 00:18 Albuterol 200 Puff (6.7gm Inhaler) INH 2 puff Q4H PRN Administration SOB/WHEEZE Ascorbic Acid 1,000 mg 09/08/20 09:00 09/23/20 09:20 Ascorbic Acid 500 Mg Chewable Tablet PO 1,000 mg DAILY RACHEL Administration Cholecalciferol 2,000 units 09/21/20 09:00 09/23/20 09:20 Cholecalciferol 1,000 Units (25 Mcg) Tab PO 2,000 units DAILY RACHEL Administration Diltiazem HCl 240 mg 09/22/20 21:00 09/23/20 12:34 Diltiazem Hcl Cd 240 Mg Capsule PO Not Given BID RACHEL Furosemide 20 mg 09/22/20 21:00 09/23/20 09:22 Furosemide 20 Mg/2 Ml Vial SLOW IVP 20 mg BID RACHEL Administration Guaifenesin 200 mg 09/07/20 11:14 09/12/20 23:06 Diabetic Tussin 200 Mg/10 Ml Udcup PO 200 mg Q4H PRN Administration Cough Hydralazine HCl 50 mg 09/19/20 14:00 09/23/20 06:04 Hydralazine 25 Mg Tab PO 50 mg Q8HR RACHEL Administration Insulin Human Isoph/Insulin Regular 5 units 09/22/20 21:00 09/23/20 09:23 Humulin 70/30 (300 Units/3 Ml Vial) SC 5 units BID RACHEL Administration Insulin Human Lispro 0 units 09/08/20 12:15 09/22/20 05:34 Humalog 300 Units/3 Ml Vial SC 8 unit .MODERATE SLIDING SC PRN Administration MODERATE SLIDING SCALE Protocol Insulin Human Lispro 0 units 09/19/20 10:01 09/23/20 06:34 Humalog 300 Units/3 Ml Vial SC 4 unit .MODERATE SLIDING SC PRN Administration Moderate Correctional Scale Metoclopramide HCl 10 mg 09/21/20 18:00 09/23/20 12:34 Metoclopramide Hcl 10 Mg/2 Ml Vial IVP 10 mg Q6HR RACHEL Administration Ondansetron HCl 4 mg 09/19/20 11:19 09/23/20 03:50 Ondansetron Pf 4 Mg/2 Ml Vial IVP 4 mg Q4H PRN Administration Nausea/Vomiting Pantoprazole Sodium 40 mg 09/21/20 09:00 09/23/20 09:19 Pantoprazole 40 Mg Vial IVP 40 mg DAILY RACHEL Administration Sodium Bicarbonate 650 mg 09/16/20 15:00 09/23/20 09:19 Sodium Bicarbonate Tab 325 Mg Tab PO 650 mg TID RACHEL Administration Sodium Chloride 10 ml 09/09/20 09:00 09/23/20 09:22 Flush - Normal Saline 10 Ml Syringe IVF 10 ml Q12HR RACHEL Administration Tramadol HCl 50 mg 09/17/20 21:42 09/23/20 06:05 Tramadol Hcl 50 Mg Tab PO 50 mg Q4H PRN Administration Moderate Pain (4-6) Trazodone HCl 25 mg 09/15/20 20:20 09/21/20 21:33 Trazodone Hcl 50 Mg Tab PO 25 mg HSPRN PRN Administration Insomnia Zinc Sulfate 220 mg 09/08/20 09:00 09/23/20 09:22 Zinc Sulfate 220 Mg Cap PO 220 mg DAILY RACHEL Administration - Exam General Appearance: NAD, awake alert, ill appearing Eye: PERRL ENT: normocephalic atraumatic Neck: supple Neurological: no focal deficits Musculoskeletal: generalized weakness Psychiatric: A&O x 3 Hosp A/P - Plan (1) Acute kidney injury superimposed on CKD Code(s): N17.9 - ACUTE KIDNEY FAILURE, UNSPECIFIED; N18.9 - CHRONIC KIDNEY DISEASE, UNSPECIFIED Status: Acute (2) COVID-19 virus infection Code(s): U07.1 - COVID-19 Status: Acute (3) UTI (urinary tract infection) Status: Acute (4) DM I (diabetes mellitus, type I) Status: Chronic (5) HTN (hypertension) Code(s): I10 - ESSENTIAL (PRIMARY) HYPERTENSION Status: Chronic Qualifiers: Hypertension type: essential hypertension Qualified Code(s): I10 - Essential (primary) hypertension - Plan * Acute on chronic kidney injury- etiology is unclear. possibly diabetic nephropathy * Renal function appears to have plateaued, * UTI- resolved, and therapy is complete * COVID infection-on prednisone * DM- blood glucose elevated-likely with the steroid , need to continue to titrate insulin * HTN- blood pressure is elevated- Cardizem has been increased, and Aldactone has been added. Carvediolol was discontinued as well as Hydralazine * * * Suboptimally controlled blood pressure * -She is on Cardizem and hydralazine as well as Norvasc. I increased the dose of hydralazine to 50 mg every 8 hours p.o. We will titrate as needed.. * Persistent nausea and emesis -No diarrhea. -Perhaps atypical presentation of Covid. -She is admitted on for Covid she is on the second week of Covid she should be improving. She has no hypoxia however her GI symptoms seems to be not improving. -Hold her p.o. medications and started her on IV steroid -ID consult placed. She does have elevated leukocytosis. Will get a chest x-ray to follow-up on that along with the UA. -Her inflammatory markers are rising. She cannot get remdesivir due to kidney disease. Lower extremity edema due to hypoalbuminemiaq Chronic kidney disease stage III -Echo cannot be done due to Covid nature -Discontinued her home regimen of torsemide and started on IV Lasix. -Reduce to the dose of spironolactone as she is not holding any p.o. medications due to emesis and nausea I believe her presentation of emesis probably due to gastroparesis. I will start her on Reglan--- trial of Reglan whether that would improve her symptoms Her LFTs and lipase level were in the normal range. No indication to get imaging study at this point. We will follow-up on A1c level. Hypoalbunemia she is started on albumin infusion. She is also getting Ensure with meals. Though her p.o. intake is less due to severe emesis and nausea in the last few days. Though this is a benign consult for GI, will appreciate their input as well as patient has the last 1 week of these symptoms ongoing without any relief despite giving her antiemetic medications so for. 09/22/2020 Emesis secondary to diabetic gastroparesis - Increased Reglan to qid - Continue Pantoprazole - PO intake as tolerated - GI following Hypoalbuminemia - Ensure with meals - albumin given yesterday WENDY on CKD - stable renal function - Alkali therapy PO LE edema - she has gained over 4 lbs in the last few days, will cw low dose lasix - Continue Diltiazem BID - Echocardiogram ordered - nephrology following DM -Uncontrolled - A1c 10.4 -Scheduled Humalog and sliding scale insulin anemia - will continue to trend (9.9 on Sep 20 to 8 on Sep 22) -Almost 2 unit drop, no source identifiable, we will repeat the CBC DVT Prophylaxis - Heparin Care discussed with the student and reviewed her notes today. 09/23 She got short of breath last evening and [facility]OV[facility] tested overnight for Covid and it came back positive so the isolation has been restarted again. She is satting greater than 99% in the room air. There is no point in putting her back on Decadron as she has a gastroparesis that can get worse with the steroid. Prednisone discontinued 2 days ago the context of worsening her gastroparesis.. Echo showed EF of 55% with diastolic dysfunction and left atrial enlargement. Ultrasound-abdomen- showing bilateral renal vein without any abnormality. That is no renal vein thrombosis. Blood glucose the last 2 readings seems to be okay.
--- NOTE | 2020-09-23 19:33 | PDOC.NEPPN ---
- Subjective Encounter Date: 09/23/20 Subjective: Seen and examined. Still having nausea. Also complained of dizziness on standing. - Objective Vital Signs & Weight: Vital Signs (12 hours) Temp Pulse Resp BP BP BP Pulse Ox 09/23/20 16:41 95 142/87 H 09/23/20 15:53 97.7 F 95 16 142/87 H 100 09/23/20 12:34 86 09/23/20 12:00 98.7 F 86 16 117/70 98 09/23/20 08:00 99 Weight Admit Weight 156 lb 8 oz Weight 197 lb 14.4 oz I&O: 09/22/20 09/23/20 09/24/20 06:59 06:59 06:59 Intake Total 580 Output Total 600 Balance -20 Result Diagrams: 09/23/20 06:02 09/23/20 06:02 Additional Labs: Accuchecks 09/23/20 09/23/20 09/22/20 12:02 06:15 19:53 POC Glucose 136 H 208 H 234 H Nephrology ROS - Medication Medications: Active Medications Generic Name Dose Route Start Last Admin Trade Name Freq PRN Reason Stop Dose Admin Acetaminophen 650 mg 09/07/20 11:14 09/08/20 11:41 Acetaminophen 325 Mg Tab PO 650 mg Q4H PRN Administration Headache/Fever/Mild Pain (1-3) Albuterol Sulfate 2 puff 09/12/20 22:57 09/16/20 00:18 Albuterol 200 Puff (6.7gm Inhaler) INH 2 puff Q4H PRN Administration SOB/WHEEZE Ascorbic Acid 1,000 mg 09/08/20 09:00 09/23/20 09:20 Ascorbic Acid 500 Mg Chewable Tablet PO 1,000 mg DAILY RACHEL Administration Cholecalciferol 2,000 units 09/21/20 09:00 09/23/20 09:20 Cholecalciferol 1,000 Units (25 Mcg) Tab PO 2,000 units DAILY RACHEL Administration Diltiazem HCl 240 mg 09/22/20 21:00 09/23/20 12:34 Diltiazem Hcl Cd 240 Mg Capsule PO Not Given BID RACHEL Furosemide 20 mg 09/22/20 21:00 09/23/20 09:22 Furosemide 20 Mg/2 Ml Vial SLOW IVP 20 mg BID RACHEL Administration Guaifenesin 200 mg 09/07/20 11:14 09/12/20 23:06 Diabetic Tussin 200 Mg/10 Ml Udcup PO 200 mg Q4H PRN Administration Cough Hydralazine HCl 50 mg 09/19/20 14:00 09/23/20 16:41 Hydralazine 25 Mg Tab PO 50 mg Q8HR RACHEL Administration Insulin Human Isoph/Insulin Regular 5 units 09/22/20 21:00 09/23/20 09:23 Humulin 70/30 (300 Units/3 Ml Vial) SC 5 units BID RACHEL Administration Insulin Human Lispro 0 units 09/08/20 12:15 09/22/20 05:34 Humalog 300 Units/3 Ml Vial SC 8 unit .MODERATE SLIDING SC PRN Administration MODERATE SLIDING SCALE Protocol Insulin Human Lispro 0 units 09/19/20 10:01 09/23/20 06:34 Humalog 300 Units/3 Ml Vial SC 4 unit .MODERATE SLIDING SC PRN Administration Moderate Correctional Scale Metoclopramide HCl 10 mg 09/21/20 18:00 09/23/20 17:57 Metoclopramide Hcl 10 Mg/2 Ml Vial IVP 10 mg Q6HR RACHEL Administration Ondansetron HCl 4 mg 09/19/20 11:19 09/23/20 03:50 Ondansetron Pf 4 Mg/2 Ml Vial IVP 4 mg Q4H PRN Administration Nausea/Vomiting Pantoprazole Sodium 40 mg 09/21/20 09:00 09/23/20 09:19 Pantoprazole 40 Mg Vial IVP 40 mg DAILY RACHEL Administration Sodium Bicarbonate 650 mg 09/16/20 15:00 09/23/20 16:41 Sodium Bicarbonate Tab 325 Mg Tab PO 650 mg TID RACHEL Administration Sodium Chloride 10 ml 09/09/20 09:00 09/23/20 09:22 Flush - Normal Saline 10 Ml Syringe IVF 10 ml Q12HR RACHEL Administration Tramadol HCl 50 mg 09/17/20 21:42 09/23/20 06:05 Tramadol Hcl 50 Mg Tab PO 50 mg Q4H PRN Administration Moderate Pain (4-6) Trazodone HCl 25 mg 09/15/20 20:20 09/21/20 21:33 Trazodone Hcl 50 Mg Tab PO 25 mg HSPRN PRN Administration Insomnia Zinc Sulfate 220 mg 09/08/20 09:00 09/23/20 09:22 Zinc Sulfate 220 Mg Cap PO 220 mg DAILY RACHEL Administration - Exam General Appearance: awake alert Eye: anicteric sclera ENT: normocephalic atraumatic, moist mucosa Neck: symmetric Respiratory - other findings: fair air entry bilaterally with few bibasal crackles posteriorly. Cardiovascular: RRR, murmur present Gastrointestinal: soft, non-tender, non-distended, normal bowel sounds Extremities - other findings: edema of the extremities noted Neurological: CN's grossly intact PSYCH: A&O x 3 Nephrology Results - Labs Result Diagrams: 09/23/20 06:02 09/23/20 06:02 Lab results: WBC 13.2 thou/uL (4.8-10.8) H 09/23/20 06:02 Hgb 8.1 g/dL (12.0-16.0) L 09/23/20 06:02 Hct 24.3 % (36.0-47.0) L 09/23/20 06:02 MCV 96.9 fL (78.0-98.0) 09/23/20 06:02 Plt Count 261 thou/uL (130-400) 09/23/20 06:02 Neutrophils % 66.6 % (42.0-75.0) 09/23/20 06:02 Band Neuts % (Manual) 3 % (5-11) L 09/22/20 15:04 ESR Westergren 106 mm/hr (Less than 20) H 09/15/20 08:30 ABG pH 7.41 (7.35-7.45) 09/15/20 01:13 ABG pCO2 30.1 mmHg (35.0-45.0) L 09/15/20 01:13 ABG pO2 71.3 mmHg (80.0-100.0) L 09/15/20 01:13 Sodium 136 mmol/L (136-145) 09/23/20 06:02 Potassium 4.5 mmol/L (3.5-5.1) 09/23/20 06:02 Chloride 104 mmol/L (98-107) 09/23/20 06:02 Carbon Dioxide 22 mmol/L (22-29) 09/23/20 06:02 BUN 82 mg/dL (7.0-18.7) H 09/23/20 06:02 Creatinine 3.88 mg/dL (0.6-1.1) H 09/23/20 06:02 Glucose 216 mg/dL (70-105) H 09/23/20 06:02 Lactic Acid 0.6 mmol/L (0.5-2.2) 09/13/20 02:00 Calcium 8.1 mg/dL (7.8-10.44) 09/23/20 06:02 Total Bilirubin 0.2 mg/dL (0.2-1.2) 09/21/20 13:43 AST 10 U/L (5-34) 09/21/20 13:43 ALT 14 U/L (8-55) 09/21/20 13:43 Alkaline Phosphatase 42 U/L (40-110) 09/21/20 13:43 Creatine Kinase 107 U/L (29-168) 09/07/20 08:09 C-Reactive Protein 0.85 mg/dL (= or < 0.5) H 09/20/20 12:04 B-Natriuretic Peptide 82.3 pg/mL (0-100) 09/20/20 12:04 Serum Total Protein 5.2 g/dL (6.0-8.3) L 09/21/20 13:43 Albumin 2.7 g/dL (3.5-5.0) L 09/23/20 06:02 Lipase 4 U/L (8-78) L 09/12/20 09:27 Urine Ketones Negative mg/dL (Negative) 09/20/20 18:30 Urine Blood Trace (Negative) A 09/20/20 18:30 Urine Nitrite Negative (Negative) 09/20/20 18:30 Ur Leukocyte Esterase Negative Morgan/uL (Negative) 09/20/20 18:30 Urine RBC 4-6 HPF (0-3) A 09/20/20 18:30 Urine WBC 7-10 HPF (0-3) A 09/20/20 18:30 Ur Squamous Epith Cells 0-3 HPF (0-3) 09/20/20 18:30 Urine Bacteria None Seen HPF (None Seen) 09/20/20 18:30 Sodium 136 mmol/L (136-145) 09/23/20 06:02 Potassium 4.5 mmol/L (3.5-5.1) 12/02/20 06:02 Chloride 104 mmol/L (98-107) 09/23/20 06:02 Carbon Dioxide 22 mmol/L (22-29) 09/23/20 06:02 Anion Gap 15 mmol/L (10-20) 09/23/20 06:02 BUN 82 mg/dL (7.0-18.7) H 09/23/20 06:02 Creatinine 3.88 mg/dL (0.6-1.1) H 09/23/20 06:02 Glucose 216 mg/dL (70-105) H 09/23/20 06:02 Calcium 8.1 mg/dL (7.8-10.44) 09/23/20 06:02 Phosphorus 5.2 mg/dL (2.3-4.7) H 09/23/20 06:02 Magnesium 1.9 mg/dL (1.6-2.6) 09/15/20 01:04 Albumin 2.7 g/dL (3.5-5.0) L 09/23/20 06:02 Nephrology AP PN - Plan WENDY. Etiology is unclear. ? hemodynamic factors vs progression of diabetic nephropathy. Creat is begining to trending down. CKD. Stage and baseline creat is unknown. Creat was 0.85 in 04/2019. Was 3.5 on 09/07/2020. Due to DM nephropathy and partial left nephrectomy Nephrotic range proteinuria. Hypokalemia. Metabolic acidosis: Persistent. Due WENDY/CKD and GI losses Generalized swelling especially lower extremities. Etiology remained unclear. CKF and Diastolic heart failure. ? liver patthology Hypomagnesemia Hypoalbuminemia HTN Presumed diabetic nephropathy Acute repiratory failure with hypoxia: Due fluid overload and covid pneumonia. Improved. Off oxygen. Covid infection. Anemia Plan Restart low dose spironolactone Continue cardizem to 240 bid and monitotor BP closely. Get renal vein doppler Continue alkali therapy orally. Monitor renal function. continue supportive care.
[2020-09-23] MEDS ORDERED: Spironolactone 25 MG TAB PO SCH (19:45)
[2020-09-24] MEDS: Metoclopramide HCl 10 MG/2 ML VIAL IVP SCH ×4 (00:02→18:56)
--- NOTE | 2020-09-24 00:06 | PRG ---
DATE OF SERVICE: 09/23/2020 Ms. Barone is no longer having vomiting. She is tolerating a diet. She had a little bit shortness of breath and was retested for COVID last month. She was admitted with this on 09/07. As she was positive, we decided to put her back on respiratory isolation. Her breathing is better today. She is not having vomiting anymore since she started the Reglan . OBJECTIVE: VITAL SIGNS: Temperature is 98, pulse 105, O2 saturation 95 on room air, respirations 18, blood pressure 118/78. LUNGS: Clear. HEART: Regular rate and rhythm. ABDOMEN: Soft, nontender. LABORATORY DATA: White count 13.2, hemoglobin 8.1, platelet count 261. Sodium 136, potassium 4.5, BUN and creatinine are 82 and 3.88, improved from 90 and 4.16 yesterday, phosphorus 5.2, calcium 8.1, albumin 2.7. She is receiving some IV albumin per Nephrology. Total protein is 5.2. Liver function tests are normal. Hemoglobin A1c was 10.4 yesterday. Glucose remained elevated, highest at 326 today, although she was down to 136 earlier in the day. She had free kappa and lambda chains in the urine. ASSESSMENT AND PLAN: 1. Nausea and vomiting secondary to gastroparesis, improved. 2. Acute kidney injury. Creatinine is slightly improved, nephrotic-range proteinuria with lambda and kappa light chains. We will defer to nephrology. 3. Diabetic nephropathy, partial left nephrectomy. 4. Nausea, vomiting secondary to gastroparesis. 5. Generalized edema, likely anasarca. There is no evidence of cirrhosis. Normal liver function tests. I agree with albumin. No thrombocytopenia to indicate portal hypertension. 6. At this time, gastroparesis improved with Reglan. We will sign off. If I can be of any further assistance in her care, please do not hesitate to reconsult. Job ID: [id number]
[2020-09-24] MEDS: HumaLOG 300 UNITS/3 ML VIAL SC PRN ×3 (05:35→21:45)
[2020-09-24 05:43] LABS: #Basophils 0.2 thou/uL (0.0-0.2); #Eosinphils 0.3 thou/uL (0.0-0.7); #Monocytes 1.3 thou/uL (0.11-0.59); #Neutrophils 9.7 thou/uL (1.40-6.50); %Basophils 1.4 % (0.0-1.0); %Eosinophils 2.5 % (0.0-10.0); %Lymphocytes 14.6 % (21.0-51.0); %Monocytes 9.5 % (0.0-10.0); %Neutrophils 72.1 % (42.0-75.0); Hemoglobin 8.8 g/dL (12.0-16.0); Mean Corpuscular HGB CONC 33.2 g/dL (32.0-36.0); Mean Corpuscular Hemoglobin 32.5 pg (27.0-31.0); Mean Platelet Volume 6.9 fL (7.4-10.4); Platelet Count 294 thou/uL (130-400); RBC Distribution Width 12.6 % (11.5-14.5); Red Blood Cell (RBC) Count 2.69 mill/uL (4.20-5.40); White Blood Cell (WBC) Count 13.4 thou/uL (4.8-10.8)
[2020-09-24 06:04] LABS: Albumin 2.9 g/dL (3.5-5.0); Anion Gap 16 mmol/L (10-20); BUN (Urea Nitrogen) 76 mg/dL (7.0-18.7); BUN/Creatinine Ratio 18.45; Calc. Creatinine Clearance 24 mL/min (70-130); Calcium 8.4 mg/dL (7.8-10.44); Carbon Dioxide 22 mmol/L (22-29); Chloride 100 mmol/L (98-107); Glucose 303 mg/dL (70-105); Phosphorus 5.1 mg/dL (2.3-4.7); Potassium 4.5 mmol/L (3.5-5.1); Sodium 133 mmol/L (136-145)
[2020-09-24] MEDS: Pantoprazole 40 MG VIAL IVP SCH (08:04)
[2020-09-24] MEDS: Sodium Bicarbonate Tab 325 MG TAB PO SCH ×3 (08:04→20:58)
[2020-09-24] MEDS: Spironolactone 25 MG TAB PO SCH (08:04)
[2020-09-24] MEDS: Ascorbic Acid 500 mg Chewable Tablet PO SCH (08:05)
[2020-09-24] MEDS: Cholecalciferol 1,000 UNITS (25 MCG) TAB PO SCH (08:05)
[2020-09-24] MEDS: Furosemide 20 MG/2 ML VIAL SLOW IVP SCH ×2 (08:06→20:58)
[2020-09-24] MEDS: Zinc Sulfate 220 MG CAP PO SCH (08:06)
[2020-09-24] MEDS: HumuLIN 70/30 (300 UNITS/3 ML VIAL) SC SCH ×2 (09:28→21:35)
--- NOTE | 2020-09-24 12:48 | PDOC.HOSPP ---
- Subjective Encounter Date: 09/24/20 Encounter Time: 11:30 Subjective: Patient seen this morning. She has some bowel movement. And not much. She is nauseated but no emesis today. Tolerating some with her p.o. intake. She was complaining of chest pain this morning. Her but her sats are good. Given her longstanding hospital stay and limited mobilization I decided to rule out pulmonary embolism though her sats good. However given her kidney function CT PE protocol cannot be obtained. CT chest without contrast as low yield. - Objective Vital Signs & Weight: Vital Signs (12 hours) Pulse Resp BP Pulse Ox 09/24/20 08:10 97 19 134/84 97 09/24/20 08:06 97 09/24/20 08:00 96 Weight Admit Weight 156 lb 8 oz Weight 197 lb 14.4 oz I&O: 09/23/20 09/24/20 09/25/20 06:59 06:59 06:59 Intake Total 580 Output Total 600 Balance -20 Result Diagrams: 09/24/20 05:20 09/24/20 05:20 Additional Labs: Accuchecks 09/24/20 09/24/20 09/24/20 11:44 09:33 05:19 POC Glucose 170 H 103 H 294 H 09/23/20 09/23/20 20:32 15:52 POC Glucose 326 H 142 H Hospitalist ROS - Medication Medications: Active Medications Generic Name Dose Route Start Last Admin Trade Name Freq PRN Reason Stop Dose Admin Acetaminophen 650 mg 09/07/20 11:14 09/08/20 11:41 Acetaminophen 325 Mg Tab PO 650 mg Q4H PRN Administration Headache/Fever/Mild Pain (1-3) Albuterol Sulfate 2 puff 09/12/20 22:57 09/16/20 00:18 Albuterol 200 Puff (6.7gm Inhaler) INH 2 puff Q4H PRN Administration SOB/WHEEZE Ascorbic Acid 1,000 mg 09/08/20 09:00 09/24/20 08:05 Ascorbic Acid 500 Mg Chewable Tablet PO 1,000 mg DAILY RACHEL Administration Cholecalciferol 2,000 units 09/21/20 09:00 09/24/20 08:05 Cholecalciferol 1,000 Units (25 Mcg) Tab PO 2,000 units DAILY RACHEL Administration Diltiazem HCl 240 mg 09/22/20 21:00 09/24/20 08:06 Diltiazem Hcl Cd 240 Mg Capsule PO 240 mg BID RACHEL Administration Furosemide 20 mg 09/22/20 21:00 09/24/20 08:06 Furosemide 20 Mg/2 Ml Vial SLOW IVP 20 mg BID RACHEL Administration Guaifenesin 200 mg 09/07/20 11:14 09/12/20 23:06 Diabetic Tussin 200 Mg/10 Ml Udcup PO 200 mg Q4H PRN Administration Cough Insulin Human Isoph/Insulin Regular 5 units 09/22/20 21:00 09/24/20 09:28 Humulin 70/30 (300 Units/3 Ml Vial) SC 5 units BID RACHEL Administration Insulin Human Lispro 0 units 09/08/20 12:15 09/24/20 05:35 Humalog 300 Units/3 Ml Vial SC 6 unit .MODERATE SLIDING SC PRN Administration MODERATE SLIDING SCALE Protocol Insulin Human Lispro 0 units 09/19/20 10:01 09/23/20 06:34 Humalog 300 Units/3 Ml Vial SC 4 unit .MODERATE SLIDING SC PRN Administration Moderate Correctional Scale Insulin Human Lispro 0 units 09/23/20 20:51 09/23/20 21:17 Humalog 300 Units/3 Ml Vial SC 4 unit .BEDTIME SLIDING SC PRN Administration Bedtime Correctional Scale Metoclopramide HCl 10 mg 09/21/20 18:00 09/24/20 06:29 Metoclopramide Hcl 10 Mg/2 Ml Vial IVP 10 mg Q6HR RACHEL Administration Ondansetron HCl 4 mg 09/19/20 11:19 09/23/20 03:50 Ondansetron Pf 4 Mg/2 Ml Vial IVP 4 mg Q4H PRN Administration Nausea/Vomiting Pantoprazole Sodium 40 mg 09/21/20 09:00 09/24/20 08:04 Pantoprazole 40 Mg Vial IVP 40 mg DAILY RACHEL Administration Sodium Bicarbonate 650 mg 09/16/20 15:00 09/24/20 08:04 Sodium Bicarbonate Tab 325 Mg Tab PO 650 mg TID RACHEL Administration Sodium Chloride 10 ml 09/09/20 09:00 09/24/20 08:06 Flush - Normal Saline 10 Ml Syringe IVF 10 ml Q12HR RACHEL Administration Spironolactone 25 mg 09/24/20 08:00 09/24/20 08:04 Spironolactone 25 Mg Tab PO 25 mg QAM-WM RACHEL Administration Tramadol HCl 50 mg 09/17/20 21:42 09/23/20 21:18 Tramadol Hcl 50 Mg Tab PO 50 mg Q4H PRN Administration Moderate Pain (4-6) Trazodone HCl 25 mg 09/15/20 20:20 09/21/20 21:33 Trazodone Hcl 50 Mg Tab PO 25 mg HSPRN PRN Administration Insomnia Zinc Sulfate 220 mg 09/08/20 09:00 09/24/20 08:06 Zinc Sulfate 220 Mg Cap PO 220 mg DAILY RACHEL Administration - Exam General Appearance: NAD, awake alert Eye: PERRL ENT: normocephalic atraumatic Neck: supple Neurological: cranial nerve grossly intact, no focal deficits Musculoskeletal: generalized weakness Psychiatric: A&O x 3 Hosp A/P - Plan (1) Acute kidney injury superimposed on CKD Code(s): N17.9 - ACUTE KIDNEY FAILURE, UNSPECIFIED; N18.9 - CHRONIC KIDNEY DI SEASE, UNSPECIFIED Status: Acute (2) COVID-19 virus infection Code(s): U07.1 - COVID-19 Status: Acute (3) UTI (urinary tract infection) Status: Acute (4) DM I (diabetes mellitus, type I) Status: Chronic (5) HTN (hypertension) Code(s): I10 - ESSENTIAL (PRIMARY) HYPERTENSION Status: Chronic Qualifiers: Hypertension type: essential hypertension Qualified Code(s): I10 - Essential (primary) hypertension - Plan * Acute on chronic kidney injury- etiology is unclear. possibly diabetic nephropathy * Renal function appears to have plateaued, * UTI- resolved, and therapy is complete * COVID infection-on prednisone * DM- blood glucose elevated-likely with the steroid , need to continue to titrate insulin * HTN- blood pressure is elevated- Cardizem has been increased, and Aldactone has been added. Carvediolol was discontinued as well as Hydralazine * * * Suboptimally controlled blood pressure * -She is on Cardizem and hydralazine as well as Norvasc. I increased the dose of hydralazine to 50 mg every 8 hours p.o. We will titrate as needed.. * Persistent nausea and emesis -No diarrhea. -Perhaps atypical presentation of Covid. -She is admitted on for Covid she is on the second week of Covid she should be improving. She has no hypoxia however her GI symptoms seems to be not improving. -Hold her p.o. medications and started her on IV steroid -ID consult placed. She does have elevated leukocytosis. Will get a chest x-ray to follow-up on that along with the UA. -Her inflammatory markers are rising. She cannot get remdesivir due to kidney disease. Lower extremity edema due to hypoalbuminemiaq Chronic kidney disease stage III -Echo cannot be done due to Covid nature -Discontinued her home regimen of torsemide and started on IV Lasix. -Reduce to the dose of spironolactone as she is not holding any p.o. medications due to emesis and nausea I believe her presentation of emesis probably due to gastroparesis. I will start her on Reglan--- trial of Reglan whether that would improve her symptoms Her LFTs and lipase level were in the normal range. No indication to get imaging study at this point. We will follow-up on A1c level. Hypoalbunemia she is started on albumin infusion. She is also getting Ensure with meals. Though her p.o. intake is less due to severe emesis and nausea in the last few days. Though this is a benign consult for GI, will appreciate their input as well as patient has the last 1 week of these symptoms ongoing without any relief despite giving her antiemetic medications so for. 09/22/2020 Emesis secondary to diabetic gastroparesis - Increased Reglan to qid - Continue Pantoprazole - PO intake as tolerated - GI following Hypoalbuminemia - Ensure with meals - albumin given yesterday WENDY on CKD - stable renal function - Alkali therapy PO LE edema - she has gained over 4 lbs in the last few days, will cw low dose lasix - Continue Diltiazem BID - Echocardiogram ordered - nephrology following DM -Uncontrolled - A1c 10.4 -Scheduled Humalog and sliding scale insulin anemia - will continue to trend (9.9 on Sep 20 to 8 on Sep 22) -Almost 2 unit drop, no source identifiable, we will repeat the CBC DVT Prophylaxis - Heparin Care discussed with the student and reviewed her notes today. 09/23 She got short of breath last evening and [facility] tested overnight for Covid and it came back positive so the isolation has been restarted again. She is satting greater than 99% in the room air. There is no point in putting her back on Decadron as she has a gastroparesis that can get worse with the steroid. Prednisone discontinued 2 days ago the context of worsening her gastroparesis.. Echo showed EF of 55% with diastolic dysfunction and left atrial enlargement. Ultrasound-abdomen- showing bilateral renal vein without any abnormality. That is no renal vein thrombosis. Blood glucose the last 2 readings seems to be okay. 3rd She was re-tested 2 days prior for Covid and it is positive. Her sats are good. no dyspnea with ambulation. Following inflammatory markers. I refrain putting her back on Decadron/prednisone as she just came off prednisone. Gastroparesis is exacerb ated by related by being on prednisone for a while. So I am refraining from restarting her on steroid. Clinically she appears well from pulmonary point of view. She is on vitamin C and zinc. She was complaining of chest pain this morning. her sats are good. Given her longstanding hospital stay and limited mobilization it may be prudent to rule out pulmonary embolism though her sats good. However given her kidney function CT PE protocol cannot be obtained. CT chest without contrast has low yield. Will follow closely.
[2020-09-24] MEDS: traMADol HCl 50 MG TAB PO PRN (22:33)
[2020-09-25] MEDS: Metoclopramide HCl 10 MG/2 ML VIAL IVP SCH ×5 (00:21→23:25)
[2020-09-25 07:10] LABS: Albumin 2.7 g/dL (3.5-5.0); Anion Gap 12 mmol/L (10-20); BUN (Urea Nitrogen) 67 mg/dL (7.0-18.7); BUN/Creatinine Ratio 16.96; Calc. Creatinine Clearance 25 mL/min (70-130); Calcium 8.4 mg/dL (7.8-10.44); Carbon Dioxide 25 mmol/L (22-29); Chloride 102 mmol/L (98-107); Glucose 140 mg/dL (70-105); Phosphorus 5.2 mg/dL (2.3-4.7); Potassium 4.3 mmol/L (3.5-5.1); Sodium 135 mmol/L (136-145)
[2020-09-25] MEDS: Cholecalciferol 1,000 UNITS (25 MCG) TAB PO SCH (09:03)
[2020-09-25] MEDS: Ascorbic Acid 500 mg Chewable Tablet PO SCH (09:04)
[2020-09-25] MEDS: Zinc Sulfate 220 MG CAP PO SCH (09:05)
[2020-09-25] MEDS: Spironolactone 25 MG TAB PO SCH (09:12)
[2020-09-25] MEDS: Pantoprazole 40 MG VIAL IVP SCH (09:13)
[2020-09-25] MEDS: Sodium Bicarbonate Tab 325 MG TAB PO SCH (09:15)
[2020-09-25] MEDS ORDERED: Metolazone 5 MG TAB PO SCH (09:45)
[2020-09-25] MEDS: HumuLIN 70/30 (300 UNITS/3 ML VIAL) SC SCH ×2 (12:26→21:31)
[2020-09-25] MEDS: HumaLOG 300 UNITS/3 ML VIAL SC PRN ×3 (12:28→21:51)
--- NOTE | 2020-09-25 13:13 | PDOC.HOSPP ---
- Subjective Encounter Date: 09/25/20 Encounter Time: 11:10 Subjective: Gabino has no emesis today. Her nausea sensation improved from. Somewhat tolerating her p.o. intake. Ambulating today. Her sats remained the same around 95 in the room air. - Objective Vital Signs & Weight: Vital Signs (12 hours) Pulse BP Pulse Ox 09/25/20 09:12 80 09/25/20 08:00 96 09/25/20 04:00 80 126/76 Weight Admit Weight 156 lb 8 oz Weight 197 lb 14.4 oz Result Diagrams: 09/24/20 05:20 09/25/20 06:05 Additional Labs: Accuchecks 09/25/20 09/25/20 09/24/20 11:34 06:22 21:41 POC Glucose 259 H 136 H 310 H 09/24/20 15:25 POC Glucose 197 H Hospitalist ROS - Medication Medications: Active Medications Generic Name Dose Route Start Last Admin Trade Name Freq PRN Reason Stop Dose Admin Acetaminophen 650 mg 09/07/20 11:14 09/08/20 11:41 Acetaminophen 325 Mg Tab PO 650 mg Q4H PRN Administration Headache/Fever/Mild Pain (1-3) Albuterol Sulfate 2 puff 09/12/20 22:57 09/16/20 00:18 Albuterol 200 Puff (6.7gm Inhaler) INH 2 puff Q4H PRN Administration SOB/WHEEZE Ascorbic Acid 1,000 mg 09/08/20 09:00 09/25/20 09:04 Ascorbic Acid 500 Mg Chewable Tablet PO 1,000 mg DAILY RACHEL Administration Cholecalciferol 2,000 units 09/21/20 09:00 09/25/20 09:03 Cholecalciferol 1,000 Units (25 Mcg) Tab PO 2,000 units DAILY RACHEL Administration Diltiazem HCl 240 mg 09/22/20 21:00 09/25/20 09:12 Diltiazem Hcl Cd 240 Mg Capsule PO 240 mg BID RACHEL Administration Guaifenesin 200 mg 09/07/20 11:14 09/12/20 23:06 Diabetic Tussin 200 Mg/10 Ml Udcup PO 200 mg Q4H PRN Administration Cough Insulin Human Isoph/Insulin Regular 5 units 09/22/20 21:00 09/25/20 12:26 Humulin 70/30 (300 Units/3 Ml Vial) SC Not Given BID RACHEL Insulin Human Lispro 0 units 09/19/20 10:01 09/25/20 12:28 Humalog 300 Units/3 Ml Vial SC 6 unit .MODERATE SLIDING SC PRN Administration Moderate Correctional Scale Insulin Human Lispro 0 units 09/23/20 20:51 09/24/20 21:45 Humalog 300 Units/3 Ml Vial SC 4 unit .BEDTIME SLIDING SC PRN Administration Bedtime Correctional Scale Metoclopramide HCl 10 mg 09/21/20 18:00 09/25/20 12:26 Metoclopramide Hcl 10 Mg/2 Ml Vial IVP 10 mg Q6HR RACHEL Administration Ondansetron HCl 4 mg 09/19/20 11:19 09/23/20 03:50 Ondansetron Pf 4 Mg/2 Ml Vial IVP 4 mg Q4H PRN Administration Nausea/Vomiting Pantoprazole Sodium 40 mg 09/21/20 09:00 09/25/20 09:13 Pantoprazole 40 Mg Vial IVP 40 mg DAILY RACHEL Administration Sodium Chloride 10 ml 09/09/20 09:00 09/25/20 09:15 Flush - Normal Saline 10 Ml Syringe IVF 10 ml Q12HR RACHEL Administration Tramadol HCl 50 mg 09/17/20 21:42 09/24/20 22:33 Tramadol Hcl 50 Mg Tab PO 50 mg Q4H PRN Administration Moderate Pain (4-6) Trazodone HCl 25 mg 09/15/20 20:20 09/21/20 21:33 Trazodone Hcl 50 Mg Tab PO 25 mg HSPRN PRN Administration Insomnia Zinc Sulfate 220 mg 09/08/20 09:00 09/25/20 09:05 Zinc Sulfate 220 Mg Cap PO 220 mg DAILY RACHEL Administration - Exam General Appearance: NAD, awake alert Eye: PERRL ENT: normocephalic atraumatic Neck: supple Neurological: no focal deficits Psychiatric: A&O x 3 Hosp A/P - Plan (1) Acute kidney injury superimposed on CKD Code(s): N17.9 - ACUTE KIDNEY FAILURE, UNSPECIFIED; N18.9 - CHRONIC KIDNEY DISEASE, UNSPECIFIED Status: Acute (2) COVID-19 virus infection Code(s): U07.1 - COVID-19 Status: Acute (3) UTI (urinary tract infection) Status: Acute (4) DM I (diabetes mellitus, type I) Status: Chronic (5) HTN (hypertension) Code(s): I10 - ESSENTIAL (PRIMARY) HYPERTENSION Status: Chronic Qualifiers: Hypertension type: essential hypertension Qualified Code(s): I10 - Essential (primary) hypertension - Plan * Acute on chronic kidney injury- etiology is unclear. possibly diabetic nephropathy * Renal function appears to have plateaued, * UTI- resolved, and therapy is complete * COVID infection-on prednisone * DM- blood glucose elevated-likely with the steroid , need to continue to titrate insulin * HTN- blood pressure is elevated- Cardizem has been increased, and Aldactone has been added. Carvediolol was discontinued as well as Hydralazine * * * Suboptimally controlled blood pressure * -She is on Cardizem and hydralazine as well as Norvasc. I increased the dose of hydralazine to 50 mg every 8 hours p.o. We will titrate as needed.. * Persistent nausea and emesis -No diarrhea. -Perhaps atypical presentation of Covid. -She is admitted on for Covid she is on the second week of Covid she should be improving. She has no hypoxia however her GI symptoms seems to be not improving. -Hold her p.o. medications and started her on IV steroid -ID consult placed. She does have elevated leukocytosis. Will get a chest x-ray to follow-up on that along with the UA. -Her inflammatory markers are rising. She cannot get remdesivir due to kidney disease. Lower extremity edema due to hypoalbuminemiaq Chronic kidney disease stage III -Echo cannot be done due to Covid nature -Discontinued her home regimen of torsemide and started on IV Lasix. -Reduce to the dose of spironolactone as she is not holding any p.o. medications due to emesis and nausea I believe her presentation of emesis probably due to gastroparesis. I will start her on Reglan--- trial of Reglan whether that would improve her symptoms Her LFTs and lipase level were in the normal range. No indication to get imaging study at this point. We will follow-up on A1c level. Hypoalbunemia she is started on albumin infusion. She is also getting Ensure with meals. Though her p.o. intake is less due to severe emesis and nausea in the last few days. Though this is a benign consult for GI, will appreciate their input as well as patient has the last 1 week of these symptoms ongoing without any relief despite giving her antiemetic medications so for. 09/22/2020 Emesis secondary to diabetic gastroparesis - Increased Reglan to qid - Continue Pantoprazole - PO intake as tolerated - GI following Hypoalbuminemia - Ensure with meals - albumin given yesterday WENDY on CKD - stable renal function - Alkali therapy PO LE edema - she has gained over 4 lbs in the last few days, will cw low dose lasix - Continue Diltiazem BID - Echocardiogram ordered - nephrology following DM -Uncontrolled - A1c 10.4 -Scheduled Humalog and sliding scale insulin anemia - will continue to trend (9.9 on Sep 20 to 8 on Sep 22) -Almost 2 unit drop, no source identifiable, we will repeat the CBC DVT Prophylaxis - Heparin Care discussed with the student and reviewed her notes today. 09/23 She got short of breath last evening and [facility] tested overnight for Covid and it came back positive so the isolation has been restarted again. She is satting greater than 99% in the room air. There is no point in putting her back on Decadron as she has a gastroparesis that can get worse with the steroid. Prednisone discontinued 2 days ago the context of worsening her gastroparesis.. Echo showed EF of 55% with diastolic dysfunction and left atrial enlargement. Ultrasound-abdomen- showing bilateral renal vein without any abnormality. That is no renal vein thrombosis. Blood glucose the last 2 readings seems to be okay. 3rd She was re-tested 2 days prior for Covid and it is positive. Her sats are good. no dyspnea with ambulation. Following inflammatory markers. I refrain putting her back on Decadron/prednisone as she just came off prednisone. Gastroparesis is exacerbated by related by being on prednisone for a while. So I am refraining from restarting her on steroid. Clinically she appears well from pulmonary point of view. She is on vitamin C and zinc. She was complaining of chest pain this morning. her sats are good. Given her longstanding hospital stay and limited mobilization it may be prudent to rule out pulmonary embolism though her sats good. However given her kidney function CT PE protocol cannot be obtained. CT chest without contrast has low yield. Will follow closely. 4th Her GI symptoms are slowly improving. She is ambulating and no nausea and emesis today. If she continued to improve and tolerating the diet without emesis, probably discharged her to home tomorrow.
[2020-09-25] MEDS: Furosemide 40 MG/4 ML VIAL SLOW IVP SCH (14:48)
[2020-09-25] MEDS: Furosemide 20 MG/2 ML VIAL SLOW IVP SCH (19:10)
[2020-09-25] MEDS: traMADol HCl 50 MG TAB PO PRN (21:43)
[2020-09-26] MEDS: Metoclopramide HCl 10 MG/2 ML VIAL IVP SCH ×4 (05:18→23:48)
[2020-09-26] MEDS: Furosemide 40 MG/4 ML VIAL SLOW IVP SCH ×2 (05:18→13:34)
[2020-09-26] MEDS: HumaLOG 300 UNITS/3 ML VIAL SC PRN ×3 (05:38→20:58)
--- NOTE | 2020-09-26 05:58 | PRG ---
DATE OF SERVICE: 09/24/2020 SUBJECTIVE: Patient noted with the following vital signs. OBJECTIVE: VITAL SIGNS: Blood pressure 134/84, respiratory rate of 19, O2 saturation 97%, pulse of 97. GENERAL: The patient seems to be feeling nauseous this morning. HEENT EXAMINATION: Unremarkable. CARDIOVASCULAR: First and second heart sounds were heard. RESPIRATORY SYSTEM: Clear to auscultation. DIGESTIVE SYSTEM: Revealed a benign abdomen. EXTREMITIES: Showed no significant peripheral edema. LABORATORY INVESTIGATION: Showed a hemoglobin of 8.8 and white count of 13.4. Chemistry showed sodium of 133, BUN of 76 with a creatinine of 4.12. Blood sugar 303. IMPRESSION: 1. Acute on chronic kidney disease. This is likely multifactorial including, but not limited to hemodynamically mediated injury, cytokine mediated injury, and potential COVID nephropathy on a baseline chronic kidney disease stemming from diabetic nephropathy. 2. Diabetic nephropathy/chronic kidney disease with nephrotic-range proteinuria. PLAN: We will monitor this patient's renal function closely given the complaint of nausea and some other discomfort. Hopefully, the patient will not become uremic as patient is not far away from very advanced kidney failure stage. We consider to monitor this patient on daily basis. At this point, there is no emergent indication for renal replacement therapy; however, modality of treatment might become imminent if renal function does not improve very soon. Job ID: [id number]
[2020-09-26 06:10] LABS: Albumin 2.6 g/dL (3.5-5.0); Anion Gap 15 mmol/L (10-20); BUN (Urea Nitrogen) 66 mg/dL (7.0-18.7); BUN/Creatinine Ratio 16.67; Calc. Creatinine Clearance 25 mL/min (70-130); Calcium 8.1 mg/dL (7.8-10.44); Carbon Dioxide 23 mmol/L (22-29); Chloride 101 mmol/L (98-107); Glucose 231 mg/dL (70-105); Phosphorus 5.4 mg/dL (2.3-4.7); Potassium 4.7 mmol/L (3.5-5.1); Sodium 134 mmol/L (136-145)
--- NOTE | 2020-09-26 06:13 | PRG ---
DATE OF SERVICE: 09/25/2020 SUBJECTIVE: The patient was seen and examined, noted with the following vital signs. OBJECTIVE: VITAL SIGNS: Afebrile, temperature 97.8, pulse 94, respiratory rate of 15, O2 saturations of 94%, blood pressure 124/75 to 146/78. HEENT: Shows some facial puffiness. CARDIOVASCULAR SYSTEM: First and second heart sounds were heard. RESPIRATORY SYSTEM: Clear to auscultation. DIGESTIVE SYSTEM: Revealed an obese abdomen. EXTREMITIES: Show 3+ bilateral lower extremity edema. IMPRESSION: 1. Nephrotic syndrome. 2. Civrk-oo-cydouye kidney disease. 3. 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 PLAN: 1. We will start this patient on IV diuretics. 2. Monitor input and output. 3. Depending on the patient's response to medical diuresis, we will re-evaluate this patient on daily basis related to potential renal replacement therapy. 4. Further management to be dependent on the clinical course. Job ID: [id number]
[2020-09-26] MEDS: Pantoprazole 40 MG VIAL IVP SCH (08:18)
[2020-09-26] MEDS: HumuLIN 70/30 (300 UNITS/3 ML VIAL) SC SCH ×2 (08:18→20:51)
[2020-09-26] MEDS: Ascorbic Acid 500 mg Chewable Tablet PO SCH (08:19)
[2020-09-26] MEDS: Cholecalciferol 1,000 UNITS (25 MCG) TAB PO SCH (08:19)
[2020-09-26] MEDS: Sodium Bicarbonate Tab 325 MG TAB PO SCH (08:19)
[2020-09-26] MEDS: Zinc Sulfate 220 MG CAP PO SCH (08:19)
--- NOTE | 2020-09-26 13:35 | PDOC.HOSPP ---
- Subjective Encounter Date: 09/26/20 Encounter Time: 11:00 Subjective: Patient states that she is doing well. And no nausea tolerating her diet. Her lower extremities still erythematic. IV Lasix started. - Objective Vital Signs & Weight: Vital Signs (12 hours) Temp Pulse Resp BP Pulse Ox 09/26/20 12:00 98.0 F 84 20 110/72 91 L 09/26/20 08:19 93 09/26/20 07:57 98.2 F 93 20 107/67 96 Weight Admit Weight 156 lb 8 oz Weight 194 lb I&O: 09/25/20 09/26/20 09/27/20 06:59 06:59 06:59 Intake Total 600 640 Balance 600 640 Result Diagrams: 09/24/20 05:20 09/26/20 05:42 Additional Labs: Accuchecks 09/26/20 09/26/20 09/25/20 11:39 05:30 21:50 POC Glucose 160 H 208 H 240 H 09/25/20 09/25/20 18:39 16:04 POC Glucose 310 H 306 H Hospitalist ROS - Medication Medications: Active Medications Generic Name Dose Route Start Last Admin Trade Name Freq PRN Reason Stop Dose Admin Acetaminophen 650 mg 09/07/20 11:14 09/08/20 11:41 Acetaminophen 325 Mg Tab PO 650 mg Q4H PRN Administration Headache/Fever/Mild Pain (1-3) Albuterol Sulfate 2 puff 09/12/20 22:57 09/16/20 00:18 Albuterol 200 Puff (6.7gm Inhaler) INH 2 puff Q4H PRN Administration SOB/WHEEZE Ascorbic Acid 1,000 mg 09/08/20 09:00 09/26/20 08:19 Ascorbic Acid 500 Mg Chewable Tablet PO 1,000 mg DAILY RACHEL Administration Cholecalciferol 2,000 units 09/21/20 09:00 09/26/20 08:19 Cholecalciferol 1,000 Units (25 Mcg) Tab PO 2,000 units DAILY RACHEL Administration Diltiazem HCl 240 mg 09/22/20 21:00 09/26/20 08:19 Diltiazem Hcl Cd 240 Mg Capsule PO 240 mg BID RACHEL Administration Furosemide 40 mg 09/25/20 14:00 09/26/20 05:18 Furosemide 40 Mg/4 Ml Vial SLOW IVP 40 mg 0600,1400 RACHEL Administration Guaifenesin 200 mg 09/07/20 11:14 09/12/20 23:06 Diabetic Tussin 200 Mg/10 Ml Udcup PO 200 mg Q4H PRN Administration Cough Insulin Human Isoph/Insulin Regular 5 units 09/22/20 21:00 09/26/20 08:18 Humulin 70/30 (300 Units/3 Ml Vial) SC 5 units BID RACHEL Administration Insulin Human Lispro 0 units 09/19/20 10:01 09/26/20 05:38 Humalog 300 Units/3 Ml Vial SC 4 unit .MODERATE SLIDING SC PRN Administration Moderate Correctional Scale Insulin Human Lispro 0 units 09/23/20 20:51 09/25/20 21:51 Humalog 300 Units/3 Ml Vial SC 2 unit .BEDTIME SLIDING SC PRN Administration Bedtime Correctional Scale Metoclopramide HCl 10 mg 09/21/20 18:00 09/26/20 05:18 Metoclopramide Hcl 10 Mg/2 Ml Vial IVP 10 mg Q6HR RACHEL Administration Ondansetron HCl 4 mg 09/19/20 11:19 09/23/20 03:50 Ondansetron Pf 4 Mg/2 Ml Vial IVP 4 mg Q4H PRN Administration Nausea/Vomiting Pantoprazole Sodium 40 mg 09/21/20 09:00 09/26/20 08:18 Pantoprazole 40 Mg Vial IVP 40 mg DAILY RACHEL Administration Sodium Bicarbonate 650 mg 09/26/20 09:00 09/26/20 08:19 Sodium Bicarbonate Tab 325 Mg Tab PO 650 mg DAILY RACHEL Administration Sodium Chloride 10 ml 09/09/20 09:00 09/26/20 08:20 Flush - Normal Saline 10 Ml Syringe IVF 10 ml Q12HR RACHEL Administration Tramadol HCl 50 mg 09/17/20 21:42 09/25/20 21:43 Tramadol Hcl 50 Mg Tab PO 50 mg Q4H PRN Administration Moderate Pain (4-6) Trazodone HCl 25 mg 09/15/20 20:20 09/21/20 21:33 Trazodone Hcl 50 Mg Tab PO 25 mg HSPRN PRN Administration Insomnia Zinc Sulfate 220 mg 09/08/20 09:00 09/26/20 08:19 Zinc Sulfate 220 Mg Cap PO 220 mg DAILY ARCHEL Administration - Exam General Appearance: NAD, awake alert Eye: PERRL ENT: normocephalic atraumatic Neck: supple Extremities: 2+ LE edema Neurological: no focal deficits Musculoskeletal: generalized weakness Psychiatric: A&O x 3 Hosp A/P - Plan (1) Acute kidney injury superimposed on CKD Code(s): N17.9 - ACUTE KIDNEY FAILURE, UNSPECIFIED; N18.9 - CHRONIC KIDNEY DISEASE, UNSPECIFIED Status: Acute (2) COVID-19 virus infection Code(s): U07.1 - COVID-19 Status: Acute (3) UTI (urinary tract infection) Status: Acute (4) DM I (diabetes mellitus, type I) Status: Chronic (5) HTN (hypertension) Code(s): I10 - ESSENTIAL (PRIMARY) HYPERTENSION Status: Chronic Qualifiers: Hypertension type: essential hypertension Qualified Code(s): I10 - Essential (primary) hypertension - Plan * Acute on chronic kidney injury- etiology is unclear. possibly diabetic nephropathy * Renal function appears to have plateaued, * UTI- resolved, and therapy is complete * COVID infection-on prednisone * DM- blood glucose elevated-likely with the steroid , need to continue to titrate insulin * HTN- blood pressure is elevated- Cardizem has been increased, and Aldactone has been added. Carvediolol was discontinued as well as Hydralazine * * * Suboptimally controlled blood pressure * -She is on Cardizem and hydralazine as well as Norvasc. I increased the dose of hydralazine to 50 mg every 8 hours p.o. We will titrate as needed.. * Persistent nausea and emesis -No diarrhea. -Perhaps atypical presentation of Covid. -She is admitted on for Covid she is on the second week of Covid she should be improving. She has no hypoxia however her GI symptoms seems to be not improving. -Hold her p.o. medications and started her on IV steroid -ID consult placed. She does have elevated leukocytosis. Will get a chest x-ray to follow-up on that along with the UA. -Her inflammatory markers are rising. She cannot get remdesivir due to kidney disease. Lower extremity edema due to hypoalbuminemiaq Chronic kidney disease stage III -Echo cannot be done due to Covid nature -Discontinued her home regimen of torsemide and started on IV Lasix. -Reduce to the dose of spironolactone as she is not holding any p.o. medications due to emesis and nausea I believe her presentation of emesis probably due to gastroparesis. I will start her on Reglan--- trial of Reglan whether that would improve her symptoms Her LFTs and lipase level were in the normal range. No indication to get imaging study at this point. We will follow-up on A1c level. Hypoalbunemia she is started on albumin infusion. She is also getting Ensure with meals. Though her p.o. intake is less due to severe emesis and nausea in the last few days. Though this is a benign consult for GI, will appreciate their input as well as patient has the last 1 week of these symptoms ongoing without any relief despite giving her antiemetic medications so for. 09/22/2020 Emesis secondary to diabetic gastroparesis - Increased Reglan to qid - Continue Pantoprazole - PO intake as tolerated - GI following Hypoalbuminemia - Ensure with meals - albumin given yesterday WENDY on CKD - stable renal function - Alkali therapy PO LE edema - she has gained over 4 lbs in the last few days, will cw low dose lasix - Continue Diltiazem BID - Echocardiogram ordered - nephrology following DM -Uncontrolled - A1c 10.4 -Scheduled Humalog and sliding scale insulin anemia - will continue to trend (9.9 on Sep 20 to 8 on Sep 22) -Almost 2 unit drop, no source identifiable, we will repeat the CBC DVT Prophylaxis - Heparin Care discussed with the student and reviewed her notes today. 09/23 She got short of breath last evening and COVId tested overnight for Covid and it came back positive so the isolation has been restarted again. She is satting greater than 99% in the room air. There is no point in putting her back on Decadron as she has a gastroparesis that can get worse with the steroid. Prednisone discontinued 2 days ago the context of worsening her gastroparesis.. Echo showed EF of 55% with diastolic dysfunction and left atrial enlargement. Ultrasound-abdomen- showing bilateral renal vein without any abnormality. That is no renal vein thrombosis. Blood glucose the last 2 readings seems to be okay. 3rd She was re-tested 2 days prior for Covid and it is positive. Her sats are good. no dyspnea with ambulation. Following inflammatory markers. I refrain putting her back on Decadron/prednisone as she just came off prednisone. Gastroparesis is exacerbated by related by being on prednisone for a while. So I am refraining from restarting her on steroid. Clinically she appears well from pulmonary point of view. She is on vitamin C and zinc. She was complaining of chest pain this morning. her sats are good. Given her longstanding hospital stay and limited mobilization it may be prudent to rule out pulmonary embolism though her sats good. However given her kidney function CT PE protocol cannot be obtained. CT chest without contrast has low yield. Will follow closely. 4th Her GI symptoms are slowly improving. She is ambulating and no nausea and emesis today. If she continued to improve and tolerating the diet without emesis, probably discharged her to home tomorrow. 5th -Ongoing lower extremity edema due to worsening renal dysfunction which could be due to Covid nephropathy. -On IV diuresis now. Echo done few days ago is a 55 EF with a diastolic dysfunction. -Plan to discharge her after sufficient diuresis and on Lasix twice a day.
[2020-09-26] MEDS: Acetaminophen 325 MG TAB PO PRN (18:29)
[2020-09-26] MEDS: traMADol HCl 50 MG TAB PO PRN (20:59)
[2020-09-26] MEDS: traZODone HCl 50 MG TAB PO PRN (23:48)
[2020-09-27] MEDS: HumaLOG 300 UNITS/3 ML VIAL SC PRN ×4 (05:47→20:11)
[2020-09-27] MEDS: Metoclopramide HCl 10 MG/2 ML VIAL IVP SCH ×3 (05:47→17:26)
[2020-09-27] MEDS: Furosemide 40 MG/4 ML VIAL SLOW IVP SCH ×2 (05:47→13:00)
[2020-09-27 07:23] LABS: Albumin 2.5 g/dL (3.5-5.0); Anion Gap 14 mmol/L (10-20); BUN (Urea Nitrogen) 63 mg/dL (7.0-18.7); BUN/Creatinine Ratio 14.89; Calc. Creatinine Clearance 23 mL/min (70-130); Calcium 7.9 mg/dL (7.8-10.44); Carbon Dioxide 23 mmol/L (22-29); Chloride 99 mmol/L (98-107); Glucose 225 mg/dL (70-105); Phosphorus 5.8 mg/dL (2.3-4.7); Potassium 4.3 mmol/L (3.5-5.1); Sodium 132 mmol/L (136-145)
[2020-09-27] MEDS: Zinc Sulfate 220 MG CAP PO SCH (08:11)
[2020-09-27] MEDS: Pantoprazole 40 MG VIAL IVP SCH (08:11)
[2020-09-27] MEDS: Cholecalciferol 1,000 UNITS (25 MCG) TAB PO SCH (08:11)
[2020-09-27] MEDS: Sodium Bicarbonate Tab 325 MG TAB PO SCH (08:11)
[2020-09-27] MEDS: HumuLIN 70/30 (300 UNITS/3 ML VIAL) SC SCH ×2 (08:12→17:26)
[2020-09-27] MEDS: Ascorbic Acid 500 mg Chewable Tablet PO SCH (08:12)
--- NOTE | 2020-09-27 12:38 | PDOC.HOSPP ---
- Subjective Encounter Date: 09/27/20 Encounter Time: 11:45 Subjective: Patient doing well. She has no nausea tolerating p.o. intake. She has been diuresed. Normotensive creatinine is little bit up around 4.23. Her extremity edema seems to be improving - Objective Vital Signs & Weight: Vital Signs (12 hours) Temp Pulse Resp BP Pulse Ox 09/27/20 08:12 90 09/27/20 08:00 98.1 F 90 18 116/74 98 09/27/20 06:00 98.7 F 90 18 117/76 95 Weight Admit Weight 156 lb 8 oz Weight 192 lb 9.604 oz I&O: 09/26/20 09/27/20 09/28/20 06:59 06:59 06:59 Intake Total 640 460 Balance 640 460 Result Diagrams: 09/24/20 05:20 09/27/20 06:00 Additional Labs: Accuchecks 09/27/20 09/26/20 09/26/20 06:02 20:57 16:28 POC Glucose 219 H 287 H 198 H Hospitalist ROS - Medication Medications: Active Medications Generic Name Dose Route Start Last Admin Trade Name Freq PRN Reason Stop Dose Admin Acetaminophen 650 mg 09/07/20 11:14 09/26/20 18:29 Acetaminophen 325 Mg Tab PO 650 mg Q4H PRN Administration Headache/Fever/Mild Pain (1-3) Albuterol Sulfate 2 puff 09/12/20 22:57 09/16/20 00:18 Albuterol 200 Puff (6.7gm Inhaler) INH 2 puff Q4H PRN Administration SOB/WHEEZE Ascorbic Acid 1,000 mg 09/08/20 09:00 09/27/20 08:12 Ascorbic Acid 500 Mg Chewable Tablet PO 1,000 mg DAILY RACHEL Administration Cholecalciferol 2,000 units 09/21/20 09:00 09/27/20 08:11 Cholecalciferol 1,000 Units (25 Mcg) Tab PO 2,000 units DAILY RACHEL Administration Diltiazem HCl 240 mg 09/22/20 21:00 09/27/20 08:12 Diltiazem Hcl Cd 240 Mg Capsule PO 240 mg BID RACHEL Administration Furosemide 40 mg 09/25/20 14:00 09/27/20 05:47 Furosemide 40 Mg/4 Ml Vial SLOW IVP 40 mg 0600,1400 RACHEL Administration Guaifenesin 200 mg 09/07/20 11:14 09/12/20 23:06 Diabetic Tussin 200 Mg/10 Ml Udcup PO 200 mg Q4H PRN Administration Cough Insulin Human Isoph/Insulin Regular 5 units 09/22/20 21:00 09/27/20 08:12 Humulin 70/30 (300 Units/3 Ml Vial) SC 5 units BID RACHEL Administration Insulin Human Lispro 0 units 09/19/20 10:01 09/27/20 05:47 Humalog 300 Units/3 Ml Vial SC 4 unit .MODERATE SLIDING SC PRN Administration Moderate Correctional Scale Insulin Human Lispro 0 units 09/23/20 20:51 09/26/20 20:58 Humalog 300 Units/3 Ml Vial SC 3 unit .BEDTIME SLIDING SC PRN Administration Bedtime Correctional Scale Metoclopramide HCl 10 mg 09/21/20 18:00 09/27/20 05:47 Metoclopramide Hcl 10 Mg/2 Ml Vial IVP 10 mg Q6HR RACHEL Administration Ondansetron HCl 4 mg 09/19/20 11:19 09/23/20 03:50 Ondansetron Pf 4 Mg/2 Ml Vial IVP 4 mg Q4H PRN Administration Nausea/Vomiting Pantoprazole Sodium 40 mg 09/21/20 09:00 09/27/20 08:11 Pantoprazole 40 Mg Vial IVP 40 mg DAILY RACHEL Administration Sodium Bicarbonate 650 mg 09/26/20 09:00 09/27/20 08:11 Sodium Bicarbonate Tab 325 Mg Tab PO 650 mg DAILY RACHEL Administration Sodium Chloride 10 ml 09/09/20 09:00 09/27/20 08:12 Flush - Normal Saline 10 Ml Syringe IVF 10 ml Q12HR RACHEL Administration Tramadol HCl 50 mg 09/17/20 21:42 09/26/20 20:59 Tramadol Hcl 50 Mg Tab PO 50 mg Q4H PRN Administration Moderate Pain (4-6) Trazodone HCl 25 mg 09/15/20 20:20 09/26/20 23:48 Trazodone Hcl 50 Mg Tab PO 25 mg HSPRN PRN Administration Insomnia Zinc Sulfate 220 mg 09/08/20 09:00 09/27/20 08:11 Zinc Sulfate 220 Mg Cap PO 220 mg DAILY RACHEL Administration - Exam General Appearance: NAD, awake alert Eye: PERRL ENT: normocephalic atraumatic Neck: supple Heart: RRR Extremities: 2+ LE edema Neurological: cranial nerve grossly intact, no focal deficits Psychiatric: normal affect, normal behavior, A&O x 3 Hosp A/P - Plan (1) Acute kidney injury superimposed on CKD Code(s): N17.9 - ACUTE KIDNEY FAILURE, UNSPECIFIED; N18.9 - CHRONIC KIDNEY DISEASE, UNSPECIFIED Status: Acute (2) COVID-19 virus infection Code(s): U07.1 - COVID-19 Status: Acute (3) UTI (urinary tract infection) Status: Acute (4) DM I (diabetes mellitus, type I) Status: Chronic (5) HTN (hypertension) Code(s): I10 - ESSENTIAL (PRIMARY) HYPERTENSION Status: Chronic Qualifiers: Hypertension type: essential hypertension Qualified Code(s): I10 - Essenti al (primary) hypertension - Plan * Acute on chronic kidney injury- etiology is unclear. possibly diabetic nephropathy * Renal function appears to have plateaued, * UTI- resolved, and therapy is complete * COVID infection-on prednisone * DM- blood glucose elevated-likely with the steroid , need to continue to titrate insulin * HTN- blood pressure is elevated- Cardizem has been increased, and Aldactone has been added. Carvediolol was discontinued as well as Hydralazine * * * Suboptimally controlled blood pressure * -She is on Cardizem and hydralazine as well as Norvasc. I increased the dose of hydralazine to 50 mg every 8 hours p.o. We will titrate as needed.. * Persistent nausea and emesis -No diarrhea. -Perhaps atypical presentation of Covid. -She is admitted on for Covid she is on the second week of Covid she should be improving. She has no hypoxia however her GI symptoms seems to be not improving. She does have elevated leukocytosis. Will get a chest x-ray to follow-up on that along with the UA. -Her inflammatory markers are rising. She cannot get remdesivir due to kidney disease. Lower extremity edema due to hypoalbuminemiaq Chronic kidney disease stage III -Discontinued her home regimen of torsemide and started on IV Lasix. -Reduce to the dose of spironolactone Gastroparesis can [place] to uncontrolled diabetic -On Reglan DM -Uncontrolled - A1c 10.4 -Scheduled Humalog and sliding scale insulin Hypoalbuminemia - Ensure with meals - albumin given yesterday WENDY on CKD - stable renal function - Alkali therapy PO -Ongoing lower extremity edema due to worsening renal dysfunction which could be due to Covid nephropathy. -On IV diuresis now. Echo done - 55 EF with a diastolic dysfunction. -Plan to discharge her after sufficient diuresis and on Lasix twice a day.
[2020-09-27] MEDS: traZODone HCl 50 MG TAB PO PRN (20:09)
[2020-09-28] MEDS: Metoclopramide HCl 10 MG/2 ML VIAL IVP SCH ×5 (00:12→23:11)
[2020-09-28] MEDS: Acetaminophen 325 MG TAB PO PRN (00:12)
[2020-09-28] MEDS: Furosemide 40 MG/4 ML VIAL SLOW IVP SCH ×2 (05:43→06:03)
[2020-09-28] MEDS: HumaLOG 300 UNITS/3 ML VIAL SC PRN ×3 (05:47→17:31)
[2020-09-28 06:24] LABS: #Basophils 0.1 thou/uL (0.0-0.2); #Eosinphils 0.5 thou/uL (0.0-0.7); #Lymphocytes 2.2 thou/uL (1.20-3.40); #Neutrophils 8.2 thou/uL (1.40-6.50); %Basophils 0.8 % (0.0-1.0); %Eosinophils 4.2 % (0.0-10.0); %Lymphocytes 18.4 % (21.0-51.0); %Monocytes 8.4 % (0.0-10.0); %Neutrophils 68.3 % (42.0-75.0); Hemoglobin 6.6 g/dL (12.0-16.0); Mean Corpuscular HGB CONC 33.3 g/dL (32.0-36.0); Mean Corpuscular Hemoglobin 33.1 pg (27.0-31.0); Mean Corpuscular Volume 99.2 fL (78.0-98.0); Mean Platelet Volume 6.5 fL (7.4-10.4); Platelet Count 319 thou/uL (130-400); RBC Distribution Width 12.8 % (11.5-14.5); Red Blood Cell (RBC) Count 1.98 mill/uL (4.20-5.40)
[2020-09-28 06:37] LABS: Albumin 2.5 g/dL (3.5-5.0); Anion Gap 13 mmol/L (10-20); BUN (Urea Nitrogen) 66 mg/dL (7.0-18.7); BUN/Creatinine Ratio 14.38; Calc. Creatinine Clearance 21 mL/min (70-130); Calcium 7.8 mg/dL (7.8-10.44); Carbon Dioxide 24 mmol/L (22-29); Chloride 100 mmol/L (98-107); Glucose 212 mg/dL (70-105); Phosphorus 5.7 mg/dL (2.3-4.7); Potassium 4.2 mmol/L (3.5-5.1); Sodium 133 mmol/L (136-145)
--- NOTE | 2020-09-28 06:59 | PRG ---
DATE OF SERVICE: 09/27/2020 SUBJECTIVE: The patient noted with the following vital signs. Very eager to go home. OBJECTIVE: VITAL SIGNS: Afebrile, temperature 98.3, pulse 94, respiratory rate of 18, blood pressure 128/80, and O2 sat of 96%. HEENT: Unremarkable. CARDIOVASCULAR: First and second heart sounds were heard. RESPIRATORY: Clear to auscultation. DIGESTIVE: Revealed obese abdomen. EXTREMITIES: Show 2+ bilateral lower extremity edema. SKIN: No new gross rash. LYMPHATICS: No peripheral lymphadenopathy. LABORATORY INVESTIGATION: Significant for the following; sodium of 132, BUN of 63 with creatinine of 4.23, phosphorus 5.8. IMPRESSION: 1. Acute on chronic kidney disease. 2. Diabetic nephropathy with nephrotic range proteinuria. 3. Anasarca in the context of problem #2 above. 4. . PLAN: 1. The patient is currently on parenteral diuresis and seems to be responding. We will consider transitioning this patient over to oral diuretics from tomorrow. 2. Further management will be dependent on the clinical course. Job ID: [id number]
[2020-09-28] MEDS: Pantoprazole 40 MG VIAL IVP SCH (07:39)
[2020-09-28] MEDS: Zinc Sulfate 220 MG CAP PO SCH (07:40)
[2020-09-28] MEDS: Sodium Bicarbonate Tab 325 MG TAB PO SCH (07:40)
[2020-09-28] MEDS: Ascorbic Acid 500 mg Chewable Tablet PO SCH (07:40)
[2020-09-28] MEDS: Spironolactone 25 MG TAB PO SCH (07:41)
[2020-09-28] MEDS: Cholecalciferol 1,000 UNITS (25 MCG) TAB PO SCH (07:41)
[2020-09-28] MEDS: HumuLIN 70/30 (300 UNITS/3 ML VIAL) SC SCH ×2 (07:42→16:22)
[2020-09-28] MEDS ORDERED: Metolazone 5 MG TAB PO SCH (09:00)
[2020-09-28] MEDS: Furosemide 20 MG TAB PO SCH ×2 (11:05→16:21)
[2020-09-28] MEDS: EPOETIN ALFA-EPBX (ESRD) 10,000 UNIT/ML VIAL SC SCH (16:05)
--- NOTE | 2020-09-28 17:19 | PRG ---
DATE OF SERVICE: 09/28/2020 SUBJECTIVE: The patient seemed very eager to go home. Noted with the following vital signs. OBJECTIVE: VITAL SIGNS: Afebrile, temperature 98.3, pulse 89, respiratory rate of 20, and blood pressure 113/72. HEENT: Unremarkable. CARDIOVASCULAR SYSTEM: First and second heart sounds were heard. RESPIRATORY SYSTEM: Clear to auscultation. DIGESTIVE SYSTEM: Revealed a benign abdomen. EXTREMITIES: Showed peripheral edema. LABORATORY INVESTIGATION: Showed hemoglobin of 6.6. Chemistry showed a creatinine of 4.59, BUN of 66, sodium of 133. Evaluation of this patient's immunology did show evidence of elevated free kappa and free lambda light chains. This is somewhat concerning with elevated IgA component of immunoglobulins. IMPRESSION: 1. Nephrotic syndrome/anasarca, query cause. 2. Rule out possible light chain nephropathy. 3. Anemia, partly anemia of chronic illness or could be pneumonitis. PLAN: 1. Discontinue IV Lasix and start this patient on oral Lasix. 2. Augment with Zaroxolyn. 3. Hematology consult to evaluate this patient's elevated light chains, both the kappa and lambda in a patient with renal failure and significant proteinuria with anemia. 4. We will leave the management of anemia to the primary team as it relates to possible blood transfusion and sports reporter. Meanwhile, we will start this patient on erythropoiesis-stimulating agent. 5. Further management will be dependent on the clinical course. The prognosis for the kidney in this patient is poor, and the patient likely is getting very close to the point of requiring renal replacement therapy (hemodialysis). Job ID: [id number]
--- NOTE | 2020-09-28 18:25 | PDOC.HOSPP ---
- Subjective Encounter Date: 09/28/20 Subjective: Seen and examined this morning at bedside in no acute distress. Denies any respiratory distress. Remains on room air. On exam she remains with significant diffuse pitting edema. Diuretics have been transitioned to orals per nephrology. H&H is trending down but no evidence of acute blood loss. Procrit initiated by nephrology. - Objective Vital Signs & Weight: Vital Signs (12 hours) Temp Pulse Resp BP BP BP Pulse Ox 09/28/20 15:48 98.3 F 20 L 20 113/72 94 L 09/28/20 11:00 98.1 F 89 18 112/72 94 L 09/28/20 09:02 98.4 F 89 18 112/71 94 L 09/28/20 08:00 94 L 09/28/20 07:39 88 Weight Admit Weight 156 lb 8 oz Weight 192 lb 9.604 oz I&O: 09/27/20 09/28/20 09/29/20 06:59 06:59 06:59 Intake Total 460 Balance 460 Result Diagrams: 09/28/20 06:00 09/28/20 06:00 Additional Labs: Accuchecks 09/28/20 09/28/20 09/28/20 16:27 11:11 05:46 POC Glucose 196 H 231 H 197 H 09/27/20 20:03 POC Glucose 354 H H&H: 6.6/19.7 Hospitalist ROS - Review of Systems Constitutional: denies: fever, chills, sweats, weakness, malaise, other Respiratory: denies: cough, dry, shortness of breath, hemoptysis, SOB with excertion, pleuritic pain, sputum, wheezing, other Cardiovascular: denies: chest pain, palpitations, orthopnea, paroxysmal noc. dyspnea, edema, light headedness, other Gastrointestinal: denies: nausea, vomiting, abdominal pain, diarrhea, constipation, melena, hematochezia, other - Medication Medications: Active Medications Generic Name Dose Route Start Last Admin Trade Name Freq PRN Reason Stop Dose Admin Acetaminophen 650 mg 09/07/20 11:14 09/28/20 00:12 Acetaminophen 325 Mg Tab PO 650 mg Q4H PRN Administration Headache/Fever/Mild Pain (1-3) Albuterol Sulfate 2 puff 09/12/20 22:57 09/16/20 00:18 Albuterol 200 Puff (6.7gm Inhaler) INH 2 puff Q4H PRN Administration SOB/WHEEZE Ascorbic Acid 1,000 mg 09/08/20 09:00 09/28/20 07:40 Ascorbic Acid 500 Mg Chewable Tablet PO 1,000 mg DAILY RACHEL Administration Cholecalciferol 2,000 units 09/21/20 09:00 09/28/20 07:41 Cholecalciferol 1,000 Units (25 Mcg) Tab PO 2,000 units DAILY RACHEL Administration Diltiazem HCl 240 mg 09/22/20 21:00 09/28/20 07:39 Diltiazem Hcl Cd 240 Mg Capsule PO 240 mg BID RACHEL Administration Epoetin Vincent-epbx 10,000 unit 09/28/20 09:15 09/28/20 16:05 Epoetin Vincent-Epbx (Esrd) 10,000 Unit/Ml Vial SC 10,000 unit Q7D RACHEL Administration Furosemide 40 mg 09/28/20 09:00 09/28/20 16:21 Furosemide 20 Mg Tab PO 40 mg 0900,1400 RACHEL Administration Guaifenesin 200 mg 09/07/20 11:14 09/12/20 23:06 Diabetic Tussin 200 Mg/10 Ml Udcup PO 200 mg Q4H PRN Administration Cough Insulin Human Isoph/Insulin Regular 10 units 09/27/20 17:00 09/28/20 16:22 Humulin 70/30 (300 Units/3 Ml Vial) SC 10 unit BID-WM RACHEL Administration Insulin Human Lispro 0 units 09/19/20 10:01 09/28/20 17:31 Humalog 300 Units/3 Ml Vial SC 2 unit .MODERATE SLIDING SC PRN Administration Moderate Correctional Scale Insulin Human Lispro 0 units 09/23/20 20:51 09/27/20 20:11 Humalog 300 Units/3 Ml Vial SC 5 unit .BEDTIME SLIDING SC PRN Administration Bedtime Correctional Scale Metoclopramide HCl 10 mg 09/21/20 18:00 09/28/20 17:31 Metoclopramide Hcl 10 Mg/2 Ml Vial IVP 10 mg Q6HR RACHEL Administration Ondansetron HCl 4 mg 09/19/20 11:19 09/23/20 03:50 Ondansetron Pf 4 Mg/2 Ml Vial IVP 4 mg Q4H PRN Administration Nausea/Vomiting Pantoprazole Sodium 40 mg 09/21/20 09:00 09/28/20 07:39 Pantoprazole 40 Mg Vial IVP 40 mg DAILY RACHEL Administration Sodium Bicarbonate 650 mg 09/26/20 09:00 09/28/20 07:40 Sodium Bicarbonate Tab 325 Mg Tab PO 650 mg DAILY RACHEL Administration Sodium Chloride 10 ml 09/09/20 09:00 09/28/20 07:42 Flush - Normal Saline 10 Ml Syringe IVF 10 ml Q12HR RACHEL Administration Spironolactone 12.5 mg 09/28/20 09:00 09/28/20 07:41 Spironolactone 25 Mg Tab PO 12.5 mg DAILY RACHEL Administration Trazodone HCl 25 mg 09/15/20 20:20 09/27/20 20:09 Trazodone Hcl 50 Mg Tab PO 25 mg HSPRN PRN Administration Insomnia Zinc Sulfate 220 mg 09/08/20 09:00 09/28/20 07:40 Zinc Sulfate 220 Mg Cap PO 220 mg DAILY RACHEL Administration - Exam General Appearance: NAD, awake alert ENT: normocephalic atraumatic, no oropharyngeal lesions, moist mucosa Neck: supple, symmetric, no JVD, no thyromegaly, no lymphadenopathy, no carotid bruit Heart: RRR, no murmur, no gallops, no rubs, normal peripheral pulses Respiratory: CTAB, no wheezes, no rales, no ronchi, normal chest expansion, no tachypnea, normal percussion Gastrointestinal: soft, non-tender, non-distended, normal bowel sounds, no palpable masses, no hepatomegaly, no splenomegaly, no bruit Extremities - other findings: Diffuse pitting edema +3-4 Musculoskeletal: normal tone, normal strength, no muscle wasting Psychiatric: normal affect, normal behavior, A&O x 3 Hosp A/P - Plan old records reviewed/req A/P: Patient with recent hx of COVID19 PNA currently being followed by nephrology for worsening renal failure & consideration of HD. # Fluid overload: In setting of renal dysfunction. Echocardiogram without evidence of significant pathology. Diffuse pitting edema with poor response to IV diuresis. She has been transitioned to PO Lasix and Metolazone, spironolactone, PO bicarb. Per nephrology pending progression patient may need to start HD. # Worsening anemia: With evidence of fluid overload an in patient who is r ather asymptomatic will continue with procrit and ask Hem/Onc to assess patient. Monitor H&H closely. # Uncontrolled DM: Certainly a contributor to her nephropathy. She was extensively counseled. # HTN: Continue with current management and careful observation of hemodynamics. # COVID19: Recent COVID19 PNA. Patient appears stable. Continue to monitor. DISPOSITION: Persistent fluid overload. Nephrology managing with diuretics. May need to start HD. Hem/Onc consulted to assist with worsening anemia.
[2020-09-28 19:45] LABS: Anion Gap 17 mmol/L (10-20); BUN (Urea Nitrogen) 66 mg/dL (7.0-18.7); Calc. Creatinine Clearance 21 mL/min (70-130); Calcium 8.5 mg/dL (7.8-10.44); Carbon Dioxide 23 mmol/L (22-29); Chloride 100 mmol/L (98-107); Glucose 173 mg/dL (70-105); Potassium 4.3 mmol/L (3.5-5.1); Sodium 136 mmol/L (136-145)
[2020-09-28 19:55] LABS: Band 15 % (5-11); Eosinophils 3 % (0-10); Lymphocytes 16 % (21-51); MDiff Complete? YES; Mean Corpuscular HGB CONC 32.7 g/dL (32.0-36.0); Mean Corpuscular Hemoglobin 31.6 pg (27.0-31.0); Mean Corpuscular Volume 96.6 fL (78.0-98.0); Mean Platelet Volume 7.2 fL (7.4-10.4); Monocytes 8 % (0-10); Neutrophil 57 % (42-75); Platelet Count 300 thou/uL (130-400); Platelet Morphology Comment Appears Adequate; Polychromasia SLIGHT = 2-3 cells (100X) (0-2/hpf); RBC Distribution Width 12.9 % (11.5-14.5); Reactive Lymphocytes 1 % (0-10); Red Blood Cell (RBC) Count 2.54 mill/uL (4.20-5.40); White Blood Cell (WBC) Count 11.9 thou/uL (4.8-10.8)
--- NOTE | 2020-09-28 21:06 | CON ---
DATE OF CONSULTATION: REASON FOR CONSULT: Anemia. HISTORY OF PRESENT ILLNESS: Ms. Barone is a 45-year-old female with a history of renal cell cancer and partial nephrectomy at [facility] in 2016. She presented to the emergency room with nausea, vomiting after being diagnosed with COVID-19. She was found to be severely dehydrated. Her creatinine was elevated at 3.51. She was started on IV fluids with eventual Nephrology consult due to lack of response from IV hydration. On admission, her white count was normal at 10.9, hemoglobin 12.1, platelets were normal over the course of the next 3 weeks. Her hemoglobin has declined to a low of 6.6 today. She is macrocytic. She has had iron studies which showed anemia of chronic disease. She also underwent urine protein electrophoresis, which showed a polyclonal gammopathy. Both her light chains were elevated, however, the ratio was normal. There was no M-spike. She has overall recovered over last several weeks except for her kidney dysfunction. No bleeding. PAST MEDICAL AND SURGICAL HISTORY: 1. History of partial kidney resection with renal cell carcinoma at [facility] in 2015. She received no chemo. 2. Diabetes mellitus 1. 3. Bilateral knee replacement, uterine ablation, and ankle surgery. FAMILY HISTORY: Positive for high blood pressure. SOCIAL HISTORY: Remote history of smoking, single, lives with family. ALLERGIES: FENTANYL. CURRENT MEDICATIONS: 1. Proventil. 2. Vitamin C. 3. Vitamin D3. 4. Cardizem CD. 5. Retacrit. 6. Lasix. 7. Glucagon. 8. Insulin. 9. Reglan. 10. Protonix. 11. Sodium bicarbonate. 12. Aldactone. 13. Trazodone. 14. Zinc. PHYSICAL EXAMINATION: VITAL SIGNS: Temperature 98.1, pulse is 89, respiratory rate 18, BP is 112/72. She is 94% on room air. GENERAL: A well-developed, well-nourished female, in no acute distress. HEENT: Normocephalic, atraumatic. RESPIRATORY: Unlabored respirations. NEUROLOGICAL: Intact. PERTINENT LABORATORY DATA AND X-RAYS: Current WBCs are 12, hemoglobin 6.6, hematocrit 19.7, MCV is 99.2, platelet count 319,000, 68% neutrophils, 18% lymphocytes. Sodium 133, potassium 4.2, chloride 100, CO2 is 24, BUN is 66, creatinine 4.59, calcium 7.8, iron 51, TIBC 43, iron saturation is 120, ferritin is 363. C-reactive protein is 452, bilirubin 0.2. AST is 10, ALT is 14, alkaline phosphatase is 42, albumin 2.2. Serum total protein is 5.2, amylase is 12, lipase 4. Vitamin D is low at 4.3. TSH is normal. UPEP is normal. COVID positive on September 22. RADIOLOGY: Abdominal ultrasound showed a left kidney measuring 10.5 and the right kidney measuring 10.4 cm. No evidence of renal artery stenosis or thrombus. ASSESSMENT: 1. Macrocytic anemia. 2. Mild leukocytosis. 3. Coronavirus disease 2019 pneumonitis. 4. Acute on chronic kidney disease. DISCUSSION: The patient has macrocytic anemia. She does not have iron deficiency. I do not see B12 or folic acid lab value. We will draw these and replace as needed. She has a polyclonal gammopathy. No evidence of multiple myeloma. Both light chains are elevated equally secondary to infection/kidney disease. She has no evidence of hemolysis with normal liver function test. Her anemia is probably secondary to acute illness and kidney dysfunction. I agree with Retacrit. Case has been discussed in detail with Dr. Calles. We will follow her hospital course. Job ID: [id number] [facility]
[2020-09-28] MEDS: traZODone HCl 50 MG TAB PO PRN (21:32)
[2020-09-29] MEDS: Acetaminophen 325 MG TAB PO PRN ×2 (04:54→17:30)
[2020-09-29] MEDS: Metoclopramide HCl 10 MG/2 ML VIAL IVP SCH ×3 (05:04→17:29)
[2020-09-29] MEDS: HumaLOG 300 UNITS/3 ML VIAL SC PRN ×3 (05:05→20:04)
[2020-09-29] MEDS ORDERED: Metolazone 5 MG TAB PO SCH ×2 (09:30→13:15)
[2020-09-29] MEDS: Sodium Bicarbonate Tab 325 MG TAB PO SCH (09:47)
[2020-09-29] MEDS: Spironolactone 25 MG TAB PO SCH (09:47)
[2020-09-29] MEDS: Zinc Sulfate 220 MG CAP PO SCH (09:47)
[2020-09-29] MEDS: Cholecalciferol 1,000 UNITS (25 MCG) TAB PO SCH (09:47)
[2020-09-29] MEDS: Ascorbic Acid 500 mg Chewable Tablet PO SCH (09:47)
[2020-09-29] MEDS: HumuLIN 70/30 (300 UNITS/3 ML VIAL) SC SCH ×2 (09:47→17:29)
[2020-09-29] MEDS: Pantoprazole 40 MG VIAL IVP SCH (09:48)
[2020-09-29] MEDS: Furosemide 20 MG TAB PO SCH (09:48)
[2020-09-29] MEDS: Folic Acid/Vit B Comp W-C PO SCH (09:50)
[2020-09-29] MEDS ORDERED: CEFAZOLIN 2 GM in Premix Bag 1 BAG IVPB SCH (11:00)
[2020-09-29] MEDS: Furosemide 40 MG/4 ML VIAL SLOW IVP SCH (14:59)
--- NOTE | 2020-09-29 16:43 | ULT ---
BILATERAL UPPER EXTREMITY VEIN MAPPIN09/29/20 HISTORY: Vein mapping for dialysis access, end-stage renal disease. RIGHT UPPER EXTREMITY BRACHIAL ARTERY: 3.6 mm RADIAL ARTERY: 1.9 mm ULNAR ARTERY: 2.0 mm CEPHALIC VEIN Proximal Humerus: 2.0 mm Mid Humerus: 1.6 mm Distal Humerus: 1.5 mm Elbow: 1.8 mm Proximal Forearm: 1.4 mm Mid Forearm: 1.3 mm Distal Forearm: 1.5 mm BASILIC VEIN Proximal Humerus: 2.5 mm Mid Humerus: 1.7 mm Distal Humerus: 1.7 mm Elbow: 1.5 mm Proximal Forearm: 1.4 mm Mid Forearm: 1.1 mm Distal Forearm: 0.7 mm LEFT UPPER EXTREMITY BRACHIAL ARTERY: 4.0 mm RADIAL ARTERY: 2.3 mm ULNAR ARTERY: 1.9 mm CEPHALIC VEIN Proximal Humerus: 2.0 mm Mid Humerus: 2.3 mm Distal Humerus: 1.8 mm Elbow: 2.0 mm Proximal Forearm: 1.2 mm Mid Forearm: 1.4 mm Distal Forearm: 0.8 mm BASILIC VEIN Proximal Humerus: 2.3 mm Mid Humerus: 2.9 mm Distal Humerus: Not visualized due to bandaging. Elbow: Not visualized due to bandaging. Proximal Forearm: 1.9 mm Mid Forearm: 1.5 mm Distal Forearm: 1.1 mm IMPRESSION: Vein mapping as above. POS: AKIL
--- NOTE | 2020-09-29 17:28 | PDOC.HOSPP ---
- Subjective Encounter Date: 09/29/20 Subjective: Seen and examined this morning at bedside in no acute distress. Denies any respiratory distress. Remains on room air. On exam she remains with significant diffuse pitting edema. Diuretics have been transitioned to orals per nephrology however she continues to show poor response. Plans to establish HD access catheter on 09-30-20 in anticipation for HD. H&H is trending down but no evidence of acute blood loss. Retacrit initiated by nephrology. Hem/onc follows follows to assist with anemia. - Objective Vital Signs & Weight: Vital Signs (12 hours) Temp Pulse Resp BP BP Pulse Ox Pulse Ox 09/29/20 16:00 97.4 F L 94 18 124/79 96 09/29/20 12:34 87 09/29/20 12:00 98.2 F 93 18 118/66 95 09/29/20 10:40 94 L 09/29/20 08:00 98.4 F 87 18 116/73 94 L Pulse Ox 09/29/20 16:00 09/29/20 12:34 09/29/20 12:00 09/29/20 10:40 91 L 09/29/20 08:00 Weight Admit Weight 156 lb 8 oz Weight 192 lb 9.604 oz I&O: 09/28/20 09/29/20 09/30/20 06:59 06:59 06:59 Intake Total 350 Balance 350 Result Diagrams: 09/28/20 19:09 09/28/20 19:09 Additional Labs: Accuchecks 09/29/20 09/29/20 09/29/20 15:45 12:06 05:00 POC Glucose 266 H 242 H 217 H 09/28/20 09/28/20 19:53 11:55 POC Glucose 174 H 221 H Hospitalist ROS - Review of Systems Constitutional: denies: fever, chills, sweats, weakness, malaise, other Cardiovascular: reports: edema (Diffuse pitting edema). denies: chest pain, palpitations, orthopnea, paroxysmal noc. dyspnea, light headedness, other Gastrointestinal: denies: nausea, vomiting, abdominal pain, diarrhea, constipation, melena, hematochezia, other Musculoskeletal: denies: neck pain, shoulder pain, arm pain, back pain, hand pain, leg pain, foot pain, other - Medication Medications: Active Medications Generic Name Dose Route Start Last Admin Trade Name Freq PRN Reason Stop Dose Admin Acetaminophen 650 mg 09/07/20 11:14 09/29/20 04:54 Acetaminophen 325 Mg Tab PO 650 mg Q4H PRN Administration Headache/Fever/Mild Pain (1-3) Albuterol Sulfate 2 puff 09/12/20 22:57 09/16/20 00:18 Albuterol 200 Puff (6.7gm Inhaler) INH 2 puff Q4H PRN Administration SOB/WHEEZE Ascorbic Acid 1,000 mg 09/08/20 09:00 09/29/20 09:47 Ascorbic Acid 500 Mg Chewable Tablet PO 1,000 mg DAILY RACHEL Administration Cholecalciferol 2,000 units 09/21/20 09:00 09/29/20 09:47 Cholecalciferol 1,000 Units (25 Mcg) Tab PO 2,000 units DAILY RACHEL Administration Diltiazem HCl 240 mg 09/22/20 21:00 09/29/20 12:34 Diltiazem Hcl Cd 240 Mg Capsule PO 240 mg BID RACHEL Administration Epoetin Vincent-epbx 10,000 unit 09/28/20 09:15 09/28/20 16:05 Epoetin Vincent-Epbx (Esrd) 10,000 Unit/Ml Vial SC 10,000 unit Q7D RACHEL Administration Furosemide 40 mg 09/29/20 14:00 09/29/20 14:59 Furosemide 40 Mg/4 Ml Vial SLOW IVP 40 mg 0600,1400 RACHEL Administration Guaifenesin 200 mg 09/07/20 11:14 09/12/20 23:06 Diabetic Tussin 200 Mg/10 Ml Udcup PO 200 mg Q4H PRN Administration Cough Insulin Human Isoph/Insulin Regular 10 units 09/27/20 17:00 09/29/20 09:47 Humulin 70/30 (300 Units/3 Ml Vial) SC 10 unit BID-WM RACHEL Administration Insulin Human Lispro 0 units 09/19/20 10:01 09/29/20 12:35 Humalog 300 Units/3 Ml Vial SC 4 unit .MODERATE SLIDING SC PRN Administration Moderate Correctional Scale Insulin Human Lispro 0 units 09/23/20 20:51 09/27/20 20:11 Humalog 300 Units/3 Ml Vial SC 5 unit .BEDTIME SLIDING SC PRN Administration Bedtime Correctional Scale Metoclopramide HCl 10 mg 09/21/20 18:00 09/29/20 12:38 Metoclopramide Hcl 10 Mg/2 Ml Vial IVP 10 mg Q6HR RACHEL Administration Ondansetron HCl 4 mg 09/19/20 11:19 09/23/20 03:50 Ondansetron Pf 4 Mg/2 Ml Vial IVP 4 mg Q4H PRN Administration Nausea/Vomiting Pantoprazole Sodium 40 mg 09/21/20 09:00 09/29/20 09:48 Pantoprazole 40 Mg Vial IVP 40 mg DAILY RACHEL Administration Sodium Chloride 10 ml 09/09/20 09:00 09/29/20 09:48 Flush - Normal Saline 10 Ml Syringe IVF 10 ml Q12HR RACHEL Administration Trazodone HCl 25 mg 09/15/20 20:20 09/28/20 21:32 Trazodone Hcl 50 Mg Tab PO 25 mg HSPRN PRN Administration Insomnia Vitamin B Complex/Vit C/Folic Acid 1 tab 09/29/20 09:00 09/29/20 09:50 Folic Acid/Vit B Comp W-C PO 1 tab DAILY RACHEL Administration Zinc Sulfate 220 mg 09/08/20 09:00 09/29/20 09:47 Zinc Sulfate 220 Mg Cap PO 220 mg DAILY RACHEL Administration - Exam General Appearance: NAD, awake alert Neck: supple, symmetric, no JVD, no thyromegaly, no lymphadenopathy, no carotid bruit Heart: RRR, no murmur, no gallops, no rubs, normal peripheral pulses Respiratory: CTAB, no wheezes, no rales, no ronchi, normal chest expansion, no tachypnea, normal percussion Gastrointestinal: soft, non-tender, non-distended, normal bowel sounds, no palpable masses, no hepatomegaly, no splenomegaly, no bruit Extremities: 2+ LE edema (Diffuse pitting edema) Hosp A/P - Plan A/P: Patient with recent hx of COVID19 PNA currently being followed by nephr ology for worsening renal failure & consideration of HD. # Fluid overload: In setting of renal dysfunction. Echocardiogram without evidence of significant pathology. Diffuse pitting edema with poor response to IV diuresis. She has been transitioned to PO Lasix and Metolazone, spironolactone, PO bicarb. Per nephrology HD catheter access to be placed on 09-30-20 for anticipation of HD. # Worsening anemia: Likely in setting of acute illness and renal dysfunction. Repeat H&H in the 8s. Initiated on Etacrip by nephrology. Hem/onc follows along. # Uncontrolled DM: Certainly a contributor to her nephropathy. She was extensively counseled. Continue with current management. # HTN: Continue with current management and careful observation of hemodynamics. # COVID19: Recent COVID19 PNA. Patient appears stable. Continue to monitor. DISPOSITION: Persistent fluid overload. Nephrology managing with diuretics and planning to start HD.
--- NOTE | 2020-09-29 18:38 | PRG ---
DATE OF SERVICE: 09/29/2020 SUBJECTIVE: The patient was seen and examined noted with the following vital signs. OBJECTIVE: VITAL SIGNS: Afebrile, temperature 97.4, pulse 94, respiratory rate of 18, O2 saturations of 96%, and blood pressure of 124/79. HEENT: Unremarkable. CARDIOVASCULAR SYSTEM: First and second heart sounds were heard. RESPIRATORY SYSTEM: Clear to auscultation. DIGESTIVE SYSTEM: Revealed an obese abdomen. EXTREMITIES: Showed 3+ bilateral lower extremity edema. IMPRESSION: 1. Advanced chronic kidney disease in the context of problem #2. 2. Nephrotic syndrome with anasarca. 3. Anemia, partly that of anemia of chronic kidney disease. 4. Hypervolemia. PLAN: 1. The patient seems not to have responded well to medical diuresis. We will begin to plan for renal replacement therapy in the context of (hemodialysis). 2. We will attempt parenteral diuretics today, but the patient seems not to have responded well to the combination of this regimen. 3. Consult Surgery for dialysis access and consult the mattress spring encaser to begin to coordinate outpatient dialysis placement once the access is established. 4. Further management to be dependent on the clinical course. Job ID: [id number]
[2020-09-30] MEDS: Metoclopramide HCl 10 MG/2 ML VIAL IVP SCH ×4 (00:09→19:13)
[2020-09-30] MEDS: Furosemide 40 MG/4 ML VIAL SLOW IVP SCH ×2 (05:33→13:15)
[2020-09-30] MEDS: HumaLOG 300 UNITS/3 ML VIAL SC PRN ×2 (05:34→21:32)
--- NOTE | 2020-09-30 06:44 | CON ---
DATE OF CONSULTATION: HISTORY OF PRESENT ILLNESS: Concetta Barone is a 45-year-old female, who had COVID illness diagnosis as an outpatient on August 30, admitted September 07 due to worsening respiratory status. She has been treated for COVID and has known chronic kidney disease. She unfortunately had a PICC line placed in her left arm. She is right-handed. I had been asked by her beauty culturist apprentice to place hemodialysis catheter and a fistula. She has poor IV access. PICC line left arm as noted. She had ultrasound vein mapping performed revealing the left arm cephalic vein to be superior to the right. Basilic vein was small. Cephalic vein on the right was small, inadequate. Basilic vein was small, inadequate. Plan is for hemodialysis catheter and a central line and possible left arm fistula. She understands risks and benefits, consents. The patient has been in isolation for over 8 weeks. I have talked to Dr. Bonilla, isolation discontinued. ALLERGIES: FENTANYL. SOCIAL HISTORY: Tobacco, none. Alcohol, none. The patient is . She lives with friends and family. MEDICATIONS: Outpatient: 1. Insulin. 2. Lisinopril. 3. Diltiazem. 4. Vitamin C. PAST SURGICAL HISTORY: 1. Laparoscopic cholecystectomy. 2. Bilateral tubal ligation. 3. Left heminephrectomy 80%, in 2016. 4. Renal cell carcinoma. PAST MEDICAL HISTORY: 1. Obesity. 2. Metabolic syndrome. 3. Diabetes mellitus. 4. Hypertension. 5. Renal cell carcinoma. PHYSICAL EXAMINATION: VITAL SIGNS: Height 5 foot, 192 pounds, 37 BMI, 98.1, 95, 131/75. HEAD, EARS, EYES DICTATION ENDS HERE Job ID: [id number]
[2020-09-30 07:56] LABS: #Basophils 0.1 thou/uL (0.0-0.2); #Eosinphils 0.4 thou/uL (0.0-0.7); #Lymphocytes 1.9 thou/uL (1.20-3.40); #Monocytes 0.9 thou/uL (0.11-0.59); #Neutrophils 8.3 thou/uL (1.40-6.50); %Basophils 0.7 % (0.0-1.0); %Eosinophils 3.3 % (0.0-10.0); %Lymphocytes 16.4 % (21.0-51.0); %Monocytes 7.8 % (0.0-10.0); %Neutrophils 71.7 % (42.0-75.0); Hemoglobin 6.4 g/dL (12.0-16.0); Mean Corpuscular HGB CONC 32.7 g/dL (32.0-36.0); Mean Corpuscular Hemoglobin 32.7 pg (27.0-31.0); Mean Platelet Volume 6.2 fL (7.4-10.4); Platelet Count 308 thou/uL (130-400); Red Blood Cell (RBC) Count 1.97 mill/uL (4.20-5.40); White Blood Cell (WBC) Count 11.6 thou/uL (4.8-10.8)
[2020-09-30 08:13] LABS: Anion Gap 13 mmol/L (10-20); BUN (Urea Nitrogen) 71 mg/dL (7.0-18.7); Calc. Creatinine Clearance 19 mL/min (70-130); Carbon Dioxide 24 mmol/L (22-29); Chloride 101 mmol/L (98-107); Glucose 343 mg/dL (70-105); Potassium 4.4 mmol/L (3.5-5.1); Sodium 134 mmol/L (136-145)
[2020-09-30] MEDS: Ascorbic Acid 500 mg Chewable Tablet PO SCH (08:43)
[2020-09-30] MEDS: Folic Acid/Vit B Comp W-C PO SCH (08:45)
[2020-09-30] MEDS: Zinc Sulfate 220 MG CAP PO SCH (08:45)
[2020-09-30] MEDS: Cholecalciferol 1,000 UNITS (25 MCG) TAB PO SCH (08:45)
[2020-09-30] MEDS: Pantoprazole 40 MG VIAL IVP SCH (08:45)
[2020-09-30] MEDS: HumuLIN 70/30 (300 UNITS/3 ML VIAL) SC SCH ×2 (09:32→18:40)
[2020-09-30 10:04] LABS: Hemoglobin 6.9 g/dL (12.0-16.0); Platelet Count 348 thou/uL (130-400)
[2020-09-30] MEDS: Ondansetron PF 4 MG/2 ML Vial IVP PRN (12:03)
[2020-09-30] MEDS ORDERED: Fentanyl 100 MCG/2 ML VIAL ONE ×2 (16:39→17:24)
[2020-09-30] MEDS ORDERED: Midazolam HCl 2 mg/2 ml Vial ONE (16:39)
[2020-09-30] MEDS ORDERED: Ketamine 50 MG/ML (10ML VIAL) ONE (16:39)
[2020-09-30] MEDS ORDERED: Propofol 500 MG/50 ML VIAL ONE ×2 (16:40→17:24)
[2020-09-30] MEDS ORDERED: Dexmedetomidine 200 MCG/2 ML VIAL ONE (16:40)
[2020-09-30] MEDS ORDERED: Sodium Chloride 0.9% 30 ML ONE (16:49)
[2020-09-30] MEDS ORDERED: Lidocaine 1% w/Epinephrine 1:100K 20 ML VIAL ONE (16:49)
[2020-09-30] MEDS ORDERED: Bupivacaine PF 0.5% 30 ML VIAL ONE (16:49)
[2020-09-30] MEDS ORDERED: Heparin 10,000 UNITS/ 10 ML VIAL ONE (16:49)
--- NOTE | 2020-09-30 17:25 | PDOC.HOSPP ---
- Subjective Encounter Date: 09/30/20 Subjective: Patient seen and examined this morning at bedside. No overnight events reported. This AM she reports feeling nauseated after taking her AM meds while being NPO. Her H&H was noted to be low again in the 6s. She is scheduled to have HD catheter access placed later today. After repeating H&H patient was ordered 1 U PRBC. - Objective Vital Signs & Weight: Vital Signs (12 hours) Temp Pulse Pulse Resp BP BP BP 09/30/20 12:31 98.2 F 81 18 138/76 09/30/20 12:23 97.8 F 83 18 122/73 09/30/20 12:13 98.1 F 83 16 104/66 09/30/20 10:59 97.8 F 99 18 91/57 L 09/30/20 08:43 87 114/75 09/30/20 07:48 98.3 F 92 16 09/30/20 05:25 98.4 F 90 18 102/59 L BP BP Pulse Ox 09/30/20 12:31 95 09/30/20 12:23 94 L 09/30/20 12:13 94 L 09/30/20 10:59 91 L 09/30/20 08:43 09/30/20 07:48 99/62 93 L 09/30/20 05:25 105/66 120/66 91 L Weight Admit Weight 156 lb 8 oz Weight 186 lb 14.4 oz I&O: 09/29/20 09/30/20 10/01/20 06:59 06:59 06:59 Intake Total 350 600 0 Balance 350 600 0 Result Diagrams: 09/30/20 09:46 09/30/20 07:41 Additional Labs: Accuchecks 09/30/20 09/30/20 09/29/20 11:57 03:39 19:19 POC Glucose 258 H 335 H 388 H 09/29/20 15:45 POC Glucose 266 H Hospitalist ROS - Review of Systems Constitutional: denies: fever, chills, sweats, weakness, malaise, other Respiratory: denies: cough, dry, shortness of breath, hemoptysis, SOB with excertion, pleuritic pain, sputum, wheezing, other Cardiovascular: denies: chest pain, palpitations, orthopnea, paroxysmal noc. dyspnea, edema, light headedness, other Gastrointestinal: reports: nausea. denies: vomiting, abdominal pain, diarrhea Neurological: denies: weakness, numbness, incoordination, change in speech, confusion, seizures, other - Medication Medications: Active Medications Generic Name Dose Route Start Last Admin Trade Name Freq PRN Reason Stop Dose Admin Acetaminophen 650 mg 09/07/20 11:14 09/29/20 17:30 Acetaminophen 325 Mg Tab PO 650 mg Q4H PRN Administration Headache/Fever/Mild Pain (1-3) Albuterol Sulfate 2 puff 09/12/20 22:57 09/16/20 00:18 Albuterol 200 Puff (6.7gm Inhaler) INH 2 puff Q4H PRN Administration SOB/WHEEZE Ascorbic Acid 1,000 mg 09/08/20 09:00 09/30/20 08:43 Ascorbic Acid 500 Mg Chewable Tablet PO 1,000 mg DAILY RACHEL Administration Cholecalciferol 2,000 units 09/21/20 09:00 09/30/20 08:45 Cholecalciferol 1,000 Units (25 Mcg) Tab PO 2,000 units DAILY RACHEL Administration Diltiazem HCl 240 mg 09/22/20 21:00 09/30/20 08:43 Diltiazem Hcl Cd 240 Mg Capsule PO 240 mg BID RACHEL Administration Epoetin Vincent-epbx 10,000 unit 09/28/20 09:15 09/28/20 16:05 Epoetin Vincent-Epbx (Esrd) 10,000 Unit/Ml Vial SC 10,000 unit Q7D RACHEL Administration Furosemide 40 mg 09/29/20 14:00 09/30/20 05:33 Furosemide 40 Mg/4 Ml Vial SLOW IVP 40 mg 0600,1400 RACHEL Administration Guaifenesin 200 mg 09/07/20 11:14 09/12/20 23:06 Diabetic Tussin 200 Mg/10 Ml Udcup PO 200 mg Q4H PRN Administration Cough Insulin Human Isoph/Insulin Regular 10 units 09/27/20 17:00 09/30/20 09:32 Humulin 70/30 (300 Units/3 Ml Vial) SC Not Given BID-[facility] Insulin Human Lispro 0 units 09/19/20 10:01 09/30/20 05:34 Humalog 300 Units/3 Ml Vial SC 8 unit .MODERATE SLIDING SC PRN Administration Moderate Correctional Scale Insulin Human Lispro 0 units 09/23/20 20:51 09/29/20 20:04 Humalog 300 Units/3 Ml Vial SC 5 unit .BEDTIME SLIDING SC PRN Administration Bedtime Correctional Scale Metoclopramide HCl 10 mg 09/21/20 18:00 09/30/20 05:33 Metoclopramide Hcl 10 Mg/2 Ml Vial IVP 10 mg Q6HR RACHEL Administration Ondansetron HCl 4 mg 09/19/20 11:19 09/30/20 12:03 Ondansetron Pf 4 Mg/2 Ml Vial IVP 4 mg Q4H PRN Administration Nausea/Vomiting Pantoprazole Sodium 40 mg 09/21/20 09:00 09/30/20 08:45 Pantoprazole 40 Mg Vial IVP 40 mg DAILY RACHEL Administration Sodium Chloride 10 ml 09/09/20 09:00 09/30/20 08:45 Flush - Normal Saline 10 Ml Syringe IVF 10 ml Q12HR RACHEL Administration Trazodone HCl 25 mg 09/15/20 20:20 09/28/20 21:32 Trazodone Hcl 50 Mg Tab PO 25 mg HSPRN PRN Administration Insomnia Vitamin B Complex/Vit C/Folic Acid 1 tab 09/29/20 09:00 09/30/20 08:45 Folic Acid/Vit B Comp W-C PO 1 tab DAILY RACHEL Administration Zinc Sulfate 220 mg 09/08/20 09:00 09/30/20 08:45 Zinc Sulfate 220 Mg Cap PO 220 mg DAILY RACHEL Administration - Exam General Appearance: NAD, awake alert Heart: RRR, no murmur, no gallops, no rubs, normal peripheral pulses Heart - other findings: Diffuse pitting edema Respiratory: CTAB, no wheezes, no rales, no ronchi, normal chest expansion, no tachypnea, normal percussion Gastrointestinal: soft, non-tender, non-distended, normal bowel sounds, no palpable masses, no hepatomegaly, no splenomegaly, no bruit Hosp A/P - Plan A/P: Patient with recent hx of COVID19 PNA currently being followed by nephrology for worsening renal failure & consideration of HD. # Fluid overload: In setting of renal dysfunction. Echocardiogram without evidence of significant pathology. Diffuse pitting edema with poor response to IV diuresis. Per nephrology HD catheter access to be placed on 09-30-20 for anticipation of HD. # Worsening anemia: Likely in setting of acute illness and renal dysfunction. Repeat H&H this AM in the 6s. Initiated on Etacrip by nephrology. 1 UPRBC ordered. Hem/onc follows. # Uncontrolled DM: Certainly a contributor to her nephropathy. She was exten sively counseled. Continue with current management. # HTN: Continue with current management and careful observation of hemodynamics. # COVID19: Recent COVID19 PNA. Patient appears stable. Continue to monitor. # Nausea/vomiting/diarrhea: Per patient attributing symptoms to having taking her medications on an empty stomach due to NPO status. She did improve later during the day. Will continue to monitor. DISPOSITION: Persistent fluid overload. Nephrology managing with diuretics and planning to start HD.
--- NOTE | 2020-09-30 19:01 | PRG ---
DATE OF SERVICE: 09/30/2020 SUBJECTIVE: The patient was seen and examined. Noted with the following vital signs. OBJECTIVE: VITAL SIGNS: Temperature 98.2, pulse 95, respiratory rate of 18, blood pressure 138/76. HEENT: Unremarkable. CARDIOVASCULAR SYSTEM: First and second heart sounds were heard. RESPIRATORY SYSTEM: Clear to auscultation. DIGESTIVE SYSTEM: Revealed an obese abdomen. EXTREMITIES: Showed 3+ bilateral lower extremity edema, kind of coordinated movement. IMPRESSION: 1. Acute on chronic kidney disease to the point of requiring dialysis. 2. Nephrotic syndrome. 3. Anasarca. 4. Anemia of chronic kidney disease. PLAN: 1. The patient is securing dialysis access today and we will initiate dialysis tomorrow. 2. Discontinue all diuretics. The patient is now to undergo ultrafiltration with hemodialysis. 3. We will initiate erythropoiesis stimulating agents. 4. integration project manager consultation for outpatient dialysis placement. 5. PPD and hepatitis panel with dialysis protocol. 6. Further management to be dependent on the clinical course. Job ID: [id number]
--- NOTE | 2020-09-30 19:48 | RAD ---
CHEST ONE VIEW: 09/30/20 HISTORY: Chest pain. COMPARISON: Radiograph 09/20/20. FINDINGS: Extensive air space opacities of the lungs. Left IJ central venous catheter tip projects to the righ t atrium. The right sided dialysis catheter tip also projects to the right atrium. Moderate effusion. Heart size upper limits of normal. IMPRESSION: 1. Abnormal air space opacities throughout the lungs can be seen with COVID-19 pneumonia. 2. Uncomplicated placement of dialysis catheter. POS: KAYLA
--- NOTE | 2020-09-30 20:17 | OP ---
DATE OF PROCEDURE: 09/30/2020 PREOPERATIVE DIAGNOSES: End-stage renal disease, PICC line left arm, recovering COVID pneumonia, out of isolation, metabolic syndrome, hypertension, diabetes. POSTOPERATIVE DIAGNOSES: End-stage renal disease, PICC line left arm, recovering COVID pneumonia, out of isolation, metabolic syndrome, hypertension, diabetes. PROCEDURES PERFORMED: 1. Right IJ cuffed tunneled hemodialysis catheter, AngioDynamics pre-curved. 2. Left IJ, central line, ultrasound used, fluoroscopy used, PICC line removed. ANESTHESIA: TIVA, local 0.5% Marcaine 30 mL mixed with 1% Xylocaine with epinephrine 20 mL. DESCRIPTION OF PROCEDURE: The patient was taken to the operating room, where under intravenous sedation, neck and chest were prepared with ChloraPrep and draped in routine fashion. Local anesthetic was infiltrated in the skin and subcutaneous tissue about the operative site. Ultrasound guidance was used to cannulate both the right and left internal jugular veins with trocar catheter, J-wire threaded, trocar catheter removed. Skin site enlarged sharply on both sides. Stab incision made in the right chest. Tunneling device was used to tunnel the pre-curved AngioDynamics cuffed tunneled hemodialysis catheter between the two incisions over the right chest, placed the fabric cuff beneath the skin exit site over the right chest, and catheter was secured with 2 interrupted sutures of 3-0 nylon. Small and medium size dilators placed over the J-wire into the internal jugular vein and removed. Dilator and Peel-Away sheath placed over the J-wire into the right internal jugular vein and J-wire and dilator removed. Catheter placed with Peel-Away sheath. Peel-Away sheath removed. Platysma was approximated with 4-0 Monocryl, skin with subdermal 4-0 Monocryl, and [place] glue applied. Each port aspirated blood, flushed with saline solution, and heparinized saline solution 1000 units of heparin per mL, indicating volume in the port. Sterile dressings were applied. On the left side, Seldinger technique used to place triple-lumen catheter, secured with 3-0 nylon suture, each port aspirated blood, flushed with saline solution. Fluoroscopic images revealed good line placement. The patient tolerated the procedure well. Job ID: [id number]
[2020-09-30 21:01] LABS: HBCM Index 0.06 S/CO (0-0.79); HBSAg Index 0.17 S/CO (0-0.99); Hep A IgM AB Non-Reactive (NonReactive); Hep A IgM S/CO 0.18 S/CO (0-0.79); Hep B Surf Ag Non-Reactive S/CO (NonReactive); Hep C IgG Ab Non-Reactive (NonReactive); Hep C Index 0.07 S/CO (0-0.79); Hepatitis B Core IgM Abs Non-Reactive (NonReactive)
[2020-10-01] MEDS: Metoclopramide HCl 10 MG/2 ML VIAL IVP SCH ×5 (00:55→23:48)
[2020-10-01] MEDS: Acetaminophen 325 MG TAB PO PRN ×2 (05:37→23:50)
[2020-10-01] MEDS: HumaLOG 300 UNITS/3 ML VIAL SC PRN ×3 (05:38→17:58)
[2020-10-01] MEDS: Furosemide 40 MG/4 ML VIAL SLOW IVP SCH (05:54)
[2020-10-01] MEDS ORDERED: Tuberculin PPD 0.1 ML VIAL I-DERMAL SCH (06:00)
[2020-10-01 06:28] LABS: #Basophils 0.1 thou/uL (0.0-0.2); #Eosinphils 0.4 thou/uL (0.0-0.7); #Lymphocytes 2.1 thou/uL (1.20-3.40); #Monocytes 0.9 thou/uL (0.11-0.59); #Neutrophils 8.9 thou/uL (1.40-6.50); %Basophils 1.2 % (0.0-1.0); %Eosinophils 2.9 % (0.0-10.0); %Monocytes 6.9 % (0.0-10.0); %Neutrophils 72.1 % (42.0-75.0); Mean Corpuscular HGB CONC 33.6 g/dL (32.0-36.0); Mean Corpuscular Hemoglobin 33.2 pg (27.0-31.0); Mean Corpuscular Volume 98.9 fL (78.0-98.0); Mean Platelet Volume 6.6 fL (7.4-10.4); Platelet Count 323 thou/uL (130-400); RBC Distribution Width 13.7 % (11.5-14.5); Red Blood Cell (RBC) Count 2.42 mill/uL (4.20-5.40); White Blood Cell (WBC) Count 12.3 thou/uL (4.8-10.8)
[2020-10-01 06:36] LABS: Anion Gap 19 mmol/L (10-20); BUN (Urea Nitrogen) 66 mg/dL (7.0-18.7); Calc. Creatinine Clearance 19 mL/min (70-130); Calcium 8.5 mg/dL (7.8-10.44); Carbon Dioxide 19 mmol/L (22-29); Chloride 100 mmol/L (98-107); Glucose 205 mg/dL (70-105); Potassium 4.3 mmol/L (3.5-5.1); Sodium 134 mmol/L (136-145)
[2020-10-01] MEDS: Pantoprazole 40 MG VIAL IVP SCH (08:11)
[2020-10-01] MEDS: Ascorbic Acid 500 mg Chewable Tablet PO SCH ×2 (08:17→09:20)
[2020-10-01] MEDS: Folic Acid/Vit B Comp W-C PO SCH ×2 (08:17→09:20)
[2020-10-01] MEDS: Zinc Sulfate 220 MG CAP PO SCH ×2 (08:17→09:21)
[2020-10-01] MEDS: Cholecalciferol 1,000 UNITS (25 MCG) TAB PO SCH ×2 (08:17→09:20)
[2020-10-01] MEDS: HumuLIN 70/30 (300 UNITS/3 ML VIAL) SC SCH ×4 (08:18→17:58)
[2020-10-01] MEDS ORDERED: HumuLIN 70/30 (300 UNITS/3 ML VIAL) SC SCH (11:30)
--- NOTE | 2020-10-01 15:32 | PDOC.HOSPP ---
- Subjective Encounter Date: 10/01/20 Subjective: Patient seen and examined at bedside. No acute distress without any new complains. No further nausea or vomiting. Did have small amount of diarrhea this morning. Refers feeling better after blood transfusion. HD catheter has been placed now awaiting HD. Discussed case with CM; search for outpatient HD bed underway. - Objective Vital Signs & Weight: Vital Signs (12 hours) Temp Pulse Resp BP BP BP Pulse Ox 10/01/20 09:20 83 136/83 10/01/20 08:16 83 10/01/20 08:10 98 10/01/20 07:23 98.4 F 83 20 136/83 98 10/01/20 04:00 98.8 F 88 18 123/74 95 Weight Admit Weight 156 lb 8 oz Weight 186 lb 14.4 oz I&O: 09/30/20 10/01/20 10/02/20 06:59 06:59 06:59 Intake Total 600 400 Balance 600 400 Result Diagrams: 10/01/20 05:55 10/01/20 05:55 Additional Labs: Accuchecks 10/01/20 10/01/20 09/30/20 11:33 04:16 21:17 POC Glucose 259 H 183 H 231 H Hospitalist ROS - Review of Systems Constitutional: denies: fever, chills, sweats, weakness, malaise, other Respiratory: denies: cough, dry, shortness of breath, hemoptysis, SOB with excertion, pleuritic pain, sputum, wheezing, other Cardiovascular: reports: edema (Positive diffuse pitting edema, appears slighlty improved to stable). denies: chest pain, palpitations, orthopnea, paroxysmal noc. dyspnea, light headedness, other Musculoskeletal: denies: neck pain, shoulder pain, arm pain, back pain, hand pain, leg pain, foot pain, other - Medication Medications: Active Medications Generic Name Dose Route Start Last Admin Trade Name Freq PRN Reason Stop Dose Admin Acetaminophen 650 mg 09/07/20 11:14 10/01/20 05:37 Acetaminophen 325 Mg Tab PO 650 mg Q4H PRN Administration Headache/Fever/Mild Pain (1-3) Albuterol Sulfate 2 puff 09/12/20 22:57 09/16/20 00:18 Albuterol 200 Puff (6.7gm Inhaler) INH 2 puff Q4H PRN Administration SOB/WHEEZE Ascorbic Acid 1,000 mg 09/08/20 09:00 10/01/20 09:20 Ascorbic Acid 500 Mg Chewable Tablet PO 1,000 mg DAILY RACHEL Administration Cholecalciferol 2,000 units 09/21/20 09:00 10/01/20 09:20 Cholecalciferol 1,000 Units (25 Mcg) Tab PO 2,000 units DAILY RACHEL Administration Diltiazem HCl 240 mg 09/22/20 21:00 10/01/20 09:20 Diltiazem Hcl Cd 240 Mg Capsule PO 240 mg BID RACHEL Administration Epoetin Vincent-epbx 10,000 unit 09/28/20 09:15 09/28/20 16:05 Epoetin Vincent-Epbx (Esrd) 10,000 Unit/Ml Vial SC 10,000 unit Q7D RACHEL Administration Guaifenesin 200 mg 09/07/20 11:14 09/12/20 23:06 Diabetic Tussin 200 Mg/10 Ml Udcup PO 200 mg Q4H PRN Administration Cough Insulin Human Isoph/Insulin Regular 14 units 10/01/20 11:30 10/01/20 12:33 Humulin 70/30 (300 Units/3 Ml Vial) SC 14 unit AC RACHEL Administration Insulin Human Lispro 0 units 09/19/20 10:01 10/01/20 12:32 Humalog 300 Units/3 Ml Vial SC 6 unit .MODERATE SLIDING SC PRN Administration Moderate Correctional Scale Insulin Human Lispro 0 units 09/23/20 20:51 09/30/20 21:32 Humalog 300 Units/3 Ml Vial SC 2 unit .BEDTIME SLIDING SC PRN Administration Bedtime Correctional Scale Metoclopramide HCl 10 mg 09/21/20 18:00 10/01/20 12:32 Metoclopramide Hcl 10 Mg/2 Ml Vial IVP 10 mg Q6HR RACHEL Administration Ondansetron HCl 4 mg 09/19/20 11:19 09/30/20 12:03 Ondansetron Pf 4 Mg/2 Ml Vial IVP 4 mg Q4H PRN Administration Nausea/Vomiting Pantoprazole Sodium 40 mg 09/21/20 09:00 10/01/20 08:11 Pantoprazole 40 Mg Vial IVP 40 mg DAILY RACHEL Administration Sodium Chloride 10 ml 09/09/20 09:00 10/01/20 08:11 Flush - Normal Saline 10 Ml Syringe IVF 10 ml Q12HR RACHEL Administration Trazodone HCl 25 mg 09/15/20 20:20 09/28/20 21:32 Trazodone Hcl 50 Mg Tab PO 25 mg HSPRN PRN Administration Insomnia Vitamin B Complex/Vit C/Folic Acid 1 tab 09/29/20 09:00 10/01/20 09:20 Folic Acid/Vit B Comp W-C PO 1 tab DAILY RACHEL Administration Zinc Sulfate 220 mg 09/08/20 09:00 10/01/20 09:21 Zinc Sulfate 220 Mg Cap PO 220 mg DAILY RACHEL Administration - Exam General Appearance: NAD, awake alert Eye: PERRL, anicteric sclera ENT: normocephalic atraumatic, no oropharyngeal lesions, moist mucosa Heart: RRR, no murmur, no gallops, no rubs, normal peripheral pulses Respiratory: CTAB, no wheezes, no rales, no ronchi, normal chest expansion, no tachypnea, normal percussion Gastrointestinal: soft, non-tender, non-distended, normal bowel sounds, no palpable masses, no hepatomegaly, no splenomegaly, no bruit Extremities: no cyanosis, no clubbing, 2+ LE edema Neurological: cranial nerve grossly intact, normal sensation to touch, no weakness, no focal deficits, no new deficit Hosp A/P - Plan A/P: Patient with recent hx of COVID19 PNA currently being followed by nephrology for worsening renal failure. HD access placed on 09-30-20. # Fluid overload: In setting of renal dysfunction. Echocardiogram without evidence of significant pathology. Diffuse pitting edema with poor response to IV diuresis. HD catheter access to be placed on 09-30-20 for anticipation of HD. Diuretics have been discontinued at nephrology's advice. # Multifactorial anemia: Likely in setting of acute illness and renal dysfunction. Received transfusion of 1U PRBC. Initiated on Etacrip by nephrology. Hgb stable in the 8s. Hem/onc follows. # Uncontrolled DM: Certainly a contributor to her nephropathy. She was extensively counseled. Insulin regimen adjusted todaoy to Humulin 70/30 14U BID. # HTN: Continue with current management and careful observation of hemodynamics. # COVID19: Recent COVID19 PNA. Patient appears stable. Continue to monitor. # Nausea/vomiting/diarrhea: Per patient attributing symptoms to having taking her medications on an empty stomach due to NPO status. Denies any further N/V but did have small amount of diarrhea morning of 12-. Will continue to monitor. DISPOSITION: Persistent fluid overload. Nephrology managing with diuretics and planning to start HD.
[2020-10-01 18:12] LABS: #Basophils 0.1 thou/uL (0.0-0.2); #Eosinphils 0.6 thou/uL (0.0-0.7); #Monocytes 0.9 thou/uL (0.11-0.59); #Neutrophils 8.2 thou/uL (1.40-6.50); %Eosinophils 4.8 % (0.0-10.0); %Lymphocytes 17.2 % (21.0-51.0); %Monocytes 7.3 % (0.0-10.0); %Neutrophils 69.7 % (42.0-75.0); Hemoglobin 8.9 g/dL (12.0-16.0); Mean Corpuscular HGB CONC 33.5 g/dL (32.0-36.0); Mean Corpuscular Hemoglobin 32.7 pg (27.0-31.0); Mean Corpuscular Volume 97.7 fL (78.0-98.0); Mean Platelet Volume 6.1 fL (7.4-10.4); Platelet Count 341 thou/uL (130-400); RBC Distribution Width 13.6 % (11.5-14.5); Red Blood Cell (RBC) Count 2.73 mill/uL (4.20-5.40); White Blood Cell (WBC) Count 11.7 thou/uL (4.8-10.8)
[2020-10-01 18:29] LABS: Anion Gap 16 mmol/L (10-20); BUN (Urea Nitrogen) 40 mg/dL (7.0-18.7); Calc. Creatinine Clearance 29 mL/min (70-130); Calcium 8.7 mg/dL (7.8-10.44); Carbon Dioxide 23 mmol/L (22-29); Chloride 103 mmol/L (98-107); Glucose 171 mg/dL (70-105); Potassium 3.7 mmol/L (3.5-5.1); Sodium 138 mmol/L (136-145)
--- NOTE | 2020-10-01 18:35 | PRG ---
DATE OF SERVICE: 10/01/2020 Ms. Barone is doing well today. She feels better after initiating dialysis. She is followed by Dr. Ramirez. The patient ultrasound vein mapping suggested poor veins for a primary fistula. She is a good candidate for peritoneal dialysis. I will speak to Dr. Ramirez about considering her for peritoneal dialysis. In the future, if peritoneal dialysis is elected, we could explore left arm for primary fistula at the time we do PD catheter, but I would not place a prosthetic graft unless she chose hemodialysis exclusively. I have explained this to her and she is agreeable and has acquaintances in the past who has undergone dialysis and is open to consideration of peritoneal dialysis. Her definitive dialysis access will be done as an outpatient later either laparoscopic PD catheter and/or fistula. We will discuss with Dr. Ramirez. If the patient is discharged home, she can call my office to schedule outpatient laparoscopic PD catheter in left arm exploration for possible fistula without seeing me. Of course, she is welcome to see me in the office for further discussion if she desires. At this point, I will see her as needed this hospitalization. Please call if necessary. Job ID: [id number]
--- NOTE | 2020-10-01 18:48 | PRG ---
DATE OF SERVICE: 10/01/2020 OBJECTIVE: VITAL SIGNS: The patient noted with the following vital signs. Afebrile, temperature 98, pulse 83, respiratory rate of 20, O2 saturations 98%, blood pressure 136/83. HEENT: Unremarkable. CARDIOVASCULAR SYSTEM: First and second heart sounds were heard. RESPIRATORY SYSTEM: Clear to auscultation. DIGESTIVE SYSTEM: Revealed a benign abdomen. Positive bowel sounds. EXTREMITIES: Show some 3+ lower extremity edema. LABORATORY INVESTIGATION: Showed hemoglobin 8.9. Chemistry showed sodium 134, bicarb of 19, BUN of 66 with a creatinine of 5.02. IMPRESSION: 1. [id number] kidney disease, pretty much culminating into end-stage renal disease. 2. Mild hyponatremia. 3. Mild metabolic acidosis. 4. Anasarca/nephrotic syndrome. PLAN: 1. The patient to be initiated on hemodialysis today with ultrafiltration as tolerated by hemodynamics. 2. Now the patient is on dialysis. We will go ahead and discontinue sodium bicarb supplementation. 3. medical manager is already on the case as he relates to outpatient dialysis placement and disposition planning. 4. Further management to be dependent on the clinical course. Job ID: [id number]
[2020-10-02] MEDS: Metoclopramide HCl 10 MG/2 ML VIAL IVP SCH ×4 (05:50→23:30)
[2020-10-02] MEDS: HumuLIN 70/30 (300 UNITS/3 ML VIAL) SC SCH ×3 (13:10→17:22)
[2020-10-02] MEDS: Ascorbic Acid 500 mg Chewable Tablet PO SCH (13:11)
[2020-10-02] MEDS: Zinc Sulfate 220 MG CAP PO SCH (13:12)
[2020-10-02] MEDS: Cholecalciferol 1,000 UNITS (25 MCG) TAB PO SCH (13:12)
[2020-10-02] MEDS: Folic Acid/Vit B Comp W-C PO SCH (13:13)
[2020-10-02] MEDS: Pantoprazole 40 MG VIAL IVP SCH (13:15)
--- NOTE | 2020-10-02 14:53 | PDOC.EVN ---
Event Note - Event Note Event Note: Addendum to the medical records ESRD---Hemodialysis dependent ---Ab have the Peritoneal dialysis team do an option visit with the patient prior to her making an informed decision on the modality of dialysis treatment(Hemo vs Peritonela dialysis) she will settle with
--- NOTE | 2020-10-02 15:24 | PDOC.HOSPP ---
- Subjective Encounter Date: 10/02/20 Subjective: Seen at bedside in no acute distress. Continues to refer improvement. States she feels more energy and this is the first time she feels like working with PT. Observed to stand up and take some steps during session. No overnight events or acute complains. - Objective Vital Signs & Weight: Vital Signs (12 hours) Temp Pulse Resp BP BP BP BP 10/02/20 13:13 84 158/88 H 10/02/20 12:00 17 155/88 H 10/02/20 08:00 98.3 F 84 20 154/89 H 10/02/20 07:23 98.3 F 84 20 154/89 H Pulse Ox 10/02/20 13:13 10/02/20 12:00 96 10/02/20 08:00 96 10/02/20 07:23 96 Weight Admit Weight 156 lb 8 oz Weight 186 lb 14.4 oz I&O: 10/01/20 10/02/20 10/03/20 06:59 06:59 06:59 Intake Total 400 900 Output Total 1000 Balance 400 -100 Result Diagrams: 10/01/20 17:54 10/01/20 17:54 Additional Labs: Accuchecks 10/02/20 10/02/20 10/01/20 13:08 04:38 19:55 POC Glucose 188 H 116 H 130 H 10/01/20 17:57 POC Glucose 171 H Hospitalist ROS - Review of Systems Constitutional: denies: fever, chills, sweats, weakness, malaise, other Respiratory: denies: cough, dry, shortness of breath, hemoptysis, SOB with excertion, pleuritic pain, sputum, wheezing, other Cardiovascular: denies: chest pain, palpitations, orthopnea, paroxysmal noc. dyspnea, edema, light headedness, other Gastrointestinal: denies: nausea, vomiting, abdominal pain, diarrhea, constipation, melena, hematochezia, other Musculoskeletal: denies: neck pain, shoulder pain, arm pain, back pain, hand pain, leg pain, foot pain, other Neurological: denies: weakness, numbness, incoordination, change in speech, confusion, seizures, other - Medication Medications: Active Medications Generic Name Dose Route Start Last Admin Trade Name Freq PRN Reason Stop Dose Admin Acetaminophen 650 mg 09/07/20 11:14 10/01/20 23:50 Acetaminophen 325 Mg Tab PO 650 mg Q4H PRN Administration Headache/Fever/Mild Pain (1-3) Albuterol Sulfate 2 puff 09/12/20 22:57 09/16/20 00:18 Albuterol 200 Puff (6.7gm Inhaler) INH 2 puff Q4H PRN Administration SOB/WHEEZE Ascorbic Acid 1,000 mg 09/08/20 09:00 10/02/20 13:11 Ascorbic Acid 500 Mg Chewable Tablet PO 1,000 mg DAILY RACHEL Administration Cholecalciferol 2,000 units 09/21/20 09:00 10/02/20 13:12 Cholecalciferol 1,000 Units (25 Mcg) Tab PO 2,000 units DAILY RACHEL Administration Diltiazem HCl 240 mg 09/22/20 21:00 10/02/20 13:13 Diltiazem Hcl Cd 240 Mg Capsule PO Not Given BID RACHEL Epoetin Vincent-epbx 10,000 unit 09/28/20 09:15 09/28/20 16:05 Epoetin Vincent-Epbx (Esrd) 10,000 Unit/Ml Vial SC 10,000 unit Q7D RACHEL Administration Guaifenesin 200 mg 09/07/20 11:14 09/12/20 23:06 Diabetic Tussin 200 Mg/10 Ml Udcup PO 200 mg Q4H PRN Administration Cough Insulin Human Isoph/Insulin Regular 14 units 10/01/20 11:30 10/02/20 13:16 Humulin 70/30 (300 Units/3 Ml Vial) SC 14 unit AC RACHEL Administration Insulin Human Lispro 0 units 09/19/20 10:01 10/01/20 17:58 Humalog 300 Units/3 Ml Vial SC 2 unit .MODERATE SLIDING SC PRN Administration Moderate Correctional Scale Insulin Human Lispro 0 units 09/23/20 20:51 09/30/20 21:32 Humalog 300 Units/3 Ml Vial SC 2 unit .BEDTIME SLIDING SC PRN Administration Bedtime Correctional Scale Metoclopramide HCl 10 mg 09/21/20 18:00 10/02/20 13:32 Metoclopramide Hcl 10 Mg/2 Ml Vial IVP 10 mg Q6HR RACHEL Administration Ondansetron HCl 4 mg 09/19/20 11:19 09/30/20 12:03 Ondansetron Pf 4 Mg/2 Ml Vial IVP 4 mg Q4H PRN Administration Nausea/Vomiting Pantoprazole Sodium 40 mg 09/21/20 09:00 10/02/20 13:15 Pantoprazole 40 Mg Vial IVP 40 mg DAILY RACHEL Administration Sodium Chloride 10 ml 09/09/20 09:00 10/02/20 13:14 Flush - Normal Saline 10 Ml Syringe IVF 10 ml Q12HR RACHEL Administration Trazodone HCl 25 mg 09/15/20 20:20 09/28/20 21:32 Trazodone Hcl 50 Mg Tab PO 25 mg HSPRN PRN Administration Insomnia Vitamin B Complex/Vit C/Folic Acid 1 tab 09/29/20 09:00 10/02/20 13:13 Folic Acid/Vit B Comp W-C PO 1 tab DAILY RACHEL Administration Zinc Sulfate 220 mg 09/08/20 09:00 10/02/20 13:12 Zinc Sulfate 220 Mg Cap PO 220 mg DAILY RACHEL Administration - Exam General Appearance: NAD, awake alert Heart: RRR, no murmur, no gallops, no rubs, normal peripheral pulses Respiratory: CTAB, no wheezes, no rales, no ronchi, normal chest expansion, no tachypnea, normal percussion Gastrointestinal: soft, non-tender, non-distended, normal bowel sounds, no palpable masses, no hepatomegaly, no splenomegaly, no bruit Neurological: cranial nerve grossly intact, normal sensation to touch, no weakness, no focal deficits, no new deficit Musculoskeletal: normal tone, normal strength, no muscle wasting Hosp A/P - Plan A/P: Patient with recent hx of COVID19 PNA currently being followed by nephrology for worsening renal failure. HD access placed on 09-30-20. # Fluid overload: In setting of renal dysfunction. Echocardiogram without evidence of significant pathology. Diffuse pitting edema with poor response to IV diuresis. Refers improvement with HD. Exploring outpatient HD options. # Multifactorial anemia: Likely in setting of acute illness and renal dysfunction. Received transfusion of 1U PRBC. Initiated on Etacrip by nephrology. Hgb stable in the 8s. Recheck CBC in AM. # Uncontrolled DM: Better controlled after insulin regimen adjusted to Humulin 70/30 14U BID. # HTN: Continue with current management and careful observation of hemodynamics. # COVID19: Recent COVID19 PNA. Patient appears stable. Continue to monitor. # Nausea/vomiting/diarrhea: Resolved. DISPOSITION: Persistent fluid overload improving with HD. Continue with above therapy.
[2020-10-02] MEDS ORDERED: CEFAZOLIN 2 GM in Premix Bag 1 BAG IVPB SCH (15:30)
--- NOTE | 2020-10-02 15:33 | PRG ---
DATE OF SERVICE: 10/02/2020 SUBJECTIVE: Concetta Barone is doing well today. Plan is for left arm fistula. I tried to schedule that over the next week, but there was no OR time available. We will plan that Monday. She understands risks and benefits, consents. Avoid hemodialysis on Monday. PLAN: Left arm fistula, general or regional, Monday. Job ID: [id number]
--- NOTE | 2020-10-02 16:08 | PRG ---
DATE OF SERVICE: 10/02/2020 SUBJECTIVE: The patient noted with the following vital signs. OBJECTIVE: VITAL SIGNS: Afebrile, temperature 98.3, pulse 84, respiratory rate of 20, O2 saturations of 96%, and blood pressure 154/89. HEENT: Unremarkable. CARDIOVASCULAR SYSTEM: First and second heart sounds were heard. RESPIRATORY SYSTEM: Clear to auscultation. DIGESTIVE SYSTEM: Revealed a benign abdomen. EXTREMITIES: Show 2+ bilateral lower extremity edema. The patient seems to be doing well while on dialysis. IMPRESSION: 1. End-stage renal disease, on hemodialysis. 2. Anasarca/nephrotic syndrome. 3. Anemia of chronic kidney disease. 4. Metabolic acidosis, resolved. PLAN: 1. The patient currently undergoing escalating doses of dialysis. We will dialyze this patient tomorrow and skip Monday and continue from Monday. 2. people manager is working on the outpatient dialysis placement. 3. We will get the peritoneal dialysis team to do an optional visit with this patient as the patient wants to make an informed decision as it relates to different modalities of dialysis including hemodialysis and peritoneal dialysis. 4. Further management will depend on the clinical course and further decision by the patient. Job ID: [id number]
[2020-10-03] MEDS: Acetaminophen 325 MG TAB PO PRN ×2 (04:20→11:30)
[2020-10-03] MEDS: Metoclopramide HCl 10 MG/2 ML VIAL IVP SCH ×4 (05:00→23:55)
[2020-10-03 05:50] LABS: Anion Gap 13 mmol/L (10-20); BUN (Urea Nitrogen) 26 mg/dL (7.0-18.7); Calc. Creatinine Clearance 34 mL/min (70-130); Carbon Dioxide 24 mmol/L (22-29); Chloride 101 mmol/L (98-107); Glucose 117 mg/dL (70-105); Sodium 134 mmol/L (136-145)
[2020-10-03] MEDS ORDERED: READ PPD TEST SITE PO SCH (06:00)
[2020-10-03 06:45] LABS: #Basophils 0.1 thou/uL (0.0-0.2); #Eosinphils 0.7 thou/uL (0.0-0.7); #Lymphocytes 2.6 thou/uL (1.20-3.40); #Monocytes 0.8 thou/uL (0.11-0.59); #Neutrophils 4.6 thou/uL (1.40-6.50); %Basophils 1.4 % (0.0-1.0); %Eosinophils 7.9 % (0.0-10.0); %Monocytes 9.4 % (0.0-10.0); %Neutrophils 52.3 % (42.0-75.0); Hemoglobin 7.8 g/dL (12.0-16.0); Mean Platelet Volume 6.1 fL (7.4-10.4); Platelet Count 255 thou/uL (130-400); Red Blood Cell (RBC) Count 2.37 mill/uL (4.20-5.40); White Blood Cell (WBC) Count 8.8 thou/uL (4.8-10.8)
--- NOTE | 2020-10-03 07:48 | PDOC.HOSPP ---
- Subjective Encounter Date: 10/03/20 Subjective: Patient seen and examined this morning at bedside. Denies any new complains or overnight events. Refers significant improvement on her swelling and overall energy. Seems very motivated to continue with her therapy. Per review or records patient awaiting for left arm fistula on Monday. Patient did mention today that the plan per nephrology is to still have a discussion about PD. Planning for HD on 10-03-20 to skip 10-04-20 session. - Objective Vital Signs & Weight: Vital Signs (12 hours) Temp Pulse Resp BP BP Pulse Ox 10/03/20 04:30 98.5 F 85 17 142/86 H 95 10/02/20 23:56 98.3 F 88 20 110/72 94 L 10/02/20 20:10 96 Weight Admit Weight 156 lb 8 oz Weight 184 lb 14.4 oz I&O: 10/02/20 10/03/20 10/04/20 06:59 06:59 06:59 Intake Total 900 450 Output Total 1000 Balance -100 450 Result Diagrams: 10/03/20 06:28 10/03/20 04:50 Additional Labs: Accuchecks 10/03/20 10/02/20 10/02/20 05:06 20:29 18:53 POC Glucose 116 H 113 H 175 H 10/02/20 10/02/20 10/01/20 16:15 13:08 17:57 POC Glucose 254 H 188 H 171 H Hospitalist ROS - Review of Systems Constitutional: denies: fever, chills, sweats, weakness, malaise, other Respiratory: denies: cough, dry, shortness of breath, hemoptysis, SOB with excertion, pleuritic pain, sputum, wheezing, other Cardiovascular: reports: edema (Improving pitting edema with HD). denies: chest pain, palpitations, orthopnea, paroxysmal noc. dyspnea, light headedness, other Gastrointestinal: denies: nausea, vomiting, abdominal pain, diarrhea, constipation, melena, hematochezia, other Genitourinary: denies: dysuria, frequency, incontinence, hematuria, retention, other Musculoskeletal: denies: neck pain, shoulder pain, arm pain, back pain, hand pain, leg pain, foot pain, other Neurological: denies: weakness, numbness, incoordination, change in speech, confusion, seizures, other - Medication Medications: Active Medications Generic Name Dose Route Start Last Admin Trade Name Freq PRN Reason Stop Dose Admin Acetaminophen 650 mg 09/07/20 11:14 10/03/20 04:20 Acetaminophen 325 Mg Tab PO 650 mg Q4H PRN Administration Headache/Fever/Mild Pain (1-3) Albuterol Sulfate 2 puff 09/12/20 22:57 09/16/20 00:18 Albuterol 200 Puff (6.7gm Inhaler) INH 2 puff Q4H PRN Administration SOB/WHEEZE Ascorbic Acid 1,000 mg 09/08/20 09:00 10/02/20 13:11 Ascorbic Acid 500 Mg Chewable Tablet PO 1,000 mg DAILY RACHEL Administration Cholecalciferol 2,000 units 09/21/20 09:00 10/02/20 13:12 Cholecalciferol 1,000 Units (25 Mcg) Tab PO 2,000 units DAILY RACHEL Administration Diltiazem HCl 240 mg 09/22/20 21:00 10/02/20 20:10 Diltiazem Hcl Cd 240 Mg Capsule PO 240 mg BID RACHEL Administration Epoetin Vincent-epbx 10,000 unit 09/28/20 09:15 09/28/20 16:05 Epoetin Vincent-Epbx (Esrd) 10,000 Unit/Ml Vial SC 10,000 unit Q7D RACHEL Administration Guaifenesin 200 mg 09/07/20 11:14 09/12/20 23:06 Diabetic Tussin 200 Mg/10 Ml Udcup PO 200 mg Q4H PRN Administration Cough Insulin Human Isoph/Insulin Regular 14 units 10/01/20 11:30 10/02/20 17:22 Humulin 70/30 (300 Units/3 Ml Vial) SC 14 unit AC RACHEL Administration Insulin Human Lispro 0 units 09/19/20 10:01 10/01/20 17:58 Humalog 300 Units/3 Ml Vial SC 2 unit .MODERATE SLIDING SC PRN Administration Moderate Correctional Scale Insulin Human Lispro 0 units 09/23/20 20:51 09/30/20 21:32 Humalog 300 Units/3 Ml Vial SC 2 unit .BEDTIME SLIDING SC PRN Administration Bedtime Correctional Scale Metoclopramide HCl 10 mg 09/21/20 18:00 10/03/20 05:00 Metoclopramide Hcl 10 Mg/2 Ml Vial IVP 10 mg Q6HR RACHEL Administration Ondansetron HCl 4 mg 09/19/20 11:19 09/30/20 12:03 Ondansetron Pf 4 Mg/2 Ml Vial IVP 4 mg Q4H PRN Administration Nausea/Vomiting Pantoprazole Sodium 40 mg 09/21/20 09:00 10/02/20 13:15 Pantoprazole 40 Mg Vial IVP 40 mg DAILY RACHEL Administration Sodium Chloride 10 ml 09/09/20 09:00 10/02/20 20:14 Flush - Normal Saline 10 Ml Syringe IVF 10 ml Q12HR RACHEL Administration Trazodone HCl 25 mg 09/15/20 20:20 09/28/20 21:32 Trazodone Hcl 50 Mg Tab PO 25 mg HSPRN PRN Administration Insomnia Vitamin B Complex/Vit C/Folic Acid 1 tab 09/29/20 09:00 10/02/20 13:13 Folic Acid/Vit B Comp W-C PO 1 tab DAILY RACHEL Administration Zinc Sulfate 220 mg 09/08/20 09:00 10/02/20 13:12 Zinc Sulfate 220 Mg Cap PO 220 mg DAILY RACHEL Administration - Exam General Appearance: NAD, awake alert Eye: PERRL, anicteric sclera ENT: normocephalic atraumatic, no oropharyngeal lesions, moist mucosa Neck: supple, symmetric, no JVD, no thyromegaly, no lymphadenopathy, no carotid bruit Heart: RRR, no murmur, no gallops, no rubs, normal peripheral pulses Respiratory: CTAB, no wheezes, no rales, no ronchi, normal chest expansion, no tachypnea, normal percussion Gastrointestinal: soft, non-tender, non-distended, normal bowel sounds, no palpable masses, no hepatomegaly, no splenomegaly, no bruit Extremities: 1+ LE edema (Improving peripheral edema) Neurological: cranial nerve grossly intact, normal sensation to touch, no weakness, no focal deficits, no new deficit Musculoskeletal: normal tone, normal strength, no muscle wasting Psychiatric: normal affect, normal behavior, A&O x 3 Hosp A/P - Plan old records reviewed/req A/P: Patient with recent hx of COVID19 PNA currently being followed by nephrology for worsening renal failure. HD access placed on 09-30-20. # Fluid overload: In setting of renal dysfunction. Echocardiogram without evidence of significant pathology. Diffuse pitting edema with poor response to IV diuresis now with great response to HD. Surgery planning for left arm fistula on 10-04-20. Exploring outpatient HD options. # Multifactorial anemia: Likely in setting of acute illness and renal dysfunction. Received transfusion of 1U PRBC. Initiated on Etacrip by nephrology. Hgb stable has slight trend down to 7.8. Recheck CBC in AM. May need another transfusion in AM. # Uncontrolled DM: Better controlled after insulin regimen adjusted to Humulin 70/30 14U BID. # HTN: Continue with current management and careful observation of hemodynamics. # COVID19: Recent COVID19 PNA. Patient appears stable. Continue to monitor. # Nausea/vomiting/diarrhea: Resolved. DISPOSITION: Fluid overload with good response to HD. Continue with above therapy.
[2020-10-03] MEDS: Ascorbic Acid 500 mg Chewable Tablet PO SCH (11:31)
[2020-10-03] MEDS: HumuLIN 70/30 (300 UNITS/3 ML VIAL) SC SCH ×3 (11:31→18:14)
[2020-10-03] MEDS: Cholecalciferol 1,000 UNITS (25 MCG) TAB PO SCH (11:32)
[2020-10-03] MEDS: Pantoprazole 40 MG VIAL IVP SCH (11:33)
[2020-10-03] MEDS: Folic Acid/Vit B Comp W-C PO SCH (11:33)
[2020-10-03] MEDS: Zinc Sulfate 220 MG CAP PO SCH (11:35)
[2020-10-03] MEDS ORDERED: Heparin 10,000 UNITS/ 10 ML VIAL ONE (12:47)
--- NOTE | 2020-10-03 12:53 | PRG ---
DATE OF SERVICE: 10/03/2020 OBJECTIVE: VITAL SIGNS: The patient noted with the following vital signs; afebrile, temperature 97.7, pulse 88, respiratory rate of 19, O2 saturations of 94%, blood pressure 150/89. HEENT: Unremarkable. CARDIOVASCULAR SYSTEM: First and second heart sounds were heard. RESPIRATORY SYSTEM: Clear to auscultation. DIGESTIVE SYSTEM: Revealed a benign abdomen. EXTREMITIES: Showed improving peripheral edema. IMPRESSION: 1. End-stage renal disease, on hemodialysis. 2. Nephrotic syndrome in the context of possible diabetic nephropathy. 3. Anasarca. 4. Hypertension. PLAN: 1. We will continue with hemodialysis today with ultrafiltration as tolerated by hemodynamics. 2. Skip dialysis tomorrow and plan for dialysis on Monday. 3. Possible long-term fistula placements tomorrow. 4. Further management to be dependent on the clinical course. Job ID: [id number]
[2020-10-03] MEDS: hydrALAZINE 20 MG/ML VIAL SLOW IVP PRN (18:06)
[2020-10-04] MEDS: Metoclopramide HCl 10 MG/2 ML VIAL IVP SCH (03:44)
[2020-10-04] MEDS: hydrALAZINE 20 MG/ML VIAL SLOW IVP PRN ×2 (04:38→14:05)
[2020-10-04 04:57] LABS: #Basophils 0.1 thou/uL (0.0-0.2); #Eosinphils 0.6 thou/uL (0.0-0.7); #Lymphocytes 2.1 thou/uL (1.20-3.40); #Monocytes 0.6 thou/uL (0.11-0.59); %Basophils 1.7 % (0.0-1.0); %Eosinophils 6.8 % (0.0-10.0); %Lymphocytes 25.2 % (21.0-51.0); %Monocytes 6.9 % (0.0-10.0); %Neutrophils 59.4 % (42.0-75.0); Hemoglobin 8.4 g/dL (12.0-16.0); Mean Corpuscular HGB CONC 32.2 g/dL (32.0-36.0); Mean Corpuscular Hemoglobin 31.8 pg (27.0-31.0); Mean Corpuscular Volume 98.5 fL (78.0-98.0); Platelet Count 252 thou/uL (130-400); RBC Distribution Width 13.8 % (11.5-14.5); Red Blood Cell (RBC) Count 2.64 mill/uL (4.20-5.40); White Blood Cell (WBC) Count 8.5 thou/uL (4.8-10.8)
[2020-10-04 05:17] LABS: Anion Gap 12 mmol/L (10-20); BUN (Urea Nitrogen) 18 mg/dL (7.0-18.7); Calc. Creatinine Clearance 44 mL/min (70-130); Calcium 8.5 mg/dL (7.8-10.44); Carbon Dioxide 28 mmol/L (22-29); Chloride 101 mmol/L (98-107); Glucose 222 mg/dL (70-105); Potassium 3.9 mmol/L (3.5-5.1); Sodium 137 mmol/L (136-145)
[2020-10-04] MEDS ORDERED: Fentanyl 100 MCG/2 ML VIAL ONE (07:14)
[2020-10-04] MEDS ORDERED: Bupivacaine PF 0.5% 30 ML VIAL ONE (07:23)
[2020-10-04] MEDS ORDERED: Bupivacaine 0.25% HCL 30 ML VIAL ONE ×2 (07:23→07:28)
[2020-10-04] MEDS ORDERED: Heparin 25,000 units/D5W 0 ML ONE (07:23)
[2020-10-04] MEDS ORDERED: Heparin 5,000 UNITS/ML VIAL ONE ×2 (07:23→08:57)
[2020-10-04] MEDS ORDERED: Lidocaine 1% w/Epinephrine 1:100K 20 ML VIAL ONE (07:23)
[2020-10-04] MEDS ORDERED: Lidocaine 2% PF 5 ML VIAL ONE (07:28)
[2020-10-04] MEDS ORDERED: Ioversol 68 % 50 ML VIAL ONE (07:28)
[2020-10-04] MEDS ORDERED: Protamine Sulfate 50 MG/5 ML VIAL ONE (07:28)
--- NOTE | 2020-10-04 07:54 | PDOC.HOSPP ---
- Subjective Encounter Date: 10/04/20 Subjective: Patient seen and examined today after undergoing left arm fistula & placement of peritoneal dialysis catheter. Tolerated procedure well with no reported complications. Refers feeling slightly tired and having some nausea after procedure but no other complains. Holding HD today 10-04-20. - Objective Vital Signs & Weight: Vital Signs (12 hours) Temp Pulse Resp BP BP BP Pulse Ox 10/04/20 07:49 98.1 F 98 18 145/80 H 94 L 10/04/20 05:11 144/79 H 10/04/20 04:38 93 179/102 H 10/04/20 04:00 98.9 F 93 20 96 10/04/20 00:00 98.9 F 101 H 20 149/84 H 93 L 10/03/20 20:22 70 Weight Admit Weight 156 lb 8 oz Weight 184 lb 14.4 oz I&O: 10/03/20 10/04/20 10/05/20 06:59 06:59 06:59 Intake Total 450 Balance 450 Result Diagrams: 10/04/20 04:44 10/04/20 04:44 Additional Labs: Accuchecks 10/03/20 10/03/20 10/03/20 18:02 13:01 10:51 POC Glucose 148 H 211 H 154 H Hospitalist ROS - Review of Systems Constitutional: denies: fever, chills, sweats, weakness, malaise, other Respiratory: denies: cough, dry, shortness of breath, hemoptysis, SOB with excertion, pleuritic pain, sputum, wheezing, other Gastrointestinal: denies: nausea, vomiting, abdominal pain, diarrhea, constipation, melena, hematochezia, other Genitourinary: denies: dysuria, frequency, incontinence, hematuria, retention, other Neurological: denies: weakness, numbness, incoordination, change in speech, c onfusion, seizures, other - Medication Medications: Active Medications Generic Name Dose Route Start Last Admin Trade Name Freq PRN Reason Stop Dose Admin Acetaminophen 650 mg 09/07/20 11:14 10/03/20 11:30 Acetaminophen 325 Mg Tab PO 650 mg Q4H PRN Administration Headache/Fever/Mild Pain (1-3) Albuterol Sulfate 2 puff 09/12/20 22:57 11/25/20 00:18 Albuterol 200 Puff (6.7gm Inhaler) INH 2 puff Q4H PRN Administration SOB/WHEEZE Ascorbic Acid 1,000 mg 09/08/20 09:00 10/03/20 11:31 Ascorbic Acid 500 Mg Chewable Tablet PO Not Given DAILY RACHEL Cholecalciferol 2,000 units 09/21/20 09:00 10/03/20 11:32 Cholecalciferol 1,000 Units (25 Mcg) Tab PO Not Given DAILY RACHEL Diltiazem HCl 240 mg 09/22/20 21:00 10/03/20 20:22 Diltiazem Hcl Cd 240 Mg Capsule PO Not Given BID RACHEL Epoetin Vincent-epbx 10,000 unit 09/28/20 09:15 09/28/20 16:05 Epoetin Vincent-Epbx (Esrd) 10,000 Unit/Ml Vial SC 10,000 unit Q7D RACHEL Administration Guaifenesin 200 mg 09/07/20 11:14 09/12/20 23:06 Diabetic Tussin 200 Mg/10 Ml Udcup PO 200 mg Q4H PRN Administration Cough Hydralazine HCl 10 mg 09/19/20 12:43 10/04/20 04:38 Hydralazine 20 Mg/Ml Vial SLOW IVP 10 mg Q4H PRN Administration Blood Pressure SBP>150 Insulin Human Isoph/Insulin Regular 14 units 10/01/20 11:30 10/03/20 18:14 Humulin 70/30 (300 Units/3 Ml Vial) SC 14 unit AC RACHEL Administration Insulin Human Lispro 0 units 09/19/20 10:01 10/01/20 17:58 Humalog 300 Units/3 Ml Vial SC 2 unit .MODERATE SLIDING SC PRN Administration Moderate Correctional Scale Insulin Human Lispro 0 units 09/23/20 20:51 09/30/20 21:32 Humalog 300 Units/3 Ml Vial SC 2 unit .BEDTIME SLIDING SC PRN Administration Bedtime Correctional Scale Metoclopramide HCl 10 mg 09/21/20 18:00 10/04/20 03:44 Metoclopramide Hcl 10 Mg/2 Ml Vial IVP Not Given Q6HR RACHEL Ondansetron HCl 4 mg 09/19/20 11:19 09/30/20 12:03 Ondansetron Pf 4 Mg/2 Ml Vial IVP 4 mg Q4H PRN Administration Nausea/Vomiting Pantoprazole Sodium 40 mg 09/21/20 09:00 10/03/20 11:33 Pantoprazole 40 Mg Vial IVP Not Given DAILY RACHEL Sodium Chloride 10 ml 09/09/20 09:00 10/03/20 20:23 Flush - Normal Saline 10 Ml Syringe IVF Not Given Q12HR RACHEL Trazodone HCl 25 mg 09/15/20 20:20 09/28/20 21:32 Trazodone Hcl 50 Mg Tab PO 25 mg HSPRN PRN Administration Insomnia Vitamin B Complex/Vit C/Folic Acid 1 tab 09/29/20 09:00 10/03/20 11:33 Folic Acid/Vit B Comp W-C PO Not Given DAILY RACHEL Zinc Sulfate 220 mg 09/08/20 09:00 10/03/20 11:35 Zinc Sulfate 220 Mg Cap PO Not Given DAILY RACHEL - Exam General Appearance: NAD, awake alert Eye: PERRL, anicteric sclera ENT: normocephalic atraumatic, no oropharyngeal lesions, moist mucosa Neck: supple, symmetric, no JVD, no thyromegaly, no lymphadenopathy, no carotid bruit Heart: RRR, no murmur, no gallops, no rubs, normal peripheral pulses Respiratory: CTAB, no wheezes, no rales, no ronchi, normal chest expansion, no tachypnea, normal percussion Gastrointestinal: soft, non-tender, non-distended, normal bowel sounds, no palpable masses, no hepatomegaly, no splenomegaly, no bruit Gastrointestinal - other findings: Peritoneal catheter in place Extremities - other findings: S/p fistula to left arm Hosp A/P - Plan A/P: Patient with recent hx of COVID19 PNA currently being followed by nephrology for worsening renal failure. HD access placed on 09-30-20. # Fluid overload: In setting of renal dysfunction. Echocardiogram without evidence of significant pathology. Diffuse pitting edema with poor response to IV diuresis now with great response to HD. S/p peritoneal dialysis and left arm fistula on 10-04-20. Exploring outpatient HD options. # Renal dysfunction: Renal failure with fluid overload now HD dependent. S/p left arm fistula by surgery on 10-04-20. Fluid status improved with HD. No HD today 10-04-20. # Multifactorial anemia: Likely in setting of acute illness and renal dysfunction. Received transfusion of 1U PRBC. Initiated on Etacrip by nephrology. Hgb stable around 8. # Uncontrolled DM: Better controlled after insulin regimen adjusted to Humulin 70/30 14U BID. # HTN: Continue with current management and careful observation of hemodynamics. # COVID19: Recent COVID19 PNA. Patient appears stable. Continue to monitor. # Nausea/vomiting/diarrhea: Diarrhea has resolved. Having some nausea after today's 10-04-20 procedure. IV Zofran PRN. DISPOSITION: Fluid overload with good response to HD. Continue with above therapy. Needs outpatient plan for HD prior discharge.
[2020-10-04] MEDS ORDERED: traMADol HCl 50 MG TAB PO PRN (08:32)
[2020-10-04] MEDS ORDERED: Acetaminophen 500 MG TAB PO PRN (08:32)
[2020-10-04] MEDS ORDERED: HYDROmorphone 2 MG/ML VIAL SLOW IVP PRN (10:43)
[2020-10-04] MEDS ORDERED: Promethazine HCl 25 MG/ML VIAL SLOW IVP PRN (10:43)
[2020-10-04] MEDS ORDERED: Ondansetron HCl/PF 4 MG/2 ML Vial IVP PRN (10:43)
[2020-10-04] MEDS ORDERED: Promethazine HCl 25 MG/ML VIAL IM PRN (10:43)
--- NOTE | 2020-10-04 11:00 | OP ---
DATE OF PROCEDURE: 10/04/2020 PREOPERATIVE DIAGNOSES: End-stage renal disease, desires peritoneal dialysis and PICC line, left upper arm. POSTOPERATIVE DIAGNOSES: End-stage renal disease, desires peritoneal dialysis and PICC line, left upper arm. PROCEDURES PERFORMED: Laparoscopic peritoneal dialysis catheter, double cuffed pigtail. Note omentum adherent to the umbilicus and omentopexy not necessary. Left arm primary AV fistula, proximal radial artery to perforating branch of antecubital vein, outflow basilic and cephalic vein, upper arm, calibrated to a 3.5 mm coronary dilator. Note PICC line in right basilic vein this hospitalization. ANESTHESIA: General, local 0.5% Marcaine 30 mL mixed with 1% Xylocaine with epinephrine 20 mL. DESCRIPTION OF PROCEDURE: The patient was taken to the operating room, where under general anesthesia, abdomen and left upper extremity were prepared with ChloraPrep and draped in routine fashion. Bilateral subcostal lateral incision was made. Pneumoperitoneum to 15 mmHg obtained with Veress needle, replacing with a 5 port, contralateral 5 port placed under laparoscopic visualization. Omental adhesions to the umbilical area from prior surgery. Omentopexy not necessary. Left lower quadrant incision made at the planned exit site. Stab incision made and a counter incision made periumbilical superior to this and an 8 mm port laparoscopically placed directed caudally through the subcutaneous tissue, rectus sheath visualized laparoscopically penetrating the peritoneal cavity, posterior wall above the bladder, which was moderately full. Double cuffed pigtail catheter placed with the internal cuff placed in the rectus sheath and the catheter held in place as the port was removed, and using the [place] dissector, directed through the planned exit site to the counterincision, the catheter was grasped, pulled out, placed an external cuff beneath the skin incision and subcutaneous tissue was approximated with 3-0 Monocryl, skin with 4-0 Monocryl and [place] glue applied and peritoneal dialysis catheter flushed with heparinized saline solution, 1000 units of heparin per mL and connecting devices secured and sterile dressings applied. Pneumoperitoneum reduced. All instruments were removed and all skin incisions were approximated with interrupted subdermal 4-0 Monocryl. Dermabond applied. Attention was then turned to the left arm, where incision made in the proximal volar forearm below the antecubital fossa longitudinally, carried down through skin and subcutaneous tissue and a good-sized antecubital vein identified, dissected free. Perforating branch identified, dissected free. Branches were divided between 4-0 silk ties and clips and proximal radial artery dissected free and the patient given 6000 units of heparin intravenously. Perforating branch interrogated, spatulated over branch points, interrogated with coronary dilators, passing coronary dilators from 2 mm to 3.5 mm coronary dilator out the outflow tract without obstruction. In perforating branch, the cephalic vein anastomosed to the side of proximal radial artery with continuous suture of 6-0 Prolene, completing anastomosis, releasing vascular control and there were good Doppler signals in cephalic vein outflow. The patient tolerated the procedure well. Good hemostasis obtained. The patient given 25 mg of protamine intravenously by Anesthesia. Subcutaneous tissue was approximated with 3-0 Monocryl, skin with subdermal 4-0 Monocryl, and [place] glue applied. The patient tolerated the procedure well. Job ID: [id number]
[2020-10-04] MEDS ORDERED: Rocuronium Bromide 10 MG/ML (10ML VIAL) ONE (11:45)
[2020-10-04] MEDS ORDERED: Dexamethasone 20 MG/5 ML VIAL ONE (11:45)
[2020-10-04] MEDS ORDERED: Ondansetron PF 4 MG/2 ML Vial ONE (11:45)
[2020-10-04] MEDS ORDERED: PROPOFOL 200 MG/20 ML VIAL ONE (11:45)
[2020-10-04] MEDS ORDERED: Glycopyrrolate 0.2 MG/ML 5 ML SYRINGE ONE (11:45)
[2020-10-04] MEDS ORDERED: PHENYLEPHRINE-NS 100 MCG/ML 10 ML SYRINGE ONE (11:45)
[2020-10-04] MEDS ORDERED: Lidocaine 1% PF 5 ML VIAL ONE (11:45)
[2020-10-04] MEDS: HumuLIN 70/30 (300 UNITS/3 ML VIAL) SC SCH ×3 (14:01→18:14)
[2020-10-04] MEDS: Ascorbic Acid 500 mg Chewable Tablet PO SCH (14:03)
[2020-10-04] MEDS: Cholecalciferol 1,000 UNITS (25 MCG) TAB PO SCH (14:03)
[2020-10-04] MEDS: Folic Acid/Vit B Comp W-C PO SCH (14:03)
[2020-10-04] MEDS: Zinc Sulfate 220 MG CAP PO SCH (14:04)
[2020-10-04] MEDS: Ondansetron PF 4 MG/2 ML Vial IVP PRN (18:14)
[2020-10-04] MEDS: HumaLOG 300 UNITS/3 ML VIAL SC PRN (22:26)
[2020-10-05] MEDS: traZODone HCl 50 MG TAB PO PRN
[2020-10-05] MEDS ORDERED: HYDROcodone/Acetaminophen 5/325 mg Tablet PO PRN (00:20)
[2020-10-05] MEDS: HYDROcodone/Acetaminophen 5/325 mg Tablet PO PRN ×2 (00:31→22:31)
[2020-10-05] MEDS: HumaLOG 300 UNITS/3 ML VIAL SC PRN ×2 (05:49→17:18)
[2020-10-05 06:14] LABS: #Basophils 0.1 thou/uL (0.0-0.2); #Eosinphils 0.1 thou/uL (0.0-0.7); #Lymphocytes 2.4 thou/uL (1.20-3.40); #Monocytes 0.7 thou/uL (0.11-0.59); #Neutrophils 5.8 thou/uL (1.40-6.50); %Basophils 1.1 % (0.0-1.0); %Eosinophils 0.6 % (0.0-10.0); %Lymphocytes 26.8 % (21.0-51.0); %Monocytes 7.4 % (0.0-10.0); %Neutrophils 64.2 % (42.0-75.0); Hemoglobin 7.9 g/dL (12.0-16.0); Mean Corpuscular HGB CONC 32.3 g/dL (32.0-36.0); Mean Corpuscular Hemoglobin 32.5 pg (27.0-31.0); Mean Platelet Volume 6.4 fL (7.4-10.4); Platelet Count 244 thou/uL (130-400); RBC Distribution Width 13.9 % (11.5-14.5); Red Blood Cell (RBC) Count 2.44 mill/uL (4.20-5.40); White Blood Cell (WBC) Count 9.1 thou/uL (4.8-10.8)
[2020-10-05 06:35] LABS: Anion Gap 16 mmol/L (10-20); BUN (Urea Nitrogen) 26 mg/dL (7.0-18.7); Calc. Creatinine Clearance 31 mL/min (70-130); Calcium 8.1 mg/dL (7.8-10.44); Carbon Dioxide 23 mmol/L (22-29); Chloride 101 mmol/L (98-107); Glucose 215 mg/dL (70-105); Potassium 4.4 mmol/L (3.5-5.1); Sodium 136 mmol/L (136-145)
[2020-10-05] MEDS: Ondansetron PF 4 MG/2 ML Vial IVP PRN (07:31)
[2020-10-05] MEDS: HumuLIN 70/30 (300 UNITS/3 ML VIAL) SC SCH ×3 (07:38→17:17)
[2020-10-05] MEDS: Cholecalciferol 1,000 UNITS (25 MCG) TAB PO SCH ×2 (07:39→13:25)
[2020-10-05] MEDS: Ascorbic Acid 500 mg Chewable Tablet PO SCH ×2 (07:39→13:25)
--- NOTE | 2020-10-05 08:41 | PDOC.HOSPP ---
- Subjective Encounter Date: 10/05/20 Encounter Time: 12:00 Subjective: Patient with some nausea and abdominal soreness since PD cath placement yesterday, improved today. No other complaints. Getting HD currently. - Objective Vital Signs & Weight: Vital Signs (12 hours) Temp Pulse Resp BP BP BP Pulse Ox 10/05/20 08:00 98.1 F 92 18 124/71 95 10/05/20 07:39 82 10/05/20 04:00 98.3 F 82 16 94/57 L 90 L 10/04/20 23:53 98.6 F 98 20 102/65 98 10/04/20 22:30 90 18 95 Weight Admit Weight 156 lb 8 oz Weight 184 lb 14.4 oz I&O: 10/04/20 10/05/20 10/06/20 06:59 06:59 06:59 Intake Total 640 Balance 640 Result Diagrams: 10/05/20 05:50 10/05/20 05:50 Additional Labs: Accuchecks 10/04/20 10/04/20 21:11 12:50 POC Glucose 284 H 249 H Hospitalist ROS - Review of Systems Constitutional: denies: fever, chills Respiratory: denies: cough, shortness of breath Cardiovascular: denies: chest pain, palpitations Gastrointestinal: reports: nausea, abdominal pain. denies: vomiting - Medication Medications: Active Medications Generic Name Dose Route Start Last Admin Trade Name Freq PRN Reason Stop Dose Admin Acetaminophen 1,000 mg 10/04/20 08:32 10/04/20 20:24 Acetaminophen 500 Mg Tab PO 1,000 mg Q6H PRN Administration Mild-Moderate Pain (1-5) Hydrocodone Bitart/Acetaminophen 1 tab 10/05/20 00:20 10/05/20 00:31 Hydrocodone/Acetaminophen 5/325 Mg Tablet PO 1 tab Q4H PRN Administration Moderate Pain (4-6) Albuterol Sulfate 2 puff 09/12/20 22:57 09/16/20 00:18 Albuterol 200 Puff (6.7gm Inhaler) INH 2 puff Q4H PRN Administration SOB/WHEEZE Ascorbic Acid 1,000 mg 09/08/20 09:00 10/05/20 07:39 Ascorbic Acid 500 Mg Chewable Tablet PO Not Given DAILY RACHEL Cholecalciferol 2,000 units 09/21/20 09:00 10/05/20 07:39 Cholecalciferol 1,000 Units (25 Mcg) Tab PO Not Given DAILY RACHEL Diltiazem HCl 240 mg 09/22/20 21:00 10/05/20 07:39 Diltiazem Hcl Cd 240 Mg Capsule PO Not Given BID RACHEL Epoetin Vincent-epbx 10,000 unit 09/28/20 09:15 09/28/20 16:05 Epoetin Vincent-Epbx (Esrd) 10,000 Unit/Ml Vial SC 10,000 unit Q7D RACHEL Administration Guaifenesin 200 mg 09/07/20 11:14 09/12/20 23:06 Diabetic Tussin 200 Mg/10 Ml Udcup PO 200 mg Q4H PRN Administration Cough Hydralazine HCl 10 mg 09/19/20 12:43 10/04/20 14:05 Hydralazine 20 Mg/Ml Vial SLOW IVP 10 mg Q4H PRN Administration Blood Pressure SBP>150 Insulin Human Isoph/Insulin Regular 14 units 10/01/20 11:30 10/05/20 07:38 Humulin 70/30 (300 Units/3 Ml Vial) SC Not Given AC RACHEL Insulin Human Lispro 0 units 09/19/20 10:01 10/05/20 05:49 Humalog 300 Units/3 Ml Vial SC 4 unit .MODERATE SLIDING SC PRN Administration Moderate Correctional Scale Insulin Human Lispro 0 units 09/23/20 20:51 10/04/20 22:26 Humalog 300 Units/3 Ml Vial SC 3 unit .BEDTIME SLIDING SC PRN Administration Bedtime Correctional Scale Ondansetron HCl 4 mg 09/19/20 11:19 10/05/20 07:31 Ondansetron Pf 4 Mg/2 Ml Vial IVP 4 mg Q4H PRN Administration Nausea/Vomiting Sodium Chloride 10 ml 09/09/20 09:00 10/05/20 07:40 Flush - Normal Saline 10 Ml Syringe IVF 10 ml Q12HR RACHEL Administration Trazodone HCl 25 mg 09/15/20 20:20 10/05/20 00:00 Trazodone Hcl 50 Mg Tab PO 25 mg HSPRN PRN Administration Insomnia Vitamin B Complex/Vit C/Folic Acid 1 tab 09/29/20 09:00 10/04/20 14:03 Folic Acid/Vit B Comp W-C PO Not Given DAILY [facility] Zinc Sulfate 220 mg 09/08/20 09:00 10/04/20 14:04 Zinc Sulfate 220 Mg Cap PO Not Given DAILY RACHEL - Exam General Appearance: NAD, awake alert ENT: moist mucosa Heart: RRR, no murmur, no gallops, no rubs Respiratory: CTAB, no wheezes, no rales, no ronchi Gastrointestinal: soft, non-distended, normal bowel sounds Gastrointestinal - other findings: mild TTP Psychiatric: normal affect, normal behavior, A&O x 3 Hosp A/P - Plan A/P: Patient with recent hx of COVID19 PNA currently being followed by nephrology for worsening renal failure. HD access placed on 09-30-20. PD catheter placed on 10/04/2020. # Fluid overload: In setting of renal dysfunction. Echocardiogram without evidence of significant pathology. Diffuse pitting edema with poor response to IV diuresis now with great response to HD. S/p peritoneal dialysis and left arm fistula on 10-04-20. Exploring outpatient dialysis options. # Renal dysfunction: Renal failure with fluid overload now HD dependent. S/p left arm fistula by surgery on 10-04-20. Fluid status improved with HD. No HD 10-04-20. PD catheter placed 10/04/2020. # Multifactorial anemia: Likely in setting of acute illness and renal dysfunction. Received transfusion of 1U PRBC. Initiated on Retacrit by nephrology. Hgb stable around 8. # Uncontrolled DM: Better controlled after insulin regimen adjusted to Humulin 70/30 14U BID. # HTN: Continue with current management and careful observation of hemodynamics. # COVID19: Recent COVID19 PNA. Patient appears stable. Continue to monitor. # Nausea/vomiting/diarrhea: Diarrhea has resolved. Having some nausea after 10-04-20 procedure. IV Zofran PRN. DISPOSITION: Fluid overload with good response to HD. Continue with above therapy. Needs outpatient plan for dialysis prior discharge.
[2020-10-05] MEDS ORDERED: Heparin 10,000 UNITS/ 10 ML VIAL ONE (09:05)
[2020-10-05] MEDS: Zinc Sulfate 220 MG CAP PO SCH (13:25)
[2020-10-05] MEDS: Folic Acid/Vit B Comp W-C PO SCH (13:30)
[2020-10-05] MEDS: EPOETIN ALFA-EPBX (ESRD) 10,000 UNIT/ML VIAL SC SCH (13:34)
[2020-10-05] MEDS ORDERED: Epoetin (ESRD) 20,000 UNITS/ML IVP SCH (17:30)
--- NOTE | 2020-10-05 17:44 | PRG ---
DATE OF SERVICE: 10/05/2020 OBJECTIVE: VITAL SIGNS: The patient noted with the following vital signs; afebrile, temperature 98, pulse 96, respiratory rate of 18, O2 saturations of 95%, and blood pressure 121/66. HEENT: Unremarkable. CARDIOVASCULAR SYSTEM: First and second heart sounds were heard. RESPIRATORY SYSTEM: Clear to auscultation. DIGESTIVE SYSTEM: Revealed a benign abdomen. EXTREMITIES: No peripheral edema. SKIN: No new gross rash. LYMPHATICS: No peripheral lymphadenopathy. LABORATORY INVESTIGATION: Showed a hemoglobin of 7.9. Chemistry showed a creatinine of 3.0 with BUN of 26. IMPRESSION: 1. End-stage renal disease, now on hemodialysis. 2. Anasarca in the context of problem #3. 3. Nephrotic syndrome. 4. Anemia. PLAN: 1. The patient is currently undergoing hemodialysis and will be on Monday, Monday, Monday schedule. 2. The patient has a peritoneal dialysis catheter placed and will eventually become a peritoneal dialysis candidate. 3. In terms of disposition planning, once the patient is accepted by any dialysis facility the patient can be discharged from the renal standpoint. 4. Increase erythropoiesis stimulating agent to Monday, Monday, Monday, to be given during dialysis. 5. Further management to be dependent on the clinical course. Job ID: [id number]
[2020-10-05] MEDS ORDERED: EPOETIN ALFA-EPBX (ESRD) 3,000 UNIT/ML VIAL SC SCH (18:00)
[2020-10-05] MEDS ORDERED: EPOETIN ALFA-EPBX (ESRD) 3,000 UNIT/ML VIAL IVP SCH (18:00)
[2020-10-05] MEDS ORDERED: EPOETIN ALFA-EPBX (ESRD) 2,000 UNIT/ML VIAL IVP SCH (18:00)
[2020-10-06] MEDS: Ondansetron PF 4 MG/2 ML Vial IVP PRN ×3 (03:34→16:59)
--- NOTE | 2020-10-06 07:50 | PDOC.HOSPP ---
- Subjective Encounter Date: 10/06/20 Encounter Time: 10:30 Subjective: Patient reports nausea since her procedure Monday. Got worse this AM when she took her AM meds on an empty stomach and then vomited breakfast later. Nausea ok now but just feeling tires. Abdomen still a little tender but no worse. - Objective Vital Signs & Weight: Vital Signs (12 hours) Temp Pulse Resp BP BP BP Pulse Ox 10/06/20 07:27 98.6 F 76 16 122/73 95 10/06/20 05:10 98.4 F 83 12 100/63 93 L 10/06/20 01:15 98.5 F 81 16 97/61 94 L 10/05/20 21:28 83 120/75 10/05/20 20:00 96 Weight Admit Weight 156 lb 8 oz Weight 184 lb 14.4 oz I&O: 10/05/20 10/06/20 10/07/20 06:59 06:59 06:59 Intake Total 640 680 Balance 640 680 Result Diagrams: 10/05/20 05:50 10/05/20 05:50 Additional Labs: Accuchecks 10/06/20 10/05/20 10/05/20 05:17 22:42 16:34 POC Glucose 112 H 132 H 190 H 10/05/20 10/05/20 10/04/20 13:20 04:07 18:05 POC Glucose 177 H 207 H 261 H Hospitalist ROS - Review of Systems Constitutional: denies: fever, chills Respiratory: denies: cough, shortness of breath Cardiovascular: denies: chest pain, palpitations Gastrointestinal: reports: nausea, vomiting, abdominal pain. denies: diarrhea, constipation - Medication Medications: Active Medications Generic Name Dose Route Start Last Admin Trade Name Freq PRN Reason Stop Dose Admin Acetaminophen 1,000 mg 10/04/20 08:32 10/04/20 20:24 Acetaminophen 500 Mg Tab PO 1,000 mg Q6H PRN Administration Mild-Moderate Pain (1-5) Hydrocodone Bitart/Acetaminophen 1 tab 10/05/20 00:20 10/05/20 22:31 Hydrocodone/Acetaminophen 5/325 Mg Tablet PO 1 tab Q4H PRN Administration Moderate Pain (4-6) Albuterol Sulfate 2 puff 09/12/20 22:57 09/16/20 00:18 Albuterol 200 Puff (6.7gm Inhaler) INH 2 puff Q4H PRN Administration SOB/WHEEZE Ascorbic Acid 1,000 mg 09/08/20 09:00 10/05/20 13:25 Ascorbic Acid 500 Mg Chewable Tablet PO 1,000 mg DAILY RACHEL Administration Cholecalciferol 2,000 units 09/21/20 09:00 10/05/20 13:25 Cholecalciferol 1,000 Units (25 Mcg) Tab PO 2,000 units DAILY RACHEL Administration Diltiazem HCl 240 mg 09/22/20 21:00 10/05/20 21:28 Diltiazem Hcl Cd 240 Mg Capsule PO Not Given BID RACHEL Guaifenesin 200 mg 09/07/20 11:14 09/12/20 23:06 Diabetic Tussin 200 Mg/10 Ml Udcup PO 200 mg Q4H PRN Administration Cough Hydralazine HCl 10 mg 09/19/20 12:43 10/04/20 14:05 Hydralazine 20 Mg/Ml Vial SLOW IVP 10 mg Q4H PRN Administration Blood Pressure SBP>150 Insulin Human Isoph/Insulin Regular 14 units 10/01/20 11:30 10/05/20 17:17 Humulin 70/30 (300 Units/3 Ml Vial) SC 14 unit AC RACHEL Administration Insulin Human Lispro 0 units 09/19/20 10:01 10/05/20 17:18 Humalog 300 Units/3 Ml Vial SC 2 unit .MODERATE SLIDING SC PRN Administration Moderate Correctional Scale Insulin Human Lispro 0 units 09/23/20 20:51 10/04/20 22:26 Humalog 300 Units/3 Ml Vial SC 3 unit .BEDTIME SLIDING SC PRN Administration Bedtime Correctional Scale Ondansetron HCl 4 mg 09/19/20 11:19 10/06/20 03:34 Ondansetron Pf 4 Mg/2 Ml Vial IVP 4 mg Q4H PRN Administration Nausea/Vomiting Sodium Chloride 10 ml 09/09/20 09:00 10/05/20 21:29 Flush - Normal Saline 10 Ml Syringe IVF 10 ml Q12HR RACHEL Administration Trazodone HCl 25 mg 09/15/20 20:20 10/05/20 00:00 Trazodone Hcl 50 Mg Tab PO 25 mg HSPRN PRN Administration Insomnia Vitamin B Complex/Vit C/Folic Acid 1 tab 09/29/20 09:00 10/05/20 13:30 Folic Acid/Vit B Comp W-C PO 1 tab DAILY RACHEL Administration Zinc Sulfate 220 mg 09/08/20 09:00 10/05/20 13:25 Zinc Sulfate 220 Mg Cap PO 220 mg DAILY RACHEL Administration - Exam General Appearance: NAD, awake alert ENT: moist mucosa Heart: RRR, no murmur, no gallops, no rubs Respiratory: CTAB, no wheezes, no rales, no ronchi Gastrointestinal: soft, non-distended, normal bowel sounds Gastrointestinal - other findings: mild TTP diffusely, PD cath with some bloody fluid under tegaderm not much Extremities: no edema Psychiatric: normal affect, normal behavior, A&O x 3 Hosp A/P - Plan A/P: Patient with recent hx of COVID19 PNA currently being followed by nephrology for worsening renal failure. HD access placed on 09-30-20. PD catheter placed on 10/04/2020. # Fluid overload: In setting of renal dysfunction. Echocardiogram without evidence of significant pathology. Diffuse pitting edema with poor response to IV diuresis now with great response to HD. S/p peritoneal dialysis and left arm fistula on 10-04-20. Exploring outpatient dialysis options. # Renal dysfunction: Renal failure with fluid overload now HD dependent. S/p left arm fistula by surgery on 10-04-20. Fluid status improved with HD. No HD 10-04-20. PD catheter placed 10/04/2020. # Nausea/Vomiting: will monitor for worsening, no evidence ileus or infection currently. Zofran prn. # Multifactorial anemia: Likely in setting of acute illness and renal dysfunction. Received transfusion of 1U PRBC. Initiated on Retacrit by nephrology. Hgb stable around 8. # Uncontrolled DM: Better controlled after insulin regimen adjusted to Humulin 70/30 14U BID. # HTN: Continue with current management and careful observation of hemody namics. # COVID19: Recent COVID19 PNA. Patient appears stable. Continue to monitor. Off of contact precautions. # Nausea/vomiting/diarrhea: Diarrhea has resolved. Having some nausea after 10-04-20 procedure. IV Zofran PRN. DISPOSITION: Fluid overload with good response to HD. Continue with above therapy. Needs outpatient plan for dialysis prior discharge.
[2020-10-06] MEDS: Cholecalciferol 1,000 UNITS (25 MCG) TAB PO SCH (08:25)
[2020-10-06] MEDS: Ascorbic Acid 500 mg Chewable Tablet PO SCH (08:26)
[2020-10-06] MEDS: HumuLIN 70/30 (300 UNITS/3 ML VIAL) SC SCH ×3 (08:26→17:01)
[2020-10-06] MEDS: Zinc Sulfate 220 MG CAP PO SCH (08:26)
[2020-10-06] MEDS: Folic Acid/Vit B Comp W-C PO SCH (08:46)
[2020-10-06 16:21] VITALS: BMI 35.1
--- NOTE | 2020-10-06 17:30 | PRG ---
DATE OF SERVICE: SUBJECTIVE: The patient noted with the following vital signs. OBJECTIVE: VITAL SIGNS: Afebrile, temperature 98.2, pulse 85, respiratory rate of 18, O2 saturations of 95%, blood pressure 132/73. HEENT: Unremarkable. CARDIOVASCULAR: First and second heart sounds were heard. RESPIRATORY: Clear to auscultation. DIGESTIVE: Revealed a benign abdomen. EXTREMITIES: No peripheral edema. SKIN: No new gross rash. LYMPHATICS: No peripheral lymphadenopathy. LABORATORY INVESTIGATION: Showed a hemoglobin of 7.9. Chemistry none today. IMPRESSION: 1. End-stage renal disease, on hemodialysis. 2. Anasarca in the context of nephrotic syndrome. 3. Anemia of chronic kidney disease. PLAN: 1. The patient to stay on dialysis schedule of Monday, Monday, Monday. 2. Dressing change of the peritoneal dialysis catheter placement site. 3. Erythropoiesis stimulating agents. 4. as she relates to disposition planning/outpatient dialysis placement. Job ID: [id number]
--- NOTE | 2020-10-06 17:47 | PRG ---
DATE OF SERVICE: 10/06/2020 SUBJECTIVE: Concetta Barone is doing well today. She complains of some nausea. OBJECTIVE: VITAL SINGS: Temperature 98.2 degrees, pulse rate 85, and blood pressure 117/72. LUNGS: Clear to auscultation. CARDIAC: without murmur or gallop. ABDOMEN: Soft and nontender. PD catheter left lower quadrant dressings have some serosanguineous fluid. The PD nurses will change it sterilely. Good thrill and bruit in her left arm fistula outflow basilic and cephalic vein. Note, she had a PICC line placed preoperatively discharge anytime. Follow up in my office in 3 to 4 weeks. Follow up with peritoneal dialysis nurse as an outpatient, 3 to 7 days to instruct on PD, change dressings, and flush the catheter. Educate use. At this point, I will see her as needed. Job ID: [id number]
[2020-10-07] MEDS: HumaLOG 300 UNITS/3 ML VIAL SC PRN (06:23)
[2020-10-07] MEDS: HumuLIN 70/30 (300 UNITS/3 ML VIAL) SC SCH ×3 (07:26→16:46)
[2020-10-07] MEDS ORDERED: EPOETIN ALFA-EPBX (ESRD) 3,000 UNIT/ML VIAL IVP SCH (09:00)
[2020-10-07] MEDS ORDERED: EPOETIN ALFA-EPBX (ESRD) 2,000 UNIT/ML VIAL IVP SCH (09:00)
[2020-10-07] MEDS ORDERED: Heparin 10,000 UNITS/ 10 ML VIAL ONE (09:15)
--- NOTE | 2020-10-07 09:16 | PDOC.NEPPN ---
- Subjective Encounter Date: 10/07/20 Encounter Time: 09:14 Subjective: Seen during Hemodialysis. Feeling better. No new problem. For possible discharge today. - Objective Vital Signs & Weight: Vital Signs (12 hours) Temp Pulse Resp BP BP Pulse Ox 10/07/20 07:32 98.1 F 94 20 148/84 H 96 10/07/20 07:30 96 10/07/20 04:50 98.0 F 82 16 167/94 H 95 10/06/20 23:36 97.9 F 90 16 153/80 H 94 L Weight Admit Weight 156 lb 8 oz Weight 179 lb 10.828 oz I&O: 10/06/20 10/07/20 10/08/20 06:59 06:59 06:59 Intake Total 680 420 Output Total 200 Balance 680 220 Result Diagrams: 10/05/20 05:50 10/05/20 05:50 Additional Labs: Accuchecks 10/07/20 10/06/20 10/06/20 04:54 21:33 11:36 POC Glucose 221 H 170 H 139 H Nephrology ROS - Medication Medications: Active Medications Generic Name Dose Route Start Last Admin Trade Name Freq PRN Reason Stop Dose Admin Acetaminophen 1,000 mg 10/04/20 08:32 10/04/20 20:24 Acetaminophen 500 Mg Tab PO 1,000 mg Q6H PRN Administration Mild-Moderate Pain (1-5) Hydrocodone Bitart/Acetaminophen 1 tab 10/05/20 00:20 10/05/20 22:31 Hydrocodone/Acetaminophen 5/325 Mg Tablet PO 1 tab Q4H PRN Administration Moderate Pain (4-6) Albuterol Sulfate 2 puff 09/12/20 22:57 09/16/20 00:18 Albuterol 200 Puff (6.7gm Inhaler) INH 2 puff Q4H PRN Administration SOB/WHEEZE Ascorbic Acid 1,000 mg 09/08/20 09:00 10/06/20 08:26 Ascorbic Acid 500 Mg Chewable Tablet PO 1,000 mg DAILY RACHEL Administration Cholecalciferol 2,000 units 09/21/20 09:00 10/06/20 08:25 Cholecalciferol 1,000 Units (25 Mcg) Tab PO 2,000 units DAILY RACHEL Administration Diltiazem HCl 240 mg 09/22/20 21:00 10/06/20 19:44 Diltiazem Hcl Cd 240 Mg Capsule PO Not Given BID RACHEL Guaifenesin 200 mg 09/07/20 11:14 09/12/20 23:06 Diabetic Tussin 200 Mg/10 Ml Udcup PO 200 mg Q4H PRN Administration Cough Hydralazine HCl 10 mg 09/19/20 12:43 10/04/20 14:05 Hydralazine 20 Mg/Ml Vial SLOW IVP 10 mg Q4H PRN Administration Blood Pressure SBP>150 Insulin Human Isoph/Insulin Regular 14 units 10/01/20 11:30 10/07/20 07:26 Humulin 70/30 (300 Units/3 Ml Vial) SC 14 unit AC RACHEL Administration Insulin Human Lispro 0 units 09/19/20 10:01 10/07/20 06:23 Humalog 300 Units/3 Ml Vial SC 4 unit .MODERATE SLIDING SC PRN Administration Moderate Correctional Scale Insulin Human Lispro 0 units 09/23/20 20:51 10/04/20 22:26 Humalog 300 Units/3 Ml Vial SC 3 unit .BEDTIME SLIDING SC PRN Administration Bedtime Correctional Scale Ondansetron HCl 4 mg 09/19/20 11:19 10/06/20 16:59 Ondansetron Pf 4 Mg/2 Ml Vial IVP 4 mg Q4H PRN Administration Nausea/Vomiting Sodium Chloride 10 ml 09/09/20 09:00 10/07/20 06:48 Flush - Normal Saline 10 Ml Syringe IVF Not Given Q12HR RACHEL Trazodone HCl 25 mg 09/15/20 20:20 10/05/20 00:00 Trazodone Hcl 50 Mg Tab PO 25 mg HSPRN PRN Administration Insomnia Vitamin B Complex/Vit C/Folic Acid 1 tab 09/29/20 09:00 10/06/20 08:46 Folic Acid/Vit B Comp W-C PO 1 tab DAILY RACHEL Administration Zinc Sulfate 220 mg 09/08/20 09:00 10/06/20 08:26 Zinc Sulfate 220 Mg Cap PO 220 mg DAILY RACHEL Administration - Exam General Appearance: awake alert Eye: anicteric sclera ENT: normocephalic atraumatic, moist mucosa Neck: symmetric, no JVD Respiratory: no wheezes, no ronchi, normal chest expansion, no tachypnea Respiratory - other findings: fair air entry bilaterally Cardiovascular: RRR Gastrointestinal: soft, non-tender, non-distended, normal bowel sounds Gastrointestinal - other findings: Left lower quadrant PD catheter noted Extremities - other findings: Bilateral lower and left uper extremity edema noted. Neurological: CN's grossly intact, no new deficit Musculoskeletal - other findings: L cubital fossa AVF and surgical wound noted. R IJ TDC noted also PSYCH: A&O x 3 Nephrology Results - Labs Result Diagrams: 10/05/20 05:50 10/05/20 05:50 Lab results: WBC 9.1 thou/uL (4.8-10.8) 10/05/20 05:50 Hgb 7.9 g/dL (12.0-16.0) L 10/05/20 05:50 Hct 24.5 % (36.0-47.0) L 10/05/20 05:50 MCV 101.0 fL (78.0-98.0) H 10/05/20 05:50 Plt Count 244 thou/uL (130-400) 10/05/20 05:50 Neutrophils % 64.2 % (42.0-75.0) 10/05/20 05:50 Band Neuts % (Manual) 15 % (5-11) H 09/28/20 19:09 ESR Westergren 106 mm/hr (Less than 20) H 09/15/20 08:30 ABG pH 7.41 (7.35-7.45) 09/15/20 01:13 ABG pCO2 30.1 mmHg (35.0-45.0) L 09/15/20 01:13 ABG pO2 71.3 mmHg (80.0-100.0) L 09/15/20 01:13 Sodium 136 mmol/L (136-145) 10/05/20 05:50 Potassium 4.4 mmol/L (3.5-5.1) 10/05/20 05:50 Chloride 101 mmol/L (98-107) 10/05/20 05:50 Carbon Dioxide 23 mmol/L (22-29) 10/05/20 05:50 BUN 26 mg/dL (7.0-18.7) H 10/05/20 05:50 Creatinine 3.00 mg/dL (0.6-1.1) H 10/05/20 05:50 Glucose 215 mg/dL (70-105) H 10/05/20 05:50 Lactic Acid 0.6 mmol/L (0.5-2.2) 09/13/20 02:00 Calcium 8.1 mg/dL (7.8-10.44) 10/05/20 05:50 Total Bilirubin 0.2 mg/dL (0.2-1.2) 09/21/20 13:43 AST 10 U/L (5-34) 09/21/20 13:43 ALT 14 U/L (8-55) 09/21/20 13:43 Alkaline Phosphatase 42 U/L (40-110) 09/21/20 13:43 Creatine Kinase 107 U/L (29-168) 09/07/20 08:09 C-Reactive Protein 4.52 mg/dL (= or < 0.5) H 09/25/20 06:05 B-Natriuretic Peptide 82.3 pg/mL (0-100) 09/20/20 12:04 Serum Total Protein 5.2 g/dL (6.0-8.3) L 09/21/20 13:43 Albumin 2.5 g/dL (3.5-5.0) L 09/28/20 06:00 Lipase 4 U/L (8-78) L 09/12/20 09:27 Urine Ketones Negative mg/dL (Negative) 09/20/20 18:30 Urine Blood Trace (Negative) A 09/20/20 18:30 Urine Nitrite Negative (Negative) 09/20/20 18:30 Ur Leukocyte Esterase Negative Morgan/uL (Negative) 09/20/20 18:30 Urine RBC 4-6 HPF (0-3) A 09/20/20 18:30 Urine WBC 7-10 HPF (0-3) A 09/20/20 18:30 Ur Squamous Epith Cells 0-3 HPF (0-3) 09/20/20 18:30 Urine Bacteria None Seen HPF (None Seen) 09/20/20 18:30 Sodium 136 mmol/L (136-145) 10/05/20 05:50 Potassium 4.4 mmol/L (3.5-5.1) 10/05/20 05:50 Chloride 101 mmol/L (98-107) 10/05/20 05:50 Carbon Dioxide 23 mmol/L (22-29) 10/05/20 05:50 Anion Gap 16 mmol/L (10-20) 10/05/20 05:50 BUN 26 mg/dL (7.0-18.7) H 10/05/20 05:50 Creatinine 3.00 mg/dL (0.6-1.1) H 10/05/20 05:50 Glucose 215 mg/dL (70-105) H 10/05/20 05:50 Calcium 8.1 mg/dL (7.8-10.44) 10/05/20 05:50 Phosphorus 5.7 mg/dL (2.3-4.7) H 09/28/20 06:00 Magnesium 2.0 mg/dL (1.6-2.6) 10/05/20 05:50 Albumin 2.5 g/dL (3.5-5.0) L 09/28/20 06:00 Nephrology AP PN - Plan WENDY on CKD now ESRD on HD. Creat was 0.85 in 04/2019. Was 3.5 on 09/07/2020. Due to DM nephropathy and part ial left nephrectomy Nephrotic range proteinuria. Metabolic acidosis: Due WENDY/CKD and GI losses Generalized swelling especially lower extremities. Nephrotic syndrome and Diastolic heart failure. HTN Presumed diabetic nephropathy Acute repiratory failure with hypoxia: Due fluid overload and covid pneumonia. Improved. Off oxygen. Covid infection. Anemia of CKD Plan Continue HD as ordered with UF as tolerated. Continue antihypertensives. Can be discharged from nephrology once outpatient HD set up is completed.
--- NOTE | 2020-10-07 10:05 | PDOC.DS.DS ---
Provider - Provider Date of Admission: 09/08/20 11:18 Date of Discharge: 10/07/20 Admitting Provider: Britton Baker MD Consultations: General Surgery, Nephrology Primary Care Physician: Davin Mcarthur MD Course - Hospital Course Hospital Course: 45-year-old female who was admitted on September 07, 2020 On admission patient had nausea vomiting and she was tested positive for Covid Regarding COVID-19 she was started on vitamin supplementation, during this admission she had acute on chronic kidney failure, initially kidney failure was attributed to be due to dehydration secondary to vomiting. September 19, 2020 patient underwent PICC line placement September 19 patient had renal ultrasound which showed no acute finding September 15, 2020 patient had ultrasound which showed no evidence of DVT September 12, 2020 patient had chest x-ray which showed multifocal interstitial and alveolar opacity with bilateral multilobar consolidation which was related with COVID-19 infection On admission nephrology was consulted and nephrology continue to follow entire hospital course September 21 Dr. Bonilla was consulted regarding COVID-19 infection but she was not qualified for any remdesivir therapy given renal failure, September 22, 2020 patient had echocardiography which showed normal EF with diastolic dysfunction September 28, 2020 hematology was consulted for anemia which was attributed to be due to multifactorial etiology including renal failure September 30, 2020 Dr. Schroeder was consulted and patient had a right IJ cuffed tunneled hemodialysis catheter and left IJ central line, PICC line was removed October 04, 2020 patient had laparoscopic peritoneal dialysis catheter placement, Patient was getting maintenance hemodialysis while in hospital, subsequently outpatient dialysis arranged, Her urine culture was positive for E. coli and patient has been treated while in hospital. Her C. difficile was negative, stool for guaiac negative her hepatitis profile negative, her COVID-19 test was positive on September 22, Resuscitation Status: 09/07/20 11:14 Resuscitation Status Routine Co-Sign Provider: Resuscitation Status: FULL: Full Resuscitation Discussed with: pt - Labs Lab Results: 10/05/20 05:50 10/05/20 05:50 Microbiology - Entire Visit 09/15/20 09:45 Stool - Formed Stool Occult Blood (THUAN) - Final 09/11/20 18:39 Stool C. difficile GDH Antigen & Toxins - Final 09/07/20 12:46 Urine voided Urine Culture - Final Escherichia coli Streptococcus agalactiae Gp. B - Physical Exam Vitals: Vital Signs (12 hours) Temp Pulse Resp BP BP Pulse Ox 10/07/20 07:32 98.1 F 94 20 148/84 H 96 10/07/20 07:30 96 10/07/20 04:50 98.0 F 82 16 167/94 H 95 10/06/20 23:36 97.9 F 90 16 153/80 H 94 L Weight Admit Weight 156 lb 8 oz Weight 179 lb 10.828 oz Physical Exam: The patient was seen and examined on the day of discharge. General patient is currently alert and awake no acute distress Head normocephalic atraumatic Neck supple no JVD no meningeal signs of irritation, central line noted Lungs clear to auscultation without any rhonchi or rales Cardiac S1-S2 regular no murmur no gallop no rub Abdomen soft, bowel sounds present, peritoneal dialysis catheter in place Extremity no edema,Good distal pulsation Neurologic nonfocal examination Problem - Discharge Plan Assessment: A/P: Patient with recent hx of COVID19 PNA currently being followed by nephrology for worsening renal failure. HD access placed on 09-30-20. PD catheter placed on 10/04/2020. # Fluid overload: In setting of renal dysfunction. Echocardiogram without evidence of significant pathology. Diffuse pitting edema with poor response to IV diuresis now with great response to HD. S/p peritoneal dialysis and left arm fistula on 10-04-20. Exploring outpatient dialysis options. # Renal dysfunction: Renal failure with fluid overload now HD dependent. S/p left arm fistula by surgery on 10-04-20. Fluid status improved with HD. No HD 10-04-20. PD catheter placed 10/04/2020. # Nausea/Vomiting: will monitor for worsening, no evidence ileus or infection currently. Zofran prn. # Multifactorial anemia: Likely in setting of acute illness and renal dysfunction. Received transfusion of 1U PRBC. Initiated on Retacrit by nephrology. Hgb stable around 8. # Uncontrolled DM: Better controlled after insulin regimen adjusted to Humulin 70/30 14U BID. # HTN: Continue with current management and careful observation of hemodynamics. # COVID19: Recent COVID19 PNA. Patient appears stable. Continue to monitor. Off of contact precautions. # Nausea/vomiting/diarrhea: Diarrhea has resolved. Having some nausea after 10-04-20 procedure. WENDY on CKD now ESRD on HD. Creat was 0.85 in 04/2019. Was 3.5 on 09/07/2020. Due to DM nephropathy and partial left nephrectomy Nephrotic range proteinuria. Metabolic acidosis: Due WENDY/CKD and GI losses Generalized swelling especially lower extremities. Nephrotic syndrome and Diastolic heart failure. HTN Presumed diabetic nephropathy Acute repiratory failure with hypoxia: Due fluid overload and covid pneumonia. Improved. Off oxygen. Covid infection. Anemia of CKD Plan - Discharge Medications Prescriptions: Diltiazem HCl [Cardizem CD] 240 mg PO BID 30 Days #60 cap HumuLIN 70/30 [HumuLIN 70/30 Vial] 14 units SC AC #1 vial Folic Acid/Vit B Comp W-C [Nephro-Rodo] 1 tab PO DAILY #30 tab Albuterol Sulfate [Proventil Hfa] 2 puff INH Q4H PRN #1 aer PRN Reason: SOB/WHEEZE Ascorbic Acid [Vitamin C] 1,000 mg PO DAILY 10 Days #10 tab Cholecalciferol [Vitamin D3] 2,000 units PO DAILY #30 tab Zinc Sulfate 220 mg PO DAILY #30 cap Home Medications: Medication Instructions Recorded Confirmed Type Insulin Lispro [Humalog Kwikpen 100 unit SQ ASDIR 09/07/20 09/07/20 History U-100] Ascorbic Acid [Vitamin C] 1,000 mg PO DAILY 10 Days #10 tab 09/26/20 Rx Diltiazem HCl [Cardizem CD] 240 mg PO BID 30 Days #60 cap 09/26/20 Rx Albuterol Sulfate [Proventil Hfa] 2 puff INH Q4H PRN #1 aer 10/07/20 Rx Cholecalciferol [Vitamin D3] 2,000 units PO DAILY #30 tab 10/07/20 Rx Folic Acid/Vit B Comp W-C 1 tab PO DAILY #30 tab 10/07/20 Rx [Nephro-Rodo] HumuLIN 70/30 [HumuLIN 70/30 Vial] 14 units SC AC #1 vial 10/07/20 Rx Zinc Sulfate 220 mg PO DAILY #30 cap 10/07/20 Rx Allergies: fentanyl Adverse Reaction (Intermediate, Verified 01/12/20 13:25) SATS DROP PT STATES ONLY HAD ONE TIME AND NURSES TOLD HER IT MADE HER SATS DROP QUICKLY AND SHE PREFERS NOT TO HAVE IT. - Discharge Instructions Discharge Instructions:: Follow-up with PCP in 1 week.Appt. with PD nurse 3-8 days after PD cath placed for PD dressing change, catheter flush & PD education. Exercise left arm & hand frequently-use unrestricted Activity:: Activity as Tolerated Nourishment:: Diabetic Diet, Heart Healthy Diet, Renal Diet, Regular Diet Therapies:: Not Applicable Equipment/Supplies:: Not Applicable IV Therapy:: Not Applicable - Follow up Plan Referrals: Morro Schroeder MD [Active] - 3-4 Weeks Mickey Bonilla MD [Active] - Daryn Alexis MD [Active] - Davin Mcarthur MD [Primary Care Provider] - Disposition: HOME Quality - Care Measures CORE MEASURES:: N/A
[2020-10-07 12:52] VITALS: TEMP 98.2
[2020-10-07] MEDS: Ascorbic Acid 500 mg Chewable Tablet PO SCH (12:59)
[2020-10-07] MEDS: Cholecalciferol 1,000 UNITS (25 MCG) TAB PO SCH (12:59)
[2020-10-07] MEDS: Zinc Sulfate 220 MG CAP PO SCH (12:59)
[2020-10-07] MEDS: Folic Acid/Vit B Comp W-C PO SCH (12:59)
[2020-10-07 16:31] VITALS: BP 123/75
--- NOTE | 2020-10-09 04:18 | PQF ---
Dear : Pavel Brothers Date 10/09/2020 Please exercise your independent, professional judgment in responding to the clarification form. Clinical indicators are provided on the bottom of this form for your review Can you please further clarify if Sepsis is ruled in or ruled out? [ x ] Ruled in diagnosis [ ] Continue to treat [ x ] Resolved [ ] Ruled out diagnosis [ ] Improving [ ] Cannot rule out diagnosis [ ] Other diagnosis [ ] Unable to determine In addition, please specify: Present on Admission (POA): [ x ] Yes [ ] No [ ] Unable to determine Physician Signature: Date/Time: For continuity of documentation, please document condition throughout progress notes and discharge summary. Thank You. To be completed by CDI/Coding staff for physician review: Present Clinical Indicators - Signs / Symptoms / Labs Results and Location in Medical Record [ x ] Some contribution from sepsis Consult pg.3 09/11 Dr. Ramirez [ x ] WENDY Consult pg.3 09/11 Dr. Ramirez [ x ] Diagnosed with COVID 8 days ago H and P pg.1 [ x ] Body aches, fever and chills ED Provider pg.1 [ x ] VS: BP: 151/80, P: 102, RR 18 T: 99.2 ED Provider pg.2 [ x ] Metabolic acidosis Hospitalist PN pg.4 09/08 [ x ] Urine Culture: E. Coli, Streptococcus agalactiae Microbiology [ x ] WBC: 10.4, 10.9H, 9.6, 10.0, 10.2, 12.2H, 12.H, 10.9H, 18.2H, 12.0H, 18.2H Laboratory Present Risk Factors Results and Location in Medical Record [ x ] COVID19 H and P pg.3 [ x ] UTI Hospitalist PN pg.4 09/08 [ x ] Former smoker Infectious Consult pg.1 09/20 Present Treatments Results and Location in Medical Record [ x ] IV Fluids MAR [ x ] Infectious Consult Dr. Bonilla 09/20 [ x ] PICC line placement Interventional Procedure 09/11 [ x ] Ciprofloxacin 500mg TAB MAR [ x ] Rocephin 2gm IV MAR [ x ] Zosyn 2.25gm IV MAR [ x ] Levaquin 500mg IV MAR CDS/Mathematical Engineering Technician Signature: Edenilson Hayes Phone #: ext [phone] Date 10/09/2020 This is a permanent part of the Medical Record [facility]
== END 2020-10-07 17:19 | disposition home or self-care (01) | DRG 853 ==
LOC: ERS 06:49 → ERHOLD 10:21 → T4-A 14:44 → OBSVTOIN 09-08 11:18
PROVIDERS: ADMIT Internal Medicine; ATTEND Internal Medicine
PROC: 8E0ZXY6 Isolation (ICD-10-PCS; 2020-09-08)
PROC: 02HV33Z Insertion of Infusion Device into Superior Vena Cava, Percutaneous Approach (ICD-10-PCS; 2020-09-11)
PROC: B548ZZA Ultrasonography of Superior Vena Cava, Guidance (ICD-10-PCS; 2020-09-11)
PROC: 0JH63XZ Insertion of Tunneled Vascular Access Device into Chest Subcutaneous Tissue and Fascia, Percutaneous Approach (ICD-10-PCS; 2020-09-30)
PROC: 30233N1 Transfusion of Nonautologous Red Blood Cells into Peripheral Vein, Percutaneous Approach (ICD-10-PCS; 2020-09-30)
PROC: 02PYX3Z Removal of Infusion Device from Great Vessel, External Approach (ICD-10-PCS; 2020-09-30)
PROC: 02HV33Z Insertion of Infusion Device into Superior Vena Cava, Percutaneous Approach (ICD-10-PCS; 2020-09-30)
PROC: B548ZZA Ultrasonography of Superior Vena Cava, Guidance (ICD-10-PCS; 2020-09-30)
PROC: 5A1D70Z Performance of Urinary Filtration, Intermittent, Less than 6 Hours Per Day (ICD-10-PCS; 2020-09-30)
PROC: 031C0ZF Bypass Left Radial Artery to Lower Arm Vein, Open Approach (ICD-10-PCS; principal; 2020-10-04)
PROC: 0WHG43Z Insertion of Infusion Device into Peritoneal Cavity, Percutaneous Endoscopic Approach (ICD-10-PCS; 2020-10-04)
PROC: 3E1M39Z Irrigation of Peritoneal Cavity using Dialysate, Percutaneous Approach (ICD-10-PCS; 2020-10-04)
DX: A41.9 Sepsis, unspecified organism (principal); U07.1 COVID-19; J12.89 Other viral pneumonia; J96.01 Acute respiratory failure with hypoxia; N18.6 End stage renal disease; N17.9 Acute kidney failure, unspecified; E87.2 Acidosis; I50.32 Chronic diastolic (congestive) heart failure; N39.0 Urinary tract infection, site not specified; E46 Unspecified protein-calorie malnutrition; K22.10 Ulcer of esophagus without bleeding; E87.1 Hypo-osmolality and hyponatremia; E86.0 Dehydration; D63.1 Anemia in chronic kidney disease; B96.20 Unspecified Escherichia coli [E. coli] as the cause of diseases classified elsewhere; E87.70 Fluid overload, unspecified; E10.22 Type 1 diabetes mellitus with diabetic chronic kidney disease; F41.9 Anxiety disorder, unspecified; F32.9 Major depressive disorder, single episode, unspecified; B95.1 Streptococcus, group B, as the cause of diseases classified elsewhere; E88.09 Other disorders of plasma-protein metabolism, not elsewhere classified; E10.65 Type 1 diabetes mellitus with hyperglycemia; E86.9 Volume depletion, unspecified; E10.43 Type 1 diabetes mellitus with diabetic autonomic (poly)neuropathy; K31.84 Gastroparesis; Z96.653 Presence of artificial knee joint, bilateral; E66.9 Obesity, unspecified; I11.0 Hypertensive heart disease with heart failure; E88.81 Metabolic syndrome and other insulin resistance; E87.6 Hypokalemia; E83.42 Hypomagnesemia; Z87.891 Personal history of nicotine dependence; Z79.4 Long term (current) use of insulin; Z79.899 Other long term (current) drug therapy; Z68.35 Body mass index [BMI] 35.0-35.9, adult; Z85.528 Personal history of other malignant neoplasm of kidney
CPT/HCPCS: 36415; 36416; 36430; 36569; 71045; 76770; 80048; 80053; 80069; 80074; 80076; 81001; 81003; 81015; 82040; 82150; 82274; 82306; 82550; 82570; 82607; 82728; 82746; 82805; 83036; 83540; 83550; 83605; 83690; 83735; 83880; 83883; 84100; 84155; 84156; 84165; 84166; 84300; 84443; 84540; 85025; 85027; 85379; 85652; 86038; 86140; 86225; 86334; 86580; 86850; 86900; 86901; 87077; 87086; 87186; 87324; 87449; 87635; 90935; 93306; 93970; 93976; 96365; 96366; 96375; C1751; C1752; C9113; G0257; G0378; J0360; J0690; J0696; J1100; J1644; J1815; J1940; J1956; J2001; J2250; J2405; J2543; J2550; J2704; J2720; J2765; J2920; J2930; J3010; J3475; J3490; J7070; J7512; P9016; P9047; Q0162; Q5105; Q9967; S0020; U0003

== ENCOUNTER 2020-10-29 12:35 | Outpatient (CLI) | payer SELFPAY | END 2020-10-29 12:36 | disposition home or self-care (01) | LOC: LABBT 12:35 | DX: Z01.818 Encounter for other preprocedural examination (principal); N18.6 End stage renal disease | CPT/HCPCS: 93005; 93010 ==

== ENCOUNTER 2020-11-03 09:55 | Day surgery (SDC) | payer SELFPAY ==
[2020-10-30 14:24] VITALS: BMI 28.3
[2020-11-03] MEDS ORDERED: Fentanyl 100 MCG/2 ML VIAL ONE (10:21)
[2020-11-03] MEDS ORDERED: Propofol 1,000 MG/100 ML VIAL IV ONE (10:21)
[2020-11-03] MEDS ORDERED: Heparin 10,000 UNITS/ 10 ML VIAL ONE (10:35)
[2020-11-03] MEDS ORDERED: Bupivacaine PF 0.5% 30 ML VIAL ONE (10:35)
[2020-11-03] MEDS ORDERED: EPINEPHrine 1 MG/ML AMP ONE (10:35)
[2020-11-03 10:40] LABS: #Basophils 0.2 thou/uL (0.0-0.2); #Eosinphils 0.8 thou/uL (0.0-0.7); #Lymphocytes 2.9 thou/uL (1.20-3.40); #Monocytes 0.6 thou/uL (0.11-0.59); #Neutrophils 5.9 thou/uL (1.40-6.50); %Basophils 1.6 % (0.0-1.0); %Eosinophils 7.6 % (0.0-10.0); %Lymphocytes 28.1 % (21.0-51.0); %Monocytes 5.4 % (0.0-10.0); %Neutrophils 57.4 % (42.0-75.0); Hemoglobin 9.2 g/dL (12.0-16.0); Mean Corpuscular HGB CONC 33.1 g/dL (32.0-36.0); Mean Corpuscular Hemoglobin 31.3 pg (27.0-31.0); Mean Corpuscular Volume 94.6 fL (78.0-98.0); Mean Platelet Volume 6.6 fL (7.4-10.4); Platelet Count 413 thou/uL (130-400); RBC Distribution Width 13.2 % (11.5-14.5); Red Blood Cell (RBC) Count 2.95 mill/uL (4.20-5.40); White Blood Cell (WBC) Count 10.3 thou/uL (4.8-10.8)
[2020-11-03] MEDS ORDERED: Insulin Regular 300 UNITS/3 ML VIAL ONE ×2 (10:48→11:58)
[2020-11-03 11:05] LABS: Anion Gap 11 mmol/L (10-20); BUN (Urea Nitrogen) 22 mg/dL (7.0-18.7); Calc. Creatinine Clearance 24 mL/min (70-130); Calcium 8.6 mg/dL (7.8-10.44); Carbon Dioxide 29 mmol/L (22-29); Chloride 94 mmol/L (98-107); Glucose 387 mg/dL (70-105); Sodium 131 mmol/L (136-145)
[2020-11-03] MEDS ORDERED: PHENYLEPHRINE-NS 100 MCG/ML 10 ML SYRINGE ONE (11:10)
[2020-11-03] MEDS ORDERED: Ondansetron PF 4 MG/2 ML Vial ONE (11:10)
[2020-11-03] MEDS ORDERED: Lidocaine 1% PF 5 ML VIAL ONE (11:10)
[2020-11-03] MEDS ORDERED: Rocuronium Bromide 10 MG/ML (10ML VIAL) ONE (11:10)
[2020-11-03] MEDS ORDERED: PROPOFOL 200 MG/20 ML VIAL ONE (11:10)
[2020-11-03] MEDS ORDERED: Dexamethasone 20 MG/5 ML VIAL ONE (11:10)
[2020-11-03] MEDS ORDERED: SUGAMMADEX SODIUM 200 MG/2 ML VIAL ONE (11:19)
[2020-11-03 11:25] LABS: Potassium 2.9 mmol/L (3.5-5.1)
[2020-11-03] MEDS ORDERED: Potassium Chloride 20 MEQ/100 ML PREMIX BAG ONE (12:02)
[2020-11-03] MEDS ORDERED: Promethazine HCl 25 MG/ML VIAL ONE (13:04)
--- NOTE | 2020-11-03 13:43 | OP ---
DATE OF PROCEDURE: 11/03/2020 PREOPERATIVE DIAGNOSES: 1. End-stage renal disease. 2. Dysfunctional peritoneal dialysis catheter. 3. Dysfunctional left upper arm fistula. 4. Awaiting a fistulogram. POSTOPERATIVE DIAGNOSES: 1. End-stage renal disease. 2. Dysfunctional peritoneal dialysis catheter. 3. Dysfunctional left upper arm fistula. 4. Awaiting a fistulogram. PROCEDURES PERFORMED: 1. Laparoscopic adhesiolysis. 2. Laparoscopic omentopexy. 3. Laparoscopic sling suture, peritoneal dialysis catheter. ANESTHESIA: General, local with 0.5% Marcaine 30 mL, mixed with 1% Xylocaine with epinephrine 20 mL. DESCRIPTION OF PROCEDURE: The patient was taken to the operating room where under general anesthesia, abdomen and PD catheter were prepared with ChloraPrep and draped in routine fashion. Bilateral subcostal incision made, pneumoperitoneum to 15 mmHg was obtained with a Veress needle, replaced with a 5 port, video laparoscope inserted. Contralateral 5 port placed. Omental adhesion to the anterior abdominal wall at umbilical level was taken down with the LigaSure as well as another adhesion more inferiorly. The PD catheter could be seen in the left pelvis. The omentum did, however, reach into the pelvis. Once the adhesions were taken down, omentopexy performed with a GraNee needle 0 Vicryl suture, completing omentopexy, fixated into the upper anterior abdominal wall to the right of the falciform ligament. The omentum would not reach into the pelvis. PD catheter then flushed and it flushed well. Holes were widely open. There was no fibrin. A sling suture was placed. GraNee needle, 0 Ethibond, directing the catheter to the right pelvis. After the sling suture was placed, it was then flushed with saline solution and it flushed well and then flushed with heparinized saline solution, 1000 units/5 mL. Irrigant and pneumoperitoneum evacuated. Good hemostasis noted. The patient tolerated the procedure well. Job ID: [id number]
[2020-11-03] MEDS ORDERED: Heparin 1,000 UNITS/ML VIAL ONE ×2 (14:03→14:10)
== END 2020-11-03 14:44 | disposition home or self-care (01) ==
LOC: SDC 09:55
PROVIDERS: ATTEND Specialist
PROC: 0JWT33Z Revision of Infusion Device in Trunk Subcutaneous Tissue and Fascia, Percutaneous Approach (ICD-10-PCS; principal; 2020-11-03)
DX: T85.611A Breakdown (mechanical) of intraperitoneal dialysis catheter, initial encounter (principal); E11.22 Type 2 diabetes mellitus with diabetic chronic kidney disease; N18.6 End stage renal disease; F41.9 Anxiety disorder, unspecified; F32.9 Major depressive disorder, single episode, unspecified; Z79.4 Long term (current) use of insulin; Z79.899 Other long term (current) drug therapy; Z87.891 Personal history of nicotine dependence; Z88.5 Allergy status to narcotic agent; Z91.048 Other nonmedicinal substance allergy status
CPT/HCPCS: 80048; 85025; J0171; J0690; J1644; J1815; J2550; J2704; J3010; J3480; S0020

== ENCOUNTER 2020-11-11 09:46 | Emergency (ER) | payer SELFPAY ==
[2020-11-11] MEDS ORDERED: Morphine 4 MG/ML VIAL ONE (10:36)
[2020-11-11] MEDS ORDERED: Ondansetron PF 4 MG/2 ML Vial ONE (10:36)
--- NOTE | 2020-11-11 10:49 | CT ---
CT OF THE ABDOMEN AND PELVIS WITHOUT IV CONTRAST INDICATION: 45-year-old female with abdominal pain COMPARISON: Prior exam dated March 18, 2018 from [facility] FINDINGS: The lack of IV contrast limits evaluation of the solid organs of the abdomen and pelvis. ABDOMEN: Lung bases: There is interstitial fibrotic change involving both lower lobes with associated bronchie ctasis, new from prior exam. Liver: No focal lesion. Gallbladder: Surgically absent Pancreas: Normal. Adrenal glands: Normal. Spleen: Normal. Kidneys and ureters: Partial nephrectomy of the left kidney is stable. No hydronephrosis evident. Yemi pacified right kidney is stable. Vasculature: There are mild vascular calcifications seen involving the visualized vasculature. Lymph nodes:No lymphadenopathy. Free fluid in abdomen:There is mild scattered free fluid. There is a peritoneal dialysis catheter ent ering into the left lower quadrant of the abdomen and coiled in the right lower quadrant abdomen. There is some mild are present within the abdominal wall of the left lower quadrant and left mid abdo men. Small amount of intraperitoneal gas is seen underlying the hemidiaphragms. PELVIS: Small and large bowel: There is a mild amount retained stool within the colon. Small bowel is of norm al caliber. Appendix:Not definitely seen Bladder: Moderately distended Rectal and perirectal soft tissues:Normal. Reproductive structures: Normal. Free fluid in pelvis: Mild free fluid. Lymphadenopathy pelvis: No lymphadenopathy is evident. Osseous structures: There is a metallic pin within the left iliac wing. No acute fracture is evident. There is scattered degenerative and osteoarthritic changes. Soft tissues:Normal. IMPRESSION: 1. Peritoneal dialysis catheter with scattered free air within the abdomen and within the left abdomi nal wall. There is mild scattered free fluid in the abdomen and pelvis likely related to peritoneal dialysate. 2. Moderate distention of the bladder. 3. Partial nephrectomy of the left kidney is stable. 4. New interstitial fibrotic change of both lower lobes associated bronchiectasis may reflect sequela of scarring from prior infection.
[2020-11-11 10:50] LABS: #Basophils 0.1 thou/uL (0.0-0.2); #Eosinphils 0.9 thou/uL (0.0-0.7); #Lymphocytes 3.5 thou/uL (1.20-3.40); #Monocytes 0.7 thou/uL (0.11-0.59); #Neutrophils 7.9 thou/uL (1.40-6.50); %Basophils 0.5 % (0.0-1.0); %Eosinophils 6.6 % (0.0-10.0); %Lymphocytes 27.1 % (21.0-51.0); %Monocytes 5.2 % (0.0-10.0); %Neutrophils 60.6 % (42.0-75.0); Mean Corpuscular Hemoglobin 31.6 pg (27.0-31.0); Mean Corpuscular Volume 95.6 fL (78.0-98.0); Mean Platelet Volume 6.8 fL (7.4-10.4); Platelet Count 444 thou/uL (130-400); RBC Distribution Width 13.4 % (11.5-14.5); Red Blood Cell (RBC) Count 2.54 mill/uL (4.20-5.40)
[2020-11-11 10:58] LABS: BHCG - Serum Negative (NEGATIVE); Pregs Control Bar Appear? YES (CONTROL BAR)
[2020-11-11 10:59] LABS: Pregs Control Background? CLEAR/WHITE (CLR/WHITE)
[2020-11-11 11:24] LABS: ALT (SGPT) Less than 7 U/L (8-55); AST (SGOT) 9 U/L (5-34); Alkaline Phosphatase 83 U/L (40-110); Anion Gap 14 mmol/L (10-20); BUN (Urea Nitrogen) 16 mg/dL (7.0-18.7); Bilirubin, Total 0.3 mg/dL (0.2-1.2); Calc. Creatinine Clearance 0 mL/min (70-130); Calcium 8.9 mg/dL (7.8-10.44); Carbon Dioxide 32 mmol/L (22-29); Chloride 94 mmol/L (98-107); Globulin 3.7 g/dL (2.4-3.5); Glucose 128 mg/dL (70-105); Protein, Total 6.7 g/dL (6.0-8.3); Sodium 137 mmol/L (136-145)
[2020-11-11 11:28] LABS: Potassium 2.7 mmol/L (3.5-5.1)
[2020-11-11 12:03] LABS: Bilirubin Negative (Negative); Blood, Urine Negative (Negative); Clarity Clear (Clear); Glucose, Urine (Dipstick) Greater than 1000 mg/dL (Negative); Ketone, Urine Negative (Negative); Leukocyte Negative Leu/uL (Negative); Nitrite Negative (Negative); Protein, Urine (Dipstick) Greater than 600 mg/dL (Neg-Trace); RBC/HPF 0-3 HPF (0-3); Specific Gravity, Urine 1.021 (1.002-1.036); Squamous Epithelial 0-3 HPF (0-3); Urobilinogen Normal mg/dL (Less than 2); pH, Urine 7.5 (5.0-9.0)
[2020-11-11 12:17] LABS: Bacteria/HPF 1+ HPF (None Seen)
[2020-11-11] MEDS ORDERED: Potassium Chloride 20 MEQ TAB ONE ×2 (12:21→13:13)
== END 2020-11-11 13:05 | disposition home or self-care (01) ==
LOC: ERS 09:46
DX: R33.9 Retention of urine, unspecified (principal); E87.6 Hypokalemia; R10.30 Lower abdominal pain, unspecified; E10.22 Type 1 diabetes mellitus with diabetic chronic kidney disease; N18.6 End stage renal disease; Z87.891 Personal history of nicotine dependence
CPT/HCPCS: 36415; 51702; 51798; 74176; 80053; 81003; 81015; 84703; 85025; 87086; 96374; 96375; J2270; J2405

== ENCOUNTER 2020-11-19 06:54 | Day surgery (SDC) | payer SELFPAY ==
[2020-11-18 13:22] VITALS: BMI 28.3
[2020-11-19 09:21] VITALS: BP 113/70; TEMP 98.1
[2020-11-19] MEDS ORDERED: FLU VACC QS2020-21(6MOS UP)/PF 60 MCG/0.5 ML SYRINGE IM ONE (13:45)
[2020-11-19] MEDS ORDERED: Iopamidol 300 61% 50 ML VIAL FS ONE (13:52)
== END 2020-11-19 09:10 | disposition home or self-care (01) ==
LOC: SPEC 06:54
PROVIDERS: ATTEND Specialist
PROC: B51W1ZZ Fluoroscopy of Dialysis Shunt/Fistula using Low Osmolar Contrast (ICD-10-PCS; principal; 2020-11-19)
DX: T82.590A Other mechanical complication of surgically created arteriovenous fistula, initial encounter (principal); T85.611A Breakdown (mechanical) of intraperitoneal dialysis catheter, initial encounter; I12.0 Hypertensive chronic kidney disease with stage 5 chronic kidney disease or end stage renal disease; E10.22 Type 1 diabetes mellitus with diabetic chronic kidney disease; N18.6 End stage renal disease; G43.909 Migraine, unspecified, not intractable, without status migrainosus; F41.9 Anxiety disorder, unspecified; F32.9 Major depressive disorder, single episode, unspecified; Z87.891 Personal history of nicotine dependence; Z79.899 Other long term (current) drug therapy; Z88.5 Allergy status to narcotic agent; Z91.048 Other nonmedicinal substance allergy status; Z99.2 Dependence on renal dialysis
CPT/HCPCS: 36901; 76000; 76937; 90471; 90662; G0008; J1642; Q9967

== ENCOUNTER 2020-12-11 05:54 | Day surgery (SDC) | payer SELFPAY ==
[2020-12-08 10:53] VITALS: BMI 29.2
[2020-12-11] MEDS ORDERED: Lidocaine 2% PF 5 ML VIAL ONE (06:37)
[2020-12-11] MEDS ORDERED: Bupivacaine 0.25% HCL 30 ML VIAL ONE (06:37)
[2020-12-11] MEDS ORDERED: EPINEPHrine 1 MG/ML AMP ONE (06:37)
[2020-12-11 06:53] LABS: Hemoglobin 10.4 g/dL (12.0-16.0); Mean Corpuscular Hemoglobin 31.8 pg (27.0-31.0); Mean Corpuscular Volume 96.3 fL (78.0-98.0); Mean Platelet Volume 6.4 fL (7.4-10.4); Platelet Count 263 thou/uL (130-400); Red Blood Cell (RBC) Count 3.28 mill/uL (4.20-5.40); White Blood Cell (WBC) Count 6.5 thou/uL (4.8-10.8)
[2020-12-11 07:03] LABS: Anion Gap 14 mmol/L (10-20); BUN (Urea Nitrogen) 20 mg/dL (7.0-18.7); Calc. Creatinine Clearance 27 mL/min (70-130); Calcium 8.5 mg/dL (7.8-10.44); Carbon Dioxide 29 mmol/L (22-29); Chloride 97 mmol/L (98-107); Glucose 294 mg/dL (70-105); Potassium 3.5 mmol/L (3.5-5.1); Sodium 136 mmol/L (136-145)
[2020-12-11] MEDS ORDERED: Fentanyl 100 MCG/2 ML VIAL ONE (07:04)
[2020-12-11] MEDS ORDERED: Midazolam HCl 5 mg/5 ml Vial ONE (07:59)
[2020-12-11] MEDS ORDERED: Midazolam HCl 2 mg/2 ml Vial ONE (07:59)
[2020-12-11 08:08] LABS: Band 2 % (5-11); Eosinophils 5 % (0-10); Lymphocytes 31 % (21-51); MDiff Complete? YES; Monocytes 6 % (0-10); Neutrophil 56 % (42-75); Platelet Morphology Comment Appears Adequate; Polychromasia SLIGHT = 2-3 cells (100X) (0-2/hpf)
[2020-12-11] MEDS ORDERED: Heparin 1,000 UNITS/ML VIAL ONE (09:06)
--- NOTE | 2020-12-11 09:22 | OP ---
DATE OF PROCEDURE: 12/11/2020 PREOPERATIVE DIAGNOSIS: End-stage renal disease, maturing left upper arm fistula, functioning PD catheter, although causes pain and the patient does not want to do PD. POSTOPERATIVE DIAGNOSES: End-stage renal disease, maturing left upper arm fistula, functioning PD catheter, although causes pain and the patient does not want to do PD. PROCEDURE PERFORMED: Removal of double cuffed pigtail PD catheter. ANESTHESIA: Sedation, local 0.5% Marcaine with epinephrine 30 mL mixed with 2% Xylocaine, 20 mL. DESCRIPTION OF PROCEDURE: The patient was taken to the operating room, where under intravenous sedation, abdomen and PD catheter prepared with ChloraPrep and draped in routine fashion. Local anesthetic was infiltrated in the skin and subcutaneous tissue. Catheter and two cuffs removed intact, removing the PD catheter, placed a gauze dressing. The patient tolerated the procedure well. Job ID: [id number]
[2020-12-11] MEDS ORDERED: PROPOFOL 200 MG/20 ML VIAL ONE (09:54)
== END 2020-12-11 09:38 | disposition home or self-care (01) ==
LOC: SDC 05:54
PROVIDERS: ATTEND Specialist
PROC: 0JPTXXZ Removal of Tunneled Vascular Access Device from Trunk Subcutaneous Tissue and Fascia, External Approach (ICD-10-PCS; principal; 2020-12-11)
DX: T85.611A Breakdown (mechanical) of intraperitoneal dialysis catheter, initial encounter (principal); E11.22 Type 2 diabetes mellitus with diabetic chronic kidney disease; N18.6 End stage renal disease; F41.9 Anxiety disorder, unspecified; F32.9 Major depressive disorder, single episode, unspecified; Z79.4 Long term (current) use of insulin; Z79.899 Other long term (current) drug therapy; Z87.891 Personal history of nicotine dependence; Z88.5 Allergy status to narcotic agent; Z91.048 Other nonmedicinal substance allergy status
CPT/HCPCS: 80048; 85025; J0171; J0690; J1644; J2001; J2250; J2704; J3010; S0020

== ENCOUNTER 2021-02-03 12:27 | Emergency (ER) | payer OTHER | END 2021-02-03 14:00 | disposition home or self-care (01) | LOC: ERS 12:27 | DX: T78.40XA Allergy, unspecified, initial encounter (principal); E10.22 Type 1 diabetes mellitus with diabetic chronic kidney disease; N18.6 End stage renal disease; Z79.899 Other long term (current) drug therapy | CPT/HCPCS: 99284 ==

== ENCOUNTER 2021-06-08 08:48 | Observation (INO) | payer MEDICARE, OTHER ==
[2021-06-08 10:11] LABS: #Basophils 0.1 thou/uL (0.0-0.2); #Eosinphils 0.2 thou/uL (0.0-0.7); #Lymphocytes 3.2 thou/uL (1.20-3.40); #Monocytes 0.4 thou/uL (0.11-0.59); #Neutrophils 4.9 thou/uL (1.40-6.50); %Basophils 0.7 % (0.0-1.0); %Eosinophils 1.9 % (0.0-10.0); %Lymphocytes 36.6 % (21.0-51.0); %Monocytes 4.9 % (0.0-10.0); %Neutrophils 55.8 % (42.0-75.0); Hemoglobin 11.6 g/dL (12.0-16.0); Mean Corpuscular HGB CONC 34.8 g/dL (32.0-36.0); Mean Corpuscular Hemoglobin 33.8 pg (27.0-31.0); Mean Corpuscular Volume 97.3 fL (78.0-98.0); Mean Platelet Volume 7.1 fL (7.4-10.4); Platelet Count 320 thou/uL (130-400); RBC Distribution Width 13.3 % (11.5-14.5); Red Blood Cell (RBC) Count 3.42 mill/uL (4.20-5.40); White Blood Cell (WBC) Count 8.8 thou/uL (4.8-10.8)
[2021-06-08] MEDS ORDERED: Nitroglycerin 2% Ointment 1 INCH/1 GM Packet ONE (10:18)
[2021-06-08] MEDS ORDERED: Aspirin Chewable 81 MG TAB ONE (10:18)
[2021-06-08 10:32] LABS: ALT (SGPT) 41 U/L (8-55); AST (SGOT) 41 U/L (5-34); Albumin 3.6 g/dL (3.5-5.0); Alkaline Phosphatase 113 U/L (40-110); Anion Gap 12 mmol/L (10-20); BUN (Urea Nitrogen) 54 mg/dL (7.0-18.7); Bilirubin, Total 0.2 mg/dL (0.2-1.2); CK (CPK) 53 U/L (29-168); Calc. Creatinine Clearance 0 mL/min (70-130); Calcium 9.3 mg/dL (7.8-10.44); Carbon Dioxide 29 mmol/L (22-29); Chloride 98 mmol/L (98-107); Globulin 3.3 g/dL (2.4-3.5); Glucose 73 mg/dL (70-105); Potassium 4.3 mmol/L (3.5-5.1); Protein, Total 6.9 g/dL (6.0-8.3); Sodium 135 mmol/L (136-145)
[2021-06-08 10:39] LABS: Phosphorus 4.3 mg/dL (2.3-4.7)
[2021-06-08 10:43] LABS: Magnesium 2.9 mg/dL (1.6-2.6)
[2021-06-08 13:08] LABS: SARS-CoV-2 NAA Rapid Test Not Detected (NotDetected)
[2021-06-08 13:17] LABS: Troponin I Less than 0.010 ng/mL (< 0.028)
[2021-06-08] MEDS ORDERED: Ondansetron PF 4 MG/2 ML Vial IVP PRN (14:50)
[2021-06-08] MEDS ORDERED: Guaifenesin DM 100-10/5 ML UDCUP PO PRN (14:50)
[2021-06-08] MEDS ORDERED: Acetaminophen 325 MG TAB PO PRN (14:50)
[2021-06-08] MEDS ORDERED: Nitroglycerin 0.4 MG TAB (25 Tab Bottle) SL PRN (14:50)
[2021-06-08] MEDS ORDERED: Ondansetron ODT 4 MG TAB PO PRN (14:50)
[2021-06-08] MEDS ORDERED: Acetaminophen 650 MG Suppository PR PRN (14:50)
[2021-06-08] MEDS ORDERED: Aspirin 325 MG TAB PO SCH (15:00)
[2021-06-08] MEDS ORDERED: Dextrose 5% in Water 1,000 ML IV PRN (15:05)
[2021-06-08] MEDS ORDERED: Dextrose 50% Abboject 50 ML SYRINGE SLOW IVP PRN (15:05)
[2021-06-08] MEDS ORDERED: HumaLOG 300 UNITS/3 ML VIAL SC PRN (15:05)
[2021-06-08 16:21] LABS: Troponin I Less than 0.010 ng/mL (< 0.028)
[2021-06-08 17:59] VITALS: BMI 28.9
[2021-06-08 19:05] LABS: HBSAg Index 0.19 S/CO (0-0.99); Hep B Surf Ag Non-Reactive S/CO (NonReactive)
[2021-06-08] MEDS: HumaLOG 300 UNITS/3 ML VIAL SC PRN (19:38)
[2021-06-09 04:42] LABS: Anion Gap 11 mmol/L (10-20); BUN (Urea Nitrogen) 22 mg/dL (7.0-18.7); Calc. Creatinine Clearance 23 mL/min (70-130); Carbon Dioxide 29 mmol/L (22-29); Cardiac Risk 3.7 (Less than 4.5); Chloride 101 mmol/L (98-107); Cholesterol 247 mg/dl (< 200 Desired); Glucose 155 mg/dL (70-105); HDL Cholesterol 66 mg/dL (>60 Neg Risk); LDL Cholesterol, Calculated 151 mg/dL; Potassium 4.6 mmol/L (3.5-5.1); Sodium 136 mmol/L (136-145); Triglycerides 148 mg/dL (Less than 150)
[2021-06-09 04:44] LABS: #Basophils 0.1 thou/uL (0.0-0.2); #Eosinphils 0.3 thou/uL (0.0-0.7); #Lymphocytes 4.2 thou/uL (1.20-3.40); #Monocytes 0.9 thou/uL (0.11-0.59); #Neutrophils 4.2 thou/uL (1.40-6.50); %Basophils 1.1 % (0.0-1.0); %Eosinophils 3.4 % (0.0-10.0); %Lymphocytes 43.3 % (21.0-51.0); %Monocytes 8.9 % (0.0-10.0); %Neutrophils 43.3 % (42.0-75.0); Hemoglobin 9.9 g/dL (12.0-16.0); Mean Corpuscular HGB CONC 33.8 g/dL (32.0-36.0); Mean Corpuscular Hemoglobin 33.1 pg (27.0-31.0); Mean Corpuscular Volume 97.9 fL (78.0-98.0); Mean Platelet Volume 8.8 fL (7.4-10.4); Platelet Count 217 thou/uL (130-400); RBC Distribution Width 13.3 % (11.5-14.5); Red Blood Cell (RBC) Count 2.98 mill/uL (4.20-5.40); White Blood Cell (WBC) Count 9.7 thou/uL (4.8-10.8)
[2021-06-09] MEDS ORDERED: Regadenoson 0.4 MG/5 ML SYRINGE ONE (08:55)
[2021-06-09] MEDS ORDERED: hydrALAZINE 20 MG/ML VIAL SLOW IVP PRN (10:14)
[2021-06-09] MEDS: Aspirin Chewable 81 MG TAB PO SCH (11:53)
[2021-06-09] MEDS ORDERED: SUCROFERRIC OXYHYDROXIDE 500 MG PO SCH (15:00)
[2021-06-09] MEDS ORDERED: Sucroferric Oxyhydroxide [Velphoro] 500 MG Tab.Chew PO SCH (15:00)
[2021-06-09] MEDS: HumaLOG 300 UNITS/3 ML VIAL SC PRN (17:31)
[2021-06-09] MEDS ORDERED: Lantus 1000 UNITS/10 ML VIAL SC SCH (21:00)
[2021-06-09] MEDS ORDERED: Non-Formulary Item 1 EACH (Insulin Glargine,Hum.Rec.Anlog [Basaglar Kwikpen U-100] 100 UN SQ SCH (21:00)
[2021-06-09] MEDS: hydrALAZINE 25 MG TAB PO SCH (21:30)
[2021-06-10 04:35] LABS: #Basophils 0.1 thou/uL (0.0-0.2); #Eosinphils 0.2 thou/uL (0.0-0.7); #Monocytes 0.9 thou/uL (0.11-0.59); #Neutrophils 5.7 thou/uL (1.40-6.50); %Basophils 0.9 % (0.0-1.0); %Eosinophils 1.9 % (0.0-10.0); %Lymphocytes 30.1 % (21.0-51.0); %Monocytes 9.1 % (0.0-10.0); Hemoglobin 10.7 g/dL (12.0-16.0); Mean Corpuscular Hemoglobin 33.6 pg (27.0-31.0); Mean Corpuscular Volume 98.7 fL (78.0-98.0); Mean Platelet Volume 6.6 fL (7.4-10.4); Platelet Count 317 thou/uL (130-400); RBC Distribution Width 13.3 % (11.5-14.5); White Blood Cell (WBC) Count 9.8 thou/uL (4.8-10.8)
[2021-06-10 04:54] LABS: Anion Gap 10 mmol/L (10-20); BUN (Urea Nitrogen) 34 mg/dL (7.0-18.7); Calc. Creatinine Clearance 16 mL/min (70-130); Calcium 9.3 mg/dL (7.8-10.44); Carbon Dioxide 33 mmol/L (22-29); Chloride 100 mmol/L (98-107); Glucose 102 mg/dL (70-105); Potassium 4.8 mmol/L (3.5-5.1); Sodium 138 mmol/L (136-145)
[2021-06-10 13:57] VITALS: TEMP 97.8
[2021-06-10] MEDS: Aspirin Chewable 81 MG TAB PO SCH (14:52)
[2021-06-10] MEDS: hydrALAZINE 25 MG TAB PO SCH ×2 (14:52→14:55)
[2021-06-10 16:00] VITALS: BP 159/74
== END 2021-06-10 17:04 | disposition home or self-care (01) ==
LOC: ERS 08:48 → ERHOLD 11:20 → 2NO 15:14
PROVIDERS: ADMIT Internal Medicine; ATTEND Hospitalist
DX: R07.89 Other chest pain (principal); I13.11 Hypertensive heart and chronic kidney disease without heart failure, with stage 5 chronic kidney disease, or end stage renal disease; E10.21 Type 1 diabetes mellitus with diabetic nephropathy; E10.22 Type 1 diabetes mellitus with diabetic chronic kidney disease; N18.6 End stage renal disease; D63.1 Anemia in chronic kidney disease; E78.5 Hyperlipidemia, unspecified; E10.319 Type 1 diabetes mellitus with unspecified diabetic retinopathy without macular edema; I08.8 Other rheumatic multiple valve diseases; Z85.528 Personal history of other malignant neoplasm of kidney; Z79.899 Other long term (current) drug therapy; Z88.5 Allergy status to narcotic agent; Z91.041 Radiographic dye allergy status; Z91.048 Other nonmedicinal substance allergy status; Z90.5 Acquired absence of kidney; Z99.2 Dependence on renal dialysis; Z20.822 Contact with and (suspected) exposure to COVID-19
CPT/HCPCS: 0240U; 36415; 36416; 71045; 78452; 80048; 80053; 80061; 82550; 83735; 83880; 84100; 84484; 85025; 87340; 90935; 93005; 93017; 93306; 94760; 96374; A9500; G0257; G0378; J0360; J1815; J2785; Q0162

== ENCOUNTER 2021-08-06 06:55 | Day surgery (SDC) | payer MEDICARE, MEDICAID ==
[2021-08-06 08:06] VITALS: BP 131/77; TEMP 98.4
[2021-08-06] MEDS ORDERED: Heparin 1,000 UNITS/ML VIAL ONE (14:09)
== END 2021-08-06 10:05 | disposition home or self-care (01) ==
LOC: SPEC 06:55
PROVIDERS: ATTEND Specialist
PROC: B51W1ZZ Fluoroscopy of Dialysis Shunt/Fistula using Low Osmolar Contrast (ICD-10-PCS; principal; 2021-08-06)
DX: T82.510A Breakdown (mechanical) of surgically created arteriovenous fistula, initial encounter (principal); N18.6 End stage renal disease; Z79.4 Long term (current) use of insulin; Z79.899 Other long term (current) drug therapy; Z88.5 Allergy status to narcotic agent; Z91.041 Radiographic dye allergy status; Z98.890 Other specified postprocedural states; Z99.2 Dependence on renal dialysis
CPT/HCPCS: 36901; J1644

== ENCOUNTER 2021-08-13 16:37 | Outpatient (CLI) | payer MEDICARE, MEDICAID ==
[2021-08-14 00:50] LABS: SARS-CoV-2 PCR by NAA Not Detected (NotDetected)
== END 2021-08-13 16:38 | disposition home or self-care (01) ==
LOC: LABBT 16:37
PROVIDERS: ATTEND Specialist
DX: Z01.812 Encounter for preprocedural laboratory examination (principal); Z20.822 Contact with and (suspected) exposure to COVID-19
CPT/HCPCS: U0003; U0005

== ENCOUNTER 2021-08-18 08:32 | Day surgery (SDC) | payer MEDICARE, MEDICAID ==
[2021-08-17 10:33] VITALS: BMI 29.2
[2021-08-18] MEDS ORDERED: Acetaminophen 500 MG TAB ONE (09:38)
[2021-08-18] MEDS ORDERED: ceFAZolin 2 GM/DEX 5% 100 ML BAG ONE (09:38)
[2021-08-18 09:59] LABS: #Basophils 0.1 thou/uL (0.0-0.2); #Eosinphils 0.2 thou/uL (0.0-0.7); #Lymphocytes 3.1 thou/uL (1.20-3.40); #Monocytes 0.8 thou/uL (0.11-0.59); #Neutrophils 5.1 thou/uL (1.40-6.50); %Basophils 0.9 % (0.0-1.0); %Lymphocytes 33.3 % (21.0-51.0); %Monocytes 8.1 % (0.0-10.0); %Neutrophils 55.8 % (42.0-75.0); Hemoglobin 11.7 g/dL (12.0-16.0); Mean Corpuscular HGB CONC 33.1 g/dL (32.0-36.0); Mean Platelet Volume 6.5 fL (7.4-10.4); Platelet Count 324 thou/uL (130-400); RBC Distribution Width 12.8 % (11.5-14.5); Red Blood Cell (RBC) Count 3.45 mill/uL (4.20-5.40); White Blood Cell (WBC) Count 9.2 thou/uL (4.8-10.8)
[2021-08-18 10:28] LABS: Anion Gap 13 mmol/L (10-20); BUN (Urea Nitrogen) 30 mg/dL (7.0-18.7); Calc. Creatinine Clearance 16 mL/min (70-130); Calcium 9.2 mg/dL (7.8-10.44); Carbon Dioxide 30 mmol/L (22-29); Chloride 99 mmol/L (98-107); Glucose 85 mg/dL (70-105); Potassium 4.6 mmol/L (3.5-5.1); Sodium 137 mmol/L (136-145)
[2021-08-18] MEDS ORDERED: Bupivacaine 0.25% HCL 30 ML VIAL ONE (13:31)
[2021-08-18] MEDS ORDERED: Heparin 5,000 UNITS/ML VIAL ONE (13:31)
[2021-08-18] MEDS ORDERED: Protamine Sulfate 50 MG/5 ML VIAL ONE (13:31)
[2021-08-18] MEDS ORDERED: Lidocaine 1% w/Epinephrine 1:100K 20 ML VIAL ONE (13:31)
[2021-08-18] MEDS ORDERED: Dextrose 50% Abboject 50 ML SYRINGE ONE (13:48)
[2021-08-18] MEDS ORDERED: Propofol 500 MG/50 ML VIAL ONE (13:49)
[2021-08-18] MEDS ORDERED: Fentanyl 100 MCG/2 ML VIAL ONE ×2 (13:49→15:06)
[2021-08-18] MEDS ORDERED: Lidocaine 1% PF 5 ML VIAL ONE (13:57)
[2021-08-18] MEDS ORDERED: ePHEDrine 50 MG/ML VIAL ONE (13:57)
[2021-08-18] MEDS ORDERED: Metoclopramide HCl 10 MG/2 ML VIAL ONE (13:57)
[2021-08-18] MEDS ORDERED: Ondansetron PF 4 MG/2 ML Vial ONE ×2 (13:57→16:13)
[2021-08-18] MEDS ORDERED: Dexamethasone 20 MG/5 ML VIAL ONE (13:57)
[2021-08-18] MEDS ORDERED: PROPOFOL 200 MG/20 ML VIAL ONE (13:57)
[2021-08-18] MEDS ORDERED: Famotidine/PF 20 mg/2ml Vial ONE (14:02)
[2021-08-18] MEDS ORDERED: Promethazine HCl 25 MG/ML VIAL ONE (17:10)
[2021-08-18] MEDS ORDERED: Heparin 1,000 UNITS/ML VIAL ONE ×2 (17:40→18:18)
[2021-08-18] MEDS ORDERED: HYDROcodone/Acetaminophen 5/325 mg Tablet ONE (17:59)
== END 2021-08-18 18:44 | disposition home or self-care (01) ==
LOC: SDC 08:32
PROVIDERS: ATTEND Specialist
PROC: 03LY0CZ Occlusion of Upper Artery with Extraluminal Device, Open Approach (ICD-10-PCS; principal; 2021-08-18)
DX: T82.590A Other mechanical complication of surgically created arteriovenous fistula, initial encounter (principal); E11.22 Type 2 diabetes mellitus with diabetic chronic kidney disease; N18.6 End stage renal disease; T85.611A Breakdown (mechanical) of intraperitoneal dialysis catheter, initial encounter; Z87.891 Personal history of nicotine dependence; Z79.4 Long term (current) use of insulin; Z79.899 Other long term (current) drug therapy; Z88.5 Allergy status to narcotic agent; Z91.041 Radiographic dye allergy status; Z90.5 Acquired absence of kidney; Z99.2 Dependence on renal dialysis; Y81.1 Therapeutic (nonsurgical) and rehabilitative general- and plastic-surgery devices associated with adverse incidents
CPT/HCPCS: 36415; 36416; 76000; 80048; 85025; J1100; J1644; J2405; J2550; J2704; J2720; J2765; J3010; J3490; S0020; S0028

== ENCOUNTER 2021-09-18 11:30 | Emergency (ER) | payer MEDICARE, MEDICAID | END 2021-09-18 12:50 | disposition home or self-care (01) | LOC: ERS 11:30 | DX: N18.6 End stage renal disease (principal); E10.22 Type 1 diabetes mellitus with diabetic chronic kidney disease; Z79.899 Other long term (current) drug therapy | CPT/HCPCS: 71045 ==

== ENCOUNTER 2021-12-14 15:43 | Emergency (ER) | payer MEDICARE, OTHER, MEDICAID ==
[2021-12-14 17:08] LABS: #Basophils 0.1 thou/uL (0.0-0.2); #Eosinphils 0.3 thou/uL (0.0-0.7); #Monocytes 0.5 thou/uL (0.11-0.59); %Basophils 1.6 % (0.0-1.0); %Eosinophils 3.3 % (0.0-10.0); %Lymphocytes 38.2 % (21.0-51.0); %Monocytes 6.1 % (0.0-10.0); %Neutrophils 50.8 % (42.0-75.0); Mean Corpuscular HGB CONC 32.8 g/dL (32.0-36.0); Mean Corpuscular Hemoglobin 34.7 pg (27.0-31.0); Mean Platelet Volume 6.3 fL (7.4-10.4); Platelet Count 329 thou/uL (130-400); RBC Distribution Width 13.2 % (11.5-14.5); Red Blood Cell (RBC) Count 3.45 mill/uL (4.20-5.40); White Blood Cell (WBC) Count 7.9 thou/uL (4.8-10.8)
[2021-12-14 17:27] LABS: MDiff Complete? YES
[2021-12-14 17:28] LABS: Macrocytosis SLIGHT = 6-15 cells (100X) (0-5/hpf); Platelet Morphology Comment Appears Adequate
[2021-12-14 17:52] LABS: ALT (SGPT) 11 U/L (8-55); AST (SGOT) 13 U/L (5-34); Alkaline Phosphatase 95 U/L (40-110); Anion Gap 15 mmol/L (10-20); BUN (Urea Nitrogen) 16 mg/dL (7.0-18.7); Bilirubin, Total 0.4 mg/dL (0.2-1.2); Calc. Creatinine Clearance 0 mL/min (70-130); Calcium 9.5 mg/dL (7.8-10.44); Carbon Dioxide 29 mmol/L (22-29); Chloride 97 mmol/L (98-107); Globulin 3.3 g/dL (2.4-3.5); Glucose 188 mg/dL (70-105); Potassium 3.7 mmol/L (3.5-5.1); Protein, Total 7.3 g/dL (6.0-8.3); Sodium 137 mmol/L (136-145)
== END 2021-12-14 20:32 | disposition home or self-care (01) ==
LOC: ERS 15:43
DX: R60.0 Localized edema (principal)
CPT/HCPCS: 36415; 80053; 85025

== ENCOUNTER 2022-01-22 10:58 | Emergency (ER) | payer MEDICARE, MEDICAID ==
[2022-01-22 13:25] LABS: SARS-CoV-2 NAA Rapid Test Not Detected (NotDetected)
== END 2022-01-22 13:47 | disposition home or self-care (01) ==
LOC: ERS 10:58
DX: J10.1 Influenza due to other identified influenza virus with other respiratory manifestations (principal); Z20.822 Contact with and (suspected) exposure to COVID-19; E11.22 Type 2 diabetes mellitus with diabetic chronic kidney disease; N18.6 End stage renal disease; Z85.528 Personal history of other malignant neoplasm of kidney; Z79.4 Long term (current) use of insulin; Z79.899 Other long term (current) drug therapy
CPT/HCPCS: 0240U; 99283

== ENCOUNTER 2022-02-17 08:25 | Outpatient (CLI) | payer MEDICARE, MEDICAID | END 2022-02-17 08:26 | disposition home or self-care (01) | LOC: MRI 08:25 | PROVIDERS: ATTEND Physician Assistant Medical | DX: R93.2 Abnormal findings on diagnostic imaging of liver and biliary tract (principal); R11.2 Nausea with vomiting, unspecified; Z93.3 Colostomy status | CPT/HCPCS: 74183 ==

== ENCOUNTER 2023-02-07 13:24 | Emergency (ER) | payer MEDICARE, OTHER ==
[2023-02-07 14:43] LABS: #Basophils 0.1 thou/uL (0.0-0.2); #Eosinphils 0.2 thou/uL (0.0-0.7); #Lymphocytes 1.7 thou/uL (1.20-3.40); #Monocytes 0.6 thou/uL (0.11-0.59); #Neutrophils 2.2 thou/uL (1.40-6.50); %Basophils 2.2 % (0.0-1.0); %Eosinophils 3.4 % (0.0-10.0); %Lymphocytes 36.2 % (21.0-51.0); %Monocytes 11.7 % (0.0-10.0); %Neutrophils 46.5 % (42.0-75.0); Hemoglobin 12.3 g/dL (12.0-16.0); Mean Corpuscular Hemoglobin 34.3 pg (27.0-31.0); Mean Platelet Volume 7.7 fL (7.4-10.4); Platelet Count 166 10x3/uL (130-400); RBC Distribution Width 14.4 % (11.5-14.5); Red Blood Cell (RBC) Count 3.59 mill/uL (4.20-5.40); White Blood Cell (WBC) Count 4.8 10x3/uL (4.8-10.8)
[2023-02-07 15:08] LABS: ALT (SGPT) 20 U/L (8-55); AST (SGOT) 21 U/L (5-34); Albumin 4.5 g/dL (3.5-5.0); Alkaline Phosphatase 135 U/L (40-110); Anion Gap 14 mmol/L (10-20); BUN (Urea Nitrogen) 19 mg/dL (7.0-18.7); Bilirubin, Total 0.6 mg/dL (0.2-1.2); Calc. Creatinine Clearance 0 mL/min (70-130); Calcium 9.5 mg/dL (7.8-10.44); Carbon Dioxide 33 mmol/L (22-29); Chloride 95 mmol/L (98-107); Estimated GFR 13; Globulin 2.7 g/dL (2.4-3.5); Glucose 165 mg/dL (70-105); Potassium 4.3 mmol/L (3.5-5.1); Protein, Total 7.2 g/dL (6.0-8.3); Sodium 138 mmol/L (136-145)
[2023-02-07 15:09] LABS: Magnesium 2.3 mg/dL (1.6-2.6)
[2023-02-07 17:09] LABS: Bacteria/HPF None Seen HPF (None Seen); Bilirubin Negative (Negative); Blood, Urine Negative (Negative); Clarity Clear (Clear); Glucose, Urine (Dipstick) 200 mg/dL (Negative); Ketone, Urine Negative (Negative); Leukocyte Negative Leu/uL (Negative); Nitrite Negative (Negative); Protein, Urine (Dipstick) Greater than 600 mg/dL (Neg-Trace); RBC/HPF 0-3 HPF (0-3); Specific Gravity, Urine 1.021 (1.002-1.036); Squamous Epithelial 0-3 HPF (0-3); Urobilinogen Normal mg/dL (Less than 2); WBC/HPF 0-3 HPF (0-3); pH, Urine 8.5 (5.0-9.0)
[2023-02-07] MEDS ORDERED: LORazepam 2 MG/ML SYR.(CARPUJECT) ONE (17:40)
== END 2023-02-07 18:15 | disposition home or self-care (01) ==
LOC: ERS 13:24
DX: E11.22 Type 2 diabetes mellitus with diabetic chronic kidney disease (principal); N18.6 End stage renal disease; E87.70 Fluid overload, unspecified; Z79.4 Long term (current) use of insulin
CPT/HCPCS: 70450; 71045; 80053; 82553; 83735; 83880; 84484; 85025; 87086; 93005; J2060; 36415; 81003; 81015; 96372

== ENCOUNTER 2023-05-26 11:50 | Outpatient (CLI) | payer MEDICARE, MEDICAID | END 2023-05-26 11:51 | disposition home or self-care (01) | LOC: BICMAMMO 11:50 | PROVIDERS: ATTEND Family Medicine | DX: Z12.31 Encounter for screening mammogram for malignant neoplasm of breast (principal); Z85.528 Personal history of other malignant neoplasm of kidney | CPT/HCPCS: 77063; 77067 ==

== ENCOUNTER 2023-06-29 08:07 | Outpatient (CLI) | payer MEDICARE, OTHER | END 2023-06-29 08:08 | disposition home or self-care (01) | LOC: RAD 08:07 | PROVIDERS: ATTEND Internal Medicine Critical Care Medicine | DX: R06.00 Dyspnea, unspecified (principal); R91.8 Other nonspecific abnormal finding of lung field | CPT/HCPCS: 71046 ==

== ENCOUNTER 2024-07-30 09:49 | Outpatient (CLI) | payer MEDICARE | END 2024-07-30 09:50 | disposition home or self-care (01) | LOC: BICMAMMO 09:49 | PROVIDERS: ATTEND Family Medicine | DX: Z12.31 Encounter for screening mammogram for malignant neoplasm of breast (principal); Z85.528 Personal history of other malignant neoplasm of kidney | CPT/HCPCS: 77063; 77067 ==

== ENCOUNTER 2024-08-31 19:57 | Emergency (ER) | payer MEDICARE ==
[2024-08-31] MEDS ORDERED: HYDROcodone/Acetaminophen 5/325 mg Tablet ONE (21:27)
[2024-08-31] MEDS ORDERED: Morphine 4 MG/ML VIAL ONE (22:13)
== END 2024-08-31 23:01 | disposition home or self-care (01) ==
LOC: ERS 19:57
DX: S92.311A Displaced fracture of first metatarsal bone, right foot, initial encounter for closed fracture (principal); S92.321A Displaced fracture of second metatarsal bone, right foot, initial encounter for closed fracture; S92.221A Displaced fracture of lateral cuneiform of right foot, initial encounter for closed fracture; E11.22 Type 2 diabetes mellitus with diabetic chronic kidney disease; N18.6 End stage renal disease; X50.1XXA Overexertion from prolonged static or awkward postures, initial encounter
CPT/HCPCS: 73610; 73630; J2272; 29515; 96372